=== PATIENT | female | born 1975 | race Caucasian/White ===

== ENCOUNTER → 2019-12-17 14:50 | Outpatient (CLI) | payer OTHER, SELFPAY ==
[2019-12-19 14:08] LABS: Cancer Antigen 125 14.2 U/mL (0.0-38.1)
== END ==
PROVIDERS: PCP Family Medicine; Visit Provider Obstetrics & Gynecology
DX: N83.202 Unspecified ovarian cyst, left side (principal); N99.83 Residual ovary syndrome
CPT/HCPCS: 36415; 86304

== ENCOUNTER → 2020-06-09 09:20 | Outpatient (CLI) | payer OTHER, SELFPAY ==
--- NOTE | 2020-06-09 09:24 | BI_ITS ---
MAMMOGRAPHY - BILATERAL DIAGNOSTIC REASON FOR EXAM: Female, 45 years old. Occasional right breast pain. PERTINENT HISTORY: Non-contributory. History of prior bilateral breast reduction surgery. TECHNIQUE: Digital bilateral breast deven (3D mammographic acquisition) in the CC and MLO projections. 2-D mediolateral oblique (MLO) and craniocaudad (CC) views of both breasts were obtained. CAD: Full Field Digital Mammography with Computer Added Detection was performed. COMPARISON: Comparison is made with prior outside examination dated 07/26/2018. FINDINGS: Breast Composition: There are scattered areas of fibroglandular density. There are no dominant masses or suspicious calcifications. No other significant abnormalities are identified. There has been no significant change since the prior study. BI/DIAG MAMM W/CAD, BILAT IMPRESSION: Stable bilateral diagnostic mammogram. With the patient''s history of left breast pain, correlation with ultrasound of the left breast is recommended. ASSESSMENT CATEGORY: BIRADS Category 0: Incomplete. Need additional imaging evaluation. A letter regarding these results will be sent to the patient by the facility within 30 days. Approximately 10% of breast cancers are not detected by mammography. A normal mammogram should not delay biopsy of a clinically suspicious abnormality. Electronically Signed: Craig Davidson, at 11:14 EDT , Service support ,
--- NOTE | 2020-06-09 09:24 | US_ITS ---
STUDY: ULTRASOUND BREAST - RIGHT REASON FOR EXAM: Female, 45 years old. Pain in the right breast. TECHNIQUE: Axial and longitudinal images of the RIGHT breast were performed with a high resolution ultrasound transducer. # OF IMAGES: 47 COMPARISON: Comparison is made with prior mammogram done earlier in the day. FINDINGS: RIGHT Breast: The upper half of the right breast was examined by ultrasound. No sonographic abnormality is seen. US/Breast Limited Unilateral IMPRESSION: No sonographic abnormality is seen. ASSESSMENT CATEGORY: BIRADS Category 1: Negative. A letter regarding these results will be sent to the patient by the facility within 30 days. Electronically Signed: Craig Davidson, at 11:18 EDT , Service support ,
== END ==
PROVIDERS: PCP Family Medicine; Referring Provider Nurse Practitioner Family; Visit Provider Nurse Practitioner Family
DX: N64.4 Mastodynia (principal)
CPT/HCPCS: 76642; 77062; 77066; G0279

== ENCOUNTER 2020-07-01 10:05 | Outpatient (RCR) | payer OTHER, SELFPAY | END 2020-07-01 11:00 | disposition home or self-care (01) | LOC: EMPH 10:05 | PROVIDERS: PCP Family Medicine; Visit Provider Family Medicine Geriatric Medicine | DX: Z11.59 Encounter for screening for other viral diseases (principal) | CPT/HCPCS: 87635; U0003 ==

== ENCOUNTER → 2020-11-02 14:09 | Outpatient (CLI) | payer OTHER, SELFPAY ==
--- NOTE | 2020-11-02 14:11 | RAD_ITS ---
STUDY: X-RAY - CERVICAL SPINE REASON FOR EXAM: Female, 45 years old. Injury 2 weeks ago. Unable to extend to flex or. TECHNIQUE: 5 view(s) of the cervical spine were obtained. COMPARISON: None FINDINGS: Normal anterior atlantoaxial articulation. Normal odontoid process. There is reversal of the normal cervical lordosis. Normal vertebral bodies and endplates. Normal disc space heights. Normal visualized intervertebral neuroforamina. The soft tissue structures are unremarkable. RAD/Cerv Spine 4 or 5 Views IMPRESSION: Reversal of the cervical lordosis most likely due to muscular strain. There is no visualized fracture or subluxation. Electronically Signed: Dandre Thomas DO at 23:23 EST Tel [phone], Service support ,
== END ==
PROVIDERS: PCP Family Medicine; Referring Provider Family Medicine; Visit Provider Family Medicine
DX: M50.10 Cervical disc disorder with radiculopathy, unspecified cervical region (principal)
CPT/HCPCS: 72050

== ENCOUNTER 2020-11-13 14:10 | Outpatient (RCR) | payer OTHER, SELFPAY | END 2020-11-15 23:59 | LOC: EMPH 14:10 | PROVIDERS: PCP Family Medicine; Visit Provider Family Medicine Geriatric Medicine | DX: Z03.818 Encounter for observation for suspected exposure to other biological agents ruled out (principal) | CPT/HCPCS: 87426 ==

== ENCOUNTER → 2020-11-18 07:18 | Outpatient (CLI) | payer OTHER, SELFPAY ==
--- NOTE | 2020-11-18 07:38 | MRI_ITS ---
STUDY: MRI CERVICAL SPINE WITH AND WITHOUT CONTRAST REASON FOR EXAM: Female, 45 years old. PT C/O RT ARM/HAND SHOOTING PAINS AFTER LAYING GABRIEL 3 WEEKS AGO TECHNIQUE: Standardized fat and water weighted pulse sequences were obtained in the sagittal and axial following administration of IV 15 cc dotarem. COMPARISON: X-ray 11/02/2020 FINDINGS: Normal foramen magnum and brainstem-cervical cord junction. Normal craniovertebral junction. Normal anterior atlantoaxial articulation. Normal odontoid process. There is straightening of the normal cervical lordosis. Normal vertebral bodies and posterior osseous elements. C2-3: Normal endplates. Normal disc height, signal and morphology. Normal central canal and intervertebral neural foramina. C3-4: Normal endplates. Normal disc height, signal and morphology. Normal central canal and intervertebral neural foramina. C4-5: Normal endplates. Normal disc height, signal and morphology. Normal central canal and intervertebral neural foramina. C5-6: Moderate broad disc osteophyte complex produces severe spinal stenosis with effacement of the central spinal cord and no surrounding CSF. Mild bilateral neural foraminal stenosis. C6-7: Moderate sized (5 mm) right paracentral and preforaminal the disc protrusion produces moderate spinal stenosis with abutment of the right hemicord, severe right lateral recess stenosis with effacement of the right C7 nerve root and moderate right neural foraminal stenosis. C7-T1: Normal endplates. Normal disc height, signal and morphology. Normal central canal and intervertebral neural foramina. Normal cervical cord. No abnormal contrast enhancement. Normal visualized soft tissue structures. MRI/Spine Cervical W/WO Contrast IMPRESSION: Multilevel degenerative changes, as described above. Electronically Signed: Fernando Rubio MD at 10:35 EST Tel , Service support ,
== END ==
PROVIDERS: PCP Family Medicine; Referring Provider Anesthesiology Pain Medicine; Visit Provider Anesthesiology Pain Medicine
DX: M54.2 Cervicalgia (principal); R29.898 Other symptoms and signs involving the musculoskeletal system
CPT/HCPCS: 72156; A9575

== ENCOUNTER 2020-12-11 14:48 | Outpatient (RCR) | payer OTHER, SELFPAY | END 2020-12-13 23:59 | LOC: EMPH 14:48 | PROVIDERS: PCP Family Medicine; Referring Provider Family Medicine Geriatric Medicine; Visit Provider Family Medicine Geriatric Medicine | DX: Z03.818 Encounter for observation for suspected exposure to other biological agents ruled out (principal) | CPT/HCPCS: 87426 ==

== ENCOUNTER → 2020-12-29 07:57 | Outpatient (CLI) | payer OTHER, SELFPAY ==
[2020-12-29 09:53] LABS: Hemoglobin A1c 5.1 % (3.8-5.6)
[2020-12-29 10:18] LABS: Anion Gap 7 (5-15); BUN 21 mg/dL (7-18); BUN/Creat Ratio 22.6 RATIO (10-20); Calcium,Total 9.6 mg/dL (8.5-10.1); Chloride 106 mmol/L (98-107); Cholesterol 159 mg/dL (200); Creatinine, Serum 0.93 mg/dL (0.55-1.02); EST Glomerular Filtration Rate 69 mL/min (>60); Est Glom Filt Rate - Afr Amer 83 mL/min (>60); Glucose 88 mg/dL (74-106); High Density Lipoprotein 30 mg/dL; Potassium 3.9 mmol/L (3.5-5.1); Sodium Level 141 mmol/L (136-145); Triglycerides 93 mg/dL; Very Low Density Lipoprotein 19 mg/dL (5-40)
== END ==
PROVIDERS: PCP Nurse Practitioner Primary Care; Referring Provider Nurse Practitioner Primary Care; Visit Provider Nurse Practitioner Primary Care
DX: E78.2 Mixed hyperlipidemia (principal); I10 Essential (primary) hypertension; R73.09 Other abnormal glucose
CPT/HCPCS: 36415; 80048; 80061; 83036

== ENCOUNTER 2021-01-06 09:38 | Outpatient (RCR) | payer OTHER, SELFPAY | END 2021-01-13 23:59 | LOC: EMPH 09:38 | PROVIDERS: PCP Family Medicine; Referring Provider Family Medicine Geriatric Medicine; Visit Provider Family Medicine Geriatric Medicine | DX: Z03.818 Encounter for observation for suspected exposure to other biological agents ruled out (principal) | CPT/HCPCS: 87426 ==

== ENCOUNTER 2021-02-12 13:54 | Outpatient (RCR) | payer OTHER, SELFPAY | END 2021-02-12 23:59 | LOC: EMPH 13:54 | PROVIDERS: PCP Nurse Practitioner Primary Care; Referring Provider Family Medicine Geriatric Medicine; Visit Provider Family Medicine Geriatric Medicine | DX: Z03.818 Encounter for observation for suspected exposure to other biological agents ruled out (principal) | CPT/HCPCS: 87426 ==

== ENCOUNTER 2021-03-12 08:53 | Outpatient (RCR) | payer OTHER, SELFPAY | END 2021-03-15 23:59 | LOC: EMPH 08:53 | PROVIDERS: PCP Nurse Practitioner Primary Care; Referring Provider Family Medicine Geriatric Medicine; Visit Provider Family Medicine Geriatric Medicine | DX: Z03.818 Encounter for observation for suspected exposure to other biological agents ruled out (principal) | CPT/HCPCS: 87426 ==

== ENCOUNTER 2021-04-13 11:29 | Outpatient (RCR) | payer OTHER, SELFPAY | END 2021-04-14 23:59 | LOC: EMPH 11:29 | PROVIDERS: PCP Nurse Practitioner Primary Care; Referring Provider Family Medicine Geriatric Medicine; Visit Provider Family Medicine Geriatric Medicine | DX: Z03.818 Encounter for observation for suspected exposure to other biological agents ruled out (principal) | CPT/HCPCS: 87426 ==

== ENCOUNTER 2021-04-29 13:22 | Outpatient (RCR) | payer OTHER, SELFPAY | END 2021-05-15 23:59 | LOC: EMPH 13:22 | PROVIDERS: PCP Family Medicine; Referring Provider Family Medicine Geriatric Medicine; Visit Provider Family Medicine Geriatric Medicine | DX: Z03.818 Encounter for observation for suspected exposure to other biological agents ruled out (principal) | CPT/HCPCS: 87426 ==

== ENCOUNTER → 2021-05-11 12:28 | Outpatient (CLI) | payer OTHER, SELFPAY ==
[2021-05-11 13:01] LABS: Hematocrit 43.4 % (37-47); Hemoglobin 14.6 g/dL (12.0-15.0); Mean Corp Hgb Conc 33.6 g/dL (32-36); Mean Corpuscular Hgb 28.6 pg (27.0-32.0); Mean Corpuscular Volume 85.1 fL (81-99); Mean Platelet Vol. 10.7 fl (6.2-12.0); Platelet Count 226 K/mm3 (150-450); RBC Distribution Width CV 13.3 % (11.6-14.6); RBC Distribution Width SD 41.4 fl (35.1-43.9); White Blood Count 5.1 K/mm3 (4.4-11.0)
[2021-05-11 13:35] LABS: Vitamin D,25 Hydroxy 55.1 ng/mL
[2021-05-11 14:19] LABS: Ferritin 160 ng/mL (8-252); Iron 97 ug/dL (50-170); Iron Binding Capacity,Total 295 ug/dL (250-450); Thyroid Stim Hormone (TSH) 1.89 uIU/mL (0.358-3.74)
== END ==
PROVIDERS: PCP Family Medicine; Referring Provider Nurse Practitioner Primary Care; Visit Provider Nurse Practitioner Primary Care
DX: L65.9 Nonscarring hair loss, unspecified (principal); R68.89 Other general symptoms and signs; R53.83 Other fatigue
CPT/HCPCS: 36415; 82306; 82728; 82746; 83540; 83550; 84443; 85027

== ENCOUNTER → 2021-06-11 17:37 | Outpatient (CLI) | payer OTHER, SELFPAY ==
--- NOTE | 2021-06-11 17:55 | MRI_ITS ---
STUDY: MRI CERVICAL SPINE WITH CONTRAST REASON FOR EXAM: Female, 46 years old. PAIN TECHNIQUE: Standardized fat and water weighted pulse sequences were obtained in the sagittal and axial following administration of . COMPARISON: 18 November 2020 FINDINGS: Appearance is stable since prior. Normal foramen magnum and brainstem-cervical cord junction. Normal craniovertebral junction. Normal anterior atlantoaxial articulation. Normal odontoid process. Normal cervical lordosis. Normal vertebral bodies and posterior osseous elements. C2-3: Normal endplates. Normal disc height, signal and morphology. Normal central canal and intervertebral neural foramina. C3-4: Normal endplates. Normal disc height, signal and morphology. Normal central canal and intervertebral neural foramina. C4-5: Normal endplates. Normal disc height, signal and morphology. Normal central canal and intervertebral neural foramina. C5-6: Normal endplates. There is broad asymmetric to the right disc and plate osteophyte with a more focal central disc protrusion moderately compressing the cord. Foramina are patent. C6-7: Normal endplates. Right subarticular disc endplate osteophyte mildly compresses the right cord. Foramina are patent. C7-T1: Normal endplates. Normal disc height, signal and morphology. Normal central canal and intervertebral neural foramina. Spinal cord is normal in size and signal with flattening of the compressing levels. Normal visualized soft tissue structures. MRI/Spine Cervical (Routine) IMPRESSION: 1. Stable since earlier same year. 2. Spondylosis with moderate C5-C6, mild C6-C7 cord compression. Electronically Signed: Wu Rivera MD at 21:08 EDT Tel , Service support ,
== END ==
PROVIDERS: PCP Family Medicine; Referring Provider Orthopaedic Surgery; Visit Provider Orthopaedic Surgery
DX: M50.20 Other cervical disc displacement, unspecified cervical region (principal)
CPT/HCPCS: 72141

== ENCOUNTER 2021-06-15 12:28 | Outpatient (RCR) | payer OTHER, SELFPAY | END 2021-06-15 23:59 | LOC: EMPH 12:28 | PROVIDERS: PCP Family Medicine; Referring Provider Family Medicine Geriatric Medicine; Visit Provider Family Medicine Geriatric Medicine | DX: Z03.818 Encounter for observation for suspected exposure to other biological agents ruled out (principal) | CPT/HCPCS: 87426 ==

== ENCOUNTER 2021-06-28 09:44 | Outpatient (RCR) | payer OTHER, SELFPAY | END 2021-07-15 23:59 | LOC: EMPH 09:44 | PROVIDERS: PCP Family Medicine; Referring Provider Family Medicine Geriatric Medicine; Visit Provider Family Medicine Geriatric Medicine | DX: Z03.818 Encounter for observation for suspected exposure to other biological agents ruled out (principal) | CPT/HCPCS: 87426 ==

== ENCOUNTER 2021-08-23 09:37 | Outpatient (RCR) | payer OTHER, SELFPAY | END 2021-09-14 23:59 | LOC: EMPH 09:37 | PROVIDERS: PCP Family Medicine; Referring Provider Family Medicine Geriatric Medicine; Visit Provider Family Medicine Geriatric Medicine | DX: Z03.818 Encounter for observation for suspected exposure to other biological agents ruled out (principal) | CPT/HCPCS: 87426 ==

== ENCOUNTER → 2021-08-25 08:45 | Outpatient (CLI) | payer OTHER, SELFPAY ==
--- NOTE | 2021-08-25 08:49 | RAD_ITS ---
STUDY: X-RAY - RIGHT KNEE REASON FOR EXAM: Female, 46 years old. Knee pain for several months TECHNIQUE: 2 view(s) of the knee. COMPARISON: None. FINDINGS: Normal visualized distal femur. Normal visualized proximal tibia and fibula. Normal proximal tibiofibular articulation. There is mild degenerative arthrosis of the medial femorotibial compartment. Normal lateral femorotibial compartment. Normal patellofemoral articulation. There is no demonstrated joint effusion. The soft tissue structures are unremarkable. RAD/Knee 1 or 2 Views IMPRESSION: Mild degenerative arthrosis of the medial compartment. Electronically Signed: Charly Banda MD ([place]) at 9:14 EST , Service support ,
--- NOTE | 2021-08-25 08:55 | RAD_ITS ---
STUDY: X-RAY - LEFT KNEE REASON FOR EXAM: Female, 46 years old. Knee pain for several months TECHNIQUE: 2 view(s) of the knee. COMPARISON: None. FINDINGS: Normal visualized distal femur. Normal visualized proximal tibia and fibula. Normal proximal tibiofibular articulation. Normal medial femorotibial compartment. Normal lateral femorotibial compartment. Normal patellofemoral articulation. There is no demonstrated joint effusion. The soft tissue structures are unremarkable. RAD/Knee 1 or 2 Views IMPRESSION: Normal x-ray examination of the knee. Electronically Signed: Charly Banda MD ([place]) at 9:14 EST , Service support ,
== END ==
PROVIDERS: PCP Family Medicine
DX: M17.11 Unilateral primary osteoarthritis, right knee (principal); M25.562 Pain in left knee
CPT/HCPCS: 73560

== ENCOUNTER 2021-09-06 10:06 | Emergency (ER) | payer OTHER, SELFPAY ==
[2021-09-06 10:06] VITALS: BP 148/106; PULSE 103; RESP 16; TEMP 36.4; O2SAT 100; BMI 25.7
--- NOTE | 2021-09-06 10:35 | CT_ITS ---
STUDY: CTA HEAD AND NECK WITH CONTRAST REASON FOR EXAM: Female, 46 years old. vertigo, headaches, recent c-spine surgery RADIATION DOSAGE (If Supplied By Facility): CTDIvol = ( 27.51 ) mGy, DLP = ( 1375.87 ) mGycm TECHNIQUE: CT angiography was performed with a multi-detector CT scanner. Data acquisition was obtained from the skull base through the vertex following intravenous administration of IV 100mL Isovue-370. MIP images were reconstructed from the axial data set. Post-processing of the angiographic images was performed, with multiplanar reformation and 3D reconstruction. Individualized dose optimization techniques were used for this CT. COMPARISON: No relevant priors. FINDINGS: Normal right cavernous carotid artery with a normal supraclinoid bifurcation. Normal left cavernous carotid artery with a normal supraclinoid bifurcation. Normal right A1 segments of the anterior cerebral artery. Normal left A1 segments of the anterior cerebral artery. Normal bilateral A2 segments of the anterior cerebral arteries. Normal right M1 and M2 segments of the middle cerebral arteries, with a normal M1 bifurcation. Normal left M1 and M2 segments of the middle cerebral arteries, with a normal M1 bifurcation. Normal right posterior communicating artery (PCOM). Normal left posterior communicating artery (PCOM). Normal basilar artery with a normal basilar bifurcation. The visualized bilateral superior cerebellar (SCA) arteries are normal. Normal bilateral posterior cerebral arteries. AORTIC ARCH: Examination is degraded by motion artifact. Normal visualized aortic arch. RIGHT CAROTID ARTERIES: Normal right common carotid artery (CCA). Normal origin of the right internal carotid (ICA) artery without a hemodynamically significant stenosis. Normal visualized cervical portion of the right internal carotid artery. LEFT CAROTID ARTERIES: Normal left common carotid artery (CCA). Normal origin of the left internal carotid (ICA) artery without a hemodynamically significant stenosis. Normal visualized cervical portion of the left internal carotid artery. VERTEBRAL ARTERIES: Normal bilateral vertebral arteries. STUDY: CT BRAIN WITHOUT CONTRAST Normal size ventricles and extra-axial spaces for the patient''s age. Normal white matter tracts of the cerebral hemispheres. There is no intracranial hemorrhage. There are no findings of an acute ischemic infarction. There are disc spacers at C5/C6 and C6/C7. There are foci of air and small fluid collection involving superficial and deep neck tracking down to the left prevertebral space and most prominent posterior to the thyroid and anterior to the left carotid space . This fluid collection measures approximately 2.0 x 1.[address]/CTA Head AND Neck W/ Contrast IMPRESSION: CT of the head: No large vessel occlusion. CT of neck: No demonstrated occlusion or significant stenosis. Status post instrumented anterior fusion. 3 cm deep left neck fluid collection. Differential considerations include hematoma, seroma and abscess. Electronically Signed: Deysi Siddiqui MD at 12:08 EST Tel , Service support ,
--- NOTE | 2021-09-06 10:37 | EX.ED.DYSGE1 ---
HPI History of Present Illness Chief Complaint: Dizziness Informant: patient Onset/Context/Timing Onset: Weeks (1) Context: - (Since the day after neck surgery) Timing: Continuous Current Severity: Moderate Maximum Severity: Moderate Associated Symptoms Associated Symptoms: Nausea, headaches Narrative Narrative: 1 week ago patient had cervical spine surgery, she had multilevel discectomy and states she had artificial disks put in to replace them. Since the day after surgery she has been having disequilibrium when attempting to walk, headaches, some blurry vision off and on. She does have a history of vertigo and has taken meclizine off and on for that in the past, but this has been persistent for the last week and unusual. She is also having postoperative neck pain. She is in a soft brace and has limited range of motion but is able to turn her head a little. It does make the symptoms worse. She called her surgeon today and was advised to come to the ER to rule out a spinal fluid leak. She denies any numbness or weakness in her arms or legs, changes in her hearing or ringing, or diplopia. No fevers or chills. [facility] Medical History Anxiety GERD (gastroesophageal reflux disease) Hypertension Spinal stenosis Home Medications gabapentin 100 mg PO TID #90 cap 11/16/20 [Rx Last Taken Unknown] Antivert 09/06/21 [History Last Taken Unknown] Flexeril 09/06/21 [History Last Taken Unknown] Prozac 09/06/21 [History Last Taken Unknown] lisinopril-hydrochlorothiazide 09/06/21 [History Last Taken Unknown] norethindrone acetate 09/06/21 [History Last Taken Unknown] omeprazole 40 mg PO/SL DAILY 09/06/21 [History Last Taken Unknown] ondansetron 8 mg PO Q8H PRN PRN #20 tab 09/06/21 [Rx Last Taken Unknown] scopolamine base 1 patch TRANSDERMAL Q3D PRN #4 ea 09/06/21 [Rx Last Taken Unknown] Allergy/AdvReac Type Severity Reaction Status Date / Time morphine Allergy Hives Verified 09/06/21 10:16 niacin Allergy Hives Verified 09/06/21 10:16 Sulfa (Sulfonamide Allergy Angioedema Verified 09/06/21 10:16 Antibiotics) Penicillins AdvReac Other Verified 09/06/21 10:16 Surgical History (Updated 09/06/21 @ 14:[address] Nabil Bella MD) H/O: hysterectomy Social History Smoking Status: Never smoker ROS ROS ED Constitutional Constitutional ED: Denies chills or fever(s) Eyes Eyes: Denies change in vision or diplopia ENT ENT ED: Denies rhinorrhea or sore throat Cardiovascular Cardiovascular: Denies chest pain or palpitations Respiratory/Chest Respiratory/Chest: Denies cough or dyspnea Gastrointestinal Gastrointestinal: Denies abdominal pain, diarrhea, nausea or vomiting Genitourinary Genitourinary ED: Denies dysuria or hematuria Musculoskeletal Musculoskeletal: Denies back pain or neck pain Integumentary Denies abscess or rash Neurologic Neurologic: Denies headache(s), paresthesias or weakness Psychiatric Psychiatric: Denies anxiety or suicidal thoughts EXAM Physical Exam Const Vital Signs: 09/06/21 10:06 09/06/21 12:06 09/06/21 14:03 Temperature 97.5 F L Temperature Source Temporal Pulse Rate 103 H 74 81 Respiratory Rate 16 Blood Pressure 148/106 H 147/101 H 153/105 H Blood Pressure Mean 120 116 121 Pulse Ox 100 Oxygen Delivery Method Room Air Positive well nourished and well developed General Appearance ED: well developed and NAD HEENT Reports EAC's normal, TM's clear and moist mucous membranes normocephalic and atraumatic Tympanic Membrane ED: Yes TM's clear Eyes PERRL and EOMs intact bilaterally EOM: Negative for nystagmus Neck no meningeal signs Neck Narrative: Soft collar in place. No signs of postoperative infection/cellulitis. Limited range of motion but able to do short arc without difficulty. Resp normal respiratory effort and clear to auscultation bilaterally Cardio regular rate, regular rhythm and no murmurs GI non-tender and non-distended Auscultation: normoactive bowel sounds Palpation: soft Back/Spine no CVA tenderness General Back: other FROM Extremity normal to inspection General Extremety ED: Negative for edema, pulses abnormal or tenderness General Extremity: Negative for edema or pulses abnormal Neuro oriented x3, CN's II-XII intact bilaterally, no focal motor deficits, no sensory deficits noted and deep tendon reflexes 2+ bilaterally Neuro Narrative: Normal kzaada-uy-gyod and tmla-ju-fzuw bilaterally Sensorium / Orientation: awake and alert Motor Exam: strength 5/5 throughout and clonus absent Skin no rashes or lesions noted and no wounds MDM MDM MDM Narrative Medical decision making narrative: CT angiography of the head and neck were obtained, results are below, there is a 3 cm deep neck fluid collection, but no radiographic evidence of any type of fluid leak or cervical artery dissection. No leukocytosis, pain in this area is not severe, and there is no sign of any infection at the left anterior wound. Dr. Boykin her surgeon was not available, so I discussed with one of his colleagues Dr. Ni, he agrees that the patient may safely be discharged home with close outpatient follow-up in the office without the need for any further advanced testing/imaging. Discussed with the patient she is comfortable with this plan. Further information/details obtained prior to discharge, she was given a scopolamine patch postoperatively, it lasted for 3 days and she had no more. During that time she felt like her motion sickness symptoms and nausea were much better controlled and she was hoping to get some more which was her initial reason for calling the office this morning. She is having trouble taking her oxycodone because it makes her nauseated she has nothing for nausea. I will give her a prescription for both, the patches and some ondansetron she is comfortable with that plan. Lab Data Attestation: I reviewed the patient's lab results. Labs: Laboratory Results - last 24 hr 09/06/21 09/06/21 10:50 10:50 WBC 6.9 RBC 5.37 Hgb 15.6 H Hct 44.7 MCV 83.2 MCH 29.1 MCHC 34.9 RDW Std Deviation 38.4 RDW Coeff of Keke 12.7 Plt Count 207 MPV 10.5 Immature Gran % (Auto) 0.900 Neut % (Auto) 46.5 L Lymph % (Auto) 41.1 H Titus % (Auto) 7.4 Eos % (Auto) 3.5 Baso % (Auto) 0.6 Absolute Neuts (auto) 3.2 Absolute Lymphs (auto) 2.83 Nucleated RBC % 0 Sodium 138 Potassium 3.6 Chloride 103 Carbon Dioxide 30.0 Anion Gap 5 BUN 18 Creatinine 0.71 Estim Creat Clear Calc 77.47 Est GFR (MDRD) Af Amer 113 Est GFR (MDRD) Non-Af 93 BUN/Creatinine Ratio 25.2 H Glucose 111 H Calcium 9.4 Radiography Diagnostic Testing: Clinical Impression(s) from Imaging Studies Head/Neck CTA 09/06/21 10:35 IMPRESSION: CT of the head: No large vessel occlusion. CT of neck: No demonstrated occlusion or significant stenosis. Status post instrumented anterior fusion. 3 cm deep left neck fluid collection. Differential considerations include hematoma, seroma and abscess. Electronically Signed: Deysi Siddiqui MD at 12:08 EST Tel , Service support , Discharge Plan Triage Chief Complaint: Dizziness ED Provider: Nabil Bella Dx/Rx/DC Orders Clinical Impression: Dysequilibrium, Intermittent headache, S/P cervical disc replacement Instructions: ED Dizziness, Uncertain Cause Prescriptions: New scopolamine base 1 mg over 3 days patch 3 day 1 patch transdermal Q3D PRN (Reason: motion sickness) Qty: 4 RF: 0 ondansetron [ondansetron] 4 MG tablet 8 mg PO Q8H PRN PRN (Reason: Nausea) Qty: 20 RF: 0 No Action Prozac RF: 0 lisinopril-hydrochlorothiazide RF: 0 omeprazole 40 mg PO/SL DAILY RF: 0 Antivert RF: 0 Flexeril RF: 0 norethindrone acetate RF: 0 gabapentin 100 MG capsule 100 mg PO TID Qty: 90 RF: 2 Primary Care Provider: Landry Sims Referrals: Landry Sims MD [Primary Care Provider] - Chas Boykin DO [NON-STAFF] - 3-5 Days (call for appt) Disposition Disposition: Home, Self Care
[2021-09-06 11:04] LABS: Absolute Lymphocyte Count 2.83 X10^3/uL (0.83-4.51); Absolute Neutrophil Count 3.2 X10^3/uL (2.0-7.7); Basophil# 0.04 X10^3/uL; Basophil% 0.6 % (0-1); Eosinophil# 0.24 X10^3/uL; Eosinophils% 3.5 % (0-5); Hematocrit 44.7 % (37-47); Hemoglobin 15.6 g/dL (12.0-15.0); Lymphocyte # 2.83 X10^3/ul (0.83-4.51); Lymphocyte % 41.1 % (19-41); Mean Corp Hgb Conc 34.9 g/dL (32-36); Mean Corpuscular Hgb 29.1 pg (27.0-32.0); Mean Corpuscular Volume 83.2 fL (81-99); Mean Platelet Vol. 10.5 fl (6.2-12.0); Monocyte# 0.51 X10^3/uL; Monocyte% 7.4 % (0-10); NRBC Flagged by Analyzer 0 % (0-5); Neutrophil % 46.5 % (47-70); Platelet Count 207 K/mm3 (150-450); RBC Distribution Width CV 12.7 % (11.6-14.6); RBC Distribution Width SD 38.4 fl (35.1-43.9); Red Blood Count 5.37 M/mm3 (4.2-5.4); White Blood Count 6.9 K/mm3 (4.4-11.0)
[2021-09-06 11:16] LABS: Anion Gap 5 (5-15); BUN 18 mg/dL (7-18); BUN/Creat Ratio 25.2 RATIO (10-20); Calcium,Total 9.4 mg/dL (8.5-10.1); Chloride 103 mmol/L (98-107); Creatinine, Serum 0.71 mg/dL (0.55-1.02); EST Glomerular Filtration Rate 93 mL/min (>60); Est Glom Filt Rate - Afr Amer 113 mL/min (>60); Estimated Creatinine Clearance 77.47 ml/min; Glucose 111 mg/dL (74-106); Potassium 3.6 mmol/L (3.5-5.1); Sodium Level 138 mmol/L (136-145)
[2021-09-06 12:06] VITALS: BP 147/101; PULSE 74
[2021-09-06] MEDS: Acetaminophen 500 MG Tablet 1000 MG PO (14:02)
[2021-09-06 14:03] VITALS: BP 153/105; PULSE 81
[2021-09-06 15:01] VITALS: BP 138/108; PULSE 90
== END 2021-09-06 15:02 | disposition home or self-care (01) ==
PROVIDERS: Emergency Provider Emergency Medicine; PCP Family Medicine
DX: R42 Dizziness and giddiness (principal); R51.9 Headache, unspecified; I10 Essential (primary) hypertension; K21.9 Gastro-esophageal reflux disease without esophagitis; F41.9 Anxiety disorder, unspecified; M48.00 Spinal stenosis, site unspecified; Z98.1 Arthrodesis status; Z79.899 Other long term (current) drug therapy
CPT/HCPCS: 70496; 70498; 80048; 85025; 96360; 99282; J7030; Q9967; A4216

== ENCOUNTER 2021-10-13 17:16 | Outpatient (RCR) | payer OTHER, SELFPAY | END 2021-10-15 23:59 | LOC: EMPH 17:16 | PROVIDERS: PCP Family Medicine; Referring Provider Family Medicine Geriatric Medicine; Visit Provider Family Medicine Geriatric Medicine | DX: Z03.818 Encounter for observation for suspected exposure to other biological agents ruled out (principal) | CPT/HCPCS: 87426; 87635; U0003; U0005 ==

== ENCOUNTER 2021-11-15 09:04 | Outpatient (RCR) | payer OTHER, SELFPAY | END 2021-11-15 23:59 | LOC: EMPH 09:04 | PROVIDERS: PCP Family Medicine; Referring Provider Family Medicine Geriatric Medicine; Visit Provider Family Medicine Geriatric Medicine | DX: Z03.818 Encounter for observation for suspected exposure to other biological agents ruled out (principal) | CPT/HCPCS: 87426 ==

== ENCOUNTER 2021-11-29 14:42 | Outpatient (RCR) | payer OTHER, SELFPAY | END 2021-12-13 23:59 | LOC: EMPH 14:42 | PROVIDERS: PCP Family Medicine; Referring Provider Family Medicine Geriatric Medicine; Visit Provider Family Medicine Geriatric Medicine | DX: Z03.818 Encounter for observation for suspected exposure to other biological agents ruled out (principal) | CPT/HCPCS: 87426 ==

== ENCOUNTER → 2022-04-11 | Outpatient (CLI) | payer OTHER, SELFPAY ==
[2022-04-11 09:06] LABS: ALB/GLOB Ratio 1.1 RATIO (0.9-2.4); AST(SGOT) 15 U/L (15-37); Alanine Aminotransfer ALT/SGPT 24 U/L (13-56); Albumin, Serum 3.7 g/dL (3.2-5.0); Alkaline Phosphatase 55 U/L (45-117); Anion Gap 4 (5-15); BUN 17 mg/dL (7-18); BUN/Creat Ratio 23.2 RATIO (10-20); Calcium,Total 9.1 mg/dL (8.5-10.1); Chloride 106 mmol/L (98-107); Cholesterol 201 mg/dL (200); Creatinine, Serum 0.73 mg/dL (0.55-1.02); EST Glomerular Filtration Rate 90 mL/min (>60); Est Glom Filt Rate - Afr Amer 109 mL/min (>60); Globulin 3.4 g/dL (2.2-4.2); Glucose 103 mg/dL (74-106); High Density Lipoprotein 30 mg/dL; Potassium 3.7 mmol/L (3.5-5.1); Protein, Total 7.1 g/dL (6.4-8.2); Sodium Level 141 mmol/L (136-145); Triglycerides 97 mg/dL; Very Low Density Lipoprotein 19 mg/dL (5-40)
== END | disposition home or self-care (01) ==
LOC: LAB 07:30
PROVIDERS: PCP Nurse Practitioner Primary Care; Referring Provider Nurse Practitioner Primary Care; Visit Provider Nurse Practitioner Primary Care
DX: I10 Essential (primary) hypertension (principal); Z13.220 Encounter for screening for lipoid disorders; E78.2 Mixed hyperlipidemia
CPT/HCPCS: 36415; 80053; 80061

== ENCOUNTER → 2022-05-04 | Outpatient (CLI) | payer OTHER, SELFPAY ==
--- NOTE | 2022-05-04 10:05 | RAD_ITS ---
EXAM: XR RIGHT KNEE, 1 OR 2 VIEWS CLINICAL INDICATION: R KNEE PAIN TECHNIQUE: Frontal and/or lateral views of the right knee. This report was created using [employer] report generation technology. COMPARISON: 08/25/2021. FINDINGS: BONES/JOINTS: Moderate joint space narrowing medial femorotibial compartment. No acute fracture. No subluxation. Normal alignment. No sclerotic or destructive changes observed. SOFT TISSUES: Unremarkable. No soft tissue swelling or gas. No radiopaque foreign body. RAD/Knee 1 or 2 Views IMPRESSION: Moderate joint space narrowing medial femorotibial compartment. No acute abnormality. Electronically Signed: Jad Glasgow MD at 0:34 EDT ,
== END | disposition home or self-care (01) ==
LOC: RAD 09:57
PROVIDERS: PCP Nurse Practitioner Primary Care; Referring Provider Anesthesiology Pain Medicine; Visit Provider Anesthesiology Pain Medicine
DX: M25.561 Pain in right knee (principal)
CPT/HCPCS: 73560

== ENCOUNTER 2022-09-15 07:28 | Outpatient (CLI) | payer OTHER, SELFPAY ==
--- NOTE | 2022-09-15 07:32 | MRI_ITS ---
EXAM: MR RIGHT LOWER EXTREMITY WITHOUT INTRAVENOUS CONTRAST, KNEE CLINICAL INDICATION: MENISCUS DEGEN, RIGHT KNEE PAIN TECHNIQUE: Multiplanar and multisequence MR images of the right knee without intravenous contrast. This report was created using [employer] report generation technology. COMPARISON: May 04, 2022 FINDINGS: BONES/JOINTS: 4 mm intra-articular ossific body posteriorly adjacent to the posterior cruciate ligament. Lateral patellar facet subchondral marrow signal alteration with no obvious full-thickness chondral defect or fissure identified. Small amount of suprapatellar joint fluid. EXTENSOR MECHANISM: Unremarkable. MEDIAL MENISCUS: No obvious tear. LATERAL MENISCUS: No tear. MEDIAL CAPSULE/SUPPORTING STRUCTURES: Unremarkable. Intact. LATERAL CAPSULE/SUPPORTING STRUCTURES: Unremarkable. Lateral collateral ligamentous complex, inclusive of the popliteal tendon, are intact. ANTERIOR CRUCIATE LIGAMENT: Unremarkable. Intact. POSTERIOR CRUCIATE LIGAMENT: Unremarkable. Intact. MUSCLES: Unremarkable. CARTILAGE: Areas of full-thickness chondral loss with subchondral signal alteration at the middle weightbearing portion of the medial femoral condyle. Lateral patellar facet subchondral marrow signal alteration with no obvious full-thickness chondral defect or fissure identified (low-grade fissure/chondral heterogeneity identified). FLUID: 2.9 x 2.9 cm x 5.6 cm Lugo''s cyst with suggestion of mild inferior leakage. No joint effusion. OTHER SOFT TISSUES: See above. MRI/Lower Ext Joint Only (Routine) IMPRESSION: 1. Areas of full-thickness chondral loss with subchondral signal alteration at the middle weightbearing portion of the medial femoral condyle. 2. 4 mm intra-articular ossific body posteriorly adjacent to the posterior cruciate ligament. 3. 2.9 x 2.9 cm x 5.6 cm Lugo''s cyst with suggestion of mild inferior leakage. Electronically Signed: Geronimo Rodriguez MD at 21:26 EST ,
== END 2022-09-15 23:59 | disposition home or self-care (01) ==
LOC: MRI 07:29
PROVIDERS: PCP Nurse Practitioner Primary Care
DX: M23.306 Other meniscus derangements, unspecified meniscus, right knee (principal)
CPT/HCPCS: 73721

== ENCOUNTER 2022-11-07 10:18 | Day surgery (SDC) | payer OTHER, SELFPAY ==
--- NOTE | 2022-11-07 | GASB_PTH ---
PATIENT: JULISSA VALDEZ LOC: EN U#:[id number] AGE/SX: 47/F ROOM: RE11/07/[address]: Dr. Khalif Vasquez DO : 1975 BED: DIS: 11/07/2022 SPEC #: [id number] RECD: 11/07/22 14:20 STATUS: ESTEFANY ISSAC #: [id number] KIRSTEN: 11/07/22 00:[address]: Khalif Vasquez DEPT: SURGICAL PATHOLOGY RECD BY: Roland Cantor ENTERED: 11/08/22 11:07 SP TYPE: Gastric Bx OTHR DR: Asha Flores, [employer] Tissues: A - Gastric mucous membrane B - Esophageal mucous membrane Procedures: Surgery Specimen Level IV HEADER OPERATION: EGD ([facility] [place] PH probe PRE-OP DIAGNOSIS: GERD TISSUE SUBMITTED: A ? Gastric cardia biopsy, B ? Random esophagus biopsy MICROSCOPIC DIAGNOSIS A. Gastric cardia, biopsy: Mild gastritis. See microscopic description and comment. B. Esophagus, random biopsy: Fragments of squamous mucosa with mild chronic inflammation. RICHARD:susy 11/09/2022 COMMENT A. The results of immunohistochemistry for Helicobacter pylori will be reported separately ([id number]). MICROSCOPIC DESCRIPTION Slides are reviewed. A. The specimen shows fragments of gastric mucosa with chronic inflammatory cell infiltrates in the lamina propria consisting of lymphocytes and plasma cells, consistent with mild chronic gastritis. GROSS DESCRIPTION A - Received in fixative is one container labeled with the patient's name and designated gastric cardia biopsy. The specimen consists of two irregular fragments of light balderrama soft tissue that in aggregate measure 0.6 x 0.3 x 0.1 cm. The specimen is totally submitted in one cassette. B - Received in fixative is one container labeled with the patient's name and designated random esophagus biopsy. The specimen consists of multiple irregular fragments of light balderrama soft tissue that in aggregate measure 1 x 0.3 x 0.1 cm. The specimen is totally submitted in one cassette. / RICHARD:susy 11/08/2022 TC:3 CPT: 44478 x2
[2022-11-07 10:46] VITALS: BP 140/89; PULSE 76; RESP 16; TEMP 36.9; O2SAT 96; BMI 25.8
[2022-11-07] MEDS: Lactated Ringers 1,000 ML 15 ML IV (10:56)
--- NOTE | 2022-11-07 11:12 | HP.PCM_ITS ---
History and Physical Date of Admission: 11/07/22 47 F who presents to the office today for Initial consult. Eleni established with this clinic 09.09.22 for acid reflux. She was previously started on medications that she cannot recall which were helpful. Medications then stopped. In the last year to two years she feel she has been having increased drainage, cough. Continues with omeprazole 20mg BID. History of hemorrhoids, thrombosed s/p excision by Dr. Zaman [facility] PMH anxiety, asthma, HTN, hyperlipidemia PSH anterior cervical discectomy 08.30.21; total hysterectomy 2009. EGD 11.08.16 ROS Const Constitutional: No anorexia, fatigue, fever(s), weight change or sleep problems Eyes Eyes: No change in vision ENT ENT: No abnormal hearing, difficulty swallowing, mouth lesions, tongue swelling or throat swelling Resp Respiratory: No cough or shortness of breath Cardio Cardiology: No chest pain at rest, chest pain with exertion, shortness of breath or dyspnea on exertion Gastro GI: No difficulty swallowing Genitourinary-Female: No difficulty urinating or burning urination Musc Musculoskeletal: No joint pain, joint swelling, muscle weakness or decreased muscle mass Skin Skin: No hair loss in leg, yellowing of the eye, itchy eyes, rash, skin ulcer or skin swelling Neuro Neurology: No abnormal hearing, abnormal movements, confusion, unsteady gait/balance or memory loss Psych Psychiatric: No anxiety, No confusion and No memory loss Endo Endocrine: No fatigue or weight change Aller/Imm Allergy/Immunologic: No itchy eyes, throat swelling or tongue swelling Syd/Lymp Hematologic/Lymphatic: No easy bleeding, easy bruising or enlarged lymph nodes Exam Const General: cooperative and comfortable Nutritional Appearance: average body habitus and well nourished [facility] Head: normal to inspection Ears: hearing grossly normal bilaterally Nose: external nose normal Face and sinus: normal facial exam Mouth: oral mucosae normal Throat: posterior oropharynx normal Eyes General: appearance normal, both eyes and all related structures Neck Neck: normal visual inspection Chest Chest palpation & inspection: normal inspection of the chest and normal palpation of entire chest wall Resp Effort & Inspection: normal respiratory effort Auscultation: Bilateral: Clear to Auscultation Cardio Palpation: normal PMI Rate: regular rate Rhythm: regular rhythm GI Inspection: normal to inspection Auscultation: normal bowel sounds Percussion: normal to percussion Palpation: no hepatosplenomegaly Skin General: no rashes or lesions noted Neuro General: patient alert Extrem General: normal to inspection Psych Affect: normal affect Quality Reporting Tobacco Screening (CMS 138) Smoking Status: Never smoker Assessment and Plan Assessment and Plan (1) GERD (gastroesophageal reflux disease): ?Status:?Chronic ?Plan: She is having refractory gastroesophageal reflux disease.? She said that she had a manometry done previously.? I would like to get that report so we do not have to repeat that study.? She also needs an EGD with Arango placement so we can see if this is truly gastroesophageal reflux disease versus nonerosive reflux disease.? I suspect they had done that manometry study on her because she had a lax lower esophageal sphincter.? I think they were talking about doing a linx procedure if she did not respond to medical therapy.? However she did respond to medical therapy that sounds like Reglan and possible sulcal fate therapy.? I would like to perform a gastric emptying study, an upper endoscopy with Arango prior to starting on any empiric therapy. I have examined the patient and the H&P has been reviewed. There are no clinical changes since date of exam.
--- NOTE | 2022-11-07 11:15 | IMM_PTH ---
PATIENT: JULISSA VALDEZ LOC: EN U#:[id number] AGE/SX: 47/F ROOM: RE11/07/[address]: Dr. Khalif Vasquez DO : 1975 BED: DIS: 11/07/2022 SPEC #: [id number] RECD: 11/08/22 14:33 STATUS: ESTEFANY RENorman #: [id number] KRISTEN: 11/07/22 11:[address]: Khalif Vasquez DEPT: IMMUNOHISTOCHEMISTRY RECD BY: Philly Renae ENTERED: 11/08/22 14:39 SP TYPE: IMMUNO OTHR DR: Asha Flores, TIMING ADJUSTER-C Tissues: A - Stomach, NOS Procedures: H Pylori (initial) PHYSICIAN & INSTITUTION [place] [id number] SPECIMEN INFORMATION: Tissue Source: A ? Gastric cardia biopsy Clinical Info: GERD Specimen Number: [id number] CPT code: 73802 METHODOLOGY: Deparaffinized sections of prefer/formalin-fixed tissue or PAP/DQ stained slides are incubated with monoclonal/polyclonal antibodies/oligonucleotide probes. Localization is made via biotin free immunoperoxidase method. Appropriate controls are performed and reacted as expected. Results on target cell population are indicated in the following table: RESULTS: ANTIBODY / CLONE RESULT Block A H Pylori (polyclonal) negative These tests were developed and their performance characteristics determined by [facility]. They may not have been cleared or approved by the U.S. Food and Drug Administration. The FDA has determined that such clearance or approval is not necessary. The above immunohistochemical/dualISH markers are ordered and reviewed by the Pathologist. INTERPRETATION: A. Gastric cardia, biopsy: Negative for Helicobacter pylori organisms. SJ:susy 11/09/2022
[2022-11-07 12:00] VITALS: BP 117/79; BP 140/89; PULSE 86; RESP 14; TEMP 37; O2SAT 92
--- NOTE | 2022-11-07 12:00 | OP.EGD_ITS ---
Patient Name: Eleni Pereira Procedure Date: 11/07/2022 11:39 AM Date of : 1975 Age: 47 Procedure: Upper GI endoscopy Indications: Heartburn Providers: Khalif Vasquez DO Medicines: Monitored Anesthesia Care Patient Profile: This is a 47 year old female. Refer to note in patient chart for documentation of history and physical. Patient has symptoms of chronic heartburn. Complications: No immediate complications. Procedure: Pre-Anesthesia Assessment: - Prior to the procedure, a History and Physical was performed, and patient medications and allergies were reviewed. The risks and benefits of the procedure and the sedation options and risks were discussed with the patient. All questions were answered and informed consent was obtained. Patient identification and proposed procedure were verified by the physician in the pre-procedure area. Mental Status Examination: alert and oriented. Airway Examination: normal oropharyngeal airway and neck mobility. Respiratory Examination: clear to auscultation. CV Examination: normal. Prophylactic Antibiotics: The patient does not require prophylactic antibiotics. Prior Anticoagulants: The patient has taken no previous anticoagulant or antiplatelet agents. ASA Grade Assessment: II - A patient with mild systemic disease. After reviewing the risks and benefits, the patient was deemed in satisfactory condition to undergo the procedure. The anesthesia plan was to use monitored anesthesia care (MAC). Immediately prior to administration of medications, the patient was re-assessed for adequacy to receive sedatives. The heart rate, respiratory rate, oxygen saturations, blood pressure, adequacy of pulmonary ventilation, and response to care were monitored throughout the procedure. The physical status of the patient was re-assessed after the procedure. After obtaining informed consent, the endoscope was passed under direct vision. Throughout the procedure, the patient's blood pressure, pulse, and oxygen saturations were monitored continuously. The Endoscope was introduced through the mouth, and advanced to the second part of duodenum. The upper GI endoscopy was accomplished without difficulty. The patient tolerated the procedure well. Scope In: 11:49:05 AM Scope Out: 11:55:02 AM Total Procedure Duration Time 0 hours 5 minutes 57 seconds Findings: Patchy, white plaques were found in the mid esophagus and in the distal esophagus. Biopsies were taken with a cold forceps for histology. Verification of patient identification for the specimen was done. Estimated blood loss was minimal. The Sweeten capsule with delivery system was introduced through the mouth and advanced into the esophagus, such that the VAUHGN pH capsule was positioned 40 cm from the incisors, which was 6 cm proximal to the GE junction. Suction was applied to the well of the VAUGHN pH capsule to suck in the adjacent mucosa of the esophagus using the external vacuum pump set at a minimum vacuum pressure of 550 mmHg for 30 seconds. The VAUGHN pH capsule was then deployed by depressing the plunger on top of the handle to advance the locking pin into the mucosa, thereby attaching the capsule to the esophagus. The plunger was then rotated a quarter turn clockwise to release the capsule from the delivery system. The delivery system was then withdrawn. Endoscopy was utilized for probe placement and diagnostic evaluation. Estimated blood loss was minimal. A few localized, 5 mm non-bleeding erosions were found in the cardia. There were no stigmata of recent bleeding. Biopsies were taken with a cold forceps for histology. Verification of patient identification for the specimen was done. Estimated blood loss was minimal. No gross lesions were noted in the second portion of the duodenum. Impression: - Esophageal plaques were found, suspicious for candidiasis. Biopsied. - Non-bleeding erosive gastropathy. Biopsied. - No gross lesions in the second portion of the duodenum. - The VAUGHN pH capsule was positioned 40 cm from the incisors, which was 6 cm proximal to the GE junction. Recommendation: - Discharge patient to home. - Resume previous diet. - Continue present medications. - Await pathology results. Procedure Code(s): --- Professional --- 04623, Esophagogastroduodenoscopy, flexible, transoral; with biopsy, single or multiple CPT copyright 2017 [employer]. All rights reserved. The codes documented in this report are preliminary and upon senior research analyst review may be revised to meet current compliance requirements. Khalif Vasquez DO 11/07/2022 11:59:33 AM This report has been signed electronically. Number of Addenda: 0 Note Initiated On: 11/07/2022 11:39 AM
--- NOTE | 2022-11-07 12:00 | OP.CCLET_ITS ---
11/07/2022 Asha Podlogar Re : Upper GI endoscopy procedure for Eleni Pereira Dear Podlogar This procedure was performed on Monday, November 07, 2022. My impressions and recommendations are as follows: Impressions : - Esophageal plaques were found, suspicious for candidiasis. Biopsied. - Non-bleeding erosive gastropathy. Biopsied. - No gross lesions in the second portion of the duodenum. - The VAUGHN pH capsule was positioned 40 cm from the incisors, which was 6 cm proximal to the GE junction. Recommendations : - Discharge patient to home. - Resume previous diet. - Continue present medications. - Await pathology results. My findings are described in the full procedure note, which is enclosed. If I can be of further assistance, please feel free to contact me at . Sincerely, Khalif Vasquez, 11/07/2022 11:59:33 AM This report has been signed electronically.
[2022-11-07 12:05] VITALS: BP 117/82; BP 140/89; PULSE 97; RESP 14; O2SAT 93
[2022-11-07 12:10] VITALS: BP 123/85; BP 140/89; PULSE 90; RESP 14; O2SAT 93
[2022-11-07 12:16] VITALS: BP 127/93; BP 140/89; PULSE 78; RESP 16; TEMP 36.7; O2SAT 95
== END 2022-11-07 13:12 | disposition home or self-care (01) ==
LOC: EN 10:20 → AC 10:22
PROVIDERS: PCP Nurse Practitioner Primary Care; Referring Provider Nurse Practitioner Primary Care; Visit Provider Internal Medicine Gastroenterology
PROC: 0DJ08ZZ Inspection of Upper Intestinal Tract, Via Natural or Artificial Opening Endoscopic (ICD-10-PCS; CPT 43235; principal; 2022-11-07 11:10)
DX: K21.9 Gastro-esophageal reflux disease without esophagitis (principal); I10 Essential (primary) hypertension; E78.5 Hyperlipidemia, unspecified; F41.9 Anxiety disorder, unspecified
CPT/HCPCS: 43239; 88305; 88342; J7120; J2405

== ENCOUNTER → 2022-11-30 | Outpatient (CLI) | payer OTHER, SELFPAY ==
[2022-12-08 00:06] LABS: Alternaria alternata <0.10 kU/L (Class 0); Aspergillus fumigatus <0.10 kU/L (Class 0); Bahia Grass <0.10 kU/L (Class 0); Beef <0.10 kU/L (Class 0); Bermuda Grass <0.10 kU/L (Class 0); Bluegrass, Kentucky <0.10 kU/L (Class 0); Cat Hair/Dander, Standard <0.10 kU/L (Class 0); Cedar, Mountain <0.10 kU/L (Class 0); Cladosporium herbarum <0.10 kU/L (Class 0); Clam <0.10 kU/L (Class 0); Cockroach, American <0.10 kU/L (Class 0); Codfish <0.10 kU/L (Class 0); Corn <0.10 kU/L (Class 0); D farinae Mite <0.10 kU/L (Class 0); D pteronyssinus <0.10 kU/L (Class 0); Dog Epithelia <0.10 kU/L (Class 0); Egg, White <0.10 kU/L (Class 0); Egg, Whole <0.10 kU/L (Class 0); Elm, American White <0.10 kU/L (Class 0); Hazelnut Tree <0.10 kU/L (Class 0); Hickory, White <0.10 kU/L (Class 0); Johnson Grass <0.10 kU/L (Class 0); Maple/Box Elder <0.10 kU/L (Class 0); Milk (Cow) <0.10 kU/L (Class 0); Mucor racemosus <0.10 kU/L (Class 0); Mugwort <0.10 kU/L (Class 0); Mulberry, White <0.10 kU/L (Class 0); Nettle <0.10 kU/L (Class 0); Oak, White <0.10 kU/L (Class 0); Peanut <0.10 kU/L (Class 0); Penicillium chrysogen <0.10 kU/L (Class 0); Pigweed, Rough <0.10 kU/L (Class 0); Plantain, English <0.10 kU/L (Class 0); Pork <0.10 kU/L (Class 0); Ragweed, Short/Common <0.10 kU/L (Class 0); SCALLOP <0.10 kU/L (Class 0); SESAME SEED <0.10 kU/L (Class 0); Sheep Sorrel(Dock) <0.10 kU/L (Class 0); Shrimp <0.10 kU/L (Class 0); Soybean <0.10 kU/L (Class 0); Stemphylium herbarum <0.10 kU/L (Class 0); Sweet Gum <0.10 kU/L (Class 0); Sycamore, American <0.10 kU/L (Class 0); Walnut, (Food) <0.10 kU/L (Class 0); Wheat <0.10 kU/L (Class 0)
[2022-12-08 23:01] LABS: Chocolate <0.10 kU/L (Class 0)
== END | disposition home or self-care (01) ==
LOC: LAB 16:09
PROVIDERS: PCP Nurse Practitioner Primary Care; Visit Provider Internal Medicine Gastroenterology
DX: K21.9 Gastro-esophageal reflux disease without esophagitis (principal)
CPT/HCPCS: 36415; 86003; 86005

== ENCOUNTER → 2023-05-10 | Outpatient (CLI) | payer OTHER, SELFPAY ==
--- NOTE | 2023-05-10 08:39 | BI_ITS ---
MAMMOGRAPHY - BILATERAL SCREENING REASON FOR EXAM: Female, 47 years old. Routine annual screening examination. PERTINENT HISTORY: Non-contributory. History of prior bilateral breast reduction surgery. TECHNIQUE: Digital bilateral breast renita (3D mammographic acquisition) in the CC and MLO projections. 2-D mediolateral oblique (MLO) and craniocaudad (CC) views of both breasts were obtained. CAD: Full Field Digital Mammography with Computer Added Detection was performed. COMPARISON: Comparison is made with prior study June 09, 2020. FINDINGS: Breast Composition: There are scattered areas of fibroglandular density. There are no dominant masses or suspicious calcifications. No other significant abnormalities are identified. There has been no significant change since the prior study. BI/SCRN MAMM (CAD)W/RENITA BILAT IMPRESSION: Stable bilateral screening mammogram. Yearly follow-up mammogram recommended. (A) ASSESSMENT CATEGORY: BIRADS Category 1: Negative. A letter regarding these results will be sent to the patient by the facility within 30 days. Approximately 10% of breast cancers are not detected by mammography. A normal mammogram should not delay biopsy of a clinically suspicious abnormality. [id number] Electronically Signed: Craig Davidson MD at 9:39 EDT ,
== END | disposition home or self-care (01) ==
LOC: OPBI 08:37
PROVIDERS: PCP Nurse Practitioner Primary Care; Referring Provider Nurse Practitioner Primary Care; Visit Provider Nurse Practitioner Primary Care
DX: Z12.31 Encounter for screening mammogram for malignant neoplasm of breast (principal); Z13.220 Encounter for screening for lipoid disorders
CPT/HCPCS: 77063; 77067

== ENCOUNTER 2023-05-26 08:30 | Outpatient (RCR) | payer OTHER, SELFPAY ==
--- NOTE | 2023-05-01 09:45 | HP.PTEVAL_ITS ---
Patient's Visit Information Visit Information Visit Information: JULISSA VALDEZ is a 47 year old F referred to Physical Therapy by Dr. Olvin Bender MD with a diagnosis of Right Partial Knee Replacement 04/07/23. Date of Evaluation: 05/01/23 Physical Therapist: Eveline Pelayo DPT Visit Plan Frequency: 3x /Week Duration: 4 Weeks Plan: Right Partial Knee Replacement 04/10/23- Follow protocol in folder- focus on functional mobility. HEP Given IE: reviewed current HEP from home health Subjective Subjective: Right partial knee replacement 04/10/23. She has had 4 home therapy sessions through the hospital. The MD wanted her to have 2 weeks of home and then head to outpatient. She feels stiffness throughout the anterior knee. She has less of the band tightness with exercises (step stretch, kitchen sink exercises, heel slide seated). [place] came out Monday- no infection. Worst in last couple of days: 7/10 Night time is the worst. Agg: exercise. Eases: resting Best: 0/10. Pain is located in the anterior knee- no pain that radiates. Does have some pain from the tourniquet. Describes the pain as pulling and achy. No N/T in the toes. Does have some numbness in the incision area. She has needed to do this for over a year and still has some crunchy feelings. 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 Sleep: disturbed- she can lay flat- she is a side sleeper- hard to find a comfortable position. Split Level so she is doing stairs- up is better than down. PMHx/Meds: 03/23/23 Dr. Vasquez- is not taking Mobic but is taking Aspirin. She is normally very active. Objective Objective: Posture: FH, RS- can correct with verbal cues Gait: antalgic- decreased stance on right LE with poor heel toe pattern- does swing due to decreased flexion. HR/TR: able without pain SLS: 5 sec then LOB- reports discomfort Stairs: asc with 2 HR- increased UE assistance desc: non recip with 2 HR Observation: incision healing- no s/s of infection ROM: -5 to 95 degrees- pt reports stiffness and last week measurement -3 to 100 degrees per home health PT Flex: HS: moderate, Gastroc: moderate Sit to Stand: no UE but does weight shift to the left Strength: Ankle: 5/5, Knee: Extn: 14.2 Flexion: 8.4, Hip: 4+/5 throughout, Core: fair Balance/Special Test Scores Lower Extremity Functional Score: 38 Goals Goal 1:: Patient will be I with HEP and progression Goal Time Frame: 4-6 Weeks Goal 2:: Patient will ambulate >300 feet with a normalized gait pattern Goal Time Frame: 4-6 Weeks Goal 3:: Patient will asc/desc 8 stairs recip with 1 HR Goal Time Frame: 4-6 Weeks Goal 4:: Patient will report 80% improvement Goal Time Frame: 4-6 Weeks Rehabilitation Potential Physical Therapy Diagnosis: Patient presents s/p Right Partial Knee Replacement 04/10/23- she has hypomobility- decreased LE ROM, strength, flexibility and muscular endurance leading to abnormal gait pattern and decreased ability to perform ADL's. Rehabilitation Potential: Good Anticipated Interventions Patient/Client Instruction: Educate patient on: Benefits of Fitness Program Therapeutic Exercise to Include: Strength training, Endurance training, Balance training, Coordination, Agility training, Body mechanics, Postural training, Flexibilty training, Gait and locomotor training, Neuromotor development, Passive ROM, Active ROM, Dynamic Lumbar Stabilization and Scapular Strength/Stabilization For the Purpose of:: To improve muscle performance and motor function TENS: Yes Cryotherapy (ice pack, ice massage): Yes Thermo therapy (hot pack): Yes Ultrasound (thermal/non thermal): No Text: Thank you for the opportunity to evaluate your patient. For Medicare and Medicare HMO plans, please review the plan of care and approve it. It will need to be FAXED BACK to us at [phone] for Medicare purposes. For Medicare only, by signing this I certify the plan of care. Please let me know if there are questions or concerns regarding this plan of care. Physician Signature: Date:
--- NOTE | 2023-05-26 09:17 | HP.PTDCSUM ---
Discharge Summary D/C summary: It has been my pleasure to treat JULISSA VALDEZ referred by Dr. Olvin Bender MD, with the diagnosis of Right Partial Knee Replacement 04/07/23 for a total of 11 visit(s). Discharge Date: Please see the following information for a summary of their discharge status. Subjective Subjective: Patient reports just building up endurance with walking- no pain. She sees the MD the of this month and he will talk about release back to work. She feels that she can continue PT on her own. She has a gym membership. Pain R knee: Pain Intensity (Out of 10): 0 Overall Improvement % Improvement: 90 Objective Objective/Function: Posture: FH, RS- can correct with verbal cues Gait: slightly antalgic- decreased stance on right LE- no AD HR/TR: able without pain SLS: 15 sec Stairs: asc/desc 8 recip with no HR- mild dec control with desc Observation: incision healing- no s/s of infection ROM: 0-115 Flex: HS: moderate, Gastroc: moderate Sit to Stand: no UE Strength: Ankle: 5/5, Knee: Extn: 38 Flexion: 21, Hip: 4+/5 throughout, Core: fair Goals Goal 1:: Patient will be I with HEP and progression Goal Progress: Goal Met Goal 2:: Patient will ambulate >300 feet with a normalized gait pattern Goal Progress: Progressing Goal 3:: Patient will asc/desc 8 stairs recip with 1 HR Goal Progress: Goal Met Goal 4:: Patient will report 80% improvement Goal Progress: Goal Met Plan Plan: 05/26/12: Discharge to I HEP at gym- encouraged to call if questions arise Right Partial Knee Replacement 04/10/23- Follow protocol in folder- focus on functional mobility. HEP Given IE: reviewed current HEP from home health Work on stair negotiation and quad strengthening D/C Information d/c sentence: If there are questions or concerns regarding this patient's physical therapy, please feel free to call me at [phone]. Thank you for the referral of this patient. Sincerely, Eveline Pelayo, DPT Balance/Gait/Functional tests Balance/Special Test Scores Lower Extremity Functional Score: 56
== END 2023-05-26 19:00 | disposition home or self-care (01) ==
LOC: PT 08:30
PROVIDERS: PCP Nurse Practitioner Primary Care; Referring Provider Orthopaedic Surgery; Visit Provider Orthopaedic Surgery
DX: Z96.651 Presence of right artificial knee joint (principal)
CPT/HCPCS: 97110; 97162; 97164

== ENCOUNTER → 2023-11-28 | Outpatient (CLI) | payer OTHER, SELFPAY ==
--- NOTE | 2023-11-28 07:19 | US_ITS ---
EXAM: US ABDOMEN LIMITED, RIGHT UPPER QUADRANT CLINICAL INDICATION: EPIGASTRIC PAIN TECHNIQUE: Real-time ultrasound of the right upper quadrant with image documentation. COMPARISON: No relevant prior studies available. FINDINGS: LIVER: Normal. There is normal echotexture. No focal hepatic lesion. No intrahepatic biliary ductal dilation. GALLBLADDER: [place] sign noted indicative of stone filled gallbladder. No gallbladder wall thickening is demonstrated. No pericholecystic fluid. COMMON BILE DUCT: Proximal common bile duct measures 5 mm in diameter. PANCREAS: Pancreas is obscured by overlying bowel gas. RIGHT KIDNEY: Normal. There is no hydronephrosis. No shadowing calculus. No focal lesion or perinephric collection is demonstrated. US/Abdomen Limited IMPRESSION: Cholelithiasis. Electronically Signed: Abhishek Metz MD at 10:01 EST ,
--- OUTSIDE RECORDS SUMMARY | 2023-11-28 07:21 | XMS RPT_ITS | CCD ---
Author Name Unknown Address [id number] [place] [address] Organization [facility] Care Team Providers Care Business Services Assistant Name Role Phone Priya Barajas Unavailable Mindi Leggett Unavailable CYNDI RANDOLPH Unavailable Unavailable Mindi Leggett Unavailable Katia Maloney Unavailable Unavailable Katia Maloney Unavailable Unavailable Maryan Richardson Unavailable Unavailable Maryan Richardson Unavailable Unavailable Andrea Fay Unavailable Unavailable Andrea Fay Unavailable Unavailable Melvin Angus J Unavailable Unavailable Angus Charles Unavailable Unavailable Cyndi Randolph Unavailable Unavailable Cyndi Randolph Unavailable Unavailable Andrea Fay Unavailable Unavailable Andrea Fay Unavailable Unavailable Andrea Fay Unavailable Unavailable Andrea Fay Unavailable Unavailable Priya Barajas Primary Care Provider Mindi Leggett Unavailable PRIYA BARAJAS Primary Care Unavailable VINCE LEGGETT Attending Unavailable Unavailable Primary Care Provider Unavailabl e Katia Maloney Unavailable Asha Lan Primary Care Provider [phone] Katia Maloney Unavailable [phone] Priya Barajas MD Primary Care Provider Wolf Sims MD Primary Care Provider Wolf Sims MD Primary Care Provider Asha Lan RN Primary Care Provider Unaroman Barajas MD, Priya Primary Care Provider Wolf Sims MD Primary Care Provider GARRY BENDER Admitting Unavailab le ELDERBROCK, PRIYA Primary Care Unavailable GARRY BENDER Referring Unavailab le JENNYFER, GARRY ORTEGA Attending Unavailab le JENNYFER, GARRY ORTEGA Admitting Unavailab le ELDERBROCK, PRIYA Primary Care Unavailable GARRY BENDER Referring Unavailab le ARNOLD, SHRUTI SANCHEZ Admitting Unavailable ELDERBROCK, PRIYA Primary Care Unavailable ARNOLD, SHRUTI SANCHEZ Referring Unavailable ARNOLD, SHRUTI SANCHEZ Attending Unavailable ELDERBROCK, PRIYA Primary Care Unavailable ELDERBROCK, PRIYA Primary Care Unavailable JENNYFER, GARRY ORTEGA Admitting Unavailab le JENNYFER, GARRY ORTEGA Referring Unavailab le VANNESA RANDOLPH Attending Unavailable ELDERBROCK, PRIYA Primary Care Unavailable JENNYFER, GARRY ORTEGA Attending Unavailab le JENNYFER, GARRY ORTEGA Attending Unavailab le ELDERBROCK, PRIYA Primary Care Unavailable JENNYFER, GARRY ORTEGA Attending Unavailab le ELDERBROCK, PRIYA Primary Care Unavailable JENNYFER, GARRY ORTEGA Admitting Unavailab le JENNYFER, GARRY ORTEGA Referring Unavailab le ELDERBROCK, PRIYA Primary Care Unavailable ARNOLD, SHRUTI SANCHEZ Attending Unavailable ELDERBROFAWN, PRIYA Primary Care Unavailable CLEMENTINA HALL Attending Unavailable WOLF SIMS Primary Care Unavailab WOLF Avery Primary Care Unavailab le PODASHA DURAN Attending Unavailable WOLF SIMS Primary Care Unavailab TACOS Guadarrama Referring Unavailable WOLF SIMS Primary Care Unavailab TACOS Guadarrama Attending Unavailable WOLF SIMS Primary Care Unavailab WOLF Avery Primary Care Unavailab malena PODLOGASHA VERDIN Attending Unavailable Allergies Allergy Classification Reported Allergen(s) Allergy Type Date of Onset Reaction(s) Facility Niacin (3 sources) Niacin Drug Allergy 6 [facility] Opioid Agonists (3 sources) Morphine Drug Allergy 6 Itching [facility] Penicillins (antibiotic) (3 sources) Penicillins Drug Allergy 6 [facility] Sulfonamides (antibiotic) (3 sources) Sulfonamides (Antibiotic) Drug Allergy 6 Swelling [facility] (20 sources) morphine; Translations: [MORPHINE] Propensity to adverse reactions to drug 1 Itching [facility] Work Phone: (20 sources) niacin; Translations: [NIACIN] Propensity to adverse reactions to drug 3 Other: See Comments [facility] Work Phone: (20 sources) Penicillins; Translations: [PENICILLINS] Propensity to adverse reactions to drug 10-23-200 9 [facility] Work Phone: (20 sources) Sulfonamides (Antibiotic); Translations: [SULFA (SULFONAMIDE ANTIBIOTICS)] Propensity to adverse reactions to drug 10-23-200 9 Swelling [facility] Work Phone: (5 sources) Penicillins Propensity to adverse reactions 1023-200 9 Intolerance [facility] (20 sources) Sulfonamides (Antibiotic) Propensity to adverse reactions 1023-200 9 Swelling [facility] (20 sources) Penicillins Propensity to adverse reactions 08-07-200 9 Intolerance [facility] Medications Current Medications Medication Drug Class(es) Dates Sig (Normalized) Sig (Original) acetaminophen 500 mg oral tablet (9 sources) take 2 tablets by mouth every six hours as needed for pain acetaminophen (TYLENOL) 500 MG tablet Take 2 (two) tablets (1,000 mg total) by mouth every 6 (six) hours as needed for pain . 0 Active aspirin 325 mg delayed release oral tablet (4 sources) Platelet Aggregation Inhibitor, Nonsteroidal Anti-inflammatory Drug Start: 04-10-2023 End: 05-10-2023 take 1 tablet by mouth twice daily aspirin 325 MG EC tablet Take 1 (one) tablet (325 mg total) by mouth 2 (two) times a day . 60 tablet 0 04/10/2023 05/10/2023 Active bisacodyl 5 mg delayed release oral tablet (7 sources) Stimulant Laxative End: 04-20-2022 Bisacodyl (DULCOLAX) 5 mg tab Take 5 mg by mouth as needed for constipation. 0 04/20/2022 Discontinued (Course of therapy completed) Completed/Discontinued Medications Medication Drug Class(es) Dates Sig (Normalized) Sig (Original) atorvastatin 20 mg oral tablet (18 sources) HMG-CoA Reductase Inhibitor Start: 05-19-2019 End: 03-23-2023 take 1 tablet by mouth once daily atorvastatin (LIPITOR) 20 MG tablet Indications: Mixed hyperlipidemia Take 1 (one) tablet (20 mg total) by mouth daily . 90 tablet 3 05/19/2019 03/23/2023 Discontinued (Patient's Request) Problems Active Problems Problem Classification Problem Date Documented Date Episodic/Chronic Abdominal pain (20 sources) Abdominal pain; Translations: [Unspecified abdominal pain] Onset: 10-22-2019 10-22-2019 Episodic Anxiety disorders (20 sources) Anxiety; Translations: [Anxiety disorder, unspecified] Onset: 08-07-2009 05-17-2019 Chronic Asthma (20 sources) Asthma; Translations: [Unspecified asthma, uncomplicated] Onset: 10-01-2009 05-17-2019 Chronic Complications of surgical procedures or medical care (20 sources) Postsurgical menopause; 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] Onset: 05-17-2019 05-17-2019 Chronic Disorders of lipid metabolism (20 sources) Hyperlipidemia; Translations: [Hyperlipidemia, unspecified] Onset: 08-07-2009 05-17-2019 Chronic Disorders of teeth and jaw (1 source) Toothache; Translations: [Other specified disorders of teeth and supporting structures] Episodic Esophageal disorders (6 sources) Gastro-esophageal reflux disease with esophagitis; Translations: [Gastroesophageal reflux disease with esophagitis, unspecified whether hemorrhage] Onset: 12-06-2022 Chronic Esophageal disorders (1 source) Esophageal disorders; Translations: [Gastroesophageal reflux disease with esophagitis, unspecified whether hemorrhage] Onset: 05-16-2023 Essential hypertension (20 sources) Benign essential hypertension; Translations: [Essential (primary) hypertension] Onset: 08-07-2009 05-17-2019 Chronic Immunizations and screening for infectious disease (3 sources) Tuberculosis screening status; Translations: [Encounter for screening for respiratory tuberculosis] Episodic Joint disorders and dislocations; trauma-related (20 sources) Degeneration of cartilage AND/OR meniscus of knee; Translations: [Other meniscus derangements, unspecified meniscus, right knee] Onset: 12-06-2022 Chronic Menopausal disorders (18 sources) Menopausal symptom; Translations: [Menopausal and female climacteric states] Onset: 03-27-2012 03-27-2012 Chronic Mood disorders (20 sources) Depressive disorder; Translations: [Major depressive disorder, single episode, unspecified] Onset: 10-27-2014 05-17-2019 Chronic Mood disorders (1 source) Mood disorders; Translations: [Depression, unspecified depression type] Onset: 05-08-2023 Osteoarthritis (1 source) Osteoarthritis of right knee joint; Translations: [Primary osteoarthritis of right knee] Other connective tissue disease (1 source) Polymyalgia; Translations: [Polymyalgia rheumatica] Chronic Other connective tissue disease (5 sources) History of prosthetic unicompartmental arthroplasty of right knee; Translations: [Presence of right artificial knee joint] 04-17-2023 Chronic Other connective tissue disease (4 sources) Presence of right artificial knee joint; Translations: [Presence of right artificial knee joint] Onset: 04-10-2023 Chronic Other connective tissue disease (3 sources) Artificial knee joint present; Translations: [Presence of right artificial knee joint] Onset: 05-05-2023 05-16-2023 Chronic Other connective tissue disease (1 source) Left achilles tendonitis; Translations: [Achilles tendinitis, left leg] Episodic Other connective tissue disease (1 source) Trochanteric bursitis of right hip; Translations: [Trochanteric bursitis, right hip] 09-13-2023 Episodic Other connective tissue disease (3 sources) Bilateral impingement syndrome of shoulders; Translations: [Impingement syndrome of both shoulders] Other inflammatory condition of skin (1 source) Lichen; Translations: [Lichen] Episodic Other lower respiratory disease (2 sources) Cough; Translations: [Cough] Onset: 12-21-2018 Episodic Other lower respiratory disease (1 source) Cough; Translations: [Cough] Episodic Other non-traumatic joint disorders (4 sources) Disorder of shoulder; Translations: [Bursitis/tendonitis, shoulder] Episodic Other non-traumatic joint disorders (1 source) Knee pain; Translations: [Acute pain of right knee] Episodic Other screening for suspected conditions (not mental disorders or infectious disease) (4 sources) Patient encounter status; Translations: [Encounter for screening for lipoid disorders] Onset: 10-30-2023 Episodic Other upper respiratory disease (20 sources) Allergic rhinitis; Translations: [Allergic rhinitis, unspecified] Onset: 10-01-2009 05-17-2019 Chronic Other upper respiratory infections (3 sources) Acute pharyngitis, unspecified; Translations: [Sore throat symptom] Onset: 12-21-2018 Episodic Residual codes; unclassified (2 sources) Pain, unspecified; Translations: [Pain, unspecified] Onset: 09-13-2023 Episodic Residual codes; unclassified (2 sources) Pain Onset: 09-13-2023 Episodic Spondylosis; intervertebral disc disorders; other back problems (1 source) Degeneration of cervical intervertebral disc; Translations: [Other cervical disc degeneration, unspecified cervical region] Chronic Unclassified (1 source) Screening status; Translations: [Screening for thyroid disorder] Past or Other Problems Problem Classification Problem Date Documented Date Episodic/Chronic Medical examination/evaluati on (2 sources) Encounter for general adult medical examination without abnormal findings; Translations: [Encounter for general adult medical examination without abnormal findings] Onset: 11-05-2017 Episodic Nonmalignant breast conditions (18 sources) Pain of breast; Translations: [Mastodynia] Onset: 02-19-2013 02-19-2013 Episodic Other aftercare (2 sources) Encounter for follow-up examination after completed treatment for conditions other than malignant neoplasm; Translations: [Encounter for follow-up examination after completed treatment for conditions other than malignant neoplasm] Onset: 06-09-2023 Episodic Other injuries and conditions due to external causes (18 sources) Disorder of acromioclavicular joint; Translations: [Unspecified injury of shoulder and upper arm, unspecified arm, initial encounter] Onset: 03-10-2015 03-10-2015 Episodic Other skin disorders (20 sources) Acne; Translations: [Acne, unspecified] Onset: 05-17-2019 05-17-2019 Episodic Residual codes; unclassified (18 sources) Family history of diabetes mellitus; Translations: [Family history of diabetes mellitus] Onset: 10-01-2009 10-01-2009 Episodic Unclassified (8 sources) Patient encounter status; Translations: [Well adult exam] Onset: 05-17-2019 Resolved: 05-17-2019 05-17-2019 Results Test Name Value Interpretation Reference Range Facil ity Vital Signs Date Time Vital Sign Value Performing Clinician Dominick mar 11-17-2023 09:44-0500 Body weight 59.42 kg Tacos Pimentel APRN.CNP Work Phone: [facility] 11-17-2023 09:44-0500 Diastolic blood pressure 77 mm[Hg] Tacos Pimentel APRN.CNP Work Phone: [facility] 11-17-2023 09:44-0500 Heart rate 83 /min Tacos Pimentel NEWBORN PHOTOGRAPHER.VETERINARY NURSE Work Phone: [facility] 11-17-2023 09:44-0500 Respiratory rate 14 /min Tacos Pimentel NEWBORN PHOTOGRAPHER.VETERINARY NURSE Work Phone: [facility] 11-17-2023 09:44-0500 Systolic blood pressure 111 mm[Hg] Tacos Pimentel NEWBORN PHOTOGRAPHER.VETERINARY NURSE Work Phone: [facility] 09-13-2023 09:05-0500 Body height 158.8 cm Shruti Clayton VETERINARY NURSE Work Phone: [facility] 09-13-2023 09:05-0500 Body mass index (BMI) [Ratio] 24.66 kg/m2 Shruti Arnold VETERINARY NURSE Work Phone: [facility] 09-13-2023 09:05-0500 Body weight 62.14 kg Shruti Clayton VETERINARY NURSE Work Phone: [facility] 05-16-2023 13:06-0400 Body height 153 cm Clementina Isabel NEWBORN PHOTOGRAPHER.VETERINARY NURSE Work Phone: [facility] 05-16-2023 13:06-0400 Body weight 64.41 kg Clementina Isabel NEWBORN PHOTOGRAPHER.VETERINARY NURSE Work Phone: [facility] 05-16-2023 13:06-0400 Diastolic blood pressure 78 mm[Hg] Clementina Esbon NEWBORN PHOTOGRAPHER.VETERINARY NURSE Work Phone: [facility] 05-16-2023 13:06-0400 Systolic blood pressure 112 mm[Hg] Clementina Isabel NEWBORN PHOTOGRAPHER.VETERINARY NURSE Work Phone: [facility] 03-23-2023 09:45-0400 Body height 157.5 cm Vannesa Randolph MD Work Phone: [facility] 03-23-2023 09:45-0400 Body mass index (BMI) [Ratio] 26.41 kg/m2 Vannesa Randolph MD Work Phone: [facility] 06-08-2023 09:45-0400 Body weight 65.5 kg Work Phone: [facility] 03-23-2023 09:45-0400 Diastolic blood pressure 82 mm[Hg] Work Phone: [facility] 03-23-2023 09:45-0400 Heart rate 75 /min Work Phone: [facility] 03-23-2023 09:45-0400 SaO2% (BldA) [Mass fraction] 100 % Work Phone: [facility] 03-23-2023 09:45-0400 Systolic blood pressure 115 mm[Hg] Work Phone: [facility] 03-18-2023 08:16-0400 Body temperature 98.71 [degF] Chanda Older NEWBORN PHOTOGRAPHER.VETERINARY NURSE Work Phone: [facility] 03-18-2023 08:16-0400 Body weight 65.77 kg Chanda Older NEWBORN PHOTOGRAPHER.VETERINARY NURSE Work Phone: [facility] 03-18-2023 08:16-0400 Diastolic blood pressure 82 mm[Hg] Chanda Older NEWBORN PHOTOGRAPHER.VETERINARY NURSE Work Phone: [facility] 03-18-2023 08:16-0400 Heart rate 77 /min Chanda Older NEWBORN PHOTOGRAPHER.VETERINARY NURSE Work Phone: [facility] 03-18-2023 08:16-0400 Respiratory rate 16 /min Chanda Older NEWBORN PHOTOGRAPHER.VETERINARY NURSE Work Phone: [facility] 03-18-2023 08:16-0400 SaO2% (BldA) [Mass fraction] 96 % Chanda Older NEWBORN PHOTOGRAPHER.VETERINARY NURSE Work Phone: [facility] 03-18-2023 08:16-0400 Systolic blood pressure 136 mm[Hg] Chanda Older NEWBORN PHOTOGRAPHER.VETERINARY NURSE Work Phone: [facility] 04-20-2022 07:40-0400 Body height 159 cm Asha Flores NEWBORN PHOTOGRAPHER.VETERINARY NURSE Work Phone: [facility] 04-20-2022 07:40-0400 Body weight 64.86 kg Asha Podlogar NEWBORN PHOTOGRAPHER.VETERINARY NURSE Work Phone: [facility] 04-20-2022 07:40-0400 Diastolic blood pressure 82 mm[Hg] Asha Podlogar NEWBORN PHOTOGRAPHER.VETERINARY NURSE Work Phone: [facility] 04-20-2022 07:40-0400 Heart rate 78 /min Asha Podlogar NEWBORN PHOTOGRAPHER.VETERINARY NURSE Work Phone: [facility] 04-20-2022 07:40-0400 Respiratory rate 14 /min Asha Podlogar NEWBORN PHOTOGRAPHER.VETERINARY NURSE Work Phone: [facility] 04-20-2022 07:40-0400 Systolic blood pressure 118 mm[Hg] Asha Podlogar NEWBORN PHOTOGRAPHER.VETERINARY NURSE Work Phone: [facility] 04-08-2022 08:28-0400 Body weight 64.41 kg Asha Podlogar NEWBORN PHOTOGRAPHER.VETERINARY NURSE Work Phone: [facility] 04-08-2022 08:28-0400 Diastolic blood pressure 76 mm[Hg] Asha Podlogar NEWBORN PHOTOGRAPHER.VETERINARY NURSE Work Phone: [facility] 04-08-2022 08:28-0400 Heart rate 80 /min Asha Podlogar NEWBORN PHOTOGRAPHER.VETERINARY NURSE Work Phone: [facility] 04-08-2022 08:28-0400 SaO2% (BldA) [Mass fraction] 98 % Asha Podlogar NEWBORN PHOTOGRAPHER.VETERINARY NURSE Work Phone: [facility] 04-08-2022 08:28-0400 Systolic blood pressure 114 mm[Hg] Asha Podlogar NEWBORN PHOTOGRAPHER.VETERINARY NURSE Work Phone: [facility] 03-09-2021 10:18-0400 Body height 160 cm Shruti Arnold VETERINARY NURSE Work Phone: [facility] 03-09-2021 10:18-0400 Body mass index (BMI) [Ratio] 24.27 kg/m2 Shruti Arnold VETERINARY NURSE Work Phone: [facility] 03-09-2021 10:18-0400 Body weight 62.14 kg Shruti Arnold CNP Work Phone: [facility] 10-22-2019 10:38-0500 BP Diastolic 99 mm[Hg] [facility] 10-22-2019 10:38-0500 BP Systolic 145 mm[Hg] [facility] 10-22-2019 10:36-0500 BMI (Body Mass Index) 28.54 kg/m2 [facility] 10-22-2019 10:36-0500 Body Temperature 98.6 [degF] [facility] 10-22-2019 10:36-0500 Body weight 73.07 kg [facility] 10-22-2019 10:36-0500 Pulse (Heart Rate) 74 /min [facility] 10-22-2019 10:36-0500 Pulse Oximetry 97 % [facility] 10-22-2019 10:36-0500 Respiratory Rate 16 /min [facility] 09-05-2019 13:58-0500 BMI (Body Mass Index) 28.52 kg/m2 [facility] 09-05-2019 13:58-0500 Body weight 73.03 kg [facility] 09-05-2019 13:58-0500 BP Diastolic 85 mm[Hg] [facility] 09-05-2019 13:58-0500 BP Systolic 138 mm[Hg] [facility] 09-05-2019 13:58-0500 Height 160 cm [facility] 09-05-2019 13:58-0500 Pulse (Heart Rate) 86 /min [facility] 05-17-2019 10:19-0400 BP Diastolic 76 mm[Hg] [facility] 05-17-2019 10:19-0400 BP Systolic 134 mm[Hg] [facility] 05-17-2019 10:02-0400 BMI (Body Mass Index) 28.68 kg/m2 [facility] 05-17-2019 10:02-0400 Body Temperature 97.9 [degF] [facility] 05-17-2019 10:02-0400 Body weight 73.44 kg Asha Lan [facility] 05-17-2019 10:02-0400 Pulse (Heart Rate) 88 /min Asha Lan [facility] 05-17-2019 10:02-0400 Pulse Oximetry 95 % Asha Lan [facility] 05-17-2019 10:02-0400 Respiratory Rate 16 /min Asha Lan [facility] 02-25-2019 14:42-0400 BMI (Body Mass Index) 28.87 kg/m2 Garry Bender [facility] 02-25-2019 14:42-0400 Body weight 73.94 kg Garry Bender [facility] 02-25-2019 14:42-0400 Height 160 cm Garry Bender [facility] 12-21-2018 13:18-0500 BMI (Body Mass Index) 28.87 kg/m2 Vince Leggett [facility] 12-21-2018 13:18-0500 Body Temperature 98.91 [degF] Vince Leggett [facility] 12-21-2018 13:18-0500 BP Diastolic 95 mm[Hg] Vince [facility] 12-21-2018 13:18-0500 BP Systolic 133 mm[Hg] Vince [facility] 12-21-2018 13:18-0500 Height 160 cm Vince [facility] 12-21-2018 13:18-0500 Pulse (Heart Rate) 87 /min Vincemauri Leggett [facility] 12-21-2018 13:18-0500 Pulse Oximetry 96 % Vincemauri Leggett [facility] 12-21-2018 13:18-0500 Respiratory Rate 16 /min Vince Leggett [facility] 12-21-2018 13:18-0500 Weight 73.94 kg Vince [facility] Encounters Encounter Date Encounter Type Care Provider Facility Start: 11-17-2023 End: 11-18-2023 ambulatory TACOS PIMENTEL Facility:[facility] Start: 11-17-2023 End: 11-17-2023 Patient encounter procedure Tacos Pimentel APRN.VETERINARY NURSE Work Phone: [facility] Procedures Date Procedure Procedure Detail Performing Clinician Start: 09-13-2023 Arthrocentesis aspir &/inj major jt/bursa w/o us Shruti Arnold VETERINARY NURSE Work Phone: Start: 04-20-2022 Skin test tuberculos is intradermal Asha Podlogmarcela NEWBORN PHOTOGRAPHER.VETERINARY NURSE Work Phone: Start: 12-29-2020 Lipid 1996 panel - S lakeisha or Plasma Wolf Sims MD Work Phone: Start: 06-09-2020 Mammography Landry Sims MD Work Phone: Start: 2020 Arthrocentesis Shruti A Bramasol Work Phone: Start: 12-30-2019 Arthrocentesis Shruti A Bramasol Work Phone: Start: 10-29-2019 Transvaginal ultraso nography of pelvis Asha Lan Work Phone: Start: 10-22-2019 Gardnerella vaginali s rRNA assay Asha Lan Work Phone: Start: 10-22-2019 Iadna human papillom avirus types 16 & 18 only Asha Lan Work Phone: Start: 10-22-2019 Urinalysis macro (di pstick) panel - Urine Asha Lan Work Phone: Start: 09-05-2019 End: 09-05-2019 Arthrocentesis Zahraa Montiel Work Phone: Start: 05-17-2019 Adult depression scr eening assessment Zahraa Montiel Start: 12-21-2018 Streptococcus pyogen es antigen assay Vince Leggett Work Phone: Start: 07-26-2018 Mammography Garry neri Plan of Treatment Date Care Activity Detail Author Start: 04-19-2028 Tetanus vaccination [facility] Start: 04-19-2028 Urine microalbumin profile [facility] Start: 03-23-2026 Diabetes Screening Diabetes Screenin g [facility] Start: 12-29-2025 Lipid panel Lipid Screening [facility] Start: 12-29-2025 LIPID SCREEN LIPID SCREEN [facility] Start: 05-10-2025 COLOGUARD (FIT-DNA) COLOGUARD (FIT-D NA) [facility] Start: 05-10-2025 COLORECTAL CANCER SCREENING COLORECTAL CANCER SCREENING [facility] Start: 05-10-2025 Screening for malign ant neoplasm of colon [facility] Start: 11-17-2024 Annual PCP Team Dish Stacker martha Disease Visit Annual PCP Team Chronic Disease Visit [facility] Start: 11-17-2024 BP Controlled (<130/80) BP Controlle d (<130/80) [facility] Start: 10-30-2024 Annual PCP Team Dish Stacker martha Disease Visit Annual PCP Team Chronic Disease Visit [facility] Start: 10-30-2024 Covid-19 Vaccine ( season) Covid-19 Vaccine () [facility] Immunizations Immunization Date Immunization Notes Care Provider Arielle sparks 08-18-2021 influenza, seasonal, injectable, preservative free Wolf Sims MD Work Phone: [facility] 08-03-2020 influenza, seasonal, injectable, preservative free Wolf Sims MD Work Phone: [facility] 04-19-2018 tetanus and diphther ia toxoids, adsorbed, preservative free, for adult use (5 Lf of tetanus toxoid and 2 Lf of diphtheria toxoid) [facility] 07-18-2016 influenza, injectabl e, quadrivalent, contains preservative [facility] 07-16-2014 influenza, seasonal, injectable [facility] 05-24-2011 tetanus toxoid, redu mariana diphtheria toxoid, and acellular pertussis vaccine, adsorbed [facility] 04-29-2004 measles, mumps and rubella virus vaccine [facility] 01-09-2004 hepatitis B vaccine, adult dosage [facility] 08-05-2003 hepatitis B vaccine, adult dosage [facility] 07-01-2003 hepatitis B vaccine, adult dosage [facility] 07-11-1978 measles, mumps and rubella virus [facility] Payers Date Payer Category Payer Private Health Insurance [id number] 2022 Private Health Insurance [id number] 2019 Private Health Insurance AETNA AETNA CHOICE POS/POSII/PREMIER CARE/PREMIER CARE PLUS xxxxxxxxxx 2019-Present xxxxxxxxxx [id number] 2019 Unknown MMO MED MUTUAL S UPERMED PPO xxxxxxxxxxxx 2019-Present xxxxxxxxxxxx [id number] 2019 Unknown [id number] 2019 Unknown [id number] 2016 Unknown xxxxxxxxx [id number] 3 2016 Unknown [id number] 3 1974 Unknown [id number] .1974 Unknown [id number] .90 1974 Unknown [id number] .90 1974 Unknown [id number] .90 1974 Unknown [id number] 2.840.1.451507.3.579.2 .90 1974 Unknown [id number] .903 1974 Unknown [id number] .90 1974 Unknown [id number] .903 1974 Unknown [id number] .903 1974 Unknown [id number] [id number] .903 1974 Unknown [id number] .903 1974 Unknown [id number] .903 Unknown [id number] Social History Date Type Detail Facility Start: 11-29-2016 End: 03-18-2023 Tobacco smoking status CAIS Never smoker [facility] Work Phone: Start: 1975 Sex Assigned At Not on file [facility] Work Phone: Start: 05-17-2019 End: 04-20-2022 History SDOH Social Connections Phone 5 [facility] Start: 05-17-2019 End: 04-20-2022 History SDOH Social Connections Get Together 2 [facility] Start: 05-17-2019 End: 04-20-2022 History SDOH Social Connections Confucianism 3 [facility] Start: 05-17-2019 End: 04-20-2022 History SDOH Social Connections Membership 1 [facility] Start: 05-17-2019 History SDOH Physical Activity DPW 0 [facility] Start: 05-17-2019 History SDOH Education 17 [facility] Start: 10-27-2019 End: 09-13-2023 Alcohol intake Ex-drinker (finding) [facility] Start: 2020 End: 03-18-2023 Tobacco use and exposure Never used [facility] Start: 04-10-2022 End: 11-18-2022 Exposure to SARS-CoV-2 (event) Not sure [facility] Start: 12-28-2021 End: 10-30-2023 Alcohol intake Current non-drinker of alcohol (finding) [facility] Start: 1975 Sex Assigned At Female [facility] Start: 05-17-2019 End: 05-08-2023 History of Social function [facility] Start: 05-17-2019 End: 05-08-2023 Humiliation, Afraid, Rape, and Kick questionnaire [HARK] [facility] Fear of Current or Ex-Partner No [facility] Start: 07-30-2018 Gender identity Identifies as female gender (finding) [facility] Start: 07-30-2018 Sexual orientation Heterosexual (finding) [facility] Do you belong to any clubs or organizations such as mormon groups, unions, [employer] or athletic groups, or school groups? Yes [facility] Are you now , , , , never or living with a partner? [facility] How often to you hav e a drink containing alcohol? Never [facility] Do you feel stress - tense, restless, nervous, or anxious, or unable to sleep at night because your mind is troubled all the time - these days [OSQ] Only a little [facility] (I/We) worried wheth er (my/our) food would run out before (I/we) got money to buy more. Never true [facility] In the past 12 month s, was there a time when you were not able to pay the mortgage or rent on time? No [facility] Do you feel stress - tense, restless, nervous, or anxious, or unable to sleep at night because your mind is troubled all the time - these days [OSQ] Not at all [facility] Medical Equipment Procedure Code Equipment Code Equipment Origin al Text Equipment Identifier Dates Component 3 Fem Rm/Ll [employer] Pkr - [id number], [id number] [facility] Start: 04-10-2023 Clinical Notes 03-09-2021 to 11-17-2023 Tacos Pimentel APRN.FARHANA - 11/17/2023 9:52 AM ESTTelephone Encounter - Gale Francis RN - 11/16/2023 10:30 AM Shruti Blackburn CNP - 09/13/2023 6:57 PM ESTPatient Instructions Note Date & Type Note Facility 11-17-2023 Note HNO ID: [id number] Author: TACOS PIMENTEL APRN.[facility] Service: ? Author Type: Nurse Practitioner Type: Progress Notes Filed: 11/17/2023 09:59 Note Text: Chief Complaint Patient presents with: Abdominal Pain HPI Eleni Valdez is a 48 year old female who presents here today for Above Complaints.. Patient presents for worsening GERD and epigastric pain. Patient reports pain is worse after eating especially when eating fried and spicy foods. Patient reports she has been unable to eat or drink anything more than bland foods without pain. Patient denies n/v, reports diarrhea about 2 weeks ago which resolved on its own. Past medical history, appointments, medications, allergies reviewed. Previous Medical History PAST MEDICAL HISTORY Diagnosis Date Anxiety Asthma Essential hypertension, benign Other and unspecified hyperlipidemia Rhinitis, allergic Previous Surgical History PAST SURGICAL HISTORY Procedure Laterality Date ANTERIOR DISCECTOMY cervical EGD 11/08/2016 Dr. Tre Mccray[facility] OOPHORECTOMY PARTIAL/TOTAL UNI/BI Oophorectomy, RT and tube SINUS SURGERY HX 02/2015 TOTAL ABDOMINAL HYSTERECT W/WO RMVL TUBE OVARY 2010 Hysterectomy, RACIEL Family History FAMILY HISTORY Problem Relation Age of Onset Diabetes Mother Lipids Father Patient Allergies ALLERGIES Allergen Reactions Morphine Itching Niacin Other: See Comments Flushing Penicillins Intolerance Sulfa (Sulfonamide * Swelling Current Medications Current Outpatient Medications on File Prior to Visit Medication Sig gabapentin (NEURONTIN) 100 mg capsule Take 100 mg by mouth two times a day. meloxicam (MOBIC) 7.5 mg tablet omeprazole (PRILOSEC) 20 mg capsule Take 1 capsule by mouth two times a day. 1/2 hr before meal. lisinopril-hydroCHLOROthiazide (ZESTORETIC) 10-12.5 mg per tablet Take 1 tablet by mouth once daily. venlafaxine ER (EFFEXOR XR) 75 mg 24 hr capsule Take 1 capsule by mouth once daily. tretinoin (RETIN-A) 0.05 % cream Apply to affected area daily at bedtime. norethindrone (AYGESTIN) 5 mg tablet Take 1 tablet by mouth once daily. traMADol (ULTRAM) 50 mg tablet No current facility-administered medications on file prior to visit. Social History Social History Tobacco Use Smoking status: Never Smokeless tobacco: Never Vaping Use Vaping Use: Never used Substance Use Topics Alcohol use: No Drug use: No Review of Symptoms REVIEW OF SYSTEMS SEE HPI EXAM: BP 111/77 Pulse 83 Resp 14 Wt 59.4 kg (131 lb) LMP 03/16/2010 BMI 25.37 kg/m? General Appearance: Well appearing, alert, in no acute distress, well-hydrated, well nourished.. Abdomen: Positive findings: tenderness moderate epigastric and RUQ. Health Maintenance List Mammogram Screening due on 06/09/2021 Spirometry due on 10/30/2024 Covid-19 Vaccine( - season) due on 10/30/2024 Pneumococcal Vaccine(1 of 2 - PCV) due on 10/30/2024 BP Controlled (<130/80) due on 05/08/2024 Annual PCP Team Chronic Disease Visit due on 10/30/2024 Colorectal Cancer Screening due on 05/10/2025 Lipid Screening due on 12/29/2025 Diabetes Screening due on 03/23/2026 DTaP,Tdap,Td Vaccine(3 - Td or Tdap) due on 04/19/2028 Hepatitis B Vaccine Completed Influenza Vaccine Completed Hepatitis C Screening Completed HIV Screening Completed Pap Testing Discontinued HPV Testing Discontinued ASSESSMENT/PLAN: 1. Gastroesophageal reflux disease with esophagitis, unspecified whether hemorrhage - ICD9: 530.11, ICD10: K21.00 (primary diagnosis) - OMEPRAZOLE 40 MG CAPSULE,DELAYED RELEASE 2. Epigastric pain - ICD9: 789.06, ICD10: R10.13 - Increase treatment with Prilosec 40 mg QD - US ABD RIGHT UPPER QUADRANT - COMP METABOLIC PANEL - AMYLASE BLD - LIPASE BLD Tacos Pimentel APRN.[facility] 11-17-2023 History of Present illness Narrative Chief Complaint Patient presents with: Abdominal Pain HPI Eleni Valdez is a 48 year old female who presents here today for Above Complaints.. Patient presents for worsening GERD and epigastric pain. Patient reports pain is worse after eating especially when eating fried and spicy foods. Patient reports she has been unable to eat or drink anything more than bland foods without pain. Patient denies n/v, reports diarrhea about 2 weeks ago which resolved on its own. Past medical history, appointments, medications, allergies reviewed. Previous Medical History PAST MEDICAL HISTORY Diagnosis Date Anxiety Asthma Essential hypertension, benign Other and unspecified hyperlipidemia Rhinitis, allergic Previous Surgical History PAST SURGICAL HISTORY Procedure Laterality Date ANTERIOR DISCECTOMY cervical EGD 11/08/2016 Dr. Tre Mccray[facility] OOPHORECTOMY PARTIAL/TOTAL UNI/BI Oophorectomy, RT and tube SINUS SURGERY HX 02/2015 TOTAL ABDOMINAL HYSTERECT W/WO RMVL TUBE OVARY 2010 Hysterectomy, RACIEL Family History FAMILY HISTORY Problem Relation Age of Onset Diabetes Mother Lipids Father Patient Allergies ALLERGIES Allergen Reactions Morphine Itching Niacin Other: See Comments Flushing Penicillins Intolerance Sulfa (Sulfonamide * Swelling Current Medications Current Outpatient Medications on File Prior to Visit Medication Sig gabapentin (NEURONTIN) 100 mg capsule Take 100 mg by mouth two times a day. meloxicam (MOBIC) 7.5 mg tablet omeprazole (PRILOSEC) 20 mg capsule Take 1 capsule by mouth two times a day. 1/2 hr before meal. lisinopril-hydroCHLOROthiazide (ZESTORETIC) 10-12.5 mg per tablet Take 1 tablet by mouth once daily. venlafaxine ER (EFFEXOR XR) 75 mg 24 hr capsule Take 1 capsule by mouth once daily. tretinoin (RETIN-A) 0.05 % cream Apply to affected area daily at bedtime. norethindrone (AYGESTIN) 5 mg tablet Take 1 tablet by mouth once daily. traMADol (ULTRAM) 50 mg tablet No current facility-administered medications on file prior to visit. Social History Social History Tobacco Use Smoking status: Never Smokeless tobacco: Never Vaping Use Vaping Use: Never used Substance Use Topics Alcohol use: No Drug use: No Review of Symptoms REVIEW OF SYSTEMS SEE HPI EXAM: BP 111/77 Pulse 83 Resp 14 Wt 59.4 kg (131 lb) LMP 03/16/2010 BMI 25.37 kg/m General Appearance: Well appearing, alert, in no acute distress, well-hydrated, well nourished.. Abdomen: Positive findings: tenderness moderate epigastric and RUQ. Health Maintenance List Mammogram Screening due on 06/09/2021 Spirometry due on 10/30/2024 Covid-19 Vaccine( - season) due on 10/30/2024 Pneumococcal Vaccine(1 of 2 - PCV) due on 10/30/2024 BP Controlled (<130/80) due on 05/08/2024 Annual PCP Team Chronic Disease Visit due on 10/30/2024 Colorectal Cancer Screening due on 05/10/2025 Lipid Screening due on 12/29/2025 Diabetes Screening due on 03/23/2026 DTaP,Tdap,Td Vaccine(3 - Td or Tdap) due on 04/19/2028 Hepatitis B Vaccine Completed Influenza Vaccine Completed Hepatitis C Screening Completed HIV Screening Completed Pap Testing Discontinued HPV Testing Discontinued ASSESSMENT/PLAN: 1. Gastroesophageal reflux disease with esophagitis, unspecified whether hemorrhage - ICD9: 530.11, ICD10: K21.00 (primary diagnosis) - OMEPRAZOLE 40 MG CAPSULE,DELAYED RELEASE 2. Epigastric pain - ICD9: 789.06, ICD10: R10.13 - Increase treatment with Prilosec 40 mg QD - US ABD RIGHT UPPER QUADRANT - COMP METABOLIC PANEL - AMYLASE BLD - LIPASE BLD Tacos Pimentel APRN.VETERINARY NURSE documented in this encounter [facility] 11-16-2023 Miscellaneous Notes Patient calls to request medication for indigestion. Contacted dark room attendant who can't get her in until December. Nurse triage recommends call provider within 24 hours. Appointment scheduled to discuss medication. Care advice and red flag symptoms to go to ED with reviewed. Patient verbalizes understanding. Reason for Disposition [1] Patient says chest pain feels exactly the same as previously diagnosed heartburn AND [2] describes burning in chest AND [3] accompanying sour taste in mouth Answer Assessment - Initial Assessment Questions 1. LOCATION: Patient reports epigastric pain that goes up into esophagus. Patient reports it as a burning sensation. Taking omeprazole and Mylanta which does reduce the sensation. Patient eating bland diet (toast, bananas, yogurt, water) and has helped some. 2. RADIATION: No radiation into the neck, jaw, arms, back 3. ONSET: Monday 4. PATTERN: Constant but gets better with medication. 5. DURATION: Since Monday 6. SEVERITY:- MILD (1-3): doesn't interfere with normal activities Current rating is a 3 7. CARDIAC RISK FACTORS: Hx of HTN and high cholesterol. No angina, prior heart attack; diabetes, high blood pressure, high cholesterol, smoker, or strong family history of heart disease 8. PULMONARY RISK FACTORS: Asthma. Aygestin. No history of blood clots in lung, asthma, emphysema. 9. CAUSE: Patient reports heart burn/indigestion. 10. OTHER SYMPTOMS: No dizziness, nausea, vomiting, sweating, fever, difficulty breathing, or cough. 11. : NA Protocols used: Chest [id number] documented in this encounter [facility] 10-30-2023 Note HNO ID: [id number] Author: ASHA FLORES APRN.VETERINARY NURSE Service: ? Author Type: Nurse Practitioner Type: Progress Notes Filed: 10/30/2023 09:58 Note Text: 10/30/2023 Patient presents with: Refill Request SUBJECTIVE: This is a 48 year old that is here today for Above Complaints. Since last office visit has been in good health without ER visits or hospitalizations. HTN: Patient is compliant with meds Yes Monitors bp at home: No. Denies side effects: Yes. Chest pain: No. Dyspnea: No. Edema: No. Palpitations: No. Syncope: No. Headache: No Dizziness: yes is chronic per patient report ANXIETY: taking Effexor as prescribed. Feeling good. Does not attend counseling. Sleep well. GERD: taking omeprazole once daily. Works well to control symptoms PAST MEDICAL HISTORY Diagnosis Date Anxiety Asthma Essential hypertension, benign Other and unspecified hyperlipidemia Rhinitis, allergic ALLERGIES Morphine, Niacin, Penicillins, and Sulfa (Sulfonamide Antibiotics) MEDICATIONS Current Outpatient Medications Medication Sig norethindrone (AYGESTIN) 5 mg tablet Take 1 tablet by mouth once daily. traMADol (ULTRAM) 50 mg tablet venlafaxine ER (EFFEXOR XR) 75 mg 24 hr capsule Take 1 capsule by mouth once daily. lisinopril-hydroCHLOROthiazide (ZESTORETIC) 10-12.5 mg per tablet Take 1 tablet by mouth once daily. omeprazole (PRILOSEC) 20 mg capsule Take 1 capsule by mouth twice daily. 1/2 hr before meal. tretinoin (RETIN-A) 0.05 % cream Apply to affected area daily at bedtime. naproxen (NAPROSYN) 500 mg tablet Take 1 tablet by mouth three times daily as needed (for pain/inflammation). Take with food. No current facility-administered medications for this visit. Medications and allergies reviewed by this provider. SOCIAL HISTORY Social History Tobacco Use Smoking status: Never Smokeless tobacco: Never Vaping Use Vaping Use: Never used Substance Use Topics Alcohol use: No Drug use: No REVIEW OF SYSTEMS All other reviewed and negative other than HPI. OBJECTIVE: BP 122/88 Pulse 88 Resp 16 Wt 60.1 kg (132 lb 9.6 oz) LMP 03/16/2010 SpO2 99% BMI 25.68 kg/m? . Vital signs reviewed by this provider. APPEARANCE Well appearing, alert, in no acute distress, well-hydrated, well nourished. EYES PERRLA, conjunctiva and sclera normal. HEART RRR with normal S1 and S2, no murmurs, no gallops, no JVD appreciated LUNG clear to auscultation. No wheezes, rhonchi or rales SKIN Skin color, texture, turgor normal, no suspicious rashes or lesions Mammogram Screening due on 06/09/2021 Spirometry due on 10/30/2024 Covid-19 Vaccine( - season) due on 10/30/2024 Pneumococcal Vaccine(1 of 2 - PCV) due on 10/30/2024 BP Controlled (<130/80) due on 05/08/2024 Annual PCP Team Chronic Disease Visit due on 10/30/2024 Colorectal Cancer Screening due on 05/10/2025 Lipid Screening due on 12/29/2025 Diabetes Screening due on 03/23/2026 DTaP,Tdap,Td Vaccine(3 - Td or Tdap) due on 04/19/2028 Hepatitis B Vaccine Completed Influenza Vaccine Completed Hepatitis C Screening Completed HIV Screening Completed Pap Testing Discontinued HPV Testing Discontinued ASSESSMENT/PLAN: 1. Essential hypertension, benign - ICD9: 401.1, ICD10: I10 (primary diagnosis) - Controlled - Continue current medications - Recommend home blood pressure monitoring, to bring results to next visit - Encouraged sodium restriction, DASH or Mediterranean diet - Recommend regular aerobic exercise - Follow up in 6 months for hypertension visit - LISINOPRIL 10 MG-HYDROCHLOROTHIAZIDE 12.5 MG TABLET - COMP METABOLIC PANEL 2. Gastroesophageal reflux disease with esophagitis, unspecified whether hemorrhage - ICD9: 530.11, ICD10: K21.00 - stable on current regime - OMEPRAZOLE 20 MG CAPSULE,DELAYED RELEASE - follow-up as needed 3. Depression, unspecified depression type - ICD9: 311, ICD10: F32.A - stable on current regime - VENLAFAXINE ER 75 MG CAPSULE,EXTENDED RELEASE 24 HR - follow-up as needed 4. Screening for hyperlipidemia - ICD9: V77.91, ICD10: Z13.220 - LIPID PANEL GORDO Flores, NEWBORN PHOTOGRAPHER.VETERINARY NURSE Prescription instructions reviewed with patient as applicable. Patient advised if symptoms do not improve or if symptoms worsen sooner, to contact their primary care physician. Potential red flag symptoms discussed with the patient. Reviewed appropriate action plan to take if red flag symptoms occur. Patient agreeable to treatment plan. I spent a total of 25 minutes on the date of the service which included preparing to see the patient, [id number] patient care, completing clinical documentation, obtaining and/or reviewing separately obtained history, performing a medically appropriate examination, counseling and educating the patient/family/caregiver, and ordering medications, tests, or procedures. [facility] 09-13-2023 History of Present illness Narrative Associated Order(s): LG Jt Injection/Arthrocentesis: R greater trochanteric bursa Post-Procedure Diagnose(s): Trochanteric bursitis of right hip [facility] [address] [facility] [address] [facility] [id number] Chief Complaint Patient presents with Right Hip - Pain Eleni Valdez returns to the office today for right hip pain. She denies any injury to the hip. She has had pain along the lateral thigh since April. She is tender to touch along the lateral hip. She is having a difficult time applying any pressure on the left side. No reports of radiating pain or numbness and tingling down the leg or into the foot or toes. Otc pain medications without improvement. The patient's past medical history, surgical history, social history, family history, medications and allergies were reviewed with the patient today and are available in the chart for further review. Allergies Allergen Reactions Morphine Itching Niacin Other reaction(s): Other: See Comments Flushing Penicillins Other reaction(s): Intolerance Sulfa (Sulfonamide Antibiotics) Swelling Current Outpatient Medications: acetaminophen (TYLENOL) 500 MG tablet, Take 2 (two) tablets (1,000 mg total) by mouth every 6 (six) hours as needed for pain ., Disp: , Rfl: calcium-vitamin D 250 mg-2.5 mcg (100 unit) per tablet, Take 1 (one) tablet by mouth 2 (two) times a day ., Disp: , Rfl: cyanocobalamin (B-12) 1000 MCG tablet, Take 1 (one) tablet (1,000 mcg total) by mouth daily ., Disp: , Rfl: estradiol (ESTRACE) 0.01 % (0.1 mg/gram) vaginal cream, Apply pea size amount to the vulva twice a day ., Disp: 42.5 g, Rfl: 4 gabapentin (NEURONTIN) 100 MG capsule, Take 1 (one) capsule (100 mg total) by mouth 2 (two) times a day ., Disp: , Rfl: meclizine (ANTIVERT) 25 mg tablet, Take 1 (one) tablet (25 mg total) by mouth daily . (Patient taking differently: Take 1 (one) tablet (25 mg total) by mouth as needed .), Disp: 90 tablet, Rfl: 0 meloxicam (MOBIC) 7.5 MG tablet, Take 1 (one) tablet (7.5 mg total) by mouth daily ., Disp: , Rfl: multivitamin (THERAGRAN) per tablet, Take 1 (one) tablet by mouth daily ., Disp: , Rfl: norethindrone (AYGESTIN) 5 mg tablet, Take 1 (one) tablet (5 mg total) by mouth daily ., Disp: , Rfl: omega-3 fatty acids/fish oil (fish oil-omega-3 fatty acids) 300-1,000 mg capsule, Take 2 (two) capsules by mouth daily ., Disp: , Rfl: tretinoin (RETIN-A) 0.05 % cream, Once daily . (Patient taking differently: Apply topically as needed Once daily .), Disp: 45 g, Rfl: 3 venlafaxine (EFFEXOR-XR) 37.5 MG 24 hr capsule, Take 1 (one) capsule (37.5 mg total) by mouth daily ., Disp: , Rfl: lisinopriL-hydrochlorothiazide (PRINZIDE,ZESTORETIC) 10-12.5 mg per tablet, Take 1 (one) tablet by mouth daily ., Disp: 90 tablet, Rfl: 1 pantoprazole (PROTONIX) 20 MG tablet, Take 1 (one) tablet (20 mg total) by mouth daily Start: 04/11/23., Disp: 30 tablet, Rfl: 0 Past Medical History: Diagnosis Date Acne Allergic rhinitis Anxiety Arthritis Asthma Cervical disc disorder August 2021 Depression Endometriosis Fractures Right leg fx at age 10 GERD (gastroesophageal reflux disease) Hyperlipidemia Hypertension Irritable bowel syndrome Surgical menopause Vertigo Past Surgical History: Procedure Laterality Date ARTHROPLASTY KNEE UNICOMPARTMENTAL Right 04/10/2023 Procedure: Right partial medial knee replacement; Surgeon: Garry Bender MD; Location: Main OR; Service: Orthopedic BREAST SURGERY 2000 reduction CERVICAL DISC SURGERY 08/2021 EGD 11/08/2016 with biopsy, including WATS3D and rivas capsule placement; Dr. Chalo Mccray ESOPHAGEAL MANOMETRY 11/08/2016 JOINT REPLACEMENT 04/10/2023 Partial right knee replacement KNEE SURGERY 04/10/23 Partial right knee replacement NECK SURGERY 08/30/21 Cervical disk replacement SALPINGOOPHORECTOMY Right SINUS SURGERY TOTAL ABDOMINAL HYSTERECTOMY complete Social History Socioeconomic History Marital status: Single Spouse name: Marquis Number of children: 2 Highest education level: Bachelor's degree (e.g., BA, AB, BS) Tobacco Use Smoking status: Never Smokeless tobacco: Never Vaping Use Vaping Use: Never used Substance and Sexual Activity Alcohol use: Not Currently Drug use: Never Sexual activity: Not Currently Partners: Male Social Determinants of Health Financial Resource Strain: Low Risk (05/17/2019) Overall Financial Resource Strain (CARDIA) Difficulty of Paying Living Expenses: Not hard at all Food Insecurity: No Food Insecurity (05/17/2019) Hunger Vital Sign Worried About Running Out of Food in the Last Year: Never true Ran Out of Food in the Last Year: Never true Transportation Needs: No Transportation Needs (05/17/2019) PRAPARE - Transportation Lack of Transportation (Medical): No Lack of Transportation (Non-Medical): No Physical Activity: Inactive (05/17/2019) Exercise Vital Sign Days of Exercise per Week: 0 days Minutes of Exercise per Session: 0 min Stress: Stress Concern Present (05/17/2019) [employer] [place] [employer] - Occupational Stress Questionnaire Feeling of Stress : To some extent Social Connections: Socially Integrated (05/17/2019) Social Connection and Isolation Panel [NHANES] Frequency of Communication with Friends and Family: More than three times a week Frequency of Social Gatherings with Friends and Family: Once a week Attends Protestant Services: More than 4 times per year Active Member of Clubs or Organizations: Yes Attends Club or Organization Meetings: More than 4 times per year Marital Status: ROS: Review of Systems Gastrointestinal: Positive for abdominal pain. Musculoskeletal: Positive for arthralgias. Negative for gait problem, joint swelling and myalgias. ORTHO: Right Hip Exam Tenderness The patient is experiencing tenderness in the greater trochanter. Range of Motion The patient has normal right hip ROM. Muscle Strength The patient has normal right hip strength. Tests LEXI: negative Vicente: negative Other Erythema: absent Scars: absent Sensation: normal Pulse: present Imaging: R Hip: R Hip: Mild degenerative changes. No acute fracture or dislocation. Degenerative changes at the greater trochanter. Lumbar: No acute fracture or dislocation. Multi-level degenerative changes with curvature of the spine. Assessment/Plan: After examination and reviewing of the patient x-ray images, I offered her a cortisone injection to the right hip which she gladly accepted. I did this without complications and she tolerated this well. If there is no improvement in 2 weeks, she is to return for follow up. LG Jt Injection/Arthrocentesis: R greater trochanteric bursa Performed by: Shruti Arnold CNP Authorized by: Shruti Arnold CNP CPT 77292 - Large Joint Arthrocentesis: Consent given by: Patient Time out: Immediately prior to the procedure a time out was called Physician or proceduralist has discussed critical or nonroutine steps, procedure duration and anticipated blood loss: Yes Supporting Documentation: Indications: Diagnostic evaluation and pain Procedure Details: Location: Hip Site: R greater trochanteric bursa Prep: patient was prepped and draped in usual sterile fashion Needle size: 22 G Medications: 40 mg triamcinolone acetonide 40 mg/mL Anesthetic used: Lidocaine 1% Anesthetic amount (mL): 2 Patient tolerance: Patient tolerated the procedure well with no immediate complications documented in this encounter [facility] 08-17-2023 History of Present illness Narrative Eleni called today states she has been having some right sided hip pain, not in her buttocks or groin. It does hurt to lay on the right side. She denies any injury. She would like to see Shruti Arnold NP. The call center will tanner her an appointment. documented in this encounter [facility] 05-23-2023 Telephone encounter Note Patient requested refill for pain medication and Flexeril. Surgery 04/10 right partial medial knee replacement , last fill 04/28. [facility] 05-23-2023 Miscellaneous Notes Patient requested refill for pain medication and Flexeril. Surgery 04/10 right partial medial knee replacement , last fill 04/28. documented in this encounter [facility] 05-16-2023 Note HNO ID: [id number] Author: Clementina Hall APRN.VETERINARY NURSE Service: ? Author Type: Nurse Practitioner Type: Progress Notes Filed: 05/16/2023 1:31 PM Note Text: Driver Operator offered: Patient declinesKaruna Knowles is a 47 year old who presents for an annual gynecologic exam without complaints. Menses: n/a s/p hysterectomy. 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 Tre Mccray[facility] OOPHORECTOMY PARTIAL/TOTAL UNI/BI Oophorectomy, RT and tube SINUS SURGERY HX 02/2015 TOTAL ABDOMINAL HYSTERECT W/WO RMVL TUBE OVARY 2010 Hysterectomy, RACIEL FAMILY HISTORY Problem Relation Age of Onset Diabetes Mother Lipids Father SOCIAL HISTORY Social History Tobacco Use Smoking status: Never Smokeless tobacco: Never Vaping Use Vaping Use: Never used Substance Use Topics Alcohol use: No Drug use: No REVIEW OF SYSTEMS Abdomen: No abdominal pain, nausea, vomiting, diarrhea, or constipation. No bloating, early satiety, indigestion, or increased flatulence. Bladder: No dysuria, gross hematuria, urinary frequency, urinary urgency, or incontinence. Breast: No breast lumps, nipple d/c, overlying skin changes, redness or skin retraction. Allergies and current medication updated:Yes EXAM: BP 112/78 Ht 5' .25 (1.53m) Wt 142 lb (64.4kg) LMP 03/16/2010 BMI 27.52 kg/(m2). GENERAL: pleasant, female in no apparent distress HEENT: Normocephalic, atraumatic, mucus membranes moist, and no lesions NECK: Supple, full range of motion, no adenopathy, and thyroid normal DERMATOLOGY: Normal, without lesions, non-icteric, and non-hirsute BREAST: soft, non-tender, symmetric, no dominant mass, normal nipple-areolar complex, no lymphadenopathy, and no nipple discharge CHEST: Normal inspiratory effort ABDOMEN: soft, non-tender, and no masses PELVIC: external genitalia normal, normal Bartholin's glands, urethra, Ranlo's glands, no vulvar lesions, good vaginal support, physiologic discharge present, normal appearing perineal body and perianal region, cervix surgically absent BIMANUAL: no adnexal masses, non-tender, and uterus surgically absent RECTOVAGINAL: deferred. NEURO: alert and oriented x3,exam grossly non-focal EXTREMITIES: normal ASSESSMENT/PLAN: 1) Health maintenance: Mammogram up to date . Nutrition, exercise and routine health maintenance exams reviewed. Calcium/Vitamin D supplementation information provided. 2) Contraception: hysterectomy. Contraceptive options reviewed and information provided. 3) STD screening: NA 4) Follow up one year or sooner as needed Clementina Hall APRN.[facility] 05-16-2023 History of Present illness Narrative Driver Operator offered: Patient declines. Eleni is a 47 year old who presents for an annual gynecologic exam without complaints. Menses: n/a s/p hysterectomy. 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 Tre Mccray-[facility] OOPHORECTOMY PARTIAL/TOTAL UNI/BI Oophorectomy, RT and tube SINUS SURGERY HX 02/2015 TOTAL ABDOMINAL HYSTERECT W/WO RMVL TUBE OVARY 2010 Hysterectomy, RACIEL FAMILY HISTORY Problem Relation Age of Onset Diabetes Mother Lipids Father SOCIAL HISTORY Social History Tobacco Use Smoking status: Never Smokeless tobacco: Never Vaping Use Vaping Use: Never used Substance Use Topics Alcohol use: No Drug use: No REVIEW OF SYSTEMS Abdomen: No abdominal pain, nausea, vomiting, diarrhea, or constipation. No bloating, early satiety, indigestion, or increased flatulence. Bladder: No dysuria, gross hematuria, urinary frequency, urinary urgency, or incontinence. Breast: No breast lumps, nipple d/c, overlying skin changes, redness or skin retraction. Allergies and current medication updated:Yes EXAM: BP 112/78 Ht 5' .25 (1.53m) Wt 142 lb (64.4kg) LMP 03/16/2010 BMI 27.52 kg/(m^2). GENERAL: pleasant, female in no apparent distress HEENT: Normocephalic, atraumatic, mucus membranes moist, and no lesions NECK: Supple, full range of motion, no adenopathy, and thyroid normal DERMATOLOGY: Normal, without lesions, non-icteric, and non-hirsute BREAST: soft, non-tender, symmetric, no dominant mass, normal nipple-areolar complex, no lymphadenopathy, and no nipple discharge CHEST: Normal inspiratory effort ABDOMEN: soft, non-tender, and no masses PELVIC: external genitalia normal, normal Bartholin's glands, urethra, Ranlo's glands, no vulvar lesions, good vaginal support, physiologic discharge present, normal appearing perineal body and perianal region, cervix surgically absent BIMANUAL: no adnexal masses, non-tender, and uterus surgically absent RECTOVAGINAL: deferred. NEURO: alert and oriented x3,exam grossly non-focal EXTREMITIES: normal ASSESSMENT/PLAN: 1) Health maintenance: Mammogram up to date . Nutrition, exercise and routine health maintenance exams reviewed. Calcium/Vitamin D supplementation information provided. 2) Contraception: hysterectomy. Contraceptive options reviewed and information provided. 3) STD screening: NA 4) Follow up one year or sooner as needed Clementina Hall APRN.FARHANA documented in this encounter [facility] 05-08-2023 Note HNO ID: [id number] Author: Asha Flores APRN.FARHANA Service: ? Author Type: Nurse Practitioner Type: Progress Notes Filed: 05/08/2023 12:54 PM Note Text: 05/08/2023 Patient presents with: Physical SUBJECTIVE: This is a 47 year old that is here today for Above Complaints. Since last office visit has been in good health without ER visits or hospitalizations. HTN: Patient is compliant with meds Yes Monitors bp at home: Yes. Denies side effects: Yes. Chest pain: No. Dyspnea: No. Edema: No. Palpitations: No. Syncope: No. Headache: No. Dizziness: occasional . ACNE: uses retin-A which works well Feels like she needs an increase on her Effexor. Feels overwhelmed a lot. Sleeping okay due to some pain in her knee since surgery. Does not attend counseling. Denies SI, HI or insomnia Following with pain management for cervical pain every three months Recent surgery to right knee for partial medial knee replacement. Following with ortho for this. PAST MEDICAL HISTORY Diagnosis Date Anxiety Asthma Essential hypertension, benign Other and unspecified hyperlipidemia Rhinitis, allergic ALLERGIES Morphine, Niacin, Penicillins, and Sulfa (Sulfonamide Antibiotics) MEDICATIONS Current Outpatient Medications Medication Sig norethindrone (AYGESTIN) 5 mg tablet Take 1 tablet by mouth once daily. lisinopril-hydroCHLOROthiazide (ZESTORETIC) 10-12.5 mg per tablet Take 1 tablet by mouth once daily. venlafaxine ER (EFFEXOR XR) 37.5 mg 24 hr capsule Take 1 capsule by mouth once daily. naproxen (NAPROSYN) 500 mg tablet Take 1 tablet by mouth three times daily as needed (for pain/inflammation). Take with food. omeprazole (PRILOSEC) 20 mg capsule Take 1 capsule by mouth twice daily. 1/2 hr before meal. tretinoin (RETIN-A) 0.05 % cream Apply 1 application to affected area daily at bedtime. meclizine (ANTIVERT) 25 mg tab Take 1 tablet by mouth every 6 hours as needed (dizziness). gabapentin (NEURONTIN) 100 mg capsule Take 1 capsule by mouth twice daily for 30 days. meloxicam (MOBIC) 7.5 mg tablet Take 1 tablet by mouth once daily. Take with food. tretinoin (RETIN-A) 0.05 % cream APPLY 1 APPLICATION TO AFFECTED AREA ONCE DAILY. No current facility-administered medications for this visit. Medications and allergies reviewed by this provider. SOCIAL HISTORY Social History Tobacco Use Smoking status: Never Smokeless tobacco: Never Vaping Use Vaping Use: Never used Substance Use Topics Alcohol use: No Drug use: No REVIEW OF SYSTEMS All other reviewed and negative other than HPI. OBJECTIVE: BP 106/76 Pulse 96 Resp 16 Ht 158.9 cm (5' 2.56 ) Wt 65.3 kg (144 lb) LMP 03/16/2010 SpO2 93% BMI 25.87 kg/m? . Vital signs reviewed by this provider. APPEARANCE Well appearing, alert, in no acute distress, well-hydrated, well nourished. EYES conjunctiva and sclera normal. EARS External ears normal, canals clear NECK Supple, no adenopathy; thyroid symmetric, normal size, no bruits HEART RRR with normal S1 and S2, no murmurs, no gallops, no JVD appreciated LUNG clear to auscultation. No wheezes, rhonchi or rales EXTREMITIES Extremities normal, No deformities, No skin discoloration, and No edema SKIN Skin color, texture, turgor normal, no suspicious rashes or lesions to exposed skin PSYCH: Posture and motor behavior: normal posture and motor behavior Dress, grooming, personal hygiene: normal dress and grooming Facial expression: good eye contact Speech: normal speech Mood: cheerful Coherency and relevance of thought: normal thought processes Memory: normal memory PNEUMOCOCCAL(1 - PCV) Never done SPIROMETRY Never done HEPATITIS C SCREENING Never done HIV SCREENING Never done MAMMOGRAM due on 06/09/2021 DIABETES SCREEN due on 10/12/2021 COVID-19 VACCINE(4 - Pfizer series) due on 01/16/2022 INFLUENZA(1) due on 06/16/2023 ANNUAL PCP TEAM CHRONIC DISEASE VISIT due on 05/08/2024 BP CONTROLLED (<130/80) due on 05/08/2024 COLORECTAL CANCER SCREENING due on 05/10/2025 LIPID SCREEN due on 12/29/2025 DTAP,TDAP,TD(3 - Td or Tdap) due on 04/19/2028 HEPATITIS B Completed PAP TESTING Discontinued HPV TESTING Discontinued ASSESSMENT/PLAN: 1. Essential hypertension, benign - ICD9: 401.1, ICD10: I10 (primary diagnosis) - Controlled - Continue current medications - Recommend home blood pressure monitoring, to bring results to next visit - Encouraged sodium restriction, DASH or Mediterranean diet - Recommend regular aerobic exercise - Follow up in 1 year sooner if needed for hypertension visit - LISINOPRIL 10 MG-HYDROCHLOROTHIAZIDE 12.5 MG TABLET 2. Screening for hyperlipidemia - ICD9: V77.91, ICD10: Z13.220 - LIPID PANEL BASIC 3. Gastroesophageal reflux disease with esophagitis, unspecified whether hemorrhage - ICD9: 530.11, ICD10: K21.00 - stable on current regime - OMEPRAZOLE 20 MG CAPSULE,DELAYED RELEASE 4. (more content not included)... [facility] Miscellaneous Notes Annual scheduled with 05/16/23. Needs refill prior to that. Requested Prescriptions Pending Prescriptions Disp Refills norethindrone (AYGESTIN) 5 mg tablet 60 tablet 0 Sig: Take 1 tablet by mouth once daily. RX INSTRUCTIONS: Patient aware RX will be sent to pharmacy. No need to notify patient. Kami Inman RN documented in this encounter [facility] 04-28-2023 History of Present illness Narrative Eleni comes in today 2 weeks status post right knee medial unicompartmental knee replacement, doing well. PHYSICAL EXAMINATION Right Knee: Wound is healed. No signs of infection, no DVT signs or symptoms. Calves soft. She has about 3 degrees short of full extension, over 100 degrees of flexion. No ligamentous instability, no erythema, no lymphangitis, no cellulitis. X-RAYS No x-rays were obtained. IMPRESSION Two weeks status post right knee medial unicompartmental knee replacement. PLAN She will do local wound care, aspirin protocol, outpatient physical therapy. I will see her in a month for x-rays. I did perform a narcotic review. Her last listed medication was tramadol on 04/17/2023. documented in this encounter [facility] 04-20-2023 Telephone encounter Note Patient requested refill for Flexeril. Surgery 04/10 right partial knee, last fill 04/10. [facility] 04-20-2023 Miscellaneous Notes Patient requested refill for Flexeril. Surgery 04/10 right partial knee, last fill 04/10. documented in this encounter [facility] 04-17-2023 History of Present illness Narrative I spoke w Eleni today and she says she is doing ok but still has quite a bit of pain in the knee. Her swelling is about the same. She does use ice but did say she could elevate more but is does hurt her knee. We did discuss the need to be flat on the bed/sofa three times per day w her foot elevated and ice on the knee. She did have some constipation and used the Miralax w good results, nausea sometimes when she is doing her exercises from the pain but when she rests the nausea goes away and no vomiting. Her appetite is good. She is taking 325mg ASA bid, 10mg Flexeril tid, 750mg Levaquin every day and 20mg Omeprazole bid She has stopped her Oxycodone due to stomach upset and is asking for Tramadol. documented in this encounter [facility] 03-23-2023 History of Present illness Narrative General Cardiology New Patient Clinic Consult [facility] 03/23/2023 Vannesa Randolph MD [address] [place] [address] Medical [facility] [address] Patient: Eleni Valdez Date of : 1975 (47 y.o.) Referring Provider: Garry Bender,* PCP: Priya Barajas MD Date of Service: 03/23/2023 Chief Complaint: Initial Visit (Intake) (Surgery 04/10/23 w/ Dr. Bender, right partial knee replacement/ No cardiac symptoms ) Assessment and Plan: 1. Meniscus degeneration, right 2. Preoperative cardiovascular examination Patient's Nayak score is 0.1% risk of perioperative cardiovascular complications. EKG does not demonstrate any concerning findings for previous infarction or ischemia or abnormal rhythm, physical exam does not indicate any evidence of valvular heart disease and patient has no signs or symptoms of heart failure thus there are no further cardiovascular interventions that would be recommended prior to planned surgery. Patient is able to achieve at least 4 metabolic equivalents of physical activity, and based on the current ACC/AHA perioperative guidelines, at this time, there are no identified contraindications from cardiology for proposed procedure. ' It has been a pleasure caring for this patient. Please don't hesitate to reach out to my office directly with any questions or concerns. Follow-up: Return if symptoms worsen or fail to improve. Vannesa Randolph MD, [facility] Non-Invasive Cardiology [facility] P:[phone] F:[phone] History of Present Illness: Eleni Valdez is a 47 y.o. woman with past medical history of well-controlled hypertension who presents today for perioperative evaluation prior to knee surgery. 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 Blood pressures are well controlled at home. No near-syncope or syncope. No palpitations Objective Review of Systems: All systems were reviewed and are noted to be negative unless otherwise stated in HPI. Past Medical History: Diagnosis Date Acne Allergic rhinitis Anxiety Arthritis Asthma Depression Endometriosis GERD (gastroesophageal reflux disease) Hyperlipidemia Hypertension Irritable bowel syndrome Surgical menopause Vertigo Past Surgical History: Procedure Laterality Date BREAST SURGERY 2000 reduction CERVICAL DISC SURGERY 08/2021 EGD 11/08/2016 with biopsy, including WATS3D and rivas capsule placement; Dr. Chalo Mccray ESOPHAGEAL MANOMETRY 11/08/2016 SALPINGOOPHORECTOMY Right SINUS SURGERY TOTAL ABDOMINAL HYSTERECTOMY complete Family History Problem Relation Age of Onset Diabetes Mother Hypertension Mother Hyperlipidemia Father Hypertension Father Diabetes Father No Known Problems Sister No Known Problems Daughter Schizophrenia Son Lung cancer Maternal Aunt Hypertension Maternal Aunt Heart disease Maternal Aunt Kidney disease Maternal Uncle Heart disease Maternal Uncle COPD Maternal Grandmother Lung cancer Maternal Grandmother Heart disease Maternal Grandfather Hyperlipidemia Maternal Grandfather Hypertension Maternal Grandfather Dementia Paternal Grandmother Liver disease Paternal Grandfather Alcohol abuse Paternal Grandfather Social History Tobacco Use Smoking Status Never Smokeless Tobacco Never Vaping Use Vaping Use: Never used Allergies: Morphine, Niacin, Penicillins, and Sulfa (sulfonamide antibiotics) All of the information has been reviewed at today's visit and modified if necessary. Home Medications: Current Outpatient Medications: acetaminophen (TYLENOL) 500 MG tablet, Take 2 (two) tablets (1,000 mg total) by mouth every 6 (six) hours as needed for pain ., Disp: , Rfl: calcium-vitamin D 250 mg-2.5 mcg (100 unit) per tablet, Take 1 (one) tablet by mouth 2 (two) times a day ., Disp: , Rfl: cyanocobalamin (B-12) 1000 MCG tablet, Take 1 (one) tablet (1,000 mcg total) by mouth daily ., Disp: , Rfl: estradiol (ESTRACE) 0.01 % (0.1 mg/gram) vaginal cream, Apply pea size amount to the vulva twice a day ., Disp: 42.5 g, Rfl: 4 gabapentin (NEURONTIN) 100 MG capsule, Take 1 (one) capsule (100 mg total) by mouth 2 (two) times a day ., Disp: , Rfl: lisinopriL-hydrochlorothiazide (PRINZIDE,ZESTORETIC) 10-12.5 mg per tablet, Take 1 (one) tablet by mouth daily ., Disp: 90 tablet, Rfl: 1 meclizine (ANTIVERT) 25 mg tablet, Take 1 (one) tablet (25 mg total) by mouth daily . (Patient taking differently: Take 1 (one) tablet (25 mg total) by mouth as needed .), Disp: 90 tablet, Rfl: 0 meloxicam (MOBIC) 7.5 MG tablet, Take 1 (one) tablet (7.5 mg total) by mouth daily ., Disp: , Rfl: multivitamin (THERAGRAN) per tablet, Take 1 (one) tablet by mouth daily ., Disp: , Rfl: norethindrone (AYGESTIN) 5 mg tablet, Take 1 (one) tablet (5 mg total) by mouth daily ., Disp: , Rfl: omega-3 fatty acids/fish oil (fish oil-omega-3 fatty acids) 300-1,000 mg capsule, Take 2 (two) capsules by mouth daily ., Disp: , Rfl: omeprazole (PRILOSEC) 20 MG capsule, Take 1 (one) capsule (20 mg total) by mouth 2 (two) times a day ., Disp: , Rfl: tretinoin (RETIN-A) 0.05 % cream, Once daily . (Patient taking differently: Apply topically as needed Once daily .), Disp: 45 g, Rfl: 3 venlafaxine (EFFEXOR-XR) 37.5 MG 24 hr capsule, Take 1 (one) capsule (37.5 mg total) by mouth daily ., Disp: , Rfl: Physical Exam: BP 115/82 (BP Location: Left arm, Patient Position: Sitting, BP Cuff Size: Adult) Pulse 75 Ht 5' 2 Wt 65.5 kg (144 lb 6.4 oz) SpO2 100% BMI 26.41 kg/m Constitutional: Well appearing female, no acute distress Head: Normocephalic and atraumatic. Eyes: Conjunctivae are normal, no scleral icterus, no corneal arcus Neck: No acanthosis nigricans, no elevated jugular venous distension, no hepatojugular reflux Cardiovascular: Regular rate and rhythm, no murmurs appreciated on today's exam, normal S1 and S2, no rubs or gallops, PMI is midline Pulses: +2 dorsalis pedis pulses bilaterally Musculoskeletal: Normal range of motion. No cyanosis. No peripheral Edema Neurological: AOx3, moving all extremities normally Skin: Skin is warm and dry, normal hair pattern Psychiatric: Normal mood and affect, appropriate conversation Cardiovascular Studies: EKG March 23, 2023 demonstrates normal sinus rhythm without evidence of ischemia or infarction Labs: Lab Results Component Value Date GLUCOSE 75 03/23/2023 CALCIUM 9.3 03/23/2023 NA 138 03/23/2023 K 4.0 03/23/2023 CL 103 03/23/2023 BUN 21 03/23/2023 CREATININE 0.78 03/23/2023 Lab Results Component Value Date ALT 38 05/18/2019 AST 24 05/18/2019 ALKPHOS 68 05/18/2019 BILITOT 0.4 05/18/2019 Lab Results Component Value Date WBC 5.21 03/23/2023 HGB 15.1 03/23/2023 HCT 45.4 03/23/2023 MCV 88.5 03/23/2023 PLT 194 03/23/2023 RBC 5.13 03/23/2023 Lab Results Component Value Date CHOL 169 05/18/2019 LDLCALC 58 05/18/2019 TRIG 394 (H) 05/18/2019 HDL 32 (L) 05/18/2019 No results found for: HGBA1C Lab Results Component Value Date ALT 38 05/18/2019 AST 24 05/18/2019 ALKPHOS 68 05/18/2019 BILITOT 0.4 05/18/2019 The 10-year ASCVD risk score (Peyton DRAPER, et al., 2019) is: 2.6% Values used to calculate the score: Age: 47 years Sex: Female Is Non- : No Diabetic: No Tobacco smoker: No Systolic Blood Pressure: 115 mmHg Is BP treated: Yes HDL Cholesterol: 30 mg/dL Total Cholesterol: 201 mg/dL documented in this encounter [facility] 03-23-2023 Instructions Danilo Ruiz MA - 03/23/2023 9:45 AM EDT How to Contact your Care Team: Provider: Dr. Vannesa Randolph MD Clinic Nurse: Bev Rivera RN REFILLS: When in need for refills please call your care team or the office at [phone]. Please include medication name, pharmacy name, and specify 30-day or 90-day supply. Please check with your pharmacy within 24 hours of request for your refill. You must follow up as directed to continue current refills. Thank you! documented in this encounter [facility] 03-22-2023 Note Patient Outreach ([facility]) ELENI VALDEZ ([id number]) 1975 F Date Time Provider Department 03/22/23 WOLF SIMS During your visit today, we recorded the following information about you: Allergies As of Date: 03/22/2023 Noted Allergy Reaction MORPHINE 11/03/2010 9 - Itching NIACIN 04/10/2013 14 - Other: See Comments Comments: Flushing PENICILLINS 08/07/2009 5 - Intolerance SULFA (SULFONAMIDE ANTIBIOTICS) 08/07/2009 7 - Swelling Date Reviewed: 03/18/2023 Reviewed by: Chanda Lipscomb APRN.VETERINARY NURSE - Fully Assessed Visit Diagnosis:Encounter for screening mammogram for breast cancer [Z12.31] Order(s):[facility] SCREENING [[id number]] Order #: [id number] FUTURE Prescriptions as of 03/27/2023 - naproxen (NAPROSYN) 500 mg tablet Take 1 tablet by mouth three times daily as needed (for pain/inflammation). Take with food. - omeprazole (PRILOSEC) 20 mg capsule Take 1 capsule by mouth twice daily. 1/2 hr before meal. - venlafaxine ER (EFFEXOR XR) 37.5 mg 24 hr capsule Take 1 capsule by mouth once daily. - lisinopril-hydroCHLOROthiazide (PRINZIDE,ZESTORETIC) 10-12.5 mg per tablet Take 1 tablet by mouth once daily. - tretinoin (RETIN-A) 0.05 % cream Apply 1 application to affected area daily at bedtime. - norethindrone (AYGESTIN) 5 mg tablet Take 1 tablet by mouth once daily. - meclizine (ANTIVERT) 25 mg tab Take 1 tablet by mouth every 6 hours as needed (dizziness). - gabapentin (NEURONTIN) 100 mg capsule Take 1 capsule by mouth twice daily for 30 days. - meloxicam (MOBIC) 7.5 mg tablet Take 1 tablet by mouth once daily. Take with food. - tretinoin (RETIN-A) 0.05 % cream APPLY 1 APPLICATION TO AFFECTED AREA ONCE DAILY. Problem List As Of Date 03/22/2023 Noted Resolved Anxiety [F41.9] 08/07/2009 Essential Hypertension, Benign [I10] 08/07/2009 Other and Unspecified Hyperlipidemia [E78.5] 08/07/2009 Asthma [J45.909] 10/01/2009 Allergic Rhinitis, Cause Unspecified [J30.9] 10/01/2009 Family History of Diabetes Mellitus (DM) [Z83.3]10/01/2009 Symptomatic menopausal or female climacteric st*03/27/2012 Mastalgia [N64.4] 02/19/2013 Depressive disorder, not elsewhere classified [*10/27/2014 Acromioclavicular (AC) joint injury [S49.90XA] 03/10/2015 Encounter Status:Closed by EPIC, PRODUSER on 03/27/23 [facility] 03-18-2023 Note HNO ID: [id number] Author: Chanda Lipscomb APRN.VETERINARY NURSE Service: ? Author Type: Nurse Practitioner Type: Progress Notes Filed: 03/18/2023 8:42 AM Note Text: CC: Patient presents with: Pain: Left lower jaw, possible tooth infection x 5 days HPI Eleni Valdez is a 47 year old female who presents today for above. Patient has a broken tooth in the area of pain that was cemented last year. Thinks it may have a crack in it. Pain is worsening. Denies fever, swelling, redness, increased warmth or drainage. Treating with Tylenol and salt water gargles with temporary relief. REVIEW OF SYSTEMS See HPI PAST MEDICAL HISTORY Diagnosis Date Anxiety Asthma Essential hypertension, benign Other and unspecified hyperlipidemia Rhinitis, allergic PAST SURGICAL HISTORY Procedure Laterality Date ANTERIOR DISCECTOMY cervical EGD 11/08/2016 Dr. Tre Mccray[facility] OOPHORECTOMY PARTIAL/TOTAL UNI/BI Oophorectomy, RT and tube SINUS SURGERY HX 02/2015 TOTAL ABDOMINAL HYSTERECT W/WO RMVL TUBE OVARY 2009 Hysterectomy, RACIEL ALLERGIES Morphine, Niacin, Penicillins, and Sulfa (Sulfonamide Antibiotics) MEDICATIONS omeprazole (PRILOSEC) 20 mg capsule Take 1 capsule by mouth twice daily. 1/2 hr before meal. venlafaxine ER (EFFEXOR XR) 37.5 mg 24 hr capsule Take 1 capsule by mouth once daily. lisinopril-hydroCHLOROthiazide (PRINZIDE,ZESTORETIC) 10-12.5 mg per tablet Take 1 tablet by mouth once daily. norethindrone (AYGESTIN) 5 mg tablet Take 1 tablet by mouth once daily. meclizine (ANTIVERT) 25 mg tab Take 1 tablet by mouth every 6 hours as needed (dizziness). gabapentin (NEURONTIN) 100 mg capsule Take 1 capsule by mouth twice daily for 30 days. meloxicam (MOBIC) 7.5 mg tablet Take 1 tablet by mouth once daily. Take with food. tretinoin (RETIN-A) 0.05 % cream APPLY 1 APPLICATION TO AFFECTED AREA ONCE DAILY. tretinoin (RETIN-A) 0.05 % cream Apply 1 application to affected area daily at bedtime. cyclobenzaprine (FLEXERIL) 10 mg tablet Take 1 tablet by mouth three times daily as needed for muscle spasm (and pain). (Patient not taking: Reported on 03/18/2023) FAMILY HISTORY Problem Relation Age of Onset Diabetes Mother Lipids Father Social History Tobacco Use Smoking status: Never Smokeless tobacco: Never Vaping Use Vaping Use: Never used Substance Use Topics Alcohol use: No Drug use: No PHYSICAL EXAM BP 136/82 Pulse 77 Temp 37.1 ?C (98.7 ?F) Resp 16 Wt 65.8 kg (145 lb) LMP 03/16/2010 SpO2 96% BMI 26.02 kg/m? General Appearance: well appearing, in no acute distress, alert Head: No facial swelling. Mild tenderness along lower jaw line. Oropharynx: lips normal without lesions, gums and buccal mucosa normal, teeth intact, non-carious ASSESSMENT/PLAN: 1. Pain, dental - ICD9: 525.9, ICD10: K08.89 Possible infection. Start treatment with Clindamycin x 7 days. Instructed to call dentist first thing Monday morning to schedule appointment. Continue with Tylenol and salt water as needed. Okay to take Naproxen up to three times a day as needed but should hold Meloxicam on those days. Prescription instructions reviewed with patient as applicable. Potential red flag symptoms discussed with the patient. Reviewed appropriate action plan to take if red flag symptoms occur. Patient agreeable to treatment plan. Chanda Lipscomb APRN.[facility] 03-18-2023 History of Present illness Narrative Images from the original note were not included. CC: Patient presents with: Pain: Left lower jaw, possible tooth infection x 5 days HPI Eleni Valdez is a 47 year old female who presents today for above. Patient has a broken tooth in the area of pain that was cemented last year. Thinks it may have a crack in it. Pain is worsening. Denies fever, swelling, redness, increased warmth or drainage. Treating with Tylenol and salt water gargles with temporary relief. REVIEW OF SYSTEMS See HPI PAST MEDICAL HISTORY Diagnosis Date Anxiety Asthma Essential hypertension, benign Other and unspecified hyperlipidemia Rhinitis, allergic PAST SURGICAL HISTORY Procedure Laterality Date ANTERIOR DISCECTOMY cervical EGD 11/08/2016 Dr. Tre Mccray[facility] OOPHORECTOMY PARTIAL/TOTAL UNI/BI Oophorectomy, RT and tube SINUS SURGERY HX 02/2015 TOTAL ABDOMINAL HYSTERECT W/WO RMVL TUBE OVARY 2010 Hysterectomy, RACIEL ALLERGIES Morphine, Niacin, Penicillins, and Sulfa (Sulfonamide Antibiotics) MEDICATIONS omeprazole (PRILOSEC) 20 mg capsule Take 1 capsule by mouth twice daily. 1/2 hr before meal. venlafaxine ER (EFFEXOR XR) 37.5 mg 24 hr capsule Take 1 capsule by mouth once daily. lisinopril-hydroCHLOROthiazide (PRINZIDE,ZESTORETIC) 10-12.5 mg per tablet Take 1 tablet by mouth once daily. norethindrone (AYGESTIN) 5 mg tablet Take 1 tablet by mouth once daily. meclizine (ANTIVERT) 25 mg tab Take 1 tablet by mouth every 6 hours as needed (dizziness). gabapentin (NEURONTIN) 100 mg capsule Take 1 capsule by mouth twice daily for 30 days. meloxicam (MOBIC) 7.5 mg tablet Take 1 tablet by mouth once daily. Take with food. tretinoin (RETIN-A) 0.05 % cream APPLY 1 APPLICATION TO AFFECTED AREA ONCE DAILY. tretinoin (RETIN-A) 0.05 % cream Apply 1 application to affected area daily at bedtime. cyclobenzaprine (FLEXERIL) 10 mg tablet Take 1 tablet by mouth three times daily as needed for muscle spasm (and pain). (Patient not taking: Reported on 03/18/2023) FAMILY HISTORY Problem Relation Age of Onset Diabetes Mother Lipids Father Social History Tobacco Use Smoking status: Never Smokeless tobacco: Never Vaping Use Vaping Use: Never used Substance Use Topics Alcohol use: No Drug use: No PHYSICAL EXAM BP 136/82 Pulse 77 Temp 37.1 C (98.7 F) Resp 16 Wt 65.8 kg (145 lb) LMP 03/16/2010 SpO2 96% BMI 26.02 kg/m General Appearance: well appearing, in no acute distress, alert Head: No facial swelling. Mild tenderness along lower jaw line. Oropharynx: lips normal without lesions, gums and buccal mucosa normal, teeth intact, non-carious ASSESSMENT/PLAN: 1. Pain, dental - ICD9: 525.9, ICD10: K08.89 Possible infection. Start treatment with Clindamycin x 7 days. Instructed to call dentist first thing Monday morning to schedule appointment. Continue with Tylenol and salt water as needed. Okay to take Naproxen up to three times a day as needed but should hold Meloxicam on those days. Prescription instructions reviewed with patient as applicable. Potential red flag symptoms discussed with the patient. Reviewed appropriate action plan to take if red flag symptoms occur. Patient agreeable to treatment plan. Chanda Lipscomb APRN.CNP documented in this encounter [facility] 11-18-2022 History of Present illness Narrative [facility] [address] [facility] [address] [facility] [id number] Chief Complaint Patient presents with Right Knee - Follow-up MRI review Eleni Valdez returns to the office today for follow-up on the right knee and to review the MRI results. I had seen her last in July 2022 for continued right knee pain. She has been dealing with right knee pain for quite some time, years. She has received injections in the past but unfortunately she continues to have increasing pain. She denies any new injury to the knee. Given that she had tried some conservative treatment measures without any type of improvement we went ahead and ordered an MRI. The patient's past medical history, surgical history, social history, family history, medications and allergies were reviewed with the patient today and are available in the chart for further review. Allergies Allergen Reactions Morphine Itching Niacin Other reaction(s): Other: See Comments Flushing Penicillins Other reaction(s): Intolerance Sulfa (Sulfonamide Antibiotics) Swelling Current Outpatient Medications: cyclobenzaprine (FLEXERIL) 10 MG tablet, Take 1 (one) tablet (10 mg total) by mouth as needed ., Disp: , Rfl: estradiol (ESTRACE) 0.01 % (0.1 mg/gram) vaginal cream, Apply pea size amount to the vulva twice a day ., Disp: 42.5 g, Rfl: 4 FLUoxetine (PROZAC) 20 MG tablet, TAKE 1 TABLET BY MOUTH ONCE DAILY, Disp: 90 tablet, Rfl: 0 fluticasone propionate (FLONASE) 50 mcg/actuation nasal spray, Instill 1 (one) spray into each nostril daily ., Disp: , Rfl: gabapentin (NEURONTIN) 100 MG capsule, , Disp: , Rfl: meclizine (ANTIVERT) 25 mg tablet, Take 1 (one) tablet (25 mg total) by mouth daily ., Disp: 90 tablet, Rfl: 0 meloxicam (MOBIC) 7.5 MG tablet, , Disp: , Rfl: norethindrone (AYGESTIN) 5 mg tablet, , Disp: , Rfl: omeprazole (PRILOSEC) 20 MG capsule, , Disp: , Rfl: ranitidine (ZANTAC) 150 MG tablet, Take 1 (one) tablet (150 mg total) by mouth daily ., Disp: , Rfl: traMADol (ULTRAM) 50 mg tablet, TAKE 1 TABLET BY MOUTH EVERY 4 HRS NEEDED FOR PAIN, Disp: , Rfl: tretinoin (RETIN-A) 0.05 % cream, Once daily . (Patient taking differently: Apply topically as needed Once daily .), Disp: 45 g, Rfl: 3 venlafaxine (EFFEXOR-XR) 37.5 MG 24 hr capsule, , Disp: , Rfl: atorvastatin (LIPITOR) 20 MG tablet, Take 1 (one) tablet (20 mg total) by mouth daily ., Disp: 90 tablet, Rfl: 3 estradiol (ESTRACE) 1 MG tablet, Take 1 (one) tablet (1 mg total) by mouth daily ., Disp: 90 tablet, Rfl: 3 fenofibrate (TRICOR) 48 MG tablet, Take 1 (one) tablet (48 mg total) by mouth daily Give with food ., Disp: 90 tablet, Rfl: 3 lisinopriL-hydrochlorothiazide (PRINZIDE,ZESTORETIC) 10-12.5 mg per tablet, Take 1 (one) tablet by mouth daily ., Disp: 90 tablet, Rfl: 1 Past Medical History: Diagnosis Date Acne Allergic rhinitis Anxiety Asthma Depression Endometriosis Hyperlipidemia Hypertension Irritable bowel syndrome Surgical menopause Vertigo Past Surgical History: Procedure Laterality Date BREAST SURGERY 2001 reduction EGD 11/08/2016 with biopsy, including WATS3D and rivas capsule placement; Dr. Cahlo Mccray ESOPHAGEAL MANOMETRY 11/08/2016 SALPINGOOPHORECTOMY Right SINUS SURGERY TOTAL ABDOMINAL HYSTERECTOMY complete Social History Socioeconomic History Marital status: Single Spouse name: Marquis Number of children: 2 Highest education level: Bachelor's degree (e.g., BA, AB, BS) Tobacco Use Smoking status: Never Smokeless tobacco: Never Vaping Use Vaping Use: Never used Substance and Sexual Activity Alcohol use: Not Currently Drug use: Never Sexual activity: Yes Partners: Male Imaging: MRI right knee: Areas of full-thickness chondral loss with subchondral signal alteration at the middle weightbearing portion of the medial femoral condyle. 4 mm intra-articular ossific body located posterior to the posterior cruciate ligament. Lugo's cyst with suggestion of leakage. Lateral patella facet subchondral marrow signal alteration with no obvious full-thickness chondral defect or fissure identified. Assessment/Plan: After reviewing of the patient MRI images we discussed continued treatment options for the right knee. I did explain that given the severity of the degenerative changes in the medial compartment of the right knee, she would benefit from a hemiarthroplasty in the medial portion of her right knee. The patient wishes to proceed with surgery. She has exhausted conservative treatment measures and continues to have increasing pain that is affecting her everyday life. She will need to start a course of outpatient physical therapy prior to her surgery. The office will contact her to schedule in approximately 10 to 14 days. I am more than happy to see her back in the office if needed prior to her surgery. She does verbalize understanding is agreement the treatment plan. documented in this encounter [facility] 11-03-2022 Miscellaneous Notes Patient has been identified by name and date of : Yes Requested Prescriptions Pending Prescriptions Disp Refills omeprazole (PRILOSEC) 20 mg capsule 180 capsule 1 Sig: Take 1 capsule by mouth twice daily. 1/2 hr before meal. RX INSTRUCTIONS: Patient aware RX will be sent to pharmacy. No need to notify patient. Rissa Burroughs MA Robert: 04/2022 No appointment scheduled Last refill; 04/2022 documented in this encounter [facility] 07-01-2022 Miscellaneous Notes Patient phones requesting refills as follows: Requested Prescriptions Pending Prescriptions Disp Refills venlafaxine ER (EFFEXOR XR) 37.5 mg 24 hr capsule 90 capsule 2 Sig: Take 1 capsule by mouth once daily. ROBERT 04/29/22 NOV no upcoming appt noted Please review and advise. Chrissie Pepper LPN documented in this encounter [facility] 06-06-2022 Miscellaneous Notes RX INSTRUCTIONS: Patient aware RX will be sent to pharmacy. No need to notify patient. Last OV: 04/29/2022 Last refill: 04/08/2022 With 90 and 2 refills Follow up: No F/U scheduled at this time Trice Uriostegui MA documented in this encounter [facility] 05-16-2022 Miscellaneous Notes Patient notified of results, verbalizes understanding of instructions.. Shanell Cantor LPN Please call patient and let her know her cologuard was normal. Repeat in 3 years. Thanks, Asha Flores APRN.VETERINARY NURSE documented in this encounter [facility] 04-29-2022 History of Present illness Narrative Patient in this day to have reading of PPD done. Patient complained of the area itching shortly after receiving the dose. Injection site slightly red from itching. No s/sx of infection. Negative PPD reading. 0.0mm. Shanell Cantor LPN documented in this encounter [facility] 04-20-2022 History of Present illness Narrative 04/20/2022 Patient presents with: Physical SUBJECTIVE: This is a 46 year old that is here today for Above Complaints. HTN: Patient is compliant with meds Yes Monitors bp at home: Yes. Denies side effects: Yes. Chest pain: No. Dyspnea: No. Edema: No. Palpitations: occasionaly. Syncope: No. Headache: Yes- recent sinus headaches due to allergies Dizziness: No. ACNE: uses retin-a for acne which is helpful Needs TB test completed for new job PAST MEDICAL HISTORY Diagnosis Date Anxiety Asthma Essential hypertension, benign Other and unspecified hyperlipidemia Rhinitis, allergic ALLERGIES Morphine, Niacin, Penicillins, and Sulfa (Sulfonamide Antibiotics) MEDICATIONS Current Outpatient Medications Medication Sig venlafaxine ER (EFFEXOR XR) 37.5 mg 24 hr capsule Take 1 capsule by mouth once daily. omeprazole (PRILOSEC) 20 mg capsule Take 1 capsule by mouth twice daily. 1/2 hr before meal. lisinopril-hydroCHLOROthiazide (PRINZIDE,ZESTORETIC) 10-12.5 mg per tablet Take 1 tablet by mouth once daily. norethindrone (AYGESTIN) 5 mg tablet Take 1 tablet by mouth once daily. meclizine (ANTIVERT) 25 mg tab Take 1 tablet by mouth every 6 hours as needed (dizziness). gabapentin (NEURONTIN) 100 mg capsule Take 1 capsule by mouth twice daily for 30 days. cyclobenzaprine (FLEXERIL) 10 mg tablet Take 1 tablet by mouth three times daily as needed for Muscle Spasm (and pain). tretinoin (RETIN-A) 0.05 % cream Apply 1 application to affected area once daily. meloxicam (MOBIC) 7.5 mg tablet Take 1 tablet by mouth once daily. Take with food. tretinoin (RETIN-A) 0.05 % cream APPLY 1 APPLICATION TO AFFECTED AREA ONCE DAILY. No current facility-administered medications for this visit. Medications and allergies reviewed by this provider. SOCIAL HISTORY Social History Tobacco Use Smoking status: Never Smoker Smokeless tobacco: Never Used Vaping Use Vaping Use: Never used Substance Use Topics Alcohol use: No Drug use: No REVIEW OF SYSTEMS GENERAL: No weight loss, malaise or fevers HEENT: No changes in hearing or vision, no nose bleeds or other nasal problems NECK: Negative for lumps, goiter, pain and significant neck swelling RESPIRATORY: Negative for cough, hemoptysis, wheezing, COPD, dyspnea or shortness of breath CARDIOVASCULAR: Negative for chest pain, leg swelling, hypertension, CHF or palpitations GI: No nausea, vomiting, or diarrhea : No history of dysuria, frequency or incontinence HR OPERATIONS ADVISOR: Negative for abnormal vaginal bleeding, abnormal vaginal discharge MUSCULOSKELETAL: Chronic neck pain- she sees pain managment SKIN: Negative for lesions, rash, and itching PSYCH: Negative for sleep disturbance, mood disorder and recent psychosocial stressors HEMATOLOGY/LYMPHOLOGY: Negative for prolonged bleeding, bruising easily or swollen nodes ENDOCRINE: Negative for cold or heat intolerance, polyuria, polydipsia and goiter NEURO: No history of syncope, paralysis, seizures or tremors All other reviewed and negative other than HPI. OBJECTIVE: BP 118/82 Pulse 78 Resp 14 Ht 159 cm (5' 2.6 ) Wt 64.9 kg (143 lb) LMP 03/16/2010 BMI 25.66 kg/m . Vital signs reviewed by this provider. APPEARANCE Well appearing, alert, in no acute distress, well-hydrated, well nourished. EYES conjunctiva and sclera normal. EARS External ears normal, canals clear NECK Supple, no adenopathy; thyroid symmetric, normal size, no bruits HEART RRR with normal S1 and S2, no murmurs, no gallops, no JVD appreciated LUNG clear to auscultation. No wheezes, rhonchi, or rales EXTREMITIES Extremities normal, No deformities, No skin discoloration, No edema and Normal pulses bilaterally. SKIN Skin color, texture, turgor normal, no suspicious rashes or lesions to exposed skin PNEUMOCOCCAL(1 - PCV) Never done SPIROMETRY Never done HEPATITIS C SCREENING Never done HIV SCREENING Never done COLORECTAL CANCER SCREENING Never done MAMMOGRAM due on 06/09/2021 DIABETES SCREEN due on 10/12/2021 INFLUENZA(1) due on 06/16/2022 ANNUAL PCP TEAM CHRONIC DISEASE VISIT due on 04/08/2023 BP CONTROLLED (<130/80) due on 04/08/2023 LIPID SCREEN due on 12/29/2025 DTAP,TDAP,TD(3 - Td or Tdap) due on 04/19/2028 COVID-19 VACCINE Completed PAP TESTING Discontinued HPV TESTING Discontinued ASSESSMENT/PLAN: 1. Annual physical exam - ICD9: V70.0, ICD10: Z00.00 (primary diagnosis) - Counseled on healthy diet and regular exercise - Calcium intake with supplements or by diet of 1000 mg/day for under 50, 2173-4924 mg/day for 50+ - Colorectal cancer screening recommended - agrees to Cologuard - Follow up for annual exam in one year 2. Other acne - ICD9: 706.1, ICD10: L70. - TRETINOIN 0.05 % TOPICAL CREAM 3. DDD (degenerative disc disease), cervical - ICD9: 722.4, ICD10: M50.30 - follow-up with pain management as scheduled - CYCLOBENZAPRINE 10 MG TABLET 4. Screening for tuberculosis - ICD9: V74.1, ICD10: Z11.1 - PPD (TB INTRADERMAL 05181) B/O 5. Screening for colon cancer - ICD9: V76.51, ICD10: Z12.11 - COLOGUARD 6. Essential hypertension, benign - ICD9: 401.1, ICD10: I10 - good control - Continue current medication(s) - Encouraged dietary sodium restriction/DASH diet - Recommended regular aerobic exercise. - Recommend home blood pressure monitoring, to bring results in on next visit - Recheck in 6 months, sooner should new symptoms or problems arise. - Goal of BP <130/80 - Recommended no refined sugar, low refined starch, healthy oil intake (olive oil), healthy protein (fish) along the lines of the Mediterranean diet. Asha Flores APRN.[facility]HANA Prescription instructions reviewed with patient as applicable. Patient advised if symptoms do not improve or if symptoms worsen sooner, to contact their primary care physician. Potential red flag symptoms discussed with the patient. Reviewed appropriate action plan to take if red flag symptoms occur. Patient agreeable to treatment plan. documented in this encounter [facility] 04-08-2022 History of Present illness Narrative 04/08/2022 Patient presents with: Recheck SUBJECTIVE: This is a 46 year old that is here today for Above Complaints.. Taking effexor as prescribed wihtout side effects. Feels like it is working well. Denies SI or HI Feeling nervous, anxious, or on edge 0 Not at all sure Not being able to stop or control worrying 0 Not at all sure Worrying too much about different things 1 Several days Trouble relaxing 0 Not at all sure Being so restless that it's hard to sit still 0 Not at all sure Being easily annoyed or irritable 1 Several days Feeling afraid as if something awful might happen 0 Not at all sure REILLY-7 Anxiety Score 2 If you checked off any problems, how difficult have these problems made it for you to do your work, take care of things at home, or get along with other people? Not difficult at all Little or no interest or pleasure in doing things 0 Not at all Feeling down, depressed, or hopeless 1 Several days Trouble falling or staying asleep, or sleeping too much 0 Not all all Feeling tired or having little energy 0 Not at all Poor appetite or overeating 0 Not at all Feeling bad about yourself- or that you are a failure or having let yourself or your family down 0 Not at all Trouble concentrating on things, such as reading the newpaper or watching television 0 Not at all Moving or speaking so slowly that other people could have noticed? Or the opposite- being so fidgety or restless that you have been moving around a lot more than usual 0 Not at all Thoughts that you would be better off or of hurting yourself in some way 0 Not at all PHQ9P Score 1 If you checked off any problems, how difficult have these problems made it for you to do your work, take care of things at home, or get along with other people? Not difficult at all Would like referral to gastro for a hx of reflux. Taking her prescribed omeprazole as well as monitoring her caffeine intake, however reports she often wakes up at night coughing and has a choking sensation. Had EGD in 2017. PAST MEDICAL HISTORY Diagnosis Date Anxiety Asthma Essential hypertension, benign Other and unspecified hyperlipidemia Rhinitis, allergic ALLERGIES Morphine, Niacin, Penicillins, and Sulfa (Sulfonamide Antibiotics) MEDICATIONS Current Outpatient Medications Medication Sig venlafaxine ER (EFFEXOR XR) 37.5 mg 24 hr capsule Take 1 capsule by mouth once daily. norethindrone (AYGESTIN) 5 mg tablet Take 1 tablet by mouth once daily. lisinopril-hydroCHLOROthiazide (PRINZIDE,ZESTORETIC) 10-12.5 mg per tablet Take 1 tablet by mouth once daily. omeprazole (PRILOSEC) 20 mg capsule Take 1 capsule by mouth twice daily. 1/2 hr before meal. meclizine (ANTIVERT) 25 mg tab Take 1 tablet by mouth every 6 hours as needed (dizziness). gabapentin (NEURONTIN) 100 mg capsule Take 1 capsule by mouth twice daily for 30 days. cyclobenzaprine (FLEXERIL) 10 mg tablet Take 1 tablet by mouth three times daily as needed for Muscle Spasm (and pain). tretinoin (RETIN-A) 0.05 % cream Apply 1 application to affected area once daily. meloxicam (MOBIC) 7.5 mg tablet Take 1 tablet by mouth once daily. Take with food. tretinoin (RETIN-A) 0.05 % cream APPLY 1 APPLICATION TO AFFECTED AREA ONCE DAILY. Bisacodyl (DULCOLAX) 5 mg tab Take 5 mg by mouth as needed for constipation. No current facility-administered medications for this visit. Medications and allergies reviewed by this provider. SOCIAL HISTORY Social History Tobacco Use Smoking status: Never Smoker Smokeless tobacco: Never Used Vaping Use Vaping Use: Never used Substance Use Topics Alcohol use: No Drug use: No REVIEW OF SYSTEMS All other reviewed and negative other than HPI. OBJECTIVE: BP 114/76 Pulse 80 Wt 64.4 kg (142 lb) LMP 03/16/2010 SpO2 98% BMI 25.56 kg/m . Vital signs reviewed by this provider. APPEARANCE Well appearing, alert, in no acute distress, well-hydrated, well nourished. PSYCH: Posture and motor behavior: normal posture and motor behavior Dress, grooming, personal hygiene: normal dress and grooming Facial expression: good eye contact Speech: normal speech Mood: cheerful Coherency and relevance of thought: normal thought processes Memory: normal memory PNEUMOCOCCAL(1 - PCV) Never done SPIROMETRY Never done HEPATITIS C SCREENING Never done HIV SCREENING Never done COLORECTAL CANCER SCREENING Never done MAMMOGRAM due on 06/09/2021 DIABETES SCREEN due on 10/12/2021 ANNUAL PCP TEAM CHRONIC DISEASE VISIT due on 04/08/2023 BP CONTROLLED (<130/80) due on 04/08/2023 LIPID SCREEN due on 12/29/2025 DTAP,TDAP,TD(3 - Td or Tdap) due on 04/19/2028 INFLUENZA Completed COVID-19 VACCINE Completed PAP TESTING Discontinued HPV TESTING Discontinued ASSESSMENT/PLAN: 1. Anxiety and depression - ICD9: 300.00, 311, ICD10: F41.9, F32.A (primary diagnosis) - feels improved on the effexor - VENLAFAXINE ER 37.5 MG CAPSULE,EXTENDED RELEASE 24 HR 2. Gastroesophageal reflux disease with esophagitis, unspecified whether hemorrhage - ICD9: 530.11, ICD10: K21.00 - Discussed lifestyle modifications including losing weight, limiting caffeine, no meals three hours before sleep and head of bed elevation - Refer for GI consult - OMEPRAZOLE 20 MG CAPSULE,DELAYED RELEASE - CONSULT TO GASTROENTEROLOGY 3. Essential hypertension, benign - ICD9: 401.1, ICD10: I10 - good control - Continue current medication(s) - Encouraged dietary sodium restriction/DASH diet - Recommended regular aerobic exercise. - Recommend home blood pressure monitoring, to bring results in on next visit - Goal of BP <130/80 - Recommended no refined sugar, low refined starch, healthy oil intake (olive oil), healthy protein (fish) along the lines of the Mediterranean diet. - LISINOPRIL 10 MG-HYDROCHLOROTHIAZIDE 12.5 MG TABLET - COMP METABOLIC PANEL - follow-up yearly, sooner if needed 4. Screening for hyperlipidemia - ICD9: V77.91, ICD10: Z13.220 - LIPID PANEL BASIC Asha Flores APRN.VETERINARY NURSE Prescription instructions reviewed with patient as applicable. Patient advised if symptoms do not improve or if symptoms worsen sooner, to contact their primary care physician. Potential red flag symptoms discussed with the patient. Reviewed appropriate action plan to take if red flag symptoms occur. Patient agreeable to treatment plan. documented in this encounter [facility] 03-30-2022 Miscellaneous Notes Patient phones requesting refills as follows: Pending Prescriptions Disp Refills VENLAFAXINE ER 37.5 MG CAPSULE,EXTENDED RELEASE 24 HR 90 capsule 0 Sig: Take 1 capsule by mouth once daily. ANAMIKA: No ROBERT 12/28/21 NOV no upcoming appt Please review and advise. Michael Patrick LPN documented in this encounter [facility] 03-24-2022 Miscellaneous Notes Patient had yearly exam 09/29/2021 documented in this encounter [facility] 03-18-2022 Miscellaneous Notes Patient phones requesting refills as follows: Pending Prescriptions Disp Refills LISINOPRIL 10 MG-HYDROCHLOROTHIAZIDE 12.5 MG TABLET 90 tablet 0 Sig: Take 1 tablet by mouth once daily. ANAMIKA: No ROBERT-12/28/21 Labs-09/03/21 NOV-none med filled 11/30/21 Please review and advise. Amy No LPN documented in this encounter [facility] 02-04-2022 Miscellaneous Notes Pending Prescriptions Disp Refills OMEPRAZOLE 20 MG CAPSULE,DELAYED RELEASE 60 capsule 2 Sig: Take 1 capsule by mouth twice daily. 1/2 hr before meal. ANAMIKA: No ROBERT 12/28/21 NOV not scheduled at this time Michelle Salmeron Ma documented in this encounter [facility] 03-09-2021 History of Present illness Narrative [facility] [address] [facility] [address] [facility] [id number] No chief complaint on file. Eleni Valdez returns to the office today for left ankle pain. She denies any injury to the ankle, just that the pain has continued to worsen. She complains of pain along either side of the achilles tendon towards the foot. She also complains of pain in her heel. She has tried otc medications and is on Mobic, which she states doesn't seem to be helping anymore. She also complains of multiple joint pain. She has also tried multiple different pairs of shoes to help with the pain, none of which have helped. She has been wearing compression socks because after standing for long periods of time at work, her legs and feet just get tired. She denies any swelling or bruising. She denies any previous issues or injury to the ankle. She is also questioning if the fact that her right leg is shorter than the left would have anything to do with the pain. The patient's past medical history, surgical history, social history, family history, medications and allergies were reviewed with the patient today and are available in the chart for further review. Allergies Allergen Reactions Morphine Itching Niacin Other reaction(s): Other: See Comments Flushing Penicillins Other reaction(s): Intolerance Sulfa (Sulfonamide Antibiotics) Swelling Current Outpatient Medications: atorvastatin (LIPITOR) 20 MG tablet, Take 1 (one) tablet (20 mg total) by mouth daily ., Disp: 90 tablet, Rfl: 3 cyclobenzaprine (FLEXERIL) 10 MG tablet, Take 10 mg by mouth as needed ., Disp: , Rfl: estradiol (ESTRACE) 0.01 % (0.1 mg/gram) vaginal cream, Apply pea size amount to the vulva twice a day ., Disp: 42.5 g, Rfl: 4 estradiol (ESTRACE) 1 MG tablet, Take 1 (one) tablet (1 mg total) by mouth daily ., Disp: 90 tablet, Rfl: 3 fenofibrate (TRICOR) 48 MG tablet, Take 1 (one) tablet (48 mg total) by mouth daily Give with food ., Disp: 90 tablet, Rfl: 3 FLUoxetine (PROZAC) 20 MG tablet, TAKE 1 TABLET BY MOUTH ONCE DAILY, Disp: 90 tablet, Rfl: 0 fluticasone propionate (FLONASE) 50 mcg/actuation nasal spray, Instill 1 spray into each nostril daily ., Disp: , Rfl: lisinopriL-hydrochlorothiazide (PRINZIDE,ZESTORETIC) 10-12.5 mg per tablet, Take 1 (one) tablet by mouth daily ., Disp: 90 tablet, Rfl: 1 meclizine (ANTIVERT) 25 mg tablet, Take 1 (one) tablet (25 mg total) by mouth daily ., Disp: 90 tablet, Rfl: 0 meloxicam (Mobic) 7.5 MG tablet, Take 1 (one) tablet (7.5 mg total) by mouth daily ., Disp: 90 tablet, Rfl: 3 ranitidine (ZANTAC) 150 MG tablet, Take 150 mg by mouth daily ., Disp: , Rfl: traMADol (ULTRAM) 50 mg tablet, TAKE 1 TABLET BY MOUTH EVERY 4 HRS NEEDED FOR PAIN, Disp: , Rfl: tretinoin (RETIN-A) 0.05 % cream, Once daily . (Patient taking differently: Apply topically as needed Once daily .), Disp: 45 g, Rfl: 3 Past Medical History: Diagnosis Date Acne Allergic rhinitis Anxiety Asthma Depression Endometriosis Hyperlipidemia Hypertension Irritable bowel syndrome Surgical menopause Vertigo Past Surgical History: Procedure Laterality Date BREAST SURGERY 2001 reduction EGD 11/08/2016 with biopsy, including WATS3D and rivas capsule placement; Dr. Chalo Mccray ESOPHAGEAL MANOMETRY 11/08/2016 SALPINGOOPHORECTOMY Right SINUS SURGERY TOTAL ABDOMINAL HYSTERECTOMY complete Social History Socioeconomic History Marital status: Spouse name: Mraquis Number of children: 2 Years of education: Not on file Highest education level: Bachelor's degree (e.g., BA, AB, BS) Occupational History Not on file Tobacco Use Smoking status: Never Smoker Smokeless tobacco: Never Used Vaping Use Vaping Use: Never used Substance and Sexual Activity Alcohol use: Not Currently Drug use: Never Sexual activity: Yes Partners: Male Other Topics Concern Not on file Social History Narrative Not on file Social Determinants of Health Financial Resource Strain: Difficulty of Paying Living Expenses: Food Insecurity: Worried About Running Out of Food in the Last Year: Ran Out of Food in the Last Year: Transportation Needs: Lack of Transportation (Medical): Lack of Transportation (Non-Medical): Physical Activity: Days of Exercise per Week: Minutes of Exercise per Session: Stress: Feeling of Stress : Social Connections: Frequency of Communication with Friends and Family: Frequency of Social Gatherings with Friends and Family: Attends Protestant Services: Active Member of Clubs or Organizations: Attends Club or Organization Meetings: Marital Status: ROS: Review of Systems Constitutional: Negative for activity change and fatigue. HENT: Negative for congestion, hearing loss and trouble swallowing. Eyes: Negative for visual disturbance. Respiratory: Negative for chest tightness and shortness of breath. Cardiovascular: Negative for chest pain and palpitations. Gastrointestinal: Negative for abdominal pain, diarrhea, nausea and vomiting. Endocrine: Negative for polydipsia, polyphagia and polyuria. Genitourinary: Negative for decreased urine volume, difficulty urinating and hematuria. Musculoskeletal: Positive for arthralgias. Negative for joint swelling and myalgias. Skin: Negative for color change, rash and wound. Allergic/Immunologic: Negative for immunocompromised state. Neurological: Negative for dizziness, weakness, light-headedness and numbness. Hematological: Does not bruise/bleed easily. Psychiatric/Behavioral: Negative for confusion and sleep disturbance. The patient is not nervous/anxious. PE: Physical Exam Constitutional: Appearance: She is well-developed. HENT: Head: Normocephalic. Eyes: Pupils: Pupils are equal, round, and reactive to light. Cardiovascular: Rate and Rhythm: Normal rate and regular rhythm. Pulmonary: Effort: Pulmonary effort is normal. Breath sounds: Normal breath sounds. Abdominal: General: Bowel sounds are normal. Palpations: Abdomen is soft. Musculoskeletal: General: Tenderness present. Normal range of motion. Cervical back: Normal range of motion and neck supple. Left ankle: No swelling. Tenderness present. Normal range of motion. Left Achilles Tendon: Tenderness present. No defects. Shi's test negative. Left foot: Tenderness present. Skin: General: Skin is warm and dry. Neurological: Mental Status: She is alert and oriented to person, place, and time. ORTHO: Left Ankle Exam Swelling: none Range of Motion The patient has normal left ankle ROM. Muscle Strength The patient has normal left ankle strength. Tests Anterior drawer: negative Varus tilt: negative Other Erythema: absent Scars: absent Sensation: normal Pulse: present Imaging: L Ankle No acute fracture or dislocation. Large Achilles enthesophyte noted. Assessment/Plan: After examination and reviewing of the patient x-ray images, we discussed treatment options. I did inform her that she would benefit from a walking boot in order to give the ankle some rest but she politely declined the need for a boot now. I am giving her an oral steroid for inflammation and pain and encouraged her to follow up with podiatry. She verbalizes understanding and is in agreement with the treatment plan. I am happy to see her back as needed. documented [facility] Diagnosis Polymyalgia (HCC)- Primary Polymyalgia rheumatica [facility] Diagnosis Anxiety and depression Dysthymic disorder [facility] Diagnosis Anxiety and depression- Primary Dysthymic disorder Gastroesophageal reflux disease with esophagitis, unspecified whether hemorrhage Essential hypertension, benign Screening for hyperlipidemia Screening for lipoid disorders [facility] Diagnosis Encounter for screening mammogram for breast cancer [facility]* Diagnosis Annual physical exam- Primary Routine general medical examination at a health care facility Other acne DDD (degenerative disc disease), cervical Degeneration of cervical intervertebral disc Screening for tuberculosis Screening examination for pulmonary tuberculosis Screening for colon cancer Special screening for malignant neoplasms, colon Essential hypertension, benign documented in this encounter [facility] note* Diagnosis Screening for tuberculosis Screening examination for pulmonary tuberculosis [facility]* Diagnosis Screening for tuberculosis- Primary Screening examination for pulmonary tuberculosis [facility]* Diagnosis Essential hypertension, benign [facility]* Diagnosis Anxiety and depression Dysthymic disorder [facility]* Diagnosis Gastroesophageal reflux disease with esophagitis, unspecified whether hemorrhage [facility]* Diagnosis Meniscus degeneration, right- Primary [facility] Diagnosis Meniscus degeneration, right- Primary Hypertension, unspecified type Meniscus degeneration, right- Primary [facility]* Diagnosis Pain, dental- Primary Unspecified disorder of the teeth and supporting structures [facility]* Diagnosis Meniscus degeneration, right- Primary Preoperative cardiovascular examination- Primary Pre-operative cardiovascular examination Meniscus degeneration, right Meniscus degeneration, right [facility] Diagnosis Meniscus degeneration, right- Primary Meniscus degeneration, right- Primary Meniscus degeneration, right [facility] Diagnosis S/P right unicompartmental knee replacement- Primary [facility] Diagnosis S/P right unicompartmental knee replacement- Primary [facility] Diagnosis S/P right unicompartmental knee replacement- Primary [facility] Diagnosis Encounter for gynecological examination (general) (routine) without abnormal findings- Primary [facility] Diagnosis S/P right unicompartmental knee replacement- Primary [facility] Diagnosis Trochanteric bursitis of right hip- Primary [facility]* Diagnosis Gastroesophageal reflux disease with esophagitis, unspecified whether hemorrhage- Primary Epigastric pain Abdominal pain, epigastric documented in this encounter [facility] for referral (narrative)* Diagnostic Procedure Only (Routine) - Pending Review Specialty Diagnoses / Procedures Referred By German thomas Referred To Contact [facility] Diagnoses Encounter for screening mammogram for breast cancer Procedures ROSIE SCREENING SCREENING MAMMOGRAPHY BI 2-VIEW BREAST INC CAD Wolf Sims MD [address] [place] [address] [facility] [address] [place] [address] Referral ID Status Reason Start Date Expiration Date Visits Requested Visits Authorized [id number] Pending Review Auto-Generat ed Referral 04/13/2022 05/13/2023 1 1 [facility] for referral (narrative)* Diagnostic Procedure Only (Routine) - Authorized Specialty Diagnoses / Procedures Referred By German thomas Referred To Contact [facility] Diagnoses Epigastric pain Procedures US ABD RIGHT UPPER QUADRANT US ABDOMINAL REAL TIME W/IMAGE LIMITED Tacos Pimentel APRN.CNP [address] [place] [address] [place] [address] Referral ID Status Reason Start Date Expiration Date Visits Requested Visits Authorized [id number] Authorized Auto-Generat ed Referral 11/17/2023 12/16/2024 1 1 [facility] Summary Purpose Family History No Family History Records FoundNo Family History Records FoundNo Family History Records FoundNo Family History Records FoundNo Family History Records FoundNo Family History Records FoundNo Family History Records Found Advance Directives No Advanced Directives Records FoundDocuments on File Type Date Recorded Patient Switch Foreman Expl anation Advance Directives and Living Will Documents on File Type Date Recorded Patient Switch Foreman Expl anation Advance Directives and Living Will Documents on File Type Date Recorded Patient Switch Foreman Expl anation Advance Directives and Livin g Will 10/29/2019 9:09 AM Documents on File Type Date Recorded Patient Switch Foreman Expl anation Advance Directives and Livin g Will 10/29/2019 9:09 AM Latest Code Status on File Code Status Date Activated Date Inactivated Comments Full Code 04/10/2023 8:41 AM 04/10/2023 6:32 PM Latest Code Status on File Code Status Date Activated Date Inactivated Comments Full Code 04/10/2023 8:41 AM 04/10/2023 6:32 PM History of Present Illness * Garry Bender MD - 11/19/2018 1:56 PM EST Dictation on: 11/19/2018 1:56 PM by: GARRY BENDER [[id number]] in this encounter* Vince Leggett, FARHANA - 12/21/2018 1:39 PM EST Chief Complaint Patient presents with Cough cough , chills and fever , headache sinus pressure x 6 days SUBJECTIVE 43 y.o. female presents Cough (cough , chills and fever , headache sinus pressure x 6 days ) HPI MEDICAL ISSUES Past Medical History: Diagnosis Date Allergic rhinitis Anxiety Asthma Depression Hyperlipidemia Hypertension Irritable bowel syndrome There is no problem list on file for this patient. SOCIAL HISTORY Social History Socioeconomic History Marital status: Spouse name: Not on file Number of children: Not on file Years of education: Not on file Highest education level: Not on file Social Needs Financial resource strain: Not on file Food insecurity - worry: Not on file Food insecurity - inability: Not on file Transportation needs - medical: Not on file Transportation needs - non-medical: Not on file Occupational History Not on file Tobacco Use Smoking status: Never Smoker Smokeless tobacco: Never Used Substance and Sexual Activity Alcohol use: Not on file Drug use: Not on file Sexual activity: Not on file Other Topics Concern Not on file Social History Narrative Not on file FAMILY HISTORY Family History Problem Relation Age of Onset Diabetes Mother Hypertension Mother Hyperlipidemia Father Hypertension Father REVIEW OF SYSTEMS Review of Systems Constitutional: Positive for chills, diaphoresis, fatigue and fever. HENT: Positive for ear pain, postnasal drip, rhinorrhea and sinus pressure. Respiratory: Positive for cough. Gastrointestinal: Negative for abdominal pain, diarrhea and nausea. Genitourinary: Negative for dysuria, frequency and urgency. Musculoskeletal: Positive for back pain. Neurological: Positive for headaches. Hematological: Negative for adenopathy. Does not bruise/bleed easily. MEDICATIONS PRIOR TO VISIT Current Outpatient Medications on File Prior to Visit Medication Sig Dispense Refill atorvastatin (LIPITOR) 10 MG tablet Take 1 (one) tablet (10 mg total) by mouth daily . 90 tablet 1 cyclobenzaprine (FLEXERIL) 10 MG tablet Take 10 mg by mouth . estradiol (ESTRACE) 0.01 % (0.1 mg/gram) vaginal cream Apply pea size amount to the vulva twice a day . 42.5 g 4 estradiol (ESTRACE) 1 MG tablet Take 1 mg by mouth daily . FLUoxetine (PROZAC) 20 MG tablet Take 1 (one) tablet (20 mg total) by mouth daily. 90 tablet 1 lisinopril-hydrochlorothiazide (PRINZIDE,ZESTORETIC) 10-12.5 mg per tablet Take 1 (one) tablet by mouth daily . 90 tablet 1 meclizine (ANTIVERT) 25 mg tablet Take 25 mg by mouth . ranitidine (ZANTAC) 150 MG capsule Take 2 (two) capsules (300 mg total) by mouth daily. 180 capsule1 traMADol (ULTRAM) 50 mg tablet TAKE 1 TABLET BY MOUTH EVERY 4 HRS NEEDED FOR PAIN tretinoin (RETIN-A) 0.05 % cream APPLY 1 APPLICATION TO AFFECTED AREA ONCE DAILY. No current facility-administered medications on file prior to visit. ALLERGIES/INTOLERANCES Allergies Allergen Reactions Morphine Itching Niacin Other reaction(s): Other: See Comments Flushing Penicillins Other reaction(s): Intolerance Sulfa (Sulfonamide Antibiotics) Swelling OBJECTIVE BP (!) 133/95 Pulse 87 Temp 98.9 F (37.2 C) Resp 16 Ht 5' 3 Wt 73.9 kg (163 lb) SpO2 96% BMI 28.87 kg/m Physical Exam Constitutional: She is oriented to person, place, and time. She appears well- developed and well-nourished. No distress. HENT: Head: Normocephalic and atraumatic. Right Ear: Tympanic membrane and ear canal normal. Tympanic membrane is not erythematous and not bulging. Left Ear: Tympanic membrane and ear canal normal. Tympanic membrane is not erythematous and not bulging. Mouth/Throat: Oropharynx is clear and moist. No posterior oropharyngeal edema or posterior oropharyngeal erythema. tmS LOOK GOOD, Throat not very red but c.o significant tenderness along ACC. No palpable nodes Eyes: Pupils are equal, round, and reactive to light. Conjunctivae and EOM are normal. Right eye exhibits no discharge. Left eye exhibits no discharge. Neck: Normal range of motion. Neck supple. Cardiovascular: Normal rate and regular rhythm. Pulmonary/Chest: Effort normal and breath sounds normal. Musculoskeletal: Normal range of motion. Neurological: She is alert and oriented to person, place, and time. Skin: Skin is warm and dry. Psychiatric: She has a normal mood and affect. Her behavior is normal. PROCEDURE Procedures Results No results found for this or any previous visit (from the past 168 hour(s)). ASSESSMENT/PLAN (expressed as patient instructions): SNOMED CT(R) 1. Sore throat SORE THROAT SYMPTOM POC Rapid Strep A Return if symptoms worsen or fail to improve. ADDITIONAL CLINICAL COMMENTS No notes on file ORDERS PLACED THIS VISIT Orders Placed This Encounter Procedures POC Rapid Strep A MEDICATION LIST AT END OF VISIT Current Outpatient Medications Medication Sig Dispense Refill atorvastatin (LIPITOR) 10 MG tablet Take 1 (one) tablet (10 mg total) by mouth daily . 90 tablet 1 cyclobenzaprine (FLEXERIL) 10 MG tablet Take 10 mg by mouth . estradiol (ESTRACE) 0.01 % (0.1 mg/gram) vaginal cream Apply pea size amount to the vulva twice a day . 42.5 g 4 estradiol (ESTRACE) 1 MG tablet Take 1 mg by mouth daily . FLUoxetine (PROZAC) 20 MG tablet Take 1 (one) tablet (20 mg total) by mouth daily. 90 tablet 1 lisinopril-hydrochlorothiazide (PRINZIDE,ZESTORETIC) 10-12.5 mg per tablet Take 1 (one) tablet by mouth daily . 90 tablet 1 meclizine (ANTIVERT) 25 mg tablet Take 25 mg by mouth . ranitidine (ZANTAC) 150 MG capsule Take 2 (two) capsules (300 mg total) by mouth daily. 180 capsule1 traMADol (ULTRAM) 50 mg tablet TAKE 1 TABLET BY MOUTH EVERY 4 HRS NEEDED FOR PAIN tretinoin (RETIN-A) 0.05 % cream APPLY 1 APPLICATION TO AFFECTED AREA ONCE DAILY. No current facility-administered medications for this visit. * Vince Leggett CNP - 12/21/2018 1:36 PM EST Chief Complaint Patient presents with Cough cough , chills and fever , headache sinus pressure x 6 days SUBJECTIVE 43 y.o. female presents Cough (cough , chills and fever , headache sinus pressure x 6 days ) Stated Monday, Productive cough, fever, sweating, chills, [place], pain behind eyes, Chest scales. Influenza This is a new problem. The current episode started in the past 7 days. The problem occurs constantly. The problem has been gradually worsening. Associated symptoms include chest pain, chills, congestion, coughing, diaphoresis, fatigue, a fever and headaches. Pertinent negatives include no abdominalpain, nausea, sore throat or vomiting. She has tried acetaminophen (cough meds, saltwater gargle. )for the symptoms. The treatment provided no relief. MEDICAL ISSUES Past Medical History: Diagnosis Date Allergic rhinitis Anxiety Asthma Depression Hyperlipidemia Hypertension Irritable bowel syndrome There is no problem list on file for this patient. SOCIAL HISTORY Social History Socioeconomic History Marital status: Spouse name: Not on file Number of children: Not on file Years of education: Not on file Highest education level: Not on file Social Needs Financial resource strain: Not on file Food insecurity - worry: Not on file Food insecurity - inability: Not on file Transportation needs - medical: Not on file Transportation needs - non-medical: Not on file Occupational History Not on file Tobacco Use Smoking status: Never Smoker Smokeless tobacco: Never Used Substance and Sexual Activity Alcohol use: Not on file Drug use: Not on file Sexual activity: Not on file Other Topics Concern Not on file Social History Narrative Not on file FAMILY HISTORY Family History Problem Relation Age of Onset Diabetes Mother Hypertension Mother Hyperlipidemia Father Hypertension Father REVIEW OF SYSTEMS Review of Systems Constitutional: Positive for chills, diaphoresis, fatigue and fever. HENT: Positive for congestion, postnasal drip and sinus pain. Negative for sore throat. Respiratory: Positive for cough. Negative for wheezing. Cardiovascular: Positive for chest pain. Gastrointestinal: Negative for abdominal pain, nausea and vomiting. Neurological: Positive for headaches. Hematological: Negative for adenopathy. Does not bruise/bleed easily. MEDICATIONS PRIOR TO VISIT Current Outpatient Medications on File Prior to Visit Medication Sig Dispense Refill atorvastatin (LIPITOR) 10 MG tablet Take 1 (one) tablet (10 mg total) by mouth daily . 90 tablet 1 cyclobenzaprine (FLEXERIL) 10 MG tablet Take 10 mg by mouth . estradiol (ESTRACE) 0.01 % (0.1 mg/gram) vaginal cream Apply pea size amount to the vulva twice a day . 42.5 g 4 estradiol (ESTRACE) 1 MG tablet Take 1 mg by mouth daily . FLUoxetine (PROZAC) 20 MG tablet Take 1 (one) tablet (20 mg total) by mouth daily. 90 tablet 1 lisinopril-hydrochlorothiazide (PRINZIDE,ZESTORETIC) 10-12.5 mg per tablet Take 1 (one) tablet by mouth daily . 90 tablet 1 meclizine (ANTIVERT) 25 mg tablet Take 25 mg by mouth . ranitidine (ZANTAC) 150 MG capsule Take 2 (two) capsules (300 mg total) by mouth daily. 180 capsule1 traMADol (ULTRAM) 50 mg tablet TAKE 1 TABLET BY MOUTH EVERY 4 HRS NEEDED FOR PAIN tretinoin (RETIN-A) 0.05 % cream APPLY 1 APPLICATION TO AFFECTED AREA ONCE DAILY. No current facility-administered medications on file prior to visit. ALLERGIES/INTOLERANCES Allergies Allergen Reactions Morphine Itching Niacin Other reaction(s): Other: See Comments Flushing Penicillins Other reaction(s): Intolerance Sulfa (Sulfonamide Antibiotics) Swelling OBJECTIVE BP (!) 133/95 Pulse 87 Temp 98.9 F (37.2 C) Resp 16 Ht 5' 3 Wt 73.9 kg (163 lb) SpO2 96% BMI 28.87 kg/m Physical Exam PROCEDURE Procedures Results No results found for this or any previous visit (from the past 168 hour(s)). ASSESSMENT/PLAN (expressed as patient instructions): SNOMED CT(R) 1. Sore throat SORE THROAT SYMPTOM POC Rapid Strep A 2. Cough COUGH HYDROcodone-homatropine (HYCODAN) 5-1.5 mg/5 mL syrup Return if symptoms worsen or fail to improve. ADDITIONAL CLINICAL COMMENTS No notes on file ORDERS PLACED THIS VISIT Orders Placed This Encounter Procedures POC Rapid Strep A MEDICATION LIST AT END OF VISIT Current Outpatient Medications Medication Sig Dispense Refill atorvastatin (LIPITOR) 10 MG tablet Take 1 (one) tablet (10 mg total) by mouth daily . 90 tablet 1 cyclobenzaprine (FLEXERIL) 10 MG tablet Take 10 mg by mouth . estradiol (ESTRACE) 0.01 % (0.1 mg/gram) vaginal cream Apply pea size amount to the vulva twice a day . 42.5 g 4 estradiol (ESTRACE) 1 MG tablet Take 1 mg by mouth daily . FLUoxetine (PROZAC) 20 MG tablet Take 1 (one) tablet (20 mg total) by mouth daily. 90 tablet 1 lisinopril-hydrochlorothiazide (PRINZIDE,ZESTORETIC) 10-12.5 mg per tablet Take 1 (one) tablet by mouth daily . 90 tablet 1 meclizine (ANTIVERT) 25 mg tablet Take 25 mg by mouth . ranitidine (ZANTAC) 150 MG capsule Take 2 (two) capsules (300 mg total) by mouth daily. 180 capsule1 traMADol (ULTRAM) 50 mg tablet TAKE 1 TABLET BY MOUTH EVERY 4 HRS NEEDED FOR PAIN tretinoin (RETIN-A) 0.05 % cream APPLY 1 APPLICATION TO AFFECTED AREA ONCE DAILY. HYDROcodone-homatropine (HYCODAN) 5-1.5 mg/5 mL syrup Take 5-10 cc at HS for cough if Delsym does not decrease cough enough . 120 mL 0 No current facility-administered medications for this visit. in this encounter* Asha Lan CNP - 05/17/2019 10:27 AM EDT OUTPATIENT WE[facility]OMAN PROGRESS NOTE Subjective: Eleni Valdez is a 43 y.o. female and is here for a preventative care visit. Health maintenance reviewed and updated. History of hysterectomy for endometriosis, mammogram up-to-date. Medications refilled per request. Lab work has not been completed prior to visit, she will have this completed at her convenience. She has no complaints at this time and is doing well. She will return to the officeannually and as needed. There are no preventive care reminders to display for this patient. Domestic violence: Denies Depression Screen: 05/17/19 Diet/Exercise: Denies Last eye exam: 2017 Last dental visit: 2018 The following portions of the patient's history were reviewed and updated as appropriate: allergies, current medications, past family history, past medical history, past social history, past surgicalhistory and problem list. Past Medical History: Diagnosis Date Acne Allergic rhinitis Anxiety Asthma Depression Endometriosis Hyperlipidemia Hypertension Irritable bowel syndrome Surgical menopause Vertigo Past Surgical History: Procedure Laterality Date BREAST SURGERY 2001 reduction EGD 11/08/2016 with biopsy, including WATS3D and rivas capsule placement; Dr. Chalo Mccray ESOPHAGEAL MANOMETRY 11/08/2016 SALPINGOOPHORECTOMY Right SINUS SURGERY TOTAL ABDOMINAL HYSTERECTOMY complete Social History Tobacco Use Smoking status: Never Smoker Smokeless tobacco: Never Used Substance Use Topics Alcohol use: Not Currently Drug use: Never Family History Problem Relation Age of Onset Diabetes Mother Hypertension Mother Hyperlipidemia Father Hypertension Father Diabetes Father No Known Problems Sister No Known Problems Daughter Schizophrenia Son Lung cancer Maternal Aunt Hypertension Maternal Aunt Heart disease Maternal Aunt Kidney disease Maternal Uncle Heart disease Maternal Uncle COPD Maternal Grandmother Lung cancer Maternal Grandmother Heart disease Maternal Grandfather Hyperlipidemia Maternal Grandfather Hypertension Maternal Grandfather Dementia Paternal Grandmother Liver disease Paternal Grandfather Alcohol abuse Paternal Grandfather Allergies Allergen Reactions Morphine Itching Niacin Other reaction(s): Other: See Comments Flushing Penicillins Other reaction(s): Intolerance Sulfa (Sulfonamide Antibiotics) Swelling Objective: BP 134/76 Pulse 88 Temp 97.9 F (36.6 C) (Temporal) Resp 16 Wt 73.4 kg (161 lb 14.4 oz) SpO2 95% BMI 28.68 kg/m Review of Systems Review of Systems Constitutional: Negative. Negative for activity change. HENT: Positive for postnasal drip and rhinorrhea. Eyes: Negative. Respiratory: Negative. Negative for chest tightness and shortness of breath. Cardiovascular: Negative for chest pain and palpitations. Gastrointestinal: Negative. Negative for abdominal pain. Endocrine: Negative. Genitourinary: Negative. Musculoskeletal: Positive for arthralgias and joint swelling. Skin: Negative. Negative for pallor. Allergic/Immunologic: Negative. Neurological: Negative. Negative for weakness. Hematological: Negative. Psychiatric/Behavioral: Positive for dysphoric mood. Negative for decreased concentration, self-injury, sleep disturbance and suicidal ideas. The patient is nervous/anxious. Vitals: 05/17/19 1002 05/17/19 1019 BP: (!) 133/90 134/76 BP Location: Left arm Patient Position: Sitting BP Cuff Size: Adult Pulse: 88 Resp: 16 Temp: 97.9 F (36.6 C) TempSrc: Temporal SpO2: 95% Weight: 73.4 kg (161 lb 14.4 oz) Body mass index is 28.68 kg/m . Physical Exam Physical Exam Constitutional: She is oriented to person, place, and time. She appears well- developed and well-nourished. HENT: Head: Normocephalic and atraumatic. Eyes: Conjunctivae are normal. Neck: Normal range of motion. Neck supple. Cardiovascular: Normal rate, regular rhythm, normal heart sounds and intact distal pulses. Exam reveals no gallop and no friction rub. No murmur heard. Pulmonary/Chest: Effort normal and breath sounds normal. No respiratory distress. She has no wheezes. She has no rales. Abdominal: Soft. Bowel sounds are normal. She exhibits no distension. There is no tenderness. Thereis no rebound. Musculoskeletal: Normal range of motion. Neurological: She is alert and oriented to person, place, and time. Skin: Skin is warm and dry. Psychiatric: Her speech is normal and behavior is normal. Judgment and thought content normal. Her mood appears anxious. Cognition and memory are normal. She exhibits a depressed mood. Nursing note and vitals reviewed. Assessment/Plan Problem List Items Addressed This Visit Musculoskeletal and Integument Acne Relevant Medications tretinoin (RETIN-A) 0.05 % cream Other Surgical menopause Relevant Medications estradiol (ESTRACE) 1 MG tablet estradiol (ESTRACE) 0.01 % (0.1 mg/gram) vaginal cream Hyperlipidemia Relevant Orders Lipid Panel RESOLVED: Well adult exam - Primary I have ordered blood work for you to have completed. Please have this completed at your earliest convenience. This blood work will need to be completed while fasting. This means nothing to eat or drink for 6-8 hours prior to having it drawn. You can however, drink water and take medications as ordered during this time. I will review your labs via [employer] or the office will with your results. Relevant Orders CBC and Differential Comprehensive Metabolic Panel Other Visit Diagnoses Screening for thyroid disorder Relevant Orders TSH with Reflex Free T4 General Patient Counseling Given: --Nutrition: Stressed importance of moderation in sodium/caffeine intake, saturated fat and cholesterol, caloric balance, sufficient intake of fresh fruits, vegetables, fiber, calcium, iron, and 1 mgof folate supplement per day (for females capable of ). --Exercise: Stressed the importance of regular exercise. --Substance Abuse: Discussed cessation/primary prevention of tobacco, alcohol, or other drug use --Sexuality: Discussed sexually transmitted diseases, partner selection, use of condoms, avoidance of unintended and contraceptive alternatives. --Dental health: Discussed importance of regular dental visits. --Immunizations reviewed. --Discussed benefits of screening mammograms, pap smears, and colonoscopy. documented in this encounter* Asha Lan CNP - 10/23/2019 4:10 PM EST Patient made aware via phone call message of lab results and treatment plan * Asha Lan CNP - 10/22/2019 10:20 AM EST OFFICE VISIT PROGRESS NOTE HPI Patient is a pleasant 44 y.o. female with a past medical history of asthma, allergic rhinitis, hypertension, acne, menopause, hyperlipidemia, depression, and anxiety presenting to the office with complaints of pelvic pain that has worsened over the last 3 weeks. Patient was placed on Macrobid and Keflex for urinary tract infection, antibiotic was completed last Monday morning. Patient completed the entire doses. States symptoms continue but have improved. Pelvic pain -total hysterectomy for endometriosis Onset: 3 weeks ago Symptoms: mild cramping began 3 weeks ago. Urgent care phone visit that was treated with macrobid, then treated with keflex with negative culture now cramping is getting worse. Feels like menstral cramps. Patient stopped using her Estrace cream and Estrace tablets several months ago to decrease herrisk of breast cancer and stroke. Also noted on exam is rash to bilateral labialis which appears karlie lichens. Patient requesting to have Pap smear completed as a precaution. Pain: 4/10 cramping with sharp pain Treatment: restart estrace cream 2 days ago Effectiveness: Symptoms have not improved since restarting medication POC: Transvaginal ultrasound, Pap testing, and vaginal DNA swab to check for BV or candidiasis. Patient to continue using the Estrace cream. I will addClobetasol twice daily for lichens rash The following portions of the patient's history were reviewed and updated as appropriate: allergies, current medications and problem list. Family History Problem Relation Age of Onset Diabetes Mother Hypertension Mother Hyperlipidemia Father Hypertension Father Diabetes Father No Known Problems Sister No Known Problems Daughter Schizophrenia Son Lung cancer Maternal Aunt Hypertension Maternal Aunt Heart disease Maternal Aunt Kidney disease Maternal Uncle Heart disease Maternal Uncle COPD Maternal Grandmother Lung cancer Maternal Grandmother Heart disease Maternal Grandfather Hyperlipidemia Maternal Grandfather Hypertension Maternal Grandfather Dementia Paternal Grandmother Liver disease Paternal Grandfather Alcohol abuse Paternal Grandfather Social History Socioeconomic History Marital status: Spouse name: Marquis Number of children: 2 Years of education: Not on file Highest education level: Bachelor's degree (e.g., BA, AB, BS) Occupational History Not on file Social Needs Financial resource strain: Not hard at all Food insecurity Worry: Never true Inability: Never true Transportation needs Medical: No Non-medical: No Tobacco Use Smoking status: Never Smoker Smokeless tobacco: Never Used Substance and Sexual Activity Alcohol use: Not Currently Drug use: Never Sexual activity: Yes Partners: Male Lifestyle Physical activity Days per week: 0 days Minutes per session: 0 min Stress: To some extent Relationships Social connections Talks on phone: More than three times a week Gets together: Once a week Attends hindu service: More than 4 times per year Active member of club or organization: Yes Attends meetings of clubs or organizations: More than 4 times per year Relationship status: Other Topics Concern Not on file Social History Narrative Not on file Past Surgical History: Procedure Laterality Date BREAST SURGERY 2001 reduction EGD 11/08/2016 with biopsy, including WATS3D and rivas capsule placement; Dr. Chalo Mccray ESOPHAGEAL MANOMETRY 11/08/2016 SALPINGOOPHORECTOMY Right SINUS SURGERY TOTAL ABDOMINAL HYSTERECTOMY complete Allergies Allergen Reactions Morphine Itching Niacin Other reaction(s): Other: See Comments Flushing Penicillins Other reaction(s): Intolerance Sulfa (Sulfonamide Antibiotics) Swelling Patient's Medications New Prescriptions CLOBETASOL (TEMOVATE) 0.05 % OINTMENT Apply topically 2 (two) times a day Apply to the labia and surrounding tissue, dispense at pt request . FLUCONAZOLE (DIFLUCAN) 150 MG TABLET Take 1 (one) tablet (150 mg total) by mouth every other day for 3 doses . Previous Medications ATORVASTATIN (LIPITOR) 20 MG TABLET Take 1 (one) tablet (20 mg total) by mouth daily . CYCLOBENZAPRINE (FLEXERIL) 10 MG TABLET Take 10 mg by mouth as needed . ESTRADIOL (ESTRACE) 0.01 % (0.1 MG/GRAM) VAGINAL CREAM Apply pea size amount to the vulva twice a day . ESTRADIOL (ESTRACE) 1 MG TABLET Take 1 (one) tablet (1 mg total) by mouth daily . FENOFIBRATE (TRICOR) 48 MG TABLET Take 1 (one) tablet (48 mg total) by mouth daily Give with food . FLUOXETINE (PROZAC) 20 MG TABLET Take 1 (one) tablet (20 mg total) by mouth daily . FLUTICASONE PROPIONATE (FLONASE) 50 MCG/ACTUATION NASAL SPRAY Instill 1 spray into each nostril daily . LISINOPRIL-HYDROCHLOROTHIAZIDE (PRINZIDE,ZESTORETIC) 10-12.5 MG PER TABLET Take 1 (one) tablet by mouth daily . MECLIZINE (ANTIVERT) 25 MG TABLET Take 1 (one) tablet (25 mg total) by mouth daily . RANITIDINE (ZANTAC) 150 MG TABLET Take 150 mg by mouth daily . TRAMADOL (ULTRAM) 50 MG TABLET TAKE 1 TABLET BY MOUTH EVERY 4 HRS NEEDED FOR PAIN TRETINOIN (RETIN-A) 0.05 % CREAM Once daily . Modified Medications No medications on file Discontinued Medications No medications on file Review of Systems Review of Systems Constitutional: Positive for fatigue. Negative for activity change, chills, diaphoresis and fever. Eyes: Negative. Negative for pain and redness. Respiratory: Negative. Negative for cough, chest tightness and shortness of breath. Cardiovascular: Negative for chest pain, palpitations and leg swelling. Gastrointestinal: Positive for nausea. Negative for abdominal pain, anal bleeding and blood in stool. Endocrine: Negative. Genitourinary: Positive for frequency, pelvic pain and vaginal discharge. Negative for decreased urine volume, difficulty urinating, dysuria, flank pain, genital sores, hematuria, menstrual problem, urgency, vaginal bleeding and vaginal pain. Musculoskeletal: Positive for arthralgias and joint swelling. Skin: Negative. Negative for pallor. Allergic/Immunologic: Negative. Neurological: Negative. Negative for dizziness, seizures, facial asymmetry, weakness and light-headedness. Hematological: Negative. Negative for adenopathy. Psychiatric/Behavioral: Positive for dysphoric mood. Negative for decreased concentration, self-injury, sleep disturbance and suicidal ideas. The patient is nervous/anxious. Vitals: 10/22/19 1036 10/22/19 1038 BP: (!) 148/104 (!) 145/99 BP Location: Left arm Right arm Patient Position: Sitting Sitting BP Cuff Size: Adult Adult Pulse: 74 Resp: 16 Temp: 98.6 F (37 C) TempSrc: Temporal SpO2: 97% Weight: 73.1 kg (161 lb 1.6 oz) Body mass index is 28.54 kg/m . Physical Exam Physical Exam Vitals signs and nursing note reviewed. Exam conducted with a supervisor files present. Constitutional: General: She is not in acute distress. Appearance: She is well-developed. She is not ill-appearing, toxic-appearing or diaphoretic. HENT: Head: Normocephalic and atraumatic. Mouth/Throat: Mouth: Mucous membranes are moist. Neck: Musculoskeletal: Normal range of motion. Cardiovascular: Rate and Rhythm: Normal rate and regular rhythm. Heart sounds: Normal heart sounds. Pulmonary: Effort: Pulmonary effort is normal. Breath sounds: Normal breath sounds. Abdominal: General: Bowel sounds are normal. There is no distension or abdominal bruit. There are no signs of injury. Palpations: Abdomen is soft. Tenderness: There is no abdominal tenderness. There is no right CVA tenderness or left CVA tenderness. Hernia: No hernia is present. Genitourinary: Exam position: Supine. Labia: Right: Rash present. Left: Rash present. Urethra: No prolapse, urethral pain, urethral swelling or urethral lesion. Vagina: No signs of injury. Vaginal discharge present. No erythema, tenderness, bleeding, lesions or prolapsed vaginal marx. Uterus: Absent. Rectum: External hemorrhoid present. Comments: Complete hysterectomy for endometriosis Musculoskeletal: Normal range of motion. Lymphadenopathy: Lower Body: No right inguinal adenopathy. No left inguinal adenopathy. Skin: General: Skin is warm and dry. Neurological: Mental Status: She is alert and oriented to person, place, and time. Assessment/Plan Problem List Items Addressed This Visit Other Abdominal pain - Primary Everything looked normal, your PAP results will take 10-14 days to return. I will notify you of your results via your MyChart or the office will call your with your results. Use the clobetasol cream twice daily for the rash over your entire labia. Continue using the Estrace cream daily to help with the vaginal dryness. I have also ordered a transvaginal ultrasound to look for any abnormalities that I could not see onexamination today. If you have any questions please my chart message me or call into the office. Relevant Orders POC Urinalysis Dipstick (Completed) Thinprep Pap Smear US Transvaginal Vaginitis DNA Probes (Completed) High Risk HPV with Genotype 16,18 (Completed) Other Visit Diagnoses Lichen For any new medications prescribed today, patient was educated about indications for the medication, how to take the medication and potential side effects of the medications. Please note: Portions of this chart may have been created with [employer] voice recognition software. Occasional wrong-word or sound-like substitutions may have occurred due to inherent limitations of the voice recognition software. Please read the chart carefully and recognize, using context, where the substitutions have occurred. documented in this encounter* Asha Lan CNP - 10/29/2019 9:30 AM EST Pt notified of US results, agreeable to referral to [facility] Dr. Pena. States understanding documented in this encounter* Shruti Arnold CNP - 12/30/2019 9:00 PM EDT Associated Order(s): LG Jt Injection/Arthrocentesis: L glenohumeral; LG Jt Injection/Arthrocentesis: R glenohumeral Post-Procedure Diagnose(s): Impingement syndrome of both shoulders LG Jt Injection/Arthrocentesis: L glenohumeral Performed by: Shruti Arnold CNP Authorized by: Shruti Arnold CNP CPT 74975 - Large Joint Arthrocentesis: Consent given by: Patient Time out: Immediately prior to the procedure a time out was called Physician or proceduralist has discussed critical or nonroutine steps, procedure duration and anticipated blood loss: Yes Supporting Documentation: Indications: Pain and diagnostic evaluation Procedure Details: Location: Shoulder Site: L glenohumeral Prep: patient was prepped and draped in usual sterile fashion Needle size: 22 G Approach: Posterior Medications: 40 mg triamcinolone acetonide 40 mg/mL Anesthetic used: Lidocaine 1% Anesthetic amount (mL): 2 Patient tolerance: Patient tolerated the procedure well with no immediate complications LG Jt Injection/Arthrocentesis: R glenohumeral Performed by: Shruti Arnold CNP Authorized by: Shruti Arnold CNP CPT 07028 - Large Joint Arthrocentesis: Consent given by: Patient Time out: Immediately prior to the procedure a time out was called Physician or proceduralist has discussed critical or nonroutine steps, procedure duration and anticipated blood loss: Yes Supporting Documentation: Indications: Pain and diagnostic evaluation Procedure Details: Location: Shoulder Site: R glenohumeral Prep: patient was prepped and draped in usual sterile fashion Needle size: 22 G Approach: Posterior Medications: 40 mg triamcinolone acetonide 40 mg/mL Anesthetic amount (mL): 2 Patient tolerance: Patient tolerated the procedure well with no immediate complications * Shruti Arnold CNP - 12/30/2019 9:00 PM EDT Eleni Shah Kelli 1975 CC: 44 y.o. is a she with bilateral shoulder pain. Chief Complaint Patient presents with Injections Shoulder injections . HPI: Shoulder Pain: Patient complains of bilateral shoulder pain. Patient has been receiving injections to bilateral shoulders which have been helping with pain. She would like to continue with the injections for now. PMH: Allergies Allergen Reactions Morphine Itching Niacin Other reaction(s): Other: See Comments Flushing Penicillins Other reaction(s): Intolerance Sulfa (Sulfonamide Antibiotics) Swelling Current Outpatient Medications: atorvastatin (LIPITOR) 20 MG tablet, Take 1 (one) tablet (20 mg total) by mouth daily ., Disp: 90 tablet, Rfl: 3 clobetasoL (TEMOVATE) 0.05 % ointment, Apply topically 2 (two) times a day Apply to the labia and surrounding tissue, dispense at pt request ., Disp: 30 g, Rfl: 3 cyclobenzaprine (FLEXERIL) 10 MG tablet, Take 10 mg by mouth as needed ., Disp: , Rfl: estradiol (ESTRACE) 0.01 % (0.1 mg/gram) vaginal cream, Apply pea size amount to the vulva twice a day ., Disp: 42.5 g, Rfl: 4 estradiol (ESTRACE) 1 MG tablet, Take 1 (one) tablet (1 mg total) by mouth daily ., Disp: 90 tablet, Rfl: 3 fenofibrate (TRICOR) 48 MG tablet, Take 1 (one) tablet (48 mg total) by mouth daily Give with food ., Disp: 90 tablet, Rfl: 3 FLUoxetine (PROZAC) 20 MG tablet, Take 1 (one) tablet (20 mg total) by mouth daily ., Disp: 90 tablet, Rfl: 1 fluticasone propionate (FLONASE) 50 mcg/actuation nasal spray, Instill 1 spray into each nostril daily ., Disp: , Rfl: lisinopril-hydrochlorothiazide (PRINZIDE,ZESTORETIC) 10-12.5 mg per tablet, Take 1 (one) tablet by mouth daily ., Disp: 90 tablet, Rfl: 1 meclizine (ANTIVERT) 25 mg tablet, Take 1 (one) tablet (25 mg total) by mouth daily ., Disp: 90 tablet, Rfl: 0 ranitidine (ZANTAC) 150 MG tablet, Take 150 mg by mouth daily ., Disp: , Rfl: traMADol (ULTRAM) 50 mg tablet, TAKE 1 TABLET BY MOUTH EVERY 4 HRS NEEDED FOR PAIN, Disp: , Rfl: tretinoin (RETIN-A) 0.05 % cream, Once daily . (Patient taking differently: Apply topically as needed Once daily .), Disp: 45 g, Rfl: 3 Past Medical History: Diagnosis Date Acne Allergic rhinitis Anxiety Asthma Depression Endometriosis Hyperlipidemia Hypertension Irritable bowel syndrome Surgical menopause Vertigo Past Surgical History: Procedure Laterality Date BREAST SURGERY 2001 reduction EGD 11/08/2016 with biopsy, including WATS3D and rivas capsule placement; Dr. Chalo Mccray ESOPHAGEAL MANOMETRY 11/08/2016 SALPINGOOPHORECTOMY Right SINUS SURGERY TOTAL ABDOMINAL HYSTERECTOMY complete Social History Socioeconomic History Marital status: Spouse name: Marquis Number of children: 2 Years of education: Not on file Highest education level: Bachelor's degree (e.g., BA, AB, BS) Occupational History Not on file Social Needs Financial resource strain: Not hard at all Food insecurity Worry: Never true Inability: Never true Transportation needs Medical: No Non-medical: No Tobacco Use Smoking status: Never Smoker Smokeless tobacco: Never Used Substance and Sexual Activity Alcohol use: Not Currently Drug use: Never Sexual activity: Yes Partners: Male Lifestyle Physical activity Days per week: 0 days Minutes per session: 0 min Stress: To some extent Relationships Social connections Talks on phone: More than three times a week Gets together: Once a week Attends hindu service: More than 4 times per year Active member of club or organization: Yes Attends meetings of clubs or organizations: More than 4 times per year Relationship status: Other Topics Concern Not on file Social History Narrative Not on file The patient's past medical history, surgical history, social history, family history, medications and allergies were reviewed with the patient today and are available in the chart for further review. ROS: Review of Systems Constitutional: Negative for activity change and fatigue. HENT: Negative for congestion, hearing loss and trouble swallowing. Eyes: Negative for visual disturbance. Respiratory: Negative for chest tightness and shortness of breath. Cardiovascular: Negative for chest pain and palpitations. Gastrointestinal: Negative for abdominal pain, diarrhea, nausea and vomiting. Endocrine: Negative for polydipsia, polyphagia and polyuria. Genitourinary: Negative for decreased urine volume, difficulty urinating and hematuria. Musculoskeletal: Positive for arthralgias. Negative for joint swelling and myalgias. Skin: Negative for color change, rash and wound. Allergic/Immunologic: Negative for immunocompromised state. Neurological: Negative for dizziness, weakness, light-headedness and numbness. Hematological: Does not bruise/bleed easily. Psychiatric/Behavioral: Negative for confusion and sleep disturbance. The patient is not nervous/anxious. PE: Physical Exam Constitutional: She is oriented to person, place, and time. She appears well- developed and well-nourished. HENT: Head: Normocephalic. Eyes: Pupils are equal, round, and reactive to light. Neck: Normal range of motion. Neck supple. Cardiovascular: Normal rate and regular rhythm. Pulmonary/Chest: Effort normal and breath sounds normal. Abdominal: Soft. Bowel sounds are normal. Musculoskeletal: Normal range of motion. General: Tenderness present. Neurological: She is alert and oriented to person, place, and time. Skin: Skin is warm and dry. Imaging: No new imaging Assessment/Plan: After examination, I injected the patient bilateral shoulders per request. The patient will follow up as needed. Diagnosis: Problem List Items Addressed This Visit None Visit Diagnoses Impingement syndrome of both shoulders - Primary Bursitis/tendonitis, shoulder Follow Up: No follow-ups on file. Shruti Arnold CNP documented in this encounter* Shruti Arnold CNP - 2020 10:01 AM EDT Associated Order(s): LG Jt Injection/Arthrocentesis: L glenohumeral; LG Jt Injection/Arthrocentesis: R glenohumeral Post-Procedure Diagnose(s): Impingement syndrome of both shoulders LG Jt Injection/Arthrocentesis: L glenohumeral Performed by: Shruti Arnold CNP Authorized by: Shruti Arnold CNP CPT 23984 - Large Joint Arthrocentesis: Consent given by: Patient Time out: Immediately prior to the procedure a time out was called Physician or proceduralist has discussed critical or nonroutine steps, procedure duration and anticipated blood loss: Yes Supporting Documentation: Indications: Pain and diagnostic evaluation Procedure Details: Location: Shoulder Site: L glenohumeral Prep: patient was prepped and draped in usual sterile fashion Needle size: 22 G Approach: Posterior Medications: 40 mg triamcinolone acetonide 40 mg/mL Anesthetic used: Lidocaine 1% Anesthetic amount (mL): 2 Patient tolerance: Patient tolerated the procedure well with no immediate complications LG Jt Injection/Arthrocentesis: R glenohumeral Performed by: Shruti Arnold CNP Authorized by: Shruti Arnold CNP CPT 33784 - Large Joint Arthrocentesis: Consent given by: Patient Time out: Immediately prior to the procedure a time out was called Physician or proceduralist has discussed critical or nonroutine steps, procedure duration and anticipated blood loss: Yes Supporting Documentation: Indications: Pain and diagnostic evaluation Procedure Details: Location: Shoulder Site: R glenohumeral Prep: patient was prepped and draped in usual sterile fashion Needle size: 22 G Approach: Posterior Medications: 40 mg triamcinolone acetonide 40 mg/mL Anesthetic amount (mL): 2 Patient tolerance: Patient tolerated the procedure well with no immediate complications * Shruti Arnold CNP - 2020 9:56 AM EDT [facility] [address] [facility] [address] [facility] [id number] Chief Complaint Patient presents with Injections Eleni Valdez returns to the office today for bilateral shoulder injections but also, her right knee has been bothering her lately. She denies any injury to the knee, just an overall ache and sometimes sharp pain. She denies any instability, the knee has never given out or felt as if it could give out on her. She takes OTC pain relievers which help with pain. She states she has a leg length discrepancy that was caused from a broken leg in the growth plate when she was younger. She thinks thatthe right knee might be painful because of her gait pattern but would just like it checked out if possible. The shoulders are about the same. She is content with getting injections at this time and isn't ready to discuss any type of surgery. The patient's past medical history, surgical history, social history, family history, medications and allergies were reviewed with the patient today and are available in the chart for further review. Allergies Allergen Reactions Morphine Itching Niacin Other reaction(s): Other: See Comments Flushing Penicillins Other reaction(s): Intolerance Sulfa (Sulfonamide Antibiotics) Swelling Current Outpatient Medications: clobetasoL (TEMOVATE) 0.05 % ointment, Apply topically 2 (two) times a day Apply to the labia and surrounding tissue, dispense at pt request ., Disp: 30 g, Rfl: 3 cyclobenzaprine (FLEXERIL) 10 MG tablet, Take 10 mg by mouth as needed ., Disp: , Rfl: estradiol (ESTRACE) 0.01 % (0.1 mg/gram) vaginal cream, Apply pea size amount to the vulva twice a day ., Disp: 42.5 g, Rfl: 4 FLUoxetine (PROZAC) 20 MG tablet, TAKE 1 TABLET BY MOUTH ONCE DAILY, Disp: 90 tablet, Rfl: 0 fluticasone propionate (FLONASE) 50 mcg/actuation nasal spray, Instill 1 spray into each nostril daily ., Disp: , Rfl: lisinopriL-hydrochlorothiazide (PRINZIDE,ZESTORETIC) 10-12.5 mg per tablet, Take 1 (one) tablet by mouth daily ., Disp: 90 tablet, Rfl: 1 meclizine (ANTIVERT) 25 mg tablet, Take 1 (one) tablet (25 mg total) by mouth daily ., Disp: 90 tablet, Rfl: 0 ranitidine (ZANTAC) 150 MG tablet, Take 150 mg by mouth daily ., Disp: , Rfl: traMADol (ULTRAM) 50 mg tablet, TAKE 1 TABLET BY MOUTH EVERY 4 HRS NEEDED FOR PAIN, Disp: , Rfl: tretinoin (RETIN-A) 0.05 % cream, Once daily . (Patient taking differently: Apply topically as needed Once daily .), Disp: 45 g, Rfl: 3 atorvastatin (LIPITOR) 20 MG tablet, Take 1 (one) tablet (20 mg total) by mouth daily ., Disp: 90 tablet, Rfl: 3 estradiol (ESTRACE) 1 MG tablet, Take 1 (one) tablet (1 mg total) by mouth daily ., Disp: 90 tablet, Rfl: 3 fenofibrate (TRICOR) 48 MG tablet, Take 1 (one) tablet (48 mg total) by mouth daily Give with food ., Disp: 90 tablet, Rfl: 3 meloxicam (Mobic) 7.5 MG tablet, Take 1 (one) tablet (7.5 mg total) by mouth daily ., Disp: 90 tablet, Rfl: 3 Past Medical History: Diagnosis Date Acne Allergic rhinitis Anxiety Asthma Depression Endometriosis Hyperlipidemia Hypertension Irritable bowel syndrome Surgical menopause Vertigo Past Surgical History: Procedure Laterality Date BREAST SURGERY 2001 reduction EGD 11/08/2016 with biopsy, including WATS3D and rivas capsule placement; Dr. Chalo Mccray ESOPHAGEAL MANOMETRY 11/08/2016 SALPINGOOPHORECTOMY Right SINUS SURGERY TOTAL ABDOMINAL HYSTERECTOMY complete Social History Socioeconomic History Marital status: Spouse name: Marquis Number of children: 2 Years of education: Not on file Highest education level: Bachelor's degree (e.g., BA, AB, BS) Occupational History Not on file Social Needs Financial resource strain: Not hard at all Food insecurity Worry: Never true Inability: Never true Transportation needs Medical: No Non-medical: No Tobacco Use Smoking status: Never Smoker Smokeless tobacco: Never Used Substance and Sexual Activity Alcohol use: Not Currently Drug use: Never Sexual activity: Yes Partners: Male Lifestyle Physical activity Days per week: 0 days Minutes per session: 0 min Stress: To some extent Relationships Social connections Talks on phone: More than three times a week Gets together: Once a week Attends hindu service: More than 4 times per year Active member of club or organization: Yes Attends meetings of clubs or organizations: More than 4 times per year Relationship status: Other Topics Concern Not on file Social History Narrative Not on file ROS: Review of Systems Constitutional: Negative for activity change and fatigue. HENT: Negative for congestion, hearing loss and trouble swallowing. Eyes: Negative for visual disturbance. Respiratory: Negative for chest tightness and shortness of breath. Cardiovascular: Negative for chest pain and palpitations. Gastrointestinal: Negative for abdominal pain, diarrhea, nausea and vomiting. Endocrine: Negative for polydipsia, polyphagia and polyuria. Genitourinary: Negative for decreased urine volume, difficulty urinating and hematuria. Musculoskeletal: Positive for arthralgias. Negative for joint swelling and myalgias. Skin: Negative for color change, rash and wound. Allergic/Immunologic: Negative for immunocompromised state. Neurological: Negative for dizziness, weakness, light-headedness and numbness. Hematological: Does not bruise/bleed easily. Psychiatric/Behavioral: Negative for confusion and sleep disturbance. The patient is not nervous/anxious. PE: Physical Exam Constitutional: She is oriented to person, place, and time. She appears well- developed and well-nourished. HENT: Head: Normocephalic. Eyes: Pupils are equal, round, and reactive to light. Neck: Normal range of motion. Neck supple. Cardiovascular: Normal rate and regular rhythm. Pulmonary/Chest: Effort normal and breath sounds normal. Abdominal: Soft. Bowel sounds are normal. Musculoskeletal: General: Tenderness present. Right shoulder: She exhibits decreased range of motion and pain. Left shoulder: She exhibits decreased range of motion and pain. Right knee: She exhibits no effusion. Tenderness found. Medial joint line and MCL tenderness noted. Neurological: She is alert and oriented to person, place, and time. Skin: Skin is warm and dry. ORTHO: Right Knee Exam Muscle Strength The patient has normal right knee strength. Tenderness The patient is experiencing tenderness in the medial joint line and MCL. Range of Motion The patient has normal right knee ROM. Tests Faby: Medial - negative Lateral - negative Varus: negative Valgus: negative Rgio: Anterior - negative Drawer: Anterior - negative Posterior - negative Other Erythema: absent Scars: absent Sensation: normal Pulse: present Swelling: none Effusion: no effusion present Imaging: B/L Shoulder RIGHT No acute fracture. Mild osteophytic spurring at the lateral aspect of the greater tuberosity. Glenohumeral and acromioclavicular joints are anatomically aligned. Joint spaces are preserved. Soft tissues are within normal limits. LEFT No acute fracture. Mild spurring at the lateral margin of the greater tuberosity. Glenohumeral and acromioclavicular joints are anatomically aligned. Joint spaces are preserved. Soft tissues appear unremarkable. R Knee No acute fracture. No subluxation or dislocation. Mild medial compartment joint space narrowing with minimal osteophytic spurring. Minimal osteophytic spurring of the patellofemoral compartment. No significant joint effusion. Soft tissues are within normal limits. Assessment/Plan: After examination and reviewing of the patient x-ray images, I injected bilateral shoulders per patient request. I did this without complications and she tolerated this well. I am also placing her on Mobic for pain and inflammation. I would like her to try this for 2 weeks and if there is no improvement, I did offer her a cortisone injection for the right knee. She will follow upas needed. The patient did verbalize understanding and is in agreement with this treatment plan. documented in this encounter* Zahraa Montiel CNP - 09/05/2019 3:21 PM EST Associated Order(s): LG Jt Injection/Arthrocentesis: L subacromial bursa Post-Procedure Diagnose(s): Impingement syndrome of both shoulders LG Jt Injection/Arthrocentesis: L subacromial bursa Performed by: Zahraa Montiel CNP Authorized by: Zahraa Montiel CNP CPT 17643 - Large Joint Arthrocentesis: Consent given by: Patient Time out: Immediately prior to the procedure a time out was called Physician or proceduralist has discussed critical or nonroutine steps, procedure duration and anticipated blood loss: Yes Supporting Documentation: Indications: Pain Procedure Details: Location: Shoulder Site: L subacromial bursa Prep: patient was prepped and draped in usual sterile fashion Needle size: 22 G Approach: Posterior Medications: 1 mL dexamethasone 4 mg/mL, 1 mL triamcinolone acetonide 40 mg/mL Anesthetic used: Lidocaine 1% and Bupivacaine 0.5% Anesthetic amount (mL): 4 Patient tolerance: Patient tolerated the procedure well with no immediate complications * Zahraa Montiel CNP - 09/05/2019 3:20 PM EST Associated Order(s): LG Jt Injection/Arthrocentesis: R subacromial bursa Post-Procedure Diagnose(s): Impingement syndrome of both shoulders LG Jt Injection/Arthrocentesis: R subacromial bursa Performed by: Zahraa Montiel CNP Authorized by: Zahraa Montiel CNP CPT 89330 - Large Joint Arthrocentesis: Consent given by: Patient Time out: Immediately prior to the procedure a time out was called Physician or proceduralist has discussed critical or nonroutine steps, procedure duration and anticipated blood loss: Yes Supporting Documentation: Indications: Pain Procedure Details: Location: Shoulder Site: R subacromial bursa Prep: patient was prepped and draped in usual sterile fashion Needle size: 22 G Approach: Posterior Medications: 1 mL dexamethasone 4 mg/mL, 1 mL triamcinolone acetonide 40 mg/mL Anesthetic used: Bupivacaine 0.5% and Lidocaine 1% Anesthetic amount (mL): 4 Patient tolerance: Patient tolerated the procedure well with no immediate complications * Zahraa Montiel CNP - 09/05/2019 3:19 PM EST 09/05/19 Eleni Valdez 1975 Chief Complaint Patient presents with Pain EP B/L SHOULDER INJ HISTORY of Present Illness: Eleni Valdez is a 44 y.o. year old female that presents today with Pain (EP B/L SHOULDER INJ) . Eleni Valdez has had injections in the past. Last injection to right/left shoulder was in dr. Bender and they tolerated well. They have been treated w/ oral medications & injections. Patient denies new injury to the shoulders. The following portions of the patient's history were reviewed and updated as appropriate: allergies, current medications, past surgical history and problem list Assessment No documentation. Referred By: No ref. provider found PAST MEDICAL HISTORY The patient's Medications, Allergies, Past Surgical History, Medical History, Family History and Social History were reviewed and can be found in their online medical record, and I have reviewed thisinformation with Eleni Valdez at the time of their visit. They are significant for Past Medical History: Diagnosis Date Acne Allergic rhinitis Anxiety Asthma Depression Endometriosis Hyperlipidemia Hypertension Irritable bowel syndrome Surgical menopause Vertigo PHYSICAL EXAM Ortho Exam Full range of motion of left hand, wrist, elbow, and shoulder. Positive impingement sign. Tenderness to the anterior acromial hook and bicipital groove. Additional Notes: IMAGING Notes: none new today. Reviewed from last visit. IMPRESSION And PLAN: Cortisone injection today. Will follow up in 3 months if effective. Call if no improvement in 10 days. No diagnosis found. Zahraa Montiel CNP documented in this encounter* Garry Bender MD - 06/03/2019 4:42 PM EDT Dictation on: 06/03/2019 4:43 PM by: GARRY BENDER [[id number]] documented in this encounter* Garry Bender MD - 02/25/2019 4:45 PM EDT Dictation on: 02/25/2019 4:46 PM by: GARRY BENDER [[id number]] documented in this encounter Assessments Diagnosis Bursitis/tendonitis, shoulder- Primary Unspecified disorders of bursae and tendons in shoulder region Diagnosis Sore throat- Primary Acute pharyngitis Cough Diagnosis Well adult exam- Primary Routine general medical examination at a health care facility Surgical menopause Acne, unspecified acne type Hyperlipidemia, unspecified hyperlipidemia type Screening for thyroid disorder Diagnosis Abdominal pain, unspecified abdominal location Lichen Diagnosis Abdominal pain, unspecified abdominal location Diagnosis Impingement syndrome of both shoulders Bursitis/tendonitis, shoulder Unspecified disorders of bursae and tendons in shoulder region Diagnosis Impingement syndrome of both shoulders- Primary Acute pain of right knee Primary osteoarthritis of right knee Diagnosis Impingement syndrome of both shoulders Diagnosis Bursitis/tendonitis, shoulder- Primary Unspecified disorders of bursae and tendons in shoulder region Diagnosis Bursitis/tendonitis, shoulder- Primary Unspecified disorders of bursae and tendons in shoulder region Instructions * Patient Instructions* Vince Leggett, VETERINARY NURSE - 12/21/2018 1:51 PM EST Chances are you are dealing with the flu or flu like illness. You are too late to take Tamiflu but treat with symptomatic OTC meds. Dayquil or Nyquil, Mendy [place] severe cold may help your symptoms. It comes with either tylenol or ASA so check the box of the ingredients if you cannot take NSAIDS. Dextromethorphan is best cough med over the counter. (Delsym) Sore Throat: Care Instructions Your Care Instructions Infection by bacteria or a virus causes most sore throats. Cigarette smoke, dry air, air pollution,allergies, and yelling can also cause a sore throat. Sore throats can be painful and annoying. Fortunately, most sore throats go away on their own. If you have a bacterial infection, your doctor may prescribe antibiotics. Follow-up care is a hill part of your treatment and safety. Be sure to make and go to all appointments, and call your doctor if you are having problems. It's also a good idea to know your test resultsand keep a list of the medicines you take. How can you care for yourself at home? If your doctor prescribed antibiotics, take them as directed. Do not stop taking them just because you feel better. You need to take the full course of antibiotics. Gargle with warm salt water once an hour to help reduce swelling and relieve discomfort. Use 1 teaspoon of salt mixed in 1 cup of warm water. Take an [id number]-[id number] pain medicine, such as acetaminophen (Tylenol), ibuprofen (Advil, Motrin),or naproxen (Aleve). Read and follow all instructions on the label. Be careful when taking xfxj-tub-ckuxglh cold or flu medicines and Tylenol at the same time. Many ofthese medicines have acetaminophen, which is Tylenol. Read the labels to make sure that you are nottaking more than the recommended dose. Too much acetaminophen (Tylenol) can be harmful. Drink plenty of fluids. Fluids may help soothe an irritated throat. Hot fluids, such as tea or soup, may help decrease throat pain. Use sbyn-sjj-vbieaqz throat lozenges to soothe pain. Regular cough drops or hard candy may also help. These should not be given to young children because of the risk of choking. Do not smoke or allow others to smoke around you. If you need help quitting, talk to your doctor about stop-smoking programs and medicines. These can increase your chances of quitting for good. Use a vaporizer or humidifier to add moisture to your bedroom. Follow the directions for cleaning the machine. When should you call for help? Call your doctor now or seek immediate medical care if: You have new or worse trouble swallowing. Your sore throat gets much worse on one side. Watch closely for changes in your health, and be sure to contact your doctor if you do not get better as expected. Where can you learn more? Log into your personal health record on https://Zartist[employer]ify and enter U420 in the Education box to learn more about Sore Throat: Care Instructions. Current as of: January 09, 2018 Content Version: .[id number] [employer]. Care instructions adapted under license by your healthcare professional. If you have questions about a medical condition or this instruction, always ask your healthcare professional. [employer] disclaims any warranty or liability for your use of this information. Viral Infections: Care Instructions Your Care Instructions You don't feel well, but it's not clear what's causing it. You may have a viral infection. Viruses cause many illnesses, such as the common cold, influenza, fever, rashes, and the diarrhea, nausea, and vomiting that are often called stomach flu. You may wonder if antibiotic medicines could make you feel better. But antibiotics only treat infections caused by bacteria. They don't work on viruses. The good news is that viral infections usually aren't serious. Most will go away in a few days without medical treatment. In the meantime, there are a few things you can do to make yourself more comfortable. Follow-up care is a hill part of your treatment and safety. Be sure to make and go to all appointments, and call your doctor if you are having problems. It's also a good idea to know your test resultsand keep a list of the medicines you take. How can you care for yourself at home? Get plenty of rest if you feel tired. Take an sfog-rpz-rasfptf pain medicine if needed, such as acetaminophen (Tylenol), ibuprofen (Advil, Motrin), or naproxen (Aleve). Read and follow all instructions on the label. Be careful when taking cski-pbz-yushatr cold or flu medicines and Tylenol at the same time. Many ofthese medicines have acetaminophen, which is Tylenol. Read the labels to make sure that you are nottaking more than the recommended dose. Too much acetaminophen (Tylenol) can be harmful. Drink plenty of fluids, enough so that your urine is light yellow or clear like water. If you have kidney, heart, or liver disease and have to limit fluids, talk with your doctor before you increase the amount of fluids you drink. Stay home from work, school, and other public places while you have a fever. When should you call for help? Call 911 anytime you think you may need emergency care. For example, call if: You have severe trouble breathing. You passed out (lost consciousness). Call your doctor now or seek immediate medical care if: You seem to be getting much sicker. You have a new or higher fever. You have blood in your stools. You have new belly pain, or your pain gets worse. You have a new rash. Watch closely for changes in your health, and be sure to contact your doctor if: You start to get better and then get worse. You do not get better as expected. Where can you learn more? Log into your personal health record on [email or web address] and enter L906 in the Education box to learn more about Viral Infections: Care Instructions. Current as of: May 14, 2018 Content Version: [id number] Funbuilt. Care instructions adapted under license by your healthcare professional. If you have questions about a medical condition or this instruction, always ask your healthcare professional. [employer] disclaims any warranty or liability for your use of this information. in this encounter* Patient Instructions* Asha Lan CNP - 05/17/2019 10:37 AM EDT Problem List Items Addressed This Visit Musculoskeletal and Integument Acne Relevant Medications tretinoin (RETIN-A) 0.05 % cream Other Surgical menopause Relevant Medications estradiol (ESTRACE) 1 MG tablet estradiol (ESTRACE) 0.01 % (0.1 mg/gram) vaginal cream Hyperlipidemia Relevant Orders Lipid Panel RESOLVED: Well adult exam - Primary I have ordered blood work for you to have completed. Please have this completed at your earliest convenience. This blood work will need to be completed while fasting. This means nothing to eat or drink for 6-8 hours prior to having it drawn. You can however, drink water and take medications as ordered during this time. I will review your labs via [employer] or the office will with your results. Relevant Orders CBC and Differential Comprehensive Metabolic Panel Other Visit Diagnoses Screening for thyroid disorder Relevant Orders TSH with Reflex Free T4 Well Visit, Ages 18 to 50: Care Instructions Your Care Instructions Physical exams can help you stay healthy. Your doctor has checked your overall health and may have suggested ways to take good care of yourself. He or she also may have recommended tests. At home, you can help prevent illness with healthy eating, regular exercise, and other steps. Follow-up care is a hill part of your treatment and safety. Be sure to make and go to all appointments, and call your doctor if you are having problems. It's also a good idea to know your test resultsand keep a list of the medicines you take. How can you care for yourself at home? Reach and stay at a healthy weight. This will lower your risk for many problems, such as obesity, diabetes, heart disease, and high blood pressure. Get at least 30 minutes of physical activity on most days of the week. Walking is a good choice. You also may want to do other activities, such as running, swimming, cycling, or playing tennis or team sports. Discuss any changes in your exercise program with your doctor. Do not smoke or allow others to smoke around you. If you need help quitting, talk to your doctor about stop-smoking programs and medicines. These can increase your chances of quitting for good. Talk to your doctor about whether you have any risk factors for sexually transmitted infections (STIs). Having one sex partner (who does not have STIs and does not have sex with anyone else) is a good way to avoid these infections. Use control if you do not want to have children at this time. Talk with your doctor about thechoices available and what might be best for you. Protect your skin from too much sun. When you're outdoors from 10 a.m. to 4 p.m., stay in the shadeor cover up with clothing and a hat with a wide brim. Wear sunglasses that block UV rays. Even whenit's cloudy, put broad-spectrum sunscreen (SPF 30 or higher) on any exposed skin. See a dentist one or two times a year for checkups and to have your teeth cleaned. Wear a seat belt in the car. Follow your doctor's advice about when to have certain tests. These tests can spot problems early. For everyone Cholesterol. Have the fat (cholesterol) in your blood tested after age 20. Your doctor will tell you how often to have this done based on your age, family history, or other things that can increase your risk for heart disease. Blood pressure. Have your blood pressure checked during a routine doctor visit. Your doctor will tell you how often to check your blood pressure based on your age, your blood pressure results, and other factors. Vision. Talk with your doctor about how often to have a glaucoma test. Diabetes. Ask your doctor whether you should have tests for diabetes. Colon cancer. Your risk for colorectal cancer gets higher as you get older. Some experts say that adults should start regular screening at age 50 and stop at age 75. Others say to start before age 50or continue after age 75. Talk with your doctor about your risk and when to start and stop screening. For women Breast exam and mammogram. Talk to your doctor about when you should have a clinical breast exam and a mammogram. Medical experts differ on whether and how often women under 50 should have these tests. Your doctor can help you decide what is right for you. Cervical cancer screening test and pelvic exam. Begin with a Pap test at age 21. The test often is part of a pelvic exam. Starting at age 30, you may choose to have a Pap test, an HPV test, or both tests at the same time (called co- testing). Talk with your doctor about how often to have testing. Tests for sexually transmitted infections (STIs). Ask whether you should have tests for STIs. You may be at risk if you have sex with more than one person, especially if your partners do not wear condoms. For men Tests for sexually transmitted infections (STIs). Ask whether you should have tests for STIs. You may be at risk if you have sex with more than one person, especially if you do not wear a condom. Testicular cancer exam. Ask your doctor whether you should check your testicles regularly. Prostate exam. Talk to your doctor about whether you should have a blood test (called a PSA test) for prostate cancer. Experts differ on whether and when men should have this test. Some experts suggest it if you are older than 45 and are -[place] or have a father or brother who got prostatecancer when he was younger than 65. When should you call for help? Watch closely for changes in your health, and be sure to contact your doctor if you have any problems or symptoms that concern you. Where can you learn more? Log into your personal health record on https://Zartist.Healthify and enter P072 in the Education box to learn more about Well Visit, Ages 18 to 50: Care Instructions. Current as of: September 27, 2018 Content Version: 12.1 7909-1076 Funbuilt. Care instructions adapted under license by your healthcare professional. If you have questions about a medical condition or this instruction, always ask your healthcare professional. [employer] disclaims any warranty or liability for your use of this information. documented in this encounter* Patient Instructions* Asha Lan CNP - 10/22/2019 11:03 AM EST Problem List Items Addressed This Visit Other Abdominal pain - Primary Everything looked normal, your PAP results will take 10-14 days to return. I will notify you of your results via your [employer] or the office will call your with your results. Use the clobetasol cream twice daily for the rash over your entire labia. Continue using the Estrace cream daily to help with the vaginal dryness. I have also ordered a transvaginal ultrasound to look for any abnormalities that I could not see onexamination today. If you have any questions please my chart message me or call into the office. Relevant Orders POC Urinalysis Dipstick (Completed) Thinprep Pap Smear US Transvaginal Vaginitis DNA Probes (Completed) High Risk HPV with Genotype 16,18 (Completed) Other Visit Diagnoses Lichen Lichen Sclerosus: Care Instructions Your Care Instructions Lichen sclerosus is a long-term (chronic) skin problem that causes thin, wrinkled white patches. The patches are itchy and painful. If the skin tears, bright red or purple spots may appear. In most cases, it occurs on the skin of the anus (the opening where stool leaves the body), the vulva (the area around the vagina), and the tip of the penis in men who haven't been circumcised. Doctors aren't sure what causes lichen sclerosus. It isn't caused by an infection, and it's not contagious. You can't spread it to others. If the skin patches are on the anus, vulva, or penis, they may need to be treated. If these areas aren't treated, the skin can thicken and scar. This can narrow the openings to the vagina and anus. The foreskin over the penis may tighten and shrink. If this happens, going to the bathroom and havingsex can be painful. Lichen sclerosus is usually treated with strong prescription cream or ointment. The medicine stops the inflammation, but the scarring of the skin might not completely go away. Men with scarring from advanced cases on the tip of the penis may have surgery to remove the foreskin. Skin patches on any other part of the body usually go away on their own without treatment. You may have a small increased risk of skin cancer on the affected area. Your doctor will examine the skin at least once a year. Follow-up care is a hill part of your treatment and safety. Be sure to make and go to all appointments, and call your doctor if you are having problems. It's also a good idea to know your test resultsand keep a list of the medicines you take. How can you care for yourself at home? Be safe with medicines. If your doctor prescribed a cream, apply it exactly as directed. Call your doctor if you think you are having a problem with your medicine. Put cold, wet cloths on the area to reduce itching. Wear loose-fitting clothes. Avoid nylon and other fabric that holds moisture close to the skin. This may allow an infection to start. If your doctor told you to use nonprescription moisturizing cream on your skin, read and follow thedirections on the label. Care tips for women Do not douche, unless your doctor tells you to. Avoid hot baths. Don't use soaps or bath products to wash the area around your vulva. Rinse with water only, and gently pat the area dry. Care tips for men Keep your penis clean. If you haven't been circumcised, gently pull the foreskin back to wash your penis with warm water. Make sure your penis is dry before you get dressed. When should you call for help? Call your doctor now or seek immediate medical care if: You have symptoms of infection, such as: ? Increased pain, swelling, warmth, or redness. ? Red streaks leading from the area. ? Pus draining from the area. ? A fever. Watch closely for changes in your health, and be sure to contact your doctor if: The affected area grows or changes. You do not get better as expected. Where can you learn more? Log into your personal health record on [email or web address].Healthify and enter Q441 in the Education box to learn more about Lichen Sclerosus: Care Instructions. Current as of: January 14, 2019 Content Version: 12.3 6859-2122 [employer]built. Care instructions adapted under license by your healthcare professional. If you have questions about a medical condition or this instruction, always ask your healthcare professional. [employer] disclaims any warranty or liability for your use of this information. Abdominal Pain: Care Instructions Your Care Instructions Abdominal pain has many possible causes. Some aren't serious and get better on their own in a few days. Others need more testing and treatment. If your pain continues or gets worse, you need to be rechecked and may need more tests to find out what is wrong. You may need surgery to correct the problem. Don't ignore new symptoms, such as fever, nausea and vomiting, urination problems, pain that gets worse, and dizziness. These may be signs of a more serious problem. Your doctor may have recommended a follow-up visit in the next 8 to 12 hours. If you are not getting better, you may need more tests or treatment. The doctor has checked you carefully, but problems can develop later. If you notice any problems ornew symptoms, get medical treatment right away. Follow-up care is a hill part of your treatment and safety. Be sure to make and go to all appointments, and call your doctor if you are having problems. It's also a good idea to know your test resultsand keep a list of the medicines you take. How can you care for yourself at home? Rest until you feel better. To prevent dehydration, drink plenty of fluids, enough so that your urine is light yellow or clear like water. Choose water and other caffeine-free clear liquids until you feel better. If you have kidney, heart, or liver disease and have to limit fluids, talk with your doctor before you increase the amount of fluids you drink. If your stomach is upset, eat mild foods, such as rice, dry toast or crackers, bananas, and applesauce. Try eating several small meals instead of two or three large ones. Wait until 48 hours after all symptoms have gone away before you have spicy foods, alcohol, and drinks that contain caffeine. Do not eat foods that are high in fat. Avoid anti-inflammatory medicines such as aspirin, ibuprofen (Advil, Motrin), and naproxen (Aleve).These can cause stomach upset. Talk to your doctor if you take daily aspirin for another health problem. When should you call for help? Call 911 anytime you think you may need emergency care. For example, call if: You passed out (lost consciousness). You pass maroon or very bloody stools. You vomit blood or what looks like coffee grounds. You have new, severe belly pain. Call your doctor now or seek immediate medical care if: Your pain gets worse, especially if it becomes focused in one area of your belly. You have a new or higher fever. Your stools are black and look like tar, or they have streaks of blood. You have unexpected vaginal bleeding. You have symptoms of a urinary tract infection. These may include: ? Pain when you urinate. ? Urinating more often than usual. ? Blood in your urine. You are dizzy or lightheaded, or you feel like you may faint. Watch closely for changes in your health, and be sure to contact your doctor if: You are not getting better after 1 day (24 hours). Where can you learn more? Log into your personal health record on [email or web address] and enter E907 in the Education box to learn more about Abdominal Pain: Care Instructions. Current as of: April 10, 2019 Content Version: 12.3 2147-1175 [employer]built. Care instructions adapted under license by your healthcare professional. If you have questions about a medical condition or this instruction, always ask your healthcare professional. [employer] disclaims any warranty or liability for your use of this information. documented in this encounter Reason for Referral Status Reason Specialty Diagnoses / Procedures Referred By Contact Referred To Contact Authorized Specialty Services Required/Patie nt's Best Interest Radiology / Obstetrics and Gynecology Diagnoses Abdominal pain, unspecified abdominal location Procedures US Transvaginal Asha Lan CNP [address] [place] [address] Status Reason Specialty Diagnoses / Procedures Referred By Contact Referred To Contact Closed Specialty Services Required/Patien t's Best Interest Radiology / Obstetrics and Gynecology Diagnoses Abdominal pain, unspecified abdominal location Procedures US Transvaginal Asha Lan CNP [address] [place] [address] Status Reason Specialty Diagnoses / Procedures Referred By Contact Referred To Contact Authorized Physical Therapy / Rehabilitation Diagnoses Bursitis/tendonit is, shoulder Garry Bender MD [address] [phone] Specialty Diagnoses / Procedures Referred By Contac t Referred To Contact Orthopedic Surgery Diagnoses Polymyalgia (HCC) Shruti Arnold CNP [address] [place] [address] Carie Jones MD [address] [place] [id number] Referral ID Status Reason Start Date Expiration Date V isits Requested Visits Authorized [id number] Authorized 2021 2022 1 1 Specialty Diagnoses / Procedures Referred By Contac t Referred To Contact Gastroenterology Diagnoses Gastroesophageal reflux disease with esophagitis, unspecified whether hemorrhage Procedures CONSULT TO [facility]OENTEROLOGY OFFICE[facility] 60-74 [facility]UTES RejilogAsha verdin APRN.VETERINARY NURSE [address] [place] [address] Referral ID Status Reason Start Date Expiration Date Visits Requested Visits Authorized [id number] Authorized PCP Requested Referral 04/08/2022 04/08/2023 1 1 Specialty Diagnoses / Procedures Referred By Contac t Referred To Contact Cardiology Diagnoses Meniscus degeneration, right Garry Bender MD [address] [place] [id number] [place] [address] Referral ID Status Reason Start Date Expiration Date Visits Requested Visits Authorized [id number] Authorized Specialty Services Required/Pat mishant's Best Interest 12/06/2022 12/06/2023 1 1 Specialty Diagnoses / Procedures Referred By Contac t Referred To Contact Physical Therapy Diagnoses Meniscus degeneration, right Garry Bender MD [address] [place] [id number] OF SERVICE NOT IN SYSTEM Referral ID Status Reason Start Date Expiration Date Visits Requested Visits Authorized [id number] Authorized Patient Preference 03/31/2023 03/30/2024 1 1 Specialty Diagnoses / Procedures Referred By Contac t Referred To Contact Physical Therapy Diagnoses S/P right unicompartmental knee replacement Garry Bender MD [address] [place] [id number] OF SERVICE NOT IN SYSTEM Referral ID Status Reason Start Date Expiration Date Visits Requested Visits Authorized [id number] Pending Review Patient Preference 04/17/2023 04/16/2024 1 1 Medications Administered Section Administered Medications Medication Order MAR Action Action Date Dose Rate Site PPD (Mantoux) Intradermal Given 04/20/2022 08:12 EDT 0.1 mL Left Lowe r Forearm Additional Source Comments INFORMATION SOURCE (unrecogn ized section and content) DATE CREATED AUTHOR AUTHOR'S ORGANIZ ATION 08/23/2018 [facility] DATE CREATED AUTHOR AUTHOR'S ORGANIZ ATION 12/26/2018 [facility] DATE CREATED AUTHOR AUTHOR'S ORGANIZ ATION 10/07/2019 [facility] DATE CREATED AUTHOR AUTHOR'S ORGANIZ ATION 04/18/2023 [facility] DATE CREATED AUTHOR [facility] AT[facility] CREATED AUTHOR AUTHOR'S ORGANIZ ATION 11/18/2023 [facility] Reason for Visit (unrecogniz ed section and content) Reason Comments Cough cough , chills and f ever , headache sinus pressure x 6 days Reason Comments Annual Exam HX of pap. Mammo jul last year. Up to date on TDAP. Medication Refill Estarce cream, and r etnia a cream. Reason Comments Abdominal Pain Total hysterectomy. Lower abdominal pain. Pressure to void. Finished ATMonday morning. Was on macrobid and keflex. Vaginal Pain Started with abdomin al pain. x 3 weeks. Getting worse. Status Reason Specialty Diagnoses / Procedures Referred By Contact Referred To Contact Closed Specialty Services Required/Patien t's Best Interest Radiology / Obstetrics and Gynecology Diagnoses Abdominal pain, unspecified abdominal location Procedures US Transvaginal Asha Lan, FARHANA [address] [place] [address] Reason Comments Injections Shoulder injections Reason Comments Injections Reason Comments Pain EP B/L SHOULDER INJ Reason Comments Pain Follow-up Reason Comments Pain Reason Comments Pain Reason Onset Date Comments Refill Request 02/04/2022 Reason Onset Date Comments Refill Request 03/18/2022 Reason Onset Date Comments Refill Request 03/24/2022 Reason Onset Date Comments Refill Request 03/29/2022 Reason Comments Recheck Specialty Diagnoses / Procedures Referred By German t Referred To Contact Family Practice / FAMILY MEDICINE Diagnoses follow up Procedures 4C EST Asha Flores APRN.VETERINARY NURSE [address] [place] [address] PodlogarAsha NEWBORN PHOTOGRAPHER.VETERINARY NURSE [address] [place] [address] Referral ID Status Reason Start Date Expiration Date Visits Re quested Visits Authorized [id number] Closed 04/08/2022 07/07/2022 1 1 Reason Comments Physical Reason Comments PPD reading Specialty Diagnoses / Procedures Referred By Contac t Referred To Contact Family Practice / FAMILY MEDICINE Diagnoses follow up Procedures 4C EST PodlogarAsha NEWBORN PHOTOGRAPHER.VETERINARY NURSE [address] [place] [address] PodlogarAsha NEWBORN PHOTOGRAPHER.VETERINARY NURSE [address] [place] [address] Referral ID Status Reason Start Date Expiration Date V isits Requested Visits Authorized [id number] Authorized 04/08/2022 07/07/2022 10 10 Specialty Diagnoses / Procedures Referred By Contac t Referred To Contact Family Practice / FAMILY MEDICINE Diagnoses TB read with MM Procedures OFFICE/OUTPATIENT ESTABLISHED HIGH MDM 40-54 MIN NURSE MD Jamaal Podlogar, Asha, NEWBORN PHOTOGRAPHER.VETERINARY NURSE [address] [place] [address] Referral ID Status Reason Start Date Expiration Date Visits Re quested Visits Authorized [id number] Closed 04/20/2022 10/15/2022 1 1 Reason Comments Results Reason Onset Date Comments Refill Request 06/05/2022 Reason Onset Date Comments Refill Request 07/01/2022 Reason Comments Medication Refill Reason Onset Date Comments Refill Request 11/02/2022 Reason Comments Follow-up MRI review Reason Comments Pain Left lower jaw, poss ible tooth infection x 5 days Reason Comments Initial Visit (Intake) Surgery 04/10/23 w / Dr. Bender, right partial knee replacement/ No cardiac symptoms Specialty Diagnoses / Procedures Referred By Contac t Referred To Contact Cardiology Diagnoses Meniscus degeneration, right Garry Bender MD [address] [place] [address] [address] [place] [address] Referral ID Status Reason Start Date Expiration Date V isits Requested Visits Authorized [id number] Closed Specialty Services Required/Janice ent's Best Interest 12/06/2022 12/06/2023 1 1 Reason Onset Date Comments Medication Refill 04/17/2023 Reason Onset Date Comments Medication Refill 04/20/2023 Reason Comments Follow-up Suture / Staple Removal Wound Check Reason Onset Date Comments Refill Request 05/03/2023 Reason Comments Yearly Exam Reason Onset Date Comments Medication Refill 05/23/2023 Reason Comments Heartburn Reason Comments Abdominal Pain Assessment & Plan Note - Asha Lan CNP - 05/17/2019 10:35 AM EDTAssessment & Plan Note - Asha Lan CNP - 10/22/2019 11:00 AM EST Miscellaneous Notes (unrecog nized section and content) Associated Problem(s): Well adult exam (Resolved 05/17/2019) I have ordered blood work for you to have completed. Please have this completed at your earliest convenience. This blood work will need to be completed while fasting. This means nothing to eat or drink for 6-8 hours prior to having it drawn. You can however, drink water and take medications as ordered during this time. I will review your labs via [employer] or the office will with your results. documented in this encounter Associated Problem(s): Abdominal pain Everything looked normal, your PAP results will take 10-14 days to return. I will notify you of your results via your MyChart or the office will call your with your results. Use the clobetasol cream twice daily for the rash over your entire labia. Continue using the Estrace cream daily to help with the vaginal dryness. I have also ordered a transvaginal ultrasound to look for any abnormalities that I could not see on examination today. If you have any questions please my chart message me or call into the office. documented in this encounter Care Teams (unrecognized sec tion and content) Business Services Assistant Relationship Specialty Start Date End Date Wolf Sims MD [address] [facility] [place] [address] PCP - General Family Practice 07/20/20 Business Services Assistant Relationship Specialty Start Date End Date Wolf Sims MD [address] [facility] [place] [place] [address] PCP - General Family Practice 07/20/20 Business Services Assistant Relationship Specialty Start Date End Date Wolf Sims MD [address] [facility] [place] [address] PCP - General Family Practice 07/20/20 Business Services Assistant Relationship Specialty Start Date End Date Wolf Sims MD [address] [facility] [place] [address] PCP - General Family Practice 07/20/20 Business Services Assistant Relationship Specialty Start Date End Date Wolf Sims MD [address] [facility] [place] [address] PCP - General Family Practice 07/20/20 Business Services Assistant Relationship Specialty Start Date End Date Wolf Sims MD [address] [facility] [place] [address] PCP - General Family Practice 07/20/20 Business Services Assistant Relationship Specialty Start Date End Date Wolf Sims MD [address] [facility] [place] [address] PCP - General Family Practice 07/20/20 Business Services Assistant Relationship Specialty Start Date End Date Asha Lan, ROSITA PCP - General Nurse Practitioner 05/16/19 07/19/20 Priya Barajas MD [address] [facility] [address] [place] [address] PCP - General Family Medicine 03/09/21 Business Services Assistant Relationship Specialty Start Date End Date Wolf Sims MD [address] [facility] [address] PCP - General Family Medicine 07/20/20 Business Services Assistant Relationship Specialty Start Date End Date Priya Barajas MD [address] [address] [place] [address] PCP - General Family Medicine 03/09/21 Business Services Assistant Relationship Specialty Start Date End Date Priya Barajas MD [address] [address] [place] [address] PCP - General Family Medicine 03/09/21 Business Services Assistant Relationship Specialty Start Date End Date Wolf Sims MD [address] [facility] [address] PCP - General Family Medicine 07/20/20 Business Services Assistant Relationship Specialty Start Date End Date Priya Barajas MD [address] [place] [address] [place] [address] PCP - General Family Medicine 03/09/21 Business Services Assistant Relationship Specialty Start Date End Date Priya Barajas MD [address] [place] [address] [place] [address] PCP - General Family Medicine 03/09/21 Business Services Assistant Relationship Specialty Start Date End Date Priya Barajas MD [address] [place] [address] [place] [address] PCP - General Family Medicine 03/09/21 Business Services Assistant Relationship Specialty Start Date End Date Priya Barajas MD [address] [place] [address] [place] [address] PCP - General Family Medicine 03/09/21 Business Services Assistant Relationship Specialty Start Date End Date Priya Barajas MD [address] [place] [address] [place] [address] PCP - General Family Medicine 03/09/21 Business Services Assistant Relationship Specialty Start Date End Date Wolf Sims MD [address] [facility] [place] [address] PCP - General Family Medicine 07/20/20 Business Services Assistant Relationship Specialty Start Date End Date Wolf Sims MD [address] [facility] [place] [address] PCP - General Family Medicine 07/20/20 Business Services Assistant Relationship Specialty Start Date End Date Priya Barajas MD [address] [place] [address], [place] [address] PCP - General Family Medicine 03/09/21 Business Services Assistant Relationship Specialty Start Date End Date Priya Barajas MD [address] [place] [address], [place] [address] PCP - General Family Medicine 03/09/21 Business Services Assistant Relationship Specialty Start Date End Date Priya Braajas MD [address] [place] [address], [place] [address] PCP - General Family Medicine 03/09/21 Business Services Assistant Relationship Specialty Start Date End Date Wolf Sims MD [address] [facility] [place] [address] PCP - General Family Medicine 07/20/20 Business Services Assistant Relationship Specialty Start Date End Date Wolf Sims MD [address] [place] [address] PCP - General Family Medicine 07/20/20 Source Comments (unrecognize d section and content) In the event this informatio n is protected by the Federal Confidentiality of Alcohol and Drug Abuse Patient Records regulations: The Federal rules restrict any use of the information to criminally investigate or prosecute any alcohol or drug abuse patient.[facility] the event this information is protected by the Federal Confidentiality of Alcohol and Drug Abuse Patient Records regulations: The Federal rules restrict any use of the information to criminally investigate or prosecute any alcohol or drug abuse patient.[facility] the event this information is protected by the Federal Confidentiality of Alcohol and Drug Abuse Patient Records regulations: The Federal rules restrict any use of the information to criminally investigate or prosecute any alcohol or drug abuse patient.[facility] the event this information is protected by the Federal Confidentiality of Alcohol and Drug Abuse Patient Records regulations: The Federal rules restrict any use of the information to criminally investigate or prosecute any alcohol or drug abuse patient.[facility] the event this information is protected by the Federal Confidentiality of Alcohol and Drug Abuse Patient Records regulations: The Federal rules restrict any use of the information to criminally investigate or prosecute any alcohol or drug abuse patient.[facility] the event this information is protected by the Federal Confidentiality of Alcohol and Drug Abuse Patient Records regulations: The Federal rules restrict any use of the information to criminally investigate or prosecute any alcohol or drug abuse patient.[facility] the event this information is protected by the Federal Confidentiality of Alcohol and Drug Abuse Patient Records regulations: The Federal rules restrict any use of the information to criminally investigate or prosecute any alcohol or drug abuse patient.[facility] the event this information is protected by the Federal Confidentiality of Alcohol and Drug Abuse Patient Records regulations: The Federal rules restrict any use of the information to criminally investigate or prosecute any alcohol or drug abuse patient.[facility] the event this information is protected by the Federal Confidentiality of Alcohol and Drug Abuse Patient Records regulations: The Federal rules restrict any use of the information to criminally investigate or prosecute any alcohol or drug abuse patient.[facility] the event this information is protected by the Federal Confidentiality of Alcohol and Drug Abuse Patient Records regulations: The Federal rules restrict any use of the information to criminally investigate or prosecute any alcohol or drug abuse patient.[facility] the event this information is protected by the Federal Confidentiality of Alcohol and Drug Abuse Patient Records regulations: The Federal rules restrict any use of the information to criminally investigate or prosecute any alcohol or drug abuse patient.[facility] the event this information is protected by the Federal Confidentiality of Alcohol and Drug Abuse Patient Records regulations: The Federal rules restrict any use of the information to criminally investigate or prosecute any alcohol or drug abuse patient.[facility] the event this information is protected by the Federal Confidentiality of Alcohol and Drug Abuse Patient Records regulations: The Federal rules restrict any use of the information to criminally investigate or prosecute any alcohol or drug abuse patient.[facility] the event this information is protected by the Federal Confidentiality of Alcohol and Drug Abuse Patient Records regulations: The Federal rules restrict any use of the information to criminally investigate or prosecute any alcohol or drug abuse patient.[facility]ronIn the event this information is protected by the Federal Confidentiality of Alcohol and Drug Abuse Patient Records regulations: The Federal rules restrict any use of the information to criminally investigate or prosecute any alcohol or drug abuse patient.[facility] the event this information is protected by the Federal Confidentiality of Alcohol and Drug Abuse Patient Records regulations: The Federal rules restrict any use of the information to criminally investigate or prosecute any alcohol or drug abuse patient.[facility] the event this information is protected by the Federal Confidentiality of Alcohol and Drug Abuse Patient Records regulations: The Federal rules restrict any use of the information to criminally investigate or prosecute any alcohol or drug abuse patient.[facility] the event this information is protected by the Federal Confidentiality of Alcohol and Drug Abuse Patient Records regulations: The Federal rules restrict any use of the information to criminally investigate or prosecute any alcohol or drug abuse patient.[facility] FOR RECORDS PERTAINING TO PATIENTS WHO ARE OR HAVE BEEN ENROLLED IN A CHEMICAL DEPENDENCY/SUBSTANCEABUSE PROGRAM, SOME INFORMATION MAY BE OMITTED. This clinical summary was aggregated from multiple sources. Caution should be exercised in using it in the provision of clinical care. This summary normalizes information from multiple sources, and as a consequence, information in this document may materially change the coding, format and clinical context of patient data. In addition, data may be omitted in some cases. CLINICAL DECISIONS SHOULD BE BASED ON THE PRIMARY CLINICAL RECORDS. [facility] [employer] [facility] provides no warranty or guarantee of the accuracy or completeness of information in this document.
== END | disposition home or self-care (01) ==
LOC: US 07:18
PROVIDERS: PCP Nurse Practitioner Primary Care; Referring Provider Nurse Practitioner Family; Visit Provider Nurse Practitioner Family
DX: R10.13 Epigastric pain (principal)
CPT/HCPCS: 76705

== ENCOUNTER → 2023-12-04 | Outpatient (CLI) | payer OTHER, SELFPAY ==
--- OUTSIDE RECORDS SUMMARY | 2023-12-04 08:46 | XMS RPT_ITS | CCD ---
Author Name Unknown Address [address] [place] [address] Organization [facility] Care Team Providers Care Patient Access Registrar Name Role Phone Priya Smith Unavailable Mindi Leggett Unavailable CYNDI RANDOLPH Unavailable Unavailable Mindi Leggett Unavailable Katia Maloney Unavailable Unavailable Katia Maloney Unavailable Unavailable Dylan Maryan Unavailable Unavailable Sohail Richardsony Unavailable Unavailable Andrea Fay Unavailable Unavailable Andrea Fay Unavailable Unavailable Angus Charles Unavailable Unavailable Angus Charles Unavailable Unavailable Cyndi Randolph Unavailable Unavailable Cyndi Randolph Unavailable Unavailable Andrea Fay Unavailable Unavailable Andrea Fay Unavailable Unavailable Andrea Fay Unavailable Unavailable Andrea Fay Unavailable Unavailable Priya Smith Primary Care Provider Mindi Leggett Unavailable PRIYA SMITH Primary Care Unavailable VINCE LEGGETT Attending Unavailable Unavailable Primary Care Provider Unavailabl e Katia Maloney Unavailable Asha Lan Primary Care Provider Katia Maloney Unavailable Priya Smith MD Primary Care Provider Wolf Sims MD Primary Care Provider Wolf Sims MD Primary Care Provider Edyta BECKER, Asha Bone Primary Care Provider UnaPriya Jennings MD Primary Care Provider Wolf Sims MD Primary Care Provider JENNYFER, GARRY SHANNON Admitting Unavailab le ELDERBROCK, PRIYA Primary Care Unavailable JENNYFER, GARRY ORTEGA Referring Unavailab le JENNYFER, GARRY ORTEGA Attending Unavailab le JENNYFER, GARRY ORTEGA Admitting Unavailab le ELDERBROCK, PRIYA Primary Care Unavailable JENNYFER, GARRY ORTEGA Referring Unavailab le ARNOLD, SHRUTI SANCHEZ Admitting Unavailable ELDERBROCK, PRIYA Primary Care Unavailable ARNOLD, SHRUTI SANCHEZ Referring Unavailable ARNOLD, SHRUTI SANCHEZ Attending Unavailable ELDERBROCK, PRIYA Primary Care Unavailable ELDERBROCK, PRIYA Primary Care Unavailable JENNYFER, GARRY ORTEGA Admitting Unavailab le JENNYFER, GARRY ORTEGA Referring Unavailab le DAY, VANNESA SORIANO Attending Unavailable ELDERBROCK, PRIYA Primary Care Unavailable JENNYFER, GARRY ORTEGA Attending Unavailab le JENNYFER, GARRY ORTEGA Attending Unavailab le ELDERBROCK, PRIYA Primary Care Unavailable JENNYFER, GARRY ORTEGA Attending Unavailab le ELDERBROCK, PRIYA Primary Care Unavailable JENNYFER, GARRY ORTEGA Admitting Unavailab le JENNYFER, GARRY ORTEGA Referring Unavailab le ELDERBROCK, PRIYA Primary Care Unavailable ARNOLD, SHRUTI SANCHEZ Attending Unavailable ELDERBROCK, PRIYA Primary Care Unavailable WOLF SIMS Primary Care Unavailab malena MUNIRCLEMENTINA Oseguera Attending Unavailable WOLF SIMS Primary Care Unavailab le PODLOGASHA VERDIN Attending Unavailable WOLF SIMS Primary Care Unavailab TACOS Guadarrama Referring Unavailable WOLF SIMS Primary Care Unavailab WOLF Avery Primary Care Unavailab TACOS Guadarrama Attending Unavailable WOLF SIMS Primary Care Unavailab le PODLOGARSAHA Attending Unavailable Allergies Allergy Classification Reported Allergen(s) Allergy Type Date of Onset Reaction(s) Facility Niacin (3 sources) Niacin Drug Allergy 6 [facility] Opioid Agonists (3 sources) Morphine Drug Allergy 6 Itching [facility] Penicillins (antibiotic) (3 sources) Penicillins Drug Allergy 6 [facility] Sulfonamides (antibiotic) (3 sources) Sulfonamides (Antibiotic) Drug Allergy 6 Swelling [facility] (20 sources) morphine; Translations: [MORPHINE] Propensity to adverse reactions to drug 1 Itching [facility] Work Phone: (20 sources) niacin; Translations: [NIACIN] Propensity to adverse reactions to drug 3 Other: See Comments [facility] Work Phone: (20 sources) Penicillins; Translations: [PENICILLINS] Propensity to adverse reactions to drug 200 9 [facility] Work Phone: (20 sources) Sulfonamides (Antibiotic); Translations: [SULFA (SULFONAMIDE ANTIBIOTICS)] Propensity to adverse reactions to drug 08-07-200 9 Swelling [facility] Work Phone: (5 sources) Penicillins Propensity to adverse reactions 200 9 Intolerance [facility] (20 sources) Sulfonamides (Antibiotic) Propensity to adverse reactions 200 9 Swelling [facility] (20 sources) Penicillins Propensity to adverse reactions 200 9 Intolerance [facility] Medications Current Medications Medication Drug Class(es) Dates [...] [Unspecified asthma, uncomplicated] Onset: 10-01-2009 05-17-2019 Chronic Biliary tract disease (1 source) Gallstone; Translations: [Calculus of gallbladder without cholecystitis without obstruction] 12-01-2023 Episodic Complications of surgical procedures or medical care (20 sources) Postsurgical menopause; 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] Onset: 05-17-2019 05-17-2019 Chronic Disorders of lipid metabolism (20 sources) Hyperlipidemia; Translations: [Hyperlipidemia, unspecified] Onset: 08-07-2009 05-17-2019 Chronic Disorders of teeth and jaw (1 source) Toothache; Translations: [Other specified disorders of teeth and supporting structures] Episodic Esophageal disorders (9 sources) Gastro-esophageal reflux disease with esophagitis; Translations: [...] right knee] Onset: 12-06-2022 Chronic Menopausal disorders (20 sources) Menopausal symptom; Translations: [Menopausal and female [...] Onset: 04-10-2023 Chronic Other connective tissue disease (6 sources) Artificial knee joint present; Translations: [Presence [...] findings] Onset: 11-05-2017 Episodic Nonmalignant breast conditions (20 sources) Pain of breast; Translations: [Mastodynia] Onset: 02-19-2013 02-19-2013 Episodic Other aftercare (2 sources) Encounter for follow-up examination after completed treatment for conditions other than malignant neoplasm; Translations: [Encounter for follow-up examination after completed treatment for conditions other than malignant neoplasm] Onset: 06-09-2023 Episodic Other injuries and conditions due to external causes (20 sources) Disorder of acromioclavicular joint; Translations: [Unspecified injury of shoulder and upper arm, unspecified arm, initial encounter] Onset: 03-10-2015 03-10-2015 Episodic Other skin disorders (20 sources) Acne; Translations: [Acne, unspecified] Onset: 05-17-2019 05-17-2019 Episodic Residual codes; unclassified (20 sources) Family history of diabetes mellitus; Translations: [Family history of diabetes mellitus] Onset: 10-01-2009 10-01-2009 Episodic Unclassified (8 sources) Patient encounter status; Translations: [Well adult exam] Onset: 05-17-2019 Resolved: 05-17-2019 05-17-2019 Results Test Name Value Interpretation Reference Range Facil ity Vital Signs Date Time Vital Sign Value Performing Clinician Dominick mar 11-17-2023 09:44-0500 Body weight 59.42 kg Tacos Hebert APRN.CNP Work Phone: [facility] 11-17-2023 09:44-0500 Diastolic blood pressure 77 mm[Hg] Tacos Hebert APRN.CNP Work Phone: [facility] 11-17-2023 09:44-0500 Heart rate 83 /min Tacos Hebert ALLIANCE MANAGER.INTERNATIONAL COORDINATOR Work Phone: [facility] 11-17-2023 09:44-0500 Respiratory rate 14 /min Tacos Hebert ALLIANCE MANAGER.INTERNATIONAL COORDINATOR Work Phone: [facility] 11-17-2023 09:44-0500 Systolic blood pressure 111 mm[Hg] Tacos Hebert ALLIANCE MANAGER.INTERNATIONAL COORDINATOR Work Phone: [facility] 09-13-2023 09:05-0500 Body height 158.8 cm Shruti Clayton INTERNATIONAL COORDINATOR Work Phone: [facility] 09-13-2023 09:05-0500 Body mass index (BMI) [Ratio] 24.66 kg/m2 Shruti Clayton INTERNATIONAL COORDINATOR Work Phone: [facility] 09-13-2023 09:05-0500 Body weight 62.14 kg Shruti Arnold INTERNATIONAL COORDINATOR Work Phone: [facility] 05-16-2023 13:06-0400 Body height 153 cm Clementina Munir ALLIANCE MANAGER.INTERNATIONAL COORDINATOR Work Phone: [facility] 05-16-2023 13:06-0400 Body weight 64.41 kg Clementina Munir ALLIANCE MANAGER.INTERNATIONAL COORDINATOR Work Phone: [facility] 05-16-2023 13:06-0400 Diastolic blood pressure 78 mm[Hg] Clementina Claremont ALLIANCE MANAGER.INTERNATIONAL COORDINATOR Work Phone: [facility] 05-16-2023 13:06-0400 Systolic blood pressure 112 mm[Hg] Clementina Munir ALLIANCE MANAGER.INTERNATIONAL COORDINATOR Work Phone: [facility] 03-23-2023 09:45-0400 Body height 157.5 cm Vannesa Randolph MD Work Phone: [facility] 03-23-2023 09:45-0400 Body mass index (BMI) [Ratio] 26.41 kg/m2 Vannesa Randolph MD Work Phone: [facility] 03-23-2023 09:45-0400 Body weight 65.5 kg Vannesa Work Phone: [facility] 03-23-2023 09:45-0400 Diastolic blood pressure 82 mm[Hg] Vannesa Work Phone: [facility] 03-23-2023 09:45-0400 Heart rate 75 /min Work Phone: [facility] 03-23-2023 09:45-0400 SaO2% (BldA) [Mass fraction] 100 % Work Phone: [facility] 03-23-2023 09:45-0400 Systolic blood pressure 115 mm[Hg] Vannesa Work Phone: [facility] 03-18-2023 08:16-0400 Body temperature 98.71 [degF] Chanda Older ALLIANCE MANAGER.INTERNATIONAL COORDINATOR Work Phone: [facility] 03-18-2023 08:16-0400 Body weight 65.77 kg Chanda Older ALLIANCE MANAGER.INTERNATIONAL COORDINATOR Work Phone: [facility] 03-18-2023 08:16-0400 Diastolic blood pressure 82 mm[Hg] Chanda Older ALLIANCE MANAGER.INTERNATIONAL COORDINATOR Work Phone: [facility] 03-18-2023 08:16-0400 Heart rate 77 /min Chanda Older ALLIANCE MANAGER.INTERNATIONAL COORDINATOR Work Phone: [facility] 03-18-2023 08:16-0400 Respiratory rate 16 /min Chanda Older ALLIANCE MANAGER.INTERNATIONAL COORDINATOR Work Phone: [facility] 03-18-2023 08:16-0400 SaO2% (BldA) [Mass fraction] 96 % Chanda Older ALLIANCE MANAGER.INTERNATIONAL COORDINATOR Work Phone: [facility] 03-18-2023 08:16-0400 Systolic blood pressure 136 mm[Hg] Chanda Older ALLIANCE MANAGER.INTERNATIONAL COORDINATOR Work Phone: [facility] 04-20-2022 07:40-0400 Body height 159 cm Asha Podlogar ALLIANCE MANAGER.INTERNATIONAL COORDINATOR Work Phone: [facility] 04-20-2022 07:40-0400 Body weight 64.86 kg Asha Podlogar ALLIANCE MANAGER.INTERNATIONAL COORDINATOR Work Phone: [facility] 04-20-2022 07:40-0400 Diastolic blood pressure 82 mm[Hg] Asha Podlogar ALLIANCE MANAGER.INTERNATIONAL COORDINATOR Work Phone: [facility] 04-20-2022 07:40-0400 Heart rate 78 /min Asha Podlogar ALLIANCE MANAGER.INTERNATIONAL COORDINATOR Work Phone: [facility] 04-20-2022 07:40-0400 Respiratory rate 14 /min Asha Podlogar ALLIANCE MANAGER.INTERNATIONAL COORDINATOR Work Phone: [facility] 04-20-2022 07:40-0400 Systolic blood pressure 118 mm[Hg] Asha Podlogar ALLIANCE MANAGER.INTERNATIONAL COORDINATOR Work Phone: [facility] 04-08-2022 08:28-0400 Body weight 64.41 kg Asha Podlogar ALLIANCE MANAGER.INTERNATIONAL COORDINATOR Work Phone: [facility] 04-08-2022 08:28-0400 Diastolic blood pressure 76 mm[Hg] Asha Podlogar ALLIANCE MANAGER.INTERNATIONAL COORDINATOR Work Phone: [facility] 04-08-2022 08:28-0400 Heart rate 80 /min Asha Podlogar ALLIANCE MANAGER.INTERNATIONAL COORDINATOR Work Phone: [facility] 04-08-2022 08:28-0400 SaO2% (BldA) [Mass fraction] 98 % Asha Podlogar ALLIANCE MANAGER.INTERNATIONAL COORDINATOR Work Phone: [facility] 04-08-2022 08:28-0400 Systolic blood pressure 114 mm[Hg] Asha Podlogar ALLIANCE MANAGER.INTERNATIONAL COORDINATOR Work Phone: [facility] 03-09-2021 10:18-0400 Body height 160 cm Shruti Arnold INTERNATIONAL COORDINATOR Work Phone: [facility] 03-09-2021 10:18-0400 Body mass index (BMI) [Ratio] 24.27 kg/m2 Shruti Arnold CNP Work Phone: [facility] 03-09-2021 10:18-0400 Body weight 62.14 kg Shruti Arnold INTERNATIONAL COORDINATOR Work Phone: [facility] 10-22-2019 10:38-0500 BP Diastolic 99 mm[Hg] Asha [facility] 10-22-2019 10:38-0500 BP Systolic 145 mm[Hg] Asha [facility] 10-22-2019 10:36-0500 BMI (Body Mass Index) 28.54 kg/m2 Asha [facility] 10-22-2019 10:36-0500 Body Temperature 98.6 [degF] Asha [facility] 10-22-2019 10:36-0500 Body weight 73.07 kg [facility] 10-22-2019 10:36-0500 Pulse (Heart Rate) 74 /min Asha [facility] 10-22-2019 10:36-0500 Pulse Oximetry 97 % [facility] 10-22-2019 10:36-0500 Respiratory Rate 16 /min Asha [facility] 09-05-2019 13:58-0500 BMI (Body Mass Index) 28.52 kg/m2 [facility] 09-05-2019 13:58-0500 Body weight 73.03 kg [facility] 09-05-2019 13:58-0500 BP Diastolic 85 mm[Hg] [facility] 09-05-2019 13:58-0500 BP Systolic 138 mm[Hg] [facility] 09-05-2019 13:58-0500 Height 160 cm [facility] 09-05-2019 13:58-0500 Pulse (Heart Rate) 86 /min [facility] 05-17-2019 10:19-0400 BP Diastolic 76 mm[Hg] Asha [facility] 05-17-2019 10:19-0400 BP Systolic 134 mm[Hg] [facility] 05-17-[facility] 10:02-0400 BMI (Body Mass Index) 28.68 kg/m2 Asha [facility] 05-17-2019 10:02-0400 Body Temperature 97.9 [degF] Asha Lan [facility] 05-17-2019 10:02-0400 Body weight 73.44 kg Asha Lan [facility] 05-17-2019 10:02-0400 Pulse (Heart Rate) 88 /min Asha Lan [facility] 05-17-2019 10:02-0400 Pulse Oximetry 95 % Asha Lan [facility] 05-17-2019 10:02-0400 Respiratory Rate 16 /min Asha Lan [facility] 02-25-2019 14:42-0400 BMI (Body Mass Index) 28.87 kg/m2 Garry Burger [facility] 02-25-2019 14:42-0400 Body weight 73.94 kg Garry Burger [facility] 02-25-2019 14:42-0400 Height 160 cm Garry Burger [facility] 12-21-2018 13:18-0500 BMI (Body Mass Index) 28.87 kg/m2 Vince [facility] 12-21-2018 13:18-0500 Body Temperature 98.91 [degF] Vince Leggett [facility] 12-21-2018 13:18-0500 BP Diastolic 95 mm[Hg] [facility] 12-21-2018 13:18-0500 BP Systolic 133 mm[Hg] Vince [facility] 12-21-2018 13:18-0500 Height 160 cm [facility] 12-21-2018 13:18-0500 Pulse (Heart Rate) 87 /min [facility] 12-21-2018 13:18-0500 Pulse Oximetry 96 % [facility] 12-21-2018 13:18-0500 Respiratory Rate 16 /min [facility] 12-21-2018 13:18-0500 Weight 73.94 kg [facility] Encounters Encounter Date Encounter Type Care Provider Facility Start: 12-01-2023 Telephone encounter Landry Sims MD Work Phone: [facility] Procedures Date Procedure Procedure Detail Performing Clinician Start: 09-13-2023 Arthrocentesis aspir &/inj major jt/bursa w/o Shruti Arnold INTERNATIONAL COORDINATOR Work Phone: Start: 04-20-2022 Skin test tuberculos is intradermal Asha Podlogar ALLIANCE MANAGER.INTERNATIONAL COORDINATOR Work Phone: Start: 12-29-2020 Lipid 1996 panel - S lakeisha or Plasma Wolf Sims MD Work Phone: Start: 06-09-2020 Mammography Landry Sims MD Work Phone: Start: 2020 Arthrocentesis Shruti A [employer] zhouwu Work Phone: Start: 12-30-2019 Arthrocentesis Shruti A [employer] z[facility] Work Phone: Start: 10-29-2019 Transvaginal ultraso nography [...] [facility] Start: 04-19-2028 Urine microalbumin profile [facility] Start: 11-17-2026 Diabetes Screening Diabetes Screenin [facility] Start: 03-23-2026 Diabetes Screening Diabetes Screenin g [facility] Start: 12-29-2025 Lipid panel Lipid Screening [facility] Start: 12-29-2025 LIPID SCREEN LIPID SCREEN [facility] Start: 05-10-2025 COLOGUARD (FIT-DNA) COLOGUARD (FIT-D NA) [facility] Start: 05-10-2025 COLORECTAL CANCER SCREENING COLORECTAL CANCER SCREENING [facility] Start: 05-10-2025 Screening for malign ant neoplasm of colon [facility] Start: 11-17-2024 Annual PCP Team Bond Manager martha Disease Visit Annual PCP Team Chronic Disease Visit [facility] Start: 11-17-2024 BP Controlled (<130/80) BP Controlle d (<130/80) [facility] Start: 10-30-2024 Annual PCP Team Bond Manager martha Disease Visit Annual PCP Team Chronic Disease Visit [facility] Start: 10-30-2024 Covid-19 Vaccine ( season) Covid-19 Vaccine () [facility] Immunizations Immunization Date Immunization Notes Care Provider Arielle sparks 08-18-2021 influenza, seasonal, injectable, preservative free Wolf Sims MD Work Phone: [facility] 08-03-2020 influenza, seasonal, injectable, preservative free Wolf Sims MD Work Phone: [facility] 04-19-2018 tetanus and diphther ia toxoids, adsorbed, preservative free, for adult use (5 Lf of tetanus toxoid and 2 Lf of diphtheria toxoid) [facility] 07-18-2016 influenza, injectabl e, quadrivalent, contains preservative Asha [facility] 07-16-2014 influenza, seasonal, injectable [facility] 05-24-2011 tetanus toxoid, redu mariana diphtheria toxoid, and acellular pertussis vaccine, adsorbed Asha [facility] 04-29-2004 measles, mumps and rubella virus vaccine Asha [facility] 01-09-2004 hepatitis B vaccine, adult dosage Asha [facility] 08-05-2003 hepatitis B vaccine, adult dosage Asha [facility] 07-01-2003 hepatitis B vaccine, adult dosage Asha [facility] 07-11-1978 measles, mumps and rubella virus vaccine [facility] Payers Date Payer Category Payer Private Health Insurance [id number] 2022 Private Health Insurance [id number] 2019 Private Health Insurance AETNA AETNA CHOICE POS/POSII/PREMIER CARE/PREMIER CARE PLUS xxxxxxxxxx 2019-Present xxxxxxxxxx [id number] 2019 Unknown MMO MED MUTUAL S UPERMED PPO xxxxxxxxxxxx 2019-Present xxxxxxxxxxxx [id number] 2019 Unknown [id number] 2019 Unknown [id number] 2016 Unknown xxxxxxxxx [id number] 3 2016 Unknown [id number] 3 1974 Unknown [id number] 1974 Unknown [id number] 1974 Unknown [id number] 1974 Unknown [id number] 1974 Unknown [id number] 1974 Unknown [id number] 1974 Unknown [id number] 1974 Unknown [id number] 1974 Unknown [id number] 1974 Unknown [id number] 1974 Unknown [id number] 1974 Unknown [id number] Unknown [id number] Social History Date Type Detail Facility Start: 11-29-2016 End: 03-18-2023 Tobacco smoking status ARIS Never smoker [facility] Work Phone: Start: 1975 Sex Assigned At Not on file [facility] Work Phone: Start: 05-17-2019 End: 04-20-2022 History SDOH Social Connections Phone 5 [facility] Start: 05-17-2019 End: 04-20-2022 History SDOH Social Connections Get Together 2 [facility] Start: 05-17-2019 End: 04-20-2022 History SDOH Social Connections Tenriism 3 [facility] Start: 05-17-2019 End: 04-20-2022 History SDOH Social Connections Membership 1 [facility] Start: 05-17-2019 History SDOH Physical Activity DPW 0 [facility] Start: 05-17-2019 History SDOH Education 17 [facility] Start: 10-27-2019 End: 09-13-2023 Alcohol intake Ex-drinker (finding) [facility] Start: 2020 End: 03-18-2023 Tobacco use and exposure Never used [facility] Start: 04-10-2022 End: 11-18-2022 Exposure to SARS-CoV-2 (event) Not sure [facility] Start: 12-28-2021 End: 10-30-2023 Alcohol intake Current non-drinker of alcohol (finding) [facility] Start: 1975 Sex Assigned At Female [facility] Start: 05-17-2019 End: 07-24-2023 History of Social function [facility] Start: 05-17-2019 End: 05-08-2023 Humiliation, Afraid, Rape, and Kick questionnaire [HARK] [facility] Fear of Current or Ex-Partner No [facility] Start: 07-30-2018 Gender identity Identifies as female gender (finding) [facility] Start: 07-30-2018 Sexual orientation Heterosexual (finding) [facility] Do you belong to any clubs or organizations such as latter-day groups, unions, [employer] or athletic groups, or school groups? Yes [facility] Are you now , , , , never or living with a partner? [facility] How often to you hav e a drink containing alcohol? Never [facility] Do you feel stress - tense, restless, nervous, or anxious, or unable to sleep at night because your mind is troubled all the time - these days [OSQ] Only a little [facility] (I/We) worried wheth er (my/our) food would run out before (I/we) got money to buy more. Never true [facility] In the past 12 month s, was there a time when you were not able to pay the mortgage or rent on time? No [facility] Do you feel stress - tense, restless, nervous, or anxious, or unable to sleep at night because your mind is troubled all the time - these days [OSQ] Not at all [facility] Medical Equipment Procedure Code Equipment Code Equipment Origin al Text Equipment Identifier Dates Component 3 Fem Rm/Ll [facility] - [id number] [facility] Start: 04-10-2023 Clinical Notes 03-09-2021 to 12-01-2023 Telephone Encounter - Chrissie Pepper LPN - 12/01/2023 3:31 PM ESTTelephone Encounter - Priti Hoang RN - 12/01/2023 2:11 PM ESTTelephone Encounter - Kori Stover RN - 12/01/2023 1:20 PM EST Note Date & Type Note Facility 12-01-2023 Miscellaneous Notes All pages resent. Komal- [facility] - reports she received pages 1-3 & 8-11. Reports pages 4-7 are missing from the fax pcp office sent to them. Please refax page 4-7 to fax # [phone] Faxed recent lab results to [facility] per request documented in this encounter [facility] 12-01-2023 Miscellaneous Notes Patient calling asking to have information faxed to Dr Marc and [place] office at [phone]. Printed items and faxed as requested. Pt called and is notified of providers message. Pt voices understanding. Kori Stover RN Order placed, please fax to [facility]. I did not see her for this problem. Looks like Tacos did-please send message to her Asha Flores APRN.INTERNATIONAL COORDINATOR Patient calling, states that she saw her results of her US. She is requesting a referral to the [facility]. Asking if this can be sent so she is able to get scheduled with them. Please advise. documented in this encounter [facility] 11-29-2023 Note HNO ID: [id number] Author: OZ HUERTA LPN Service: ? Author Type: LICENSED NURSE Type: Progress Notes Filed: 11/29/2023 11:04 Note Text: Scan on 11/29/2023 7:27 AM by ProviderYanira PA-C: Ultrasound [facility] 11-29-2023 History of Present illness Narrative Scan on 11/29/2023 7:27 AM by ProviderYanira PA-C: Ultrasound documented in this encounter [facility] 11-17-2023 Note HNO ID: [id number] Author: TACOS HEBERT APRN.FARHANA Service: ? Author Type: Nurse Practitioner Type: Progress Notes Filed: 11/17/2023 09:59 Note Text: Chief Complaint Patient presents with: Abdominal Pain HPI Eleni Pereira is a 48 year old female who [...] ANTERIOR DISCECTOMY cervical EGD 11/08/2016 Dr. Tre Mccray[facility] OOPHORECTOMY PARTIAL/TOTAL UNI/BI Oophorectomy, RT and [...] 06/09/2021 Spirometry due on 10/30/2024 Covid-19 Vaccine( season) due on 10/30/2024 Pneumococcal Vaccine(1 of [...] - AMYLASE BLD - LIPASE BLD Tacos Hebert APRN.INTERNATIONAL COORDINATOR [facility] 11-17-2023 History of Present illness Narrative Chief Complaint Patient presents with: Abdominal Pain HPI Eleni Pereira is a 48 year old female who [...] ANTERIOR DISCECTOMY cervical EGD 11/08/2016 Dr. Tre Mccray-[facility] OOPHORECTOMY PARTIAL/TOTAL UNI/BI Oophorectomy, RT and [...] 06/09/2021 Spirometry due on 10/30/2024 Covid-19 Vaccine( season) due on 10/30/2024 Pneumococcal Vaccine(1 of [...] - AMYLASE BLD - LIPASE BLD Tacos Hebert APRN.INTERNATIONAL COORDINATOR documented in this encounter [facility] 11-16-2023 Miscellaneous Notes Patient calls to request medication for indigestion. Contacted coding specialist who can't get her in until December. [...] cough. 11. : NA Protocols used: Chest [id number] documented in this encounter [facility] 10-30-2023 Note HNO ID: [id number] Author: ASHA FLORES APRN.INTERNATIONAL COORDINATOR Service: ? Author Type: Nurse Practitioner Type: [...] ICD10: Z13.220 - LIPID PANEL BASIC Asha Podlogar, ALLIANCE MANAGER.INTERNATIONAL COORDINATOR Prescription instructions reviewed with patient as applicable. [...] which included preparing to see the patient, [id number] patient care, completing clinical documentation, obtaining and/or reviewing separately obtained history, performing a medically appropriate examination, counseling and educating the patient/family/caregiver, and ordering medications, tests, or procedures. [facility] 09-13-2023 History of Present illness Narrative Associated Order(s): LG Jt Injection/Arthrocentesis: R greater trochanteric bursa Post-Procedure Diagnose(s): Trochanteric bursitis of right hip [facility] [address] [facility] [address] [facility] [address] Chief Complaint Patient presents with Right Hip - Pain Eleni Peerira returns to the office today for right [...] Right partial medial knee replacement; Surgeon: Garry Burger MD; Location: [place]; Service: Orthopedic BREAST SURGERY 2000 reduction CERVICAL [...] 0 min Stress: Stress Concern Present (05/17/2019) [place] [employer] - Occupational Stress Questionnaire Feeling of Stress : To some extent Social Connections: Socially Integrated (05/17/2019) Social Connection and Isolation Panel [NHANES] Frequency of Communication with Friends and Family: More than three times a week Frequency of Social Gatherings with Friends and Family: Once a week Attends Cheondoism Services: More than 4 times per year [...] CNP Authorized by: Shruti Arnold CNP CPT 46368 - Large Joint Arthrocentesis: Consent given by: [...] no immediate complications documented in this encounter [facility] 08-17-2023 History of Present illness Narrative Eleni called today states she has been having some right sided hip pain, not in her buttocks or groin. It does hurt to lay on the right side. She denies any injury. She would like to see Shruti Arnold NP. The call center will tanner her an appointment. documented in this encounter [facility] 05-23-2023 Telephone encounter Note Patient requested refill for pain medication and Flexeril. Surgery 04/10 right partial medial knee replacement , last fill 04/28. [facility] 05-23-2023 Miscellaneous Notes Patient requested refill for pain medication and Flexeril. Surgery 04/10 right partial medial knee replacement , last fill 04/28. documented in this encounter [facility] 05-16-2023 Note HNO ID: [id number] Author: Clementina Hall APRN.FARHANA Service: ? Author Type: Nurse Practitioner Type: Progress Notes Filed: 05/16/2023 1:31 PM Note Text: Mortgage Branch Manager offered: Patient declines. Eleni is a 47 year old who presents for an annual gynecologic exam without complaints. Menses: n/a s/p hysterectomy. Contraception: hysterectomy HPV vaccine: No Last Pap: 05/09/2005 normal HPV: negative History of abnormal pap: No Last mammogram: 2022normal @ [facility] Sexually active: No OB History T2 L2 SAB0 IAB0 Ectopic0 Multiple0 Live Births0 Data Officer History LMP: 03/16/2010, Hysterectomy Age at Menarche: Age at First : Age at Menopause: Data Officer History Comments: Sexual Activity: Yes; Male; hysterectomy Contraception: Surgical PAST MEDICAL HISTORY Diagnosis Date Anxiety Asthma Essential hypertension, benign Other and unspecified hyperlipidemia Rhinitis, allergic PAST SURGICAL HISTORY Procedure Laterality Date ANTERIOR DISCECTOMY cervical EGD 11/08/2016 Dr. Tre Mccray-[facility] OOPHORECTOMY PARTIAL/TOTAL UNI/BI Oophorectomy, RT and [...] external genitalia normal, normal Bartholin's glands, urethra, [place]'s glands, no vulvar lesions, good vaginal support, [...] or sooner as needed Clementina Hall APRN.FARHANA [facility] 05-16-2023 History of Present illness Narrative Mortgage Branch Manager offered: Patient declines. Knowles is a 47 year old who presents for an annual gynecologic exam without complaints. Menses: n/a s/p hysterectomy. Contraception: hysterectomy HPV vaccine: No Last Pap: 05/09/2005 normal HPV: negative History of abnormal pap: No Last mammogram: 2022normal @ [facility] Sexually active: No OB History T2 L2 SAB0 IAB0 Ectopic0 Multiple0 Live Births0 Data Officer History LMP: 03/16/2010, Hysterectomy Age at Menarche: Age at First : Age at Menopause: Data Officer History Comments: Sexual Activity: Yes; Male; hysterectomy Contraception: Surgical PAST MEDICAL HISTORY Diagnosis Date Anxiety Asthma Essential hypertension, benign Other and unspecified hyperlipidemia Rhinitis, allergic PAST SURGICAL HISTORY Procedure Laterality Date ANTERIOR DISCECTOMY cervical EGD 11/08/2016 Dr. Tre Mccray-[facility] OOPHORECTOMY PARTIAL/TOTAL UNI/BI Oophorectomy, RT and [...] external genitalia normal, normal Bartholin's glands, urethra, [place]'s glands, no vulvar lesions, good vaginal support, [...] Clementina Hall APRN.FARHANA documented in this encounter [facility] 05-08-2023 Note HNO ID: [id number] Author: Asha Flores APRN.CNP Service: ? Author Type: Nurse Practitioner Type: [...] CAPSULE,DELAYED RELEASE 4. (more content not included)... [facility] 05-03-2023 Miscellaneous Notes Annual scheduled with 05/16/23. Needs refill prior to that. Requested Prescriptions Pending Prescriptions Disp Refills norethindrone (AYGESTIN) 5 mg tablet 60 tablet 0 Sig: Take 1 tablet by mouth once daily. RX INSTRUCTIONS: Patient aware RX will be sent to pharmacy. No need to notify patient. Kami Inman RN documented in this encounter [facility] 04-28-2023 History of Present illness Narrative Eleni [...] tramadol on 04/17/2023. documented in this encounter [facility] 04-20-2023 Telephone encounter Note Patient requested refill for Flexeril. Surgery 04/10 right partial knee, last fill 04/10. [facility] 04-20-2023 Miscellaneous Notes Patient requested refill for Flexeril. Surgery 04/10 right partial knee, last fill 04/10. documented in this encounter [facility] 04-17-2023 History of Present illness Narrative I spoke simone Knowles today and she says she is doing [...] asking for Tramadol. documented in this encounter [facility] 03-23-2023 History of Present illness Narrative General Cardiology New Patient Clinic Consult [facility] 03/23/2023 Vannesa Randolph MD [address] [place], [place] [address] Patient: Eleni Pereira Date of : 1975 (47 y.o.) Referring Provider: Garry Burger,* PCP: Priya Smith MD Date of Service: 03/23/2023 Chief Complaint: Initial Visit (Intake) (Surgery 04/10/23 w/ Dr. Burger, right partial knee replacement/ No cardiac symptoms [...] or fail to improve. Vannesa Randolph MD, [facility] Non-Invasive Cardiology [facility] P:[phone] F:[phone] History of Present Illness: Eleni Pereira is a 47 y.o. woman with past [...] Cholesterol: 201 mg/dL documented in this encounter [facility] 03-23-2023 Instructions Danilo Ruiz MA - 03/23/2023 9:45 AM EDT How to Contact your Care Team: Provider: Dr. Vannesa Randolph MD Clinic Nurse: Bev Rivera RN REFILLS: When in need for refills please call your care team or the office at [phone]. Please include medication name, pharmacy name, and specify 30-day or 90-day supply. Please check with your pharmacy within 24 hours of request for your refill. You must follow up as directed to continue current refills. Thank you! documented in this encounter [facility] 03-22-2023 Note Patient Outreach (IN TMMN) ELENI PEREIRA ([id number]) 1975 F Date Time Provider Department 03/22/23 WOLF SIMS During your visit today, we recorded the following information about you: Allergies As of Date: 03/22/2023 Noted Allergy Reaction MORPHINE 11/03/2010 9 - Itching NIACIN 04/10/2013 14 - Other: See Comments Comments: Flushing PENICILLINS 08/07/2009 5 - Intolerance SULFA (SULFONAMIDE ANTIBIOTICS) 08/07/2009 7 - Swelling Date Reviewed: 03/18/2023 Reviewed by: Chanda Lipscomb APRN.INTERNATIONAL COORDINATOR - Fully Assessed Visit Diagnosis:Encounter for screening mammogram for breast cancer [Z12.31] Order(s):[facility] SCREENING [[id number]] Order #: [id number] FUTURE Prescriptions as of 03/27/2023 - naproxen [...] joint injury [S49.90XA] 03/10/2015 Encounter Status:Closed by [employer], PRODUSER on 03/27/23 [facility] 03-18-2023 Note HNO ID: [id number] Author: Chanda Lipscomb APRN.INTERNATIONAL COORDINATOR Service: ? Author Type: Nurse Practitioner Type: Progress Notes Filed: 03/18/2023 8:42 AM Note Text: CC: Patient presents with: Pain: Left lower jaw, possible tooth infection x 5 days HPI Eleni Pereira is a 47 year old female who [...] ANTERIOR DISCECTOMY cervical EGD 11/08/2016 Dr. Tre Mccray-[facility] OOPHORECTOMY PARTIAL/TOTAL UNI/BI Oophorectomy, RT and [...] Patient agreeable to treatment plan. Chanda Lipscomb APRN.INTERNATIONAL COORDINATOR [facility] 03-18-2023 History of Present illness Narrative Images from the original note were not included. CC: Patient presents with: Pain: Left lower jaw, possible tooth infection x 5 days HPI Eleni Pereira is a 47 year old female who [...] ANTERIOR DISCECTOMY cervical EGD 11/08/2016 Dr. Tre Mccray-[facility] OOPHORECTOMY PARTIAL/TOTAL UNI/BI Oophorectomy, RT and [...] Chanda Lipscomb APRN.CNP documented in this encounter [facility] 11-18-2022 History of Present illness Narrative [facility] [address] [facility] [address] [facility] [address] Chief Complaint Patient presents with Right Knee - Follow-up MRI review Eleni Pereira returns to the office today for follow-up [...] the treatment plan. documented in this encounter [facility] 11-03-2022 Miscellaneous Notes Patient has been [...] Last refill; 04/2022 documented in this encounter [facility] 07-01-2022 Miscellaneous Notes Patient phones requesting refills as follows: Requested Prescriptions Pending Prescriptions Disp Refills venlafaxine ER (EFFEXOR XR) 37.5 mg 24 hr capsule 90 capsule 2 Sig: Take 1 capsule by mouth once daily. ROBERT 04/29/22 NOV no upcoming appt noted Please review and advise. Chrissie Pepper LPN documented in this encounter [facility] 06-06-2022 Miscellaneous Notes RX INSTRUCTIONS: Patient aware RX will be sent to pharmacy. No need to notify patient. Last OV: 04/29/2022 Last refill: 04/08/2022 With 90 and 2 refills Follow up: No F/U scheduled at this time Trice Uriostegui MA documented in this encounter [facility] 05-16-2022 Miscellaneous Notes Patient notified of results, verbalizes understanding of instructions.. Shanell Cantor LPN Please call patient and let her know her cologuard was normal. Repeat in 3 years. Thanks, Asha Flores APRN.FARHANA documented in this encounter [facility] 04-29-2022 History of Present illness Narrative Patient in this day to have reading of PPD done. Patient complained of the area itching shortly after receiving the dose. Injection site slightly red from itching. No s/sx of infection. Negative PPD reading. 0.0mm. 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 Screening for colon cancer - [...] lines of the Mediterranean diet. Asha Flores APRN.INTERNATIONAL COORDINATOR Prescription instructions reviewed with patient as applicable. Patient advised if symptoms do not improve or if symptoms worsen sooner, to contact their primary care physician. Potential red flag symptoms discussed with the patient. Reviewed appropriate action plan to take if red flag symptoms occur. Patient agreeable to treatment plan. documented in this encounter [facility] 04-08-2022 History of Present illness Narrative 04/08/2022 [...] Z13.220 - LIPID PANEL BASIC Asha Flores APRN.CNP Prescription instructions reviewed with patient as applicable. Patient advised if symptoms do not improve or if symptoms worsen sooner, to contact their primary care physician. Potential red flag symptoms discussed with the patient. Reviewed appropriate action plan to take if red flag symptoms occur. Patient agreeable to treatment plan. documented in this encounter [facility] 03-30-2022 Miscellaneous Notes Patient phones requesting refills as follows: Pending Prescriptions Disp Refills VENLAFAXINE ER 37.5 MG CAPSULE,EXTENDED RELEASE 24 HR 90 capsule 0 Sig: Take 1 capsule by mouth once daily. ANAMIKA: No ROBERT 12/28/21 NOV no upcoming appt Please review and advise. Michael Patrick LPN documented in this encounter [facility] 03-24-2022 Miscellaneous Notes Patient had yearly exam 09/29/2021 documented in this encounter [facility] 03-18-2022 Miscellaneous Notes Patient phones requesting refills as follows: Pending Prescriptions Disp Refills LISINOPRIL 10 MG-HYDROCHLOROTHIAZIDE 12.5 MG TABLET 90 tablet 0 Sig: Take 1 tablet by mouth once daily. ANAMIKA: No ROBERT-12/28/21 Labs-09/03/21 NOV-none med filled 11/30/21 Please review and advise. Amy No LPN documented in this encounter [facility] 02-04-2022 Miscellaneous Notes Pending Prescriptions Disp Refills OMEPRAZOLE 20 MG CAPSULE,DELAYED RELEASE 60 capsule 2 Sig: Take 1 capsule by mouth twice daily. 1/2 hr before meal. ANAMIKA: No ROBERT 12/28/21 NOV not scheduled at this time Michelle Salmeron Ma documented in this encounter [facility] 03-09-2021 History of Present illness Narrative [facility] [address] [facility] [address] [facility] [address] No chief complaint on file. Eleni Pereira returns to the office today for left [...] Social Gatherings with Friends and Family: Attends Cheondoism Services: Active Member of Clubs or Organizations: [...] back as needed. documented in this encounter [facility] [place] [facility] Diagnosis Polymyalgia (HCC)- Primary Polymyalgia rheumatica [facility] [place] [facility]* Diagnosis Anxiety and depression Dysthymic disorder [facility] [place] [facility] Diagnosis Anxiety and depression- Primary Dysthymic disorder Gastroesophageal reflux disease with esophagitis, unspecified whether hemorrhage Essential hypertension, benign Screening for hyperlipidemia Screening for lipoid disorders [facility] [place] [facility]* Diagnosis Encounter for screening mammogram for breast cancer [facility] [place] [facility] Diagnosis Annual physical exam- Primary Routine general medical examination at a health care facility Other acne DDD (degenerative disc disease), cervical Degeneration of cervical intervertebral disc Screening for tuberculosis Screening examination for pulmonary tuberculosis Screening for colon cancer Special screening for malignant neoplasms, colon Essential hypertension, benign [facility] [place] [facility] Diagnosis Screening for tuberculosis Screening examination for pulmonary tuberculosis [facility] [place] [facility]* Diagnosis Screening for tuberculosis- Primary Screening examination for pulmonary tuberculosis [facility] [place] [facility]* Diagnosis Essential hypertension, benign [facility] [place] [facility]* Diagnosis Anxiety and depression Dysthymic disorder [facility] [place] [facility]* Diagnosis Gastroesophageal reflux disease with esophagitis, unspecified whether hemorrhage [facility] [place] [facility]* Diagnosis Meniscus degeneration, right- Primary [facility] [place] [facility]* Diagnosis Meniscus degeneration, right- Primary Hypertension, unspecified type Meniscus degeneration, right- Primary [facility] [place] [facility]* Diagnosis Pain, dental- Primary Unspecified disorder of the teeth and supporting structures [facility] [place] [facility] Diagnosis Meniscus degeneration, right- Primary Preoperative cardiovascular examination- Primary Pre-operative cardiovascular examination Meniscus degeneration, right Meniscus degeneration, right [facility] [place] [facility]* Diagnosis Meniscus degeneration, right- Primary Meniscus degeneration, right- Primary Meniscus degeneration, right documented in this encounter [facility] note* Diagnosis S/P right unicompartmental knee replacement- Primary documented in this encounter [facility] note* Diagnosis S/P right unicompartmental knee replacement- Primary documented in this encounter [facility] note* Diagnosis S/P right unicompartmental knee replacement- Primary documented in this encounter [facility] note* Diagnosis Encounter for gynecological examination (general) (routine) without abnormal findings- Primary documented in this encounter [facility] note* Diagnosis S/P right unicompartmental knee replacement- Primary documented in this encounter [facility] note* Diagnosis Trochanteric bursitis of right hip- Primary documented in this encounter [facility] note* Diagnosis Gastroesophageal reflux disease with esophagitis, unspecified whether hemorrhage- Primary Epigastric pain Abdominal pain, epigastric documented in this encounter [facility] note* Diagnosis Gallstones- Primary Calculus of gallbladder without mention of cholecystitis or obstruction documented in this encounter [facility] for referral (narrative)* Diagnostic Procedure Only (Routine) - Pending Review Specialty Diagnoses / Procedures Referred By German thomas Referred To Contact [facility] Diagnoses Encounter for screening mammogram for breast cancer Procedures ROSIE SCREENING SCREENING MAMMOGRAPHY [place] 2-[place] [address] [place] [id number] [facility] [address] [place] [address] Referral ID Status Reason Start Date Expiration Date Visits Requested Visits Authorized [id number] Pending Review Auto-Generat ed Referral 04/13/2022 05/13/2023 1 1 [facility] for referral (narrative)* Diagnostic Procedure Only (Routine) - Authorized Specialty Diagnoses / Procedures Referred By German thomas Referred To Contact [facility] Diagnoses Epigastric pain Procedures US ABD RIGHT UPPER QUADRANT US ABDOMINAL REAL TIME W/IMAGE LIMITED Tacos Hebert APRN.INTERNATIONAL COORDINATOR [address] [place] [address] [facility] [address] Referral ID Status Reason Start Date Expiration Date Visits Requested Visits Authorized [id number] Authorized Auto-Generat ed Referral 11/17/2023 12/16/2024 1 1 [facility] Summary Purpose Family History No Family History Records FoundNo Family History Records FoundNo Family History Records FoundNo Family History Records FoundNo Family History Records FoundNo Family History Records FoundNo Family History Records Found Advance Directives No Advanced Directives Records FoundDocuments on File Type Date Recorded Patient Laborer Heading Expl anation Advance Directives and Living Will Documents on File Type Date Recorded Patient Laborer Heading Expl anation Advance Directives and Living Will Documents on File Type Date Recorded Patient Laborer Heading Expl anation Advance Directives and Livin g Will 10/29/2019 9:09 AM Documents on File Type Date Recorded Patient Laborer Heading Expl anation Advance Directives and Livin g Will 10/29/2019 9:09 AM Latest Code Status on File Code Status Date Activated Date Inactivated Comments Full Code 04/10/2023 8:41 AM 04/10/2023 6:32 PM Latest Code Status on File Code Status Date Activated Date Inactivated Comments Full Code 04/10/2023 8:41 AM 04/10/2023 6:32 PM History of Present Illness * Garry Burger MD - 11/19/2018 1:56 PM EST Dictation on: 11/19/2018 1:56 PM by: GARRY BURGER [[email or web address]] in this encounter* Vince Leggett CNP - 12/21/2018 1:39 PM EST Chief Complaint [...] 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 female and is [...] Screen: 05/17/19 Diet/Exercise: Denies Last eye exam: 2018 Last dental visit: 2018 The following portions [...] time. I will review your labs via [employer] or the office will with your results. [...] week Gets together: Once a week Attends episcopal service: More than 4 times per year [...] nursing note reviewed. Exam conducted with a wood preparation supervisor present. Constitutional: General: She is not in [...] this chart may have been created with [employer] voice recognition software. Occasional wrong-word or sound-like substitutions may have occurred due to inherent limitations of the voice recognition software. Please read the chart carefully and recognize, using context, where the substitutions have occurred. documented in this encounter* Asha Lan CNP - 10/29/2019 9:30 AM EST Pt notified of US results, agreeable to referral to Tejinder CONT[facility] CURATOR Dr. Pena. States understanding documented in this encounter* Shruti Arnold CNP - 12/30/2019 9:00 PM EDT Associated Order(s): LG Jt Injection/Arthrocentesis: L glenohumeral; LG Jt Injection/Arthrocentesis: R glenohumeral Post-Procedure Diagnose(s): Impingement syndrome of both shoulders LG Jt Injection/Arthrocentesis: L glenohumeral Performed by: Shruti Arnold CNP Authorized by: Shruti Arnold CNP CPT 13931 - Large Joint Arthrocentesis: Consent given by: [...] CNP Authorized by: Shruti Arnold CNP CPT 00385 - Large Joint Arthrocentesis: Consent given by: [...] week Gets together: Once a week Attends episcopal service: More than 4 times per year [...] CNP Authorized by: Shruti Arnold CNP CPT 04151 - Large Joint Arthrocentesis: Consent given by: [...] CNP Authorized by: Shruti Arnold CNP CPT 94463 - Large Joint Arthrocentesis: Consent given by: [...] - 2020 9:56 AM EDT [facility] [address] [facility] [address] [facility] [address] Chief Complaint Patient presents with Injections Eleni Pereira returns to the office today for bilateral [...] week Gets together: Once a week Attends episcopal service: More than 4 times per year [...] Lateral - negative Varus: negative Valgus: negative Rigo: Anterior - negative Drawer: Anterior - negative [...] CNP Authorized by: Zahraa Montiel CNP CPT 82740 - Large Joint Arthrocentesis: Consent given by: [...] CNP Authorized by: Zahraa Montiel CNP CPT 24462 - Large Joint Arthrocentesis: Consent given by: [...] - 09/05/2019 3:19 PM EST 09/05/19 Eleni Pereira 1975 Chief Complaint Patient presents with Pain EP B/L SHOULDER INJ HISTORY of Present Illness: Eleni Pereira is a 44 y.o. year old female that presents today with Pain (EP B/L SHOULDER INJ) . Eleni Pereira has had injections in the past. Last injection to right/left shoulder was in dr. Burger and they tolerated well. They have been [...] and I have reviewed thisinformation with Eleni Pereira at the time of their visit. They [...] Montiel CNP documented in this encounter* Garry Burger MD - 06/03/2019 4:42 PM EDT Dictation on: 06/03/2019 4:43 PM by: GARRY BURGER [[id number]] documented in this encounter* Garry Burger MD - 02/25/2019 4:45 PM EDT Dictation on: 02/25/2019 4:46 PM by: GARRY BURGER [[id number]] documented in this encounter Assessments Diagnosis Bursitis/tendonitis, [...] region Instructions * Patient Instructions* Vince Leggett, INTERNATIONAL COORDINATOR - 12/21/2018 1:51 PM EST Chances are you are dealing with the flu or flu like illness. You are too late to take Tamiflu but treat with symptomatic OTC meds. Dayquil or Nyquil, Mendy Toney severe cold may help your symptoms. It [...] 1 cup of warm water. Take an jkax-uwu-ebjxfut pain medicine, such as acetaminophen (Tylenol), ibuprofen (Advil, Motrin),or naproxen (Aleve). Read and follow all instructions on the label. Be careful when taking spva-kaj-fgwllsk cold or flu medicines and Tylenol at [...] soup, may help decrease throat pain. Use pfhf-ylj-xfxglef throat lozenges to soothe pain. Regular cough [...] Log into your personal health record on https://[employer] and enter U420 in the Education box to learn more about Sore Throat: Care Instructions. Current as of: January 09, 2018 Content Version: 11.9 2214-9986 [facility]. Care instructions adapted under license by your healthcare professional. If you have questions about a medical condition or this instruction, always ask your healthcare professional. [facility] disclaims any warranty or liability for your [...] rest if you feel tired. Take an asws-lvb-cqqiaxo pain medicine if needed, such as acetaminophen (Tylenol), ibuprofen (Advil, Motrin), or naproxen (Aleve). Read and follow all instructions on the label. Be careful when taking gihj-eds-ijuhmni cold or flu medicines and Tylenol at [...] Log into your personal health record on [email or web address]://[email or web address] and enter L906 in the Education box to learn more about Viral Infections: Care Instructions. Current as of: May 14, 2018 Content Version: 11.9 2888-7513 [facility]. Care instructions adapted under license by your healthcare professional. If you have questions about a medical condition or this instruction, always ask your healthcare professional. [facility] disclaims any warranty or liability for your [...] time. I will review your labs via [employer] or the office will with your results. [...] you are older than 45 and are -French or have a father or brother who got prostatecancer when he was younger than 65. When should you call for help? Watch closely for changes in your health, and be sure to contact your doctor if you have any problems or symptoms that concern you. Where can you learn more? Log into your personal health record on https://[employer] and enter P072 in the Education box to learn more about Well Visit, Ages 18 to 50: Care Instructions. Current as of: September 27, 2018 Content Version: 12.20054101-0053 [facility]. Care instructions adapted under license by your healthcare professional. If you have questions about a medical condition or this instruction, always ask your healthcare professional. [facility] disclaims any warranty or liability for your [...] Log into your personal health record on https://[employer] and enter Q441 in the Education box to learn more about Lichen Sclerosus: Care Instructions. Current as of: January 14, 2019 Content Version: 12.3 3087-1054 [facility]. Care instructions adapted under license by your healthcare professional. If you have questions about a medical condition or this instruction, always ask your healthcare professional. [facility] disclaims any warranty or liability for your [...] Log into your personal health record on [email or web address]://[email or web address] and enter E907 in the Education box to learn more about Abdominal Pain: Care Instructions. Current as of: April 10, 2019 Content Version: 12.3 9892-8855 [facility]. Care instructions adapted under license by your healthcare professional. If you have questions about a medical condition or this instruction, always ask your healthcare professional. [facility] disclaims any warranty or liability for your use of this information. documented in this encounter Reason for Referral Status Reason Specialty Diagnoses / Procedures Referred By Contact Referred To Contact Authorized Specialty Services Required/Patie nt's Best Interest Radiology / Obstetrics and Gynecology Diagnoses Abdominal pain, unspecified abdominal location Procedures US Transvaginal Asha Lan CNP [address] [id number] Status Reason Specialty Diagnoses / Procedures Referred By Contact Referred To Contact Closed Specialty Services Required/Patien t's Best Interest Radiology / Obstetrics and Gynecology Diagnoses Abdominal pain, unspecified abdominal location Procedures US Transvaginal Asha Lan CNP [address] [place] [address] Status Reason Specialty Diagnoses / Procedures Referred By Contact Referred To Contact Authorized Physical Therapy / Rehabilitation Diagnoses Bursitis/tendonit is, shoulder Garry Burger MD [address] [place] [address] Specialty Diagnoses / Procedures Referred By Contac t Referred To Contact Orthopedic Surgery Diagnoses Polymyalgia (HCC) Shruti Arnold, INTERNATIONAL COORDINATOR [address] [place] [address] Carie Jones MD [address] [place] [address] Referral ID Status Reason Start Date Expiration Date V isits Requested Visits Authorized [id number] Authorized 2021 2022 1 1 Specialty Diagnoses / Procedures Referred By Contac t Referred To Contact Gastroenterology Diagnoses Gastroesophageal reflux disease with esophagitis, unspecified whether hemorrhage Procedures CONSULT TO GASTROENTEROLOGY OFFICE/OUTPATIENT [facility] 60-74 MINUTES PodlogarAsha APRN.INTERNATIONAL COORDINATOR [address] [place] [address] Referral ID Status Reason Start Date Expiration Date Visits Requested Visits Authorized [id number] Authorized PCP Requested Referral 04/08/2022 04/08/2023 1 1 Specialty Diagnoses / Procedures Referred By Contac t Referred To Contact Cardiology Diagnoses Meniscus degeneration, right Garry Burger MD [address] [place] [address] [facility] [address] [facility] [place] [address] Referral ID Status Reason Start Date Expiration Date Visits Requested Visits Authorized [id number] Authorized Specialty Services Required/Pat ient's Best Interest 12/06/2022 12/06/2023 1 1 Specialty Diagnoses / Procedures Referred By Contac t Referred To Contact Physical Therapy Diagnoses Meniscus degeneration, right Garry Burger MD [address] [place] [address] OF SERVICE NOT IN SYSTEM Referral ID Status Reason Start Date Expiration Date Visits Requested Visits Authorized [id number] Authorized Patient Preference 03/31/2023 03/30/2024 1 1 Specialty Diagnoses / Procedures Referred By Contac t Referred To Contact Physical Therapy Diagnoses S/P right unicompartmental knee replacement Garry Burger MD [address] [place], [place] [id number] EXTERNAL PLACE OF SERVICE NOT IN SYSTEM Referral ID Status Reason Start Date Expiration Date Visits Requested Visits Authorized [id number] Pending Review Patient Preference 04/17/2023 04/16/2024 1 1 Specialty Diagnoses / Procedures Referred By Contac t Referred To Contact General Surgery Diagnoses Gallstones Procedures CONSULT TO GENERAL SURGERY OFFICE/OUTPATIENT [facility] 60 MINUTES Tacos Hebert APRN.[facility] [address] [place] [address] Referral ID Status Reason Start Date Expiration Date Visits Requested Visits Authorized [id number] Authorized PCP Requested Referral 12/01/2023 11/30/2024 1 1 Medications Administered Section Administered Medications Medication Order MAR Action Action Date Dose Rate Site PPD (Mantoux) Intradermal Given 04/20/2022 08:12 EDT 0.1 mL Left Lowe r Forearm Additional Source Comments INFORMATION SOURCE (unrecogn ized section and content) DATE CREATED AUTHOR AUTHOR'S ORGANIZ ATION 08/23/2018 [facility] DATE CREATED AUTHOR AUTHOR'S ORGANIZ ATION 12/26/2018 [facility] DATE CREATED AUTHOR AUTHOR'S ORGANIZ ATION 10/07/2019 [facility] DATE CREATED AUTHOR [facility]IZ AT[facility] CRE[facility] AUTHOR AUTHOR'S ORGANIZ ATION 09/19/2023 [facility] DATE CREATED AUTHOR AUTHOR'S ORGANIZ ATION 12/03/2023 [facility] Reason for Visit (unrecogniz ed section and content) Reason Comments Cough cough , chills and f ever , headache sinus pressure x 6 days Reason Comments Annual Exam HX of pap. Mammo oct last year. Up to date on TDAP. Medication Refill Estarce cream, and r etnia a cream. Reason Comments Abdominal Pain Total hysterectomy. Lower abdominal pain. Pressure to void. Finished ATBon Monday morning. Was on macrobid and keflex. Vaginal Pain Started with abdomin al pain. x 3 weeks. Getting worse. Status Reason Specialty Diagnoses / Procedures Referred By Contact Referred To Contact Closed Specialty Services Required/Patien t's Best Interest Radiology / Obstetrics and Gynecology Diagnoses Abdominal pain, unspecified abdominal location Procedures US Transvaginal Asha Lan, INTERNATIONAL COORDINATOR [address] [place] [address] Reason Comments Injections Shoulder injections Reason Comments Injections Reason Comments Pain EP B/L SHOULDER INJ Reason Comments Pain Follow-up Reason Comments Pain Reason Comments Pain Reason Onset Date Comments Refill Request 02/04/2022 Reason Onset Date Comments Refill Request 03/18/2022 Reason Onset Date Comments Refill Request 03/24/2022 Reason Onset Date Comments Refill Request 03/29/2022 Reason Comments Recheck Specialty Diagnoses / Procedures Referred By Contac t Referred To Contact Family Practice / FAMILY MEDICINE Diagnoses follow up Procedures 4C EST Podlogar, Asha, ALLIANCE MANAGER.INTERNATIONAL COORDINATOR [address] [place] [address] Podlogar, Asha, ALLIANCE MANAGER.INTERNATIONAL COORDINATOR [address] [place] [address] Referral ID Status Reason Start Date Expiration Date Visits Re quested Visits Authorized [id number] Closed 04/08/2022 07/07/2022 1 1 Reason Comments Physical Reason Comments PPD reading Specialty Diagnoses / Procedures Referred By Contac t Referred To Contact Family Practice / FAMILY MEDICINE Diagnoses follow up Procedures 4C EST Podlogar, Asha, ALLIANCE MANAGER.INTERNATIONAL COORDINATOR [address] [place] [address] Podlogar, Asha, ALLIANCE MANAGER.INTERNATIONAL COORDINATOR [address] [place] [address] Referral ID Status Reason Start Date Expiration Date V isits Requested Visits Authorized [id number] Authorized 04/08/2022 07/07/2022 10 10 Specialty Diagnoses / Procedures Referred By Contac t Referred To Contact Family Practice / FAMILY MEDICINE Diagnoses TB read with MM Procedures OFFICE/OUTPATIENT ESTABLISHED HIGH MDM 40-54 MIN NURSE Jamaal MD PodlogarAsha APRN.INTERNATIONAL COORDINATOR [address] [place] [address] Referral ID Status Reason Start Date Expiration Date Visits Re quested Visits Authorized [id number] Closed 04/20/2022 10/15/2022 1 1 Reason Comments Results Reason Onset Date Comments Refill Request 06/05/2022 Reason Onset Date Comments Refill Request 07/01/2022 Reason Comments Medication Refill Reason Onset Date Comments Refill Request 11/02/2022 Reason Comments Follow-up MRI review Reason Comments Pain Left lower jaw, poss ible tooth infection x 5 days Reason Comments Initial Visit (Intake) Surgery 04/10/23 w / Dr. Burger, right partial knee replacement/ No cardiac symptoms Specialty Diagnoses / Procedures Referred By Contac t Referred To Contact Cardiology Diagnoses Meniscus degeneration, right Jennyfer, Garry Ortega MD [address] [place] [address] [place] [address] Referral ID Status Reason Start Date Expiration Date V isits Requested Visits Authorized [id number] Closed Specialty Services Required/Janice ent's Best Interest 12/06/2022 12/06/2023 1 1 Reason Onset Date Comments Medication Refill 04/17/2023 Reason Onset Date Comments Medication Refill 04/20/2023 Reason Comments Follow-up Suture / Staple Removal Wound Check Reason Onset Date Comments Refill Request 05/03/2023 Reason Comments Yearly Exam Reason Onset Date Comments Medication Refill 05/23/2023 Reason Comments Heartburn Reason Comments Abdominal Pain Reason Comments outside imaging Reason Comments Results Reason Comments Missing documents from fax Assessment & Plan Note - Asha Lan [...] time. I will review your labs via [employer] or the office will with your results. [...] Care Teams (unrecognized sec tion and content) Patient Access Registrar Relationship Specialty Start Date End Date Wolf Sims MD [address] [place], [place] [id number] PCP - General Family Practice 07/20/20 Patient Access Registrar Relationship Specialty Start Date End Date Wolf Sims MD [address] [place], [place] [id number] PCP - General Family Practice 07/20/20 Patient Access Registrar Relationship Specialty Start Date End Date Wolf Sims MD [address] [place], [place] [id number] PCP - General Family Practice 07/20/20 Patient Access Registrar Relationship Specialty Start Date End Date Wolf Sims MD [facility] [place] [address] PCP - General Family Practice 07/20/20 Patient Access Registrar Relationship Specialty Start Date End Date Wolf Sims MD [address] [place] [address], [place] [address] PCP - General Family Practice 07/20/20 Patient Access Registrar Relationship Specialty Start Date End Date Wolf Sims MD [address] [place] [address], [place] [address] PCP - General Family Practice 07/20/20 Patient Access Registrar Relationship Specialty Start Date End Date Wolf Sims MD [address] [place] [address], [place] [address] PCP - General Family Practice 07/20/20 Patient Access Registrar Relationship Specialty Start Date End Date Asha Lan, ROSITA PCP - General Nurse Practitioner 05/16/19 07/19/20 Priya Smith MD [address] [place] [address], [place] [address] PCP - General Family Medicine 03/09/21 Patient Access Registrar Relationship Specialty Start Date End Date Wolf Sims MD [address] [place] [address], [place] [address] PCP - General Family Medicine 07/20/20 Patient Access Registrar Relationship Specialty Start Date End Date Priya Smith MD [address] [place] [address] [place] [address], [place] [address] PCP - General Family Medicine 03/09/21 Patient Access Registrar Relationship Specialty Start Date End Date Priya Smith MD [address] [place] [address] [place] [address] PCP - General Family Medicine 03/09/21 Patient Access Registrar Relationship Specialty Start Date End Date Wolf Sims MD [address] [place] [address], [place] [address] PCP - General Family Medicine 07/20/20 Patient Access Registrar Relationship Specialty Start Date End Date Priya Smith MD [address] [address] [place] [address] PCP - General Family Medicine 03/09/21 Patient Access Registrar Relationship Specialty Start Date End Date Priya Smith MD [address] [place] [address] [place] [address] PCP - General Family Medicine 03/09/21 Patient Access Registrar Relationship Specialty Start Date End Date Priya Smith MD [address] [place] [address] [place] [address] PCP - General Family Medicine 03/09/21 Patient Access Registrar Relationship Specialty Start Date End Date Priya Smith MD [facility] [address] [address] [place] [address] PCP - General Family Medicine 03/09/21 Patient Access Registrar Relationship Specialty Start Date End Date Priya Smith MD [address] [place] [address] [place] [address] PCP - General Family Medicine 03/09/21 Patient Access Registrar Relationship Specialty Start Date End Date Wolf Sims MD [address] [facility] [place] [address] PCP - General Family Medicine 07/20/20 Patient Access Registrar Relationship Specialty Start Date End Date Wolf Sims MD [address] [facility] [place] [place] [address] PCP - General Family Medicine 07/20/20 Patient Access Registrar Relationship Specialty Start Date End Date Priya Smith MD [address] [place] [address] PCP - General Family Medicine 03/09/21 Patient Access Registrar Relationship Specialty [place] [address] [place] [address], [place] [address] PCP - General Family Medicine 03/09/21 Patient Access Registrar Relationship Specialty Start Date End Date Priya Smith MD [address] [address] [place] [address] PCP - General Family Medicine 03/09/21 Patient Access Registrar Relationship Specialty Start Date End Date Wolf Sims MD [address] [place] [address] PCP - General Family Medicine 07/20/20 Patient Access Registrar Relationship Specialty Start Date End Date Wolf Sims MD [address] [place] [address] PCP - General Family Medicine 07/20/20 Patient Access Registrar Relationship Specialty Start Date End Date Wolf Sims MD [address] [place] [address] PCP - General Family Medicine 07/20/20 Patient Access Registrar Relationship Specialty Start Date End Date Wolf Sims MD [address] [place] [address] PCP - General Family Medicine 07/20/20 Source Comments (unrecognize d section and content) In the event this informatio n is protected by the Federal Confidentiality of Alcohol and Drug Abuse Patient Records regulations: The Federal rules restrict any use of the information to criminally investigate or prosecute any alcohol or drug abuse patient.[facility] HealthIn the event this information is protected by the Federal Confidentiality of Alcohol and Drug Abuse Patient Records regulations: The Federal rules restrict any use of the information to criminally investigate or prosecute any alcohol or drug abuse patient.[facility] HealthIn the event this information is protected by the Federal Confidentiality of Alcohol and Drug Abuse Patient Records regulations: The Federal rules restrict any use of the information to criminally investigate or prosecute any alcohol or drug abuse patient.[facility] HealthIn the event this information is protected by the Federal Confidentiality of Alcohol and Drug Abuse Patient Records regulations: The Federal rules restrict any use of the information to criminally investigate or prosecute any alcohol or drug abuse patient.[facility] HealthIn the event this information is protected by the Federal Confidentiality of Alcohol and Drug Abuse Patient Records regulations: The Federal rules restrict any use of the information to criminally investigate or prosecute any alcohol or drug abuse patient.[facility] HealthIn the event this information is protected by the Federal Confidentiality of Alcohol and Drug Abuse Patient Records regulations: The Federal rules restrict any use of the information to criminally investigate or prosecute any alcohol or drug abuse patient.[facility] HealthIn the event this information is protected by the Federal Confidentiality of Alcohol and Drug Abuse Patient Records regulations: The Federal rules restrict any use of the information to criminally investigate or prosecute any alcohol or drug abuse patient.[facility] HealthIn the event this information is protected by the Federal Confidentiality of Alcohol and Drug Abuse Patient Records regulations: The Federal rules restrict any use of the information to criminally investigate or prosecute any alcohol or drug abuse patient.[facility] HealthIn the event this information is protected by the Federal Confidentiality of Alcohol and Drug Abuse Patient Records regulations: The Federal rules restrict any use of the information to criminally investigate or prosecute any alcohol or drug abuse patient.[facility] HealthIn the event this information is protected by the Federal Confidentiality of Alcohol and Drug Abuse Patient Records regulations: The Federal rules restrict any use of the information to criminally investigate or prosecute any alcohol or drug abuse patient.[facility] HealthIn the event this information is protected by the Federal Confidentiality of Alcohol and Drug Abuse Patient Records regulations: The Federal rules restrict any use of the information to criminally investigate or prosecute any alcohol or drug abuse patient.[facility] HealthIn the event this information is protected by the Federal Confidentiality of Alcohol and Drug Abuse Patient Records regulations: The Federal rules restrict any use of the information to criminally investigate or prosecute any alcohol or drug abuse patient.[facility] HealthIn the event this information is protected by the Federal Confidentiality of Alcohol and Drug Abuse Patient Records regulations: The Federal rules restrict any use of the information to criminally investigate or prosecute any alcohol or drug abuse patient.[facility] HealthIn the event this information is protected by the Federal Confidentiality of Alcohol and Drug Abuse Patient Records regulations: The Federal rules restrict any use of the information to criminally investigate or prosecute any alcohol or drug abuse patient.[facility] HealthIn the event this information is protected by the Federal Confidentiality of Alcohol and Drug Abuse Patient Records regulations: The Federal rules restrict any use of the information to criminally investigate or prosecute any alcohol or drug abuse patient.[facility] HealthIn the event this information is protected by the Federal Confidentiality of Alcohol and Drug Abuse Patient Records regulations: The Federal rules restrict any use of the information to criminally investigate or prosecute any alcohol or drug abuse patient.[facility] HealthIn the event this information is protected by the Federal Confidentiality of Alcohol and Drug Abuse Patient Records regulations: The Federal rules restrict any use of the information to criminally investigate or prosecute any alcohol or drug abuse patient.[facility] HealthIn the event this information is protected by the Federal Confidentiality of Alcohol and Drug Abuse Patient Records regulations: The Federal rules restrict any use of the information to criminally investigate or prosecute any alcohol or drug abuse patient.[facility] HealthIn the event this information is protected by the Federal Confidentiality of Alcohol and Drug Abuse Patient Records regulations: The Federal rules restrict any use of the information to criminally investigate or prosecute any alcohol or drug abuse patient.[facility] HealthIn the event this information is protected by the Federal Confidentiality of Alcohol and Drug Abuse Patient Records regulations: The Federal rules restrict any use of the information to criminally investigate or prosecute any alcohol or drug abuse patient.[facility] HealthIn the event this information is protected by the Federal Confidentiality of Alcohol and Drug Abuse Patient Records regulations: The Federal rules restrict any use of the information to criminally investigate or prosecute any alcohol or drug abuse patient.[facility] FOR RECORDS PERTAINING TO PATIENTS WHO ARE [...] BE BASED ON THE PRIMARY CLINICAL RECORDS. [facility] [employer] [facility]. provides no warranty or guarantee of the accuracy or completeness of information in this document.
[2023-12-04 08:51] LABS: Absolute Lymphocyte Count 2.41 X10^3/uL (0.83-4.51); Absolute Neutrophil Count 3.1 X10^3/uL (2.0-7.7); Basophil# 0.03 X10^3/uL; Basophil% 0.5 % (0-1); Eosinophils% 1.6 % (0-5); Hematocrit 46.4 % (37-47); Hemoglobin 15.5 g/dL (12.0-15.0); Lymphocyte # 2.41 X10^3/ul (0.83-4.51); Lymphocyte % 39.1 % (19-41); Mean Corp Hgb Conc 33.4 g/dL (32-36); Mean Corpuscular Hgb 29.8 pg (27.0-32.0); Mean Corpuscular Volume 89.2 fL (81-99); Mean Platelet Vol. 9.7 fl (6.2-12.0); Monocyte# 0.49 X10^3/uL; Monocyte% 7.9 % (0-10); NRBC Flagged by Analyzer 0 % (0-5); Neutrophil # 3.11 X10^3/uL (2.7-7.7); Neutrophil % 50.4 % (47-70); Platelet Count 255 K/mm3 (150-450); RBC Distribution Width CV 13.2 % (11.6-14.6); White Blood Count 6.2 K/mm3 (4.4-11.0)
[2023-12-04 09:14] LABS: AST(SGOT) 12 U/L (15-37); Alanine Aminotransfer ALT/SGPT 36 U/L (13-56); Albumin, Serum 3.9 g/dL (3.2-5.0); Alkaline Phosphatase 62 U/L (45-117); Anion Gap 2 (5-15); BUN 13 mg/dL (7-18); Calcium,Total 9.5 mg/dL (8.5-10.1); Chloride 107 mmol/L (98-107); Creatinine, Serum 0.93 mg/dL (0.55-1.02); EST Glomerular Filtration Rate 68 mL/min (>60); Est Glom Filt Rate - Afr Amer 82 mL/min (>60); Globulin 3.8 g/dL (2.2-4.2); Glucose 94 mg/dL (74-106); Potassium 3.3 mmol/L (3.5-5.1); Protein, Total 7.7 g/dL (6.4-8.2); Sodium Level 140 mmol/L (136-145)
[2023-12-05 08:11] LABS: HEPATITIS B SURFACE AG Negative (Negative); Hep C Antibodies Non Reactive (Non Reactive); Hepatitis A IgM Antibody Negative (Negative); Hepatitis B Core AB IgM Negative (Negative)
== END | disposition home or self-care (01) ==
LOC: LAB 08:12
PROVIDERS: PCP Nurse Practitioner Primary Care; Referring Provider Surgery; Visit Provider Surgery
DX: K80.10 Calculus of gallbladder with chronic cholecystitis without obstruction (principal)
CPT/HCPCS: 36415; 80053; 80074; 85025

== ENCOUNTER 2023-12-06 12:01 | Observation (INO) | payer OTHER, SELFPAY ==
[2023-12-06] VITALS (13 sets, daily range): BP systolic 107–137; BP diastolic 67–92; PULSE 79–110; RESP 16–18; TEMP 36.5–37.1; O2SAT 92–100; BMI 23.8
--- NOTE | 2023-12-06 09:15 | EKG12_ITS ---
Test Reason : PREOP Blood Pressure : / mmHG Vent. Rate : 073 BPM Atrial Rate : 073 BPM P-R Int : 170 ms QRS Dur : 066 ms QT Int : 358 ms P-R-T Axes : 060 091 036 degrees QTc Int : 394 ms Normal sinus rhythm Normal ECG No previous ECGs available Confirmed by HOWIE MURRIETA, ARELI ([id number]), film editor ERNESTO CROCKER ([id number]) on 12/08/2023 6:47:08 AM Referred By: Terry Marc Confirmed By:ARELI DENISE MD
[2023-12-06] MEDS: Lactated Ringers 1,000 ML 15 ML IV ×2 (09:52→12:37)
--- NOTE | 2023-12-06 10:27 | PCM.HP.BLA ---
History and Physical Date of Admission: 12/06/23 Visit Reasons: Gall Stones/US 11/28 [facility] Chief Complaint: gallstones/us Is patient in pain?: Yes Allergies morphine Allergy (Verified 12/04/23 07:39) Hivesniacin Allergy (Verified 12/04/23 07:39) HivesSulfa (Sulfonamide Antibiotics) Allergy (Verified 12/04/23 07:39) AngioedemaPenicillins Adverse Reaction (Verified 12/04/23 07:39) Other Medications calcium carbonate 600 mg-vitamin D3 5 mcg (200 unit) tablet 1 tab PO DAILY 11/04/22 [History Confirmed 12/04/23] cholecalciferol (vitamin D3) 25 mcg (1,000 unit) tablet (Vitamin D3) 25 mcg PO DAILY 11/04/22 [History Confirmed 12/04/23] fluoxetine 40 mg capsule (Prozac) 40 mg PO DAILY 11/04/22 [History Confirmed 11/07/22] gabapentin 100 mg capsule 100 mg PO DAILY 11/04/22 [History Confirmed 12/04/23] lisinopril 10 mg-hydrochlorothiazide 12.5 mg tablet 1 tab PO DAILY 11/04/22 [History Confirmed 12/04/23] meloxicam 7.5 mg tablet 7.5 mg PO DAILY 11/04/22 [History Confirmed 12/04/23] multivitamin 1 tab PO DAILY 11/04/22 [History Confirmed 12/04/23] norethindrone acetate 5 mg tablet 5 mg PO DAILY 11/04/22 [History Confirmed 12/04/23] omega-3 fatty acids 1,000 mg PO DAILY 11/04/22 [History Confirmed 12/04/23] omeprazole 20 mg capsule,delayed release 20 mg PO BID 11/04/22 [History Confirmed 12/04/23] magnesium 200 mg tablet 200 mg PO DAILY 12/04/23 [History Confirmed 12/04/23] [facility] Medical History (Updated 12/04/23 @ 05:[address] Terry Marc MD) Anxiety Arthritis Asthma Depression Gastric reflux History of IBS History of steroid therapy Hypertension Injury of head and neck Non-smoker Post-menopausal Spinal stenosis Wears glasses Surgical History (Updated 12/04/23 @ 07:36 by Steph Salter) H/O: hysterectomy History of esophagogastroduodenoscopy (EGD) History of knee replacement Hx of cervical discectomy Social History Smoking Status: Never smoker substance use type: does not use HPI HPI HPI: 48-year-old female was referred by Asha Jack CNP for surgical consultation regarding suspected symptomatic gallstone gallbladder disease and a written copy my surgical consult and recommendations will return to her. The patient has gastroesophageal reflux disease with esophagitis being treated with omeprazole 40 mg daily. She has been having epigastric pain. Laboratory as of November 17, 2023 performed at the [facility] demonstrates a lipase of 45 and an amylase of 69 with an AST slightly elevated at 62 and an ALT elevated at 402 with an alkaline phosphatase of 67 and a total bilirubin of 0.4. BUN was 14 and creatinine 0.88. Chart review reveals that Dr. Cuadra Friend has been assisting her and there is evidence of a previous upper endoscopy November 07, 2022 with Arango probe placement. Erosive gastropathy and candidiasis of the esophagus was noted. There is no signs of eosinophilic esophagitis. She does have a hiatal hernia. H. pylori was negative. It is of note that at the [facility] on November 28, 2023 she had an abdominal ultrasound. No focal hepatic lesions or ductal dilatation identified. This felt to be a stone filled gallbladder. No wall thickening or pericholecystic fluid. The common bile duct measures 5 mm. The patient has had problems with epigastric pain for at least a year. Particularly fatty food intolerance. Recently however the pain has gotten much more severe with almost all foods. She is also troubled by diarrhea but she does have irritable bowel syndrome. July 2023 she was started on Mounjaro. She has had 18 to 20 pound weight loss. 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 She exercises routinely. ROS General General: No weight change, appetite, fatigue, colon cancer, breast cancer or weakness HEENT HEENT: No difficulty swallowing, eye injury, eye surgery, swollen glands or hoarseness Endo Endocrine: No thyroid disease, diabetes mellitus, thyroid cancer, Hair loss, heat intolerance or cold intolerance Skin Skin: No rash or changing moles Musc Musculoskeletal: Yes arthritis; No back problems, rheumatoid arthritis, gout or joint pain Cardio Cardiovascular: Yes high blood pressure; No murmur, pacemaker, heart disease, atrial fibrillation, heart attack, heart stent, palpitations, shortness of breat with exertion or chest pain Psych Psychiatric: Yes depression and anxiety; No hearing voices Resp Respiratory: No shortness of breath, No sleep apnea, No cough, No COPD, No asthma, No emphysema and No wheezing Gastro Gastrointestinal: Yes abdominal pain, No nausea or vomiting, Yes diarrhea, No constipation, No blood in stool, Yes acid reflux, Yes hemorrhoids, No ulcers, Yes gallbladder problem and No black,tarry stools Syd Hematologic: No blood thinners, No blood disorders, No bleeding, No anemia and No blood clots Neuro Neurologic: No system reviewed and no additional complaints, except as documented, No as per HPI, No abnormal gait, No abnormal hearing, No abnormal movements, No abnormal speech, No behavioral changes, No burning sensations, No confusion, No convulsions, No disequilibrium, No dizziness, No localized weakness, No frequent falls, No headache(s), No lack of coordination, No loss of vision, No memory loss, No numbness, No other visual disturbances, No radicular pain, No restless legs, No sensory deficit, No syncope, No tingling, No tremor(s), No weakness and No other Exam Const General: cooperative, comfortable and no acute distress HENSC Head: normal to inspection Eyes General: appearance normal, both eyes and all related structures Neck Neck: normal visual inspection Resp Effort & Inspection: normal respiratory effort Auscultation: clear to auscultation bilaterally Cardio Rate: regular rate Rhythm: regular rhythm GI Inspection: normal to inspection Palpation: soft and no hepatosplenomegaly Other: No rebound or guarding. No focal mass. Musc Cervical Spine: normal cervical lordosis Skin General: no rashes or lesions noted Neuro General: patient alert, patient awake and patient oriented x3 Extrem General: no calf tenderness Psych Appearance: grossly normal Assessment and Plan Assessment and Plan (1) Cholelithiasis with chronic cholecystitis: Status: Chronic Qualifiers: Biliary obstruction: without biliary obstruction Cholelithiasis location: gallbladder Qualified Code(s): K80.10 - Calculus of gallbladder with chronic cholecystitis without obstruction Plan: I do believe that this patient's postprandial epigastric pain is secondary to symptomatic chronic cholecystitis cholelithiasis. I have discussed with her laparoscopic cholecystectomy selective cholangiography and demonstrated this to her. She is aware of the technique, benefit, risk, alternatives. I have asked her to hold her omega-3. I do want to obtain a hepatitis profile and repeat LFTs preprocedure because of her elevated ALT. Also because of that I do propose for her a laparoscopically guided needle core liver biopsy. She does plan to go to [facility] December 21, 2023. We have had a cancellation of a surgical procedure on January 03 and may elect to proceed at that time. Regarding the patient's intermittent diarrhea I have explained that that would more likely correlate with her IBS and that I do not expect those symptoms to improve. Her elevated ALT may be secondary to the Mounjaro. She did look back through her electronic records dating all the way back to 2013 and has not been able to find LFTs during that time period for comparison. She has had an opportunity to ask and have questions answered. We will try to schedule and expedite her care. I very much appreciate the kind opportunity of assisting with the surgical management. Copy: Asha Flores, FARHANA Marc M.D., F.A.C.S I have examined the patient and the H&P has been reviewed. There are no clinical changes since date of exam. Terry Marc M.D., F.A.C.S.
--- NOTE | 2023-12-06 10:28 | DCINST_ITS ---
Discharge Instructions Procedure General Surgery Diet Discharge Diet: Light diet - advance as tolerated (if you have questions about your diet instructions, please talk to you doctor.) Activity Discharge Activity: May Not Drive (for 3-5 days or while taking narcotic pain medicine.) May shower in (days): 1 Lifting Restrictions: 10 pounds Dressing / Incision Call your doctor if your incision/area has: Continuous Slow Oozing, Sudden Increased Bleeding, Increased Pain/ Swelling, Increased Redness and Foul Smelling Discharge Call your doctor if you observe: Fever of 101 or Higher Suture Line Care: Avoid Pulling/Pushing and Avoid Pinching/Bending Additional Dressing/Incision Instructions:: Change or remove dressing in 4 days. Leave steri-strips in place for 1 week. Follow Up Care Please Follow Up With: Terry Marc MD When: Call [phone] to make an appointment to be seen in about 10 days. Test Results: Test results from this visit will be discussed in further detail at your follow- up appointment, if applicable. Discharge Plan Admission Admit Date/Time: 12/06/23 12:01 Primary Reason for Your Visit: Chronic cholecystitis and cholelithiasis Attending Provider: Terry Marc Primary Care Provider: PodlogAsha medrano NP Discharge Orders/Prescriptions Prescriptions: New tramadol 50 mg tablet 50 mg PO Q6H PRN (Reason: pain) 2 Days Qty: 6 0RF Continued magnesium 200 mg tablet 200 mg PO DAILY potassium chloride 10 mEq tablet extended release 20 meq PO TID 5 Days Qty: 30 0RF fluoxetine [Prozac] 40 mg Capsule 40 mg PO DAILY meloxicam 7.5 mg Tablet 7.5 mg PO DAILY omeprazole 20 mg capsule,delayed release(DR/EC) 20 mg PO DAILY Patient Comments: Take 1 capsule by mouthVtwice daily. 1/2 hrHbefore meal. norethindrone acetate 5 mg tablet 5 mg PO DAILY Patient Comments: TAKE 1 TABLET BY MOUTHnONCE DAILY gabapentin 100 mg capsule 100 mg PO BID Patient Comments: TAKE 1 CAPSULE BY MOUTHNIN THE MORNING AND 1 CAPSULE AT BEDTIME lisinopril-hydrochlorothiazide 10-12.5 mg tablet 1 tab PO DAILY Patient Comments: Take 1 tablet by mouthEonce daily.OM multivitamin Tablet 1 tab PO DAILY calcium carbonate-vitamin D3 600 mg-5 mcg (200 unit) Tablet 1 tab PO DAILY omega-3 fatty acids Capsule 1,000 mg PO DAILY cholecalciferol (vitamin D3) [Vitamin D3] 25 mcg (1,000 unit) Tablet 25 mcg PO DAILY Referrals / Follow Up: PodlogarAsha NP, [employer] [Primary Care Provider] -
[2023-12-06] MEDS: Clindamycin 900 MG/50 ML BAG 75 MG IV (10:49)
--- NOTE | 2023-12-06 11:00 | RAD_ITS ---
STUDY: INTRAOPERATIVE CHOLANGIOGRAM. REASON FOR EXAM: Female, 48 years old. Laparoscopic cholecystectomy. FLUOROSCOPY TIME (if supplied): ( 76 seconds ) minutes/seconds. 111.89 mGy TECHNIQUE: An intraoperative cholangiogram was performed by the surgeon. Imaging was provided. COMPARISON: None. FINDINGS: Mildly dilated common bile duct and intrahepatic biliary ducts. Intraluminal filling defects are seen in the distal portion of the common bile duct suggestive of retained calculus. Contrast is seen within the duodenum. RAD/Cholangiogram/ O R,Initial IMPRESSION: Dilated intra and extrahepatic biliary ducts with findings suggestive of choledocholithiasis in the distal portion. Contrast is seen entering the duodenum. Electronically Signed: Craig Davidson MD at 15:09 EST ,
--- NOTE | 2023-12-06 11:00 | GALL_PTH ---
PATHOLOGY RESULTS PATIENT: JULISSA VALDEZ LOC: MS3 U#:[id number] AGE/SX: 48/F ROOM: [facility] RE12/06/[address]: Dr. Terry Marc MD : 1975 BED: 1 DIS: 12/07/2023 SPEC #: [id number] RECD: 12/06/23 12:51 STATUS: ESTEFANY ISSAC #: [id number] KRISTEN: 12/06/23 11:[address]: Terry Marc DEPT: SURGICAL PATHOLOGY RECD BY: Trice Blue ENTERED: 12/06/23 12:51 SP TYPE: JORY FUENTES DR: Asha Flores, SUPERVISOR [employer] Tissues: Gallbladder, NOS Procedures: Surgery Specimen Level III HEADER OPERATION: Laparoscopic cholecystectomy with IOC PRE-OP DIAGNOSIS: Cholelithiasis with chronic cholecystitis TISSUE SUBMITTED: Gallbladder MICROSCOPIC DIAGNOSIS Gallbladder, cholecystectomy: Chronic cholecystitis, cholelithiasis and cholesterolosis. SJ:susy 12/07/2023 MICROSCOPIC DESCRIPTION Slides are reviewed. GROSS DESCRIPTION Received is one container labeled with the patient's name and designated gallbladder. The specimen consists of a gallbladder measuring 8.5 cm in length and up to 3.0 cm in diameter. The external surface is pink-balderrama, smooth and glistening for the most part. Focally it is granular, hemorrhagic and contains cautery artifact. The gallbladder contains green-yellow mucoid bile and multiple, mulberry, yellowish-brown stones and stone fragment measuring in aggregate 5.0 x 4.5 x 1.0 cm and 0.1 to 1.0 cm in greatest dimension. The mucosa also shows several yellowish streaks consistent with cholesterolosis. The mucosa is bile-stained and without any mass lesions. The gallbladder wall measures up to 0.2 cm in thickness. Cooky Machine Operator sections from the gallbladder and the cystic duct are submitted in one cassette. / RICHARD:susy 12/06/2023 TC:3 CPT: 46510
[2023-12-06] MEDS: Bupivacaine Mpf 0.5% 30 ML VIAL (11:08)
--- NOTE | 2023-12-06 12:06 | OP.PCM_ITS ---
Report of Operation Date of Procedure: 12/06/23 Pre-Operative Diagnosis: Chronic cholecystitis cholelithiasis. Abnormal ALT Post-Operative Diagnosis: Chronic cholecystitis cholelithiasis and choledocholithiasis Surgery/Procedure Performed:: Laparoscopic cholecystectomy with cholangiograms Description of Surgical Findings:: Timeout informed consent was obtained. 48-year-old female was taken the operating placement table underwent general endotracheal intubation esthesia clindamycin nomogram screamed intravenously. The abdomen sterilely prepped and draped. 0.5% Marcaine was used as a local anesthetic. Throughout the procedure a total of 30 cc was used. Skin sites were preanesthetized. A supraumbilical incision was created sharp dissection carried down through subtenons balderrama tissue the fascia was incised after holding sutures of 0 Vicryl placed direct access was gained to the peritoneum a 10 mm trocar was inserted the abdomen was insufflated with CO2 to a pressure of 10 mmHg pressure 10 mm laparoscope inserted no evidence of any trocar injuries under direct visualization 5 mm ports were placed in the epigastric right upper quadrant right lateral upper quadrant. There were adhesions of omentum and ascending colon to the right anterior abdominal wall the omental adhesions had to be lysed with Pearson scissors in order to gain better visualization the patient was placed in reverse Trendelenburg position the gallbladder was distracted blunt dissection was instituted the infundibulum until clearly the cystic duct cystic artery and critical view was achieved. Hemologic clip was placed on the cystic duct stump and then an incision made in the cystic duct I did have some difficulty in an introducing a cholangiogram catheter but then was eventually successfully able to do that. I obtained fluoroscopically controlled cholangiograms. The common bile duct and intrahepatic ducts were markedly dilated. The patient received a milligram glucoma IV. Further contrast run demonstrated that appeared to be multiple stones within the Distal common bile duct. Despite some saline irrigation was not able to advance those. The cystic duct remnant was still somewhat tortuous and I had had difficulty just getting a cholangiogram inserted. At this point I felt that I would not be able to affect an efficient common bile duct exploration. I put 2 Hem-o-gorge clips on the cystic duct stump transected at the artery was secured twice proximally and distally prior to transecting it the gallbladder was dissected free from the liver bed using electrocautery. Complete hemostasis intact. No stone spillage of bile spillage. Fibular was placed in liver bed to assure hemostasis. The gallbladder is placed in a retrieval bag. The right upper quadrant is irrigated and aspirated free of excess fluid. The gallbladder was exited the umbilicus. In order to achieve that I had to slightly enlarge the fascial incision. The gallbladder was full of stones. The abdomen was allowed to deflate of the CO2. The fascia at the umbilicus proximal interrupted 0 Vicryl [id number] suture. Skin edges approximated opted for Monocryl subdermal stitches. Steri- Strips Telfa OpSite dressings applied. Sponge and instrument and needle counts were reported the surgeon to be correct Specimens gallbladder. Drains none. Blood loss minimal. No liver biopsy was pursued as the etiology for the transient elevated ALT I felt was identified with a common bile duct stone. Terry Marc M.D., F.A.C.S. Surgeon: Terry Marc Type of Anesthesia: General and Local Anesthesiologist: Brooke Garibay
--- NOTE | 2023-12-06 12:19 | PCM.PN.SRG ---
Subjective Subjective Patient had a laparoscopic cholecystectomy with intraoperative cholangiogram by Dr. Marc today. Patient was found to have multiple stones within the distal common bile duct during cholangiogram. Therefore, patient will be admitted to have an ERCP tomorrow. Objective Data Objective Data Vital Signs: Vital Signs Temp Pulse Resp BP Pulse Ox O2 Del Method 98.1 F 79 18 118/82 H 100 Room Air 12/06/23 09:48 12/06/23 09:48 12/06/23 09:48 12/06/23 09:48 12/06/23 09:48 12/06/23 09:48 Oxygen Delivery Method Room Air Weight: 130 lb 1.164 oz Body Mass Index (BMI) 23.8 Intake & Output: Intake and Output for Last 24 Hours 12/04/23 12/05/23 12/06/23 23:59 23:59 23:59 Intake Total 50 / 50 Balance 50 / 50 Assessment & Plan Assessment/Plan (1) Choledocholithiasis: PLAN: I am following this patient in conjunction with Dr. Marc and Dr. Flores. Dr. Marc will plan to admit the patient for observation and Dr. Flores will plan to perform an ERCP tomorrow with possible stent placement. Admission orders have been placed. ERCP is planned for around 12:15 pm give or take pending OR status. Plan for discharge following the ERCP procedure tomorrow. Charges/Coding Visit Charges Inpatient E&M: 84131 Subs Hosp L1 (no charge, post-op)
[2023-12-06] MEDS: Lactated Ringers 1,000 ML 75 ML IV ×2 (13:09→20:46)
[2023-12-06] MEDS: traMADol 50 MG Tablet PO (20:46)
[2023-12-06] MEDS: Ketorolac 15 MG/ML Vial IV (22:23)
[2023-12-07] VITALS (10 sets, daily range): BP systolic 104–124; BP diastolic 51–83; PULSE 70–92; RESP 14–18; TEMP 36.3–37.1; O2SAT 93–100
[2023-12-07] MEDS: Acetaminophen 325 MG Tablet 650 MG PO (02:36)
--- NOTE | 2023-12-07 06:15 | PCM.PN.SRG ---
Subjective Subjective Patient notes a sore throat. She feels somewhat bloated. She was able to get up and ambulate at least 3 different times. Objective Data Objective Data Vital Signs: Vital Signs Temp Pulse Resp BP Pulse Ox O2 Del Method O2 Flow Rate 98.7 F 77 16 104/75 95 Room Air 2 12/07/23 02:30 12/07/23 02:30 12/07/23 02:30 12/07/23 02:30 12/07/23 02:30 12/07/23 02:30 12/06/23 13:45 Oxygen Flow Rate (L/min) 2 Oxygen Delivery Method Room Air Weight: 130 lb 1.164 oz Body Mass Index (BMI) 23.8 Intake & Output: Intake and Output for Last 24 Hours 12/05/23 12/06/23 12/07/23 23:59 23:59 23:59 Intake Total 2321.25 / 2621.25 300 / 300 Balance 2321.25 / 2621.25 300 / 300 Radiography Diagnostic Testing: Radiology Impression Cholangiogram 12/06/23 11:00 IMPRESSION: Dilated intra and extrahepatic biliary ducts with findings suggestive of choledocholithiasis in the distal portion. Contrast is seen entering the duodenum. Electronically Signed: Craig Davidson MD at 15:09 EST , Physical Exam GI GI Narrative: Abdomen is soft, nontender, slight staining on the umbilical dressing but dry. Assessment & Plan Assessment/Plan (1) Choledocholithiasis: (2) Cholelithiasis with chronic cholecystitis: QUALIFIERS: Cholelithiasis location: gallbladder Biliary obstruction: without biliary obstruction Qualified Code(s): K80.10 - Calculus of gallbladder with chronic cholecystitis without obstruction PLAN: Plan Patient with chronic cholecystitis cholelithiasis successfully treated however with residual choledocholithiasis. Dr. Felix Flores to assist with a ERCP today. Terry Marc M.D., F.A.C.S.
[2023-12-07] MEDS: Ketorolac 15 MG/ML Vial IV (06:19)
[2023-12-07 07:15] LABS: Absolute Lymphocyte Count 2.18 X10^3/uL (0.83-4.51); Absolute Neutrophil Count 9.3 X10^3/uL (2.0-7.7); Basophil# 0.02 X10^3/uL; Basophil% 0.2 % (0-1); Hematocrit 39.2 % (37-47); Hemoglobin 13.1 g/dL (12.0-15.0); Lymphocyte # 2.18 X10^3/ul (0.83-4.51); Lymphocyte % 17.9 % (19-41); Mean Corp Hgb Conc 33.4 g/dL (32-36); Mean Corpuscular Hgb 30.5 pg (27.0-32.0); Mean Corpuscular Volume 91.4 fL (81-99); Mean Platelet Vol. 10.2 fl (6.2-12.0); Monocyte# 0.61 X10^3/uL; NRBC Flagged by Analyzer 0 % (0-5); Neutrophil # 9.31 X10^3/uL (2.7-7.7); Neutrophil % 76.5 % (47-70); Platelet Count 233 K/mm3 (150-450); RBC Distribution Width CV 13.2 % (11.6-14.6); RBC Distribution Width SD 44.2 fl (35.1-43.9); Red Blood Count 4.29 M/mm3 (4.2-5.4); White Blood Count 12.2 K/mm3 (4.4-11.0)
[2023-12-07 07:39] LABS: AST(SGOT) 33 U/L (15-37); Alanine Aminotransfer ALT/SGPT 79 U/L (13-56); Albumin, Serum 3.2 g/dL (3.2-5.0); Alkaline Phosphatase 49 U/L (45-117); Anion Gap 2 (5-15); BUN 11 mg/dL (7-18); BUN/Creat Ratio 11.1 RATIO (10-20); Calcium,Total 8.6 mg/dL (8.5-10.1); Chloride 106 mmol/L (98-107); EST Glomerular Filtration Rate 63 mL/min (>60); Est Glom Filt Rate - Afr Amer 76 mL/min (>60); Estimated Creatinine Clearance 53.82 ml/min; Globulin 3.1 g/dL (2.2-4.2); Glucose 94 mg/dL (74-106); Potassium 3.6 mmol/L (3.5-5.1); Protein, Total 6.3 g/dL (6.4-8.2); Sodium Level 138 mmol/L (136-145)
--- NOTE | 2023-12-07 07:46 | PCM.PN.SRG ---
Subjective Subjective I saw the patient this morning and discussed her cholangiogram with her. She is not having any complaints this morning. Objective Data Objective Data Vital Signs: Vital Signs Temp Pulse Resp BP Pulse Ox O2 Del Method O2 Flow Rate 98.2 F 83 16 116/81 H 96 Room Air 2 12/07/23 06:13 12/07/23 06:13 12/07/23 06:13 12/07/23 06:13 12/07/23 06:13 12/07/23 06:13 12/06/23 13:45 Oxygen Flow Rate (L/min) 2 Oxygen Delivery Method Room Air Weight: 130 lb 1.164 oz Body Mass Index (BMI) 23.8 Intake & Output: Intake and Output for Last 24 Hours 12/05/23 12/06/23 12/07/23 23:59 23:59 23:59 Intake Total 2321.25 / 2621.25 800 / 800 Balance 2321.25 / 2621.25 800 / 800 Lab / Micro Data 12/07/23 06:36 12/07/23 06:36 Labs: Laboratory Results - last 24 hr 12/07/23 06:36: WBC 12.2 H, RBC 4.29, Hgb 13.1, Hct 39.2, MCV 91.4, MCH 30.5, MCHC 33.4, RDW Std Deviation 44.2 H, RDW Coeff of Keke 13.2, Plt Count 233, MPV 10.2, Immature Gran % (Auto) 0.400, Neut % (Auto) 76.5 H, Lymph % (Auto) 17.9 L, Navarro % (Auto) 5.0, Eos % (Auto) 0.0, Baso % (Auto) 0.2, Absolute Neuts (auto) 9.3 H, Absolute Lymphs (auto) 2.18, Nucleated RBC % 0, Sodium 138, Potassium 3.6, Chloride 106, Carbon Dioxide 30.0, Anion Gap 2 L, BUN 11, Creatinine 1.00, Estim Creat Clear Calc 53.82, Est GFR (MDRD) Af Amer 76, Est GFR (MDRD) Non-Af 63, BUN/Creatinine Ratio 11.1, Glucose 94, Calcium 8.6, Total Bilirubin 0.70, AST 33, ALT 79 H, Alkaline Phosphatase 49, Total Protein 6.3 L, Albumin 3.2, Globulin 3.1, Albumin/Globulin Ratio 1.0 Radiography Diagnostic Testing: Radiology Impression Cholangiogram 12/06/23 11:00 IMPRESSION: Dilated intra and extrahepatic biliary ducts with findings suggestive of choledocholithiasis in the distal portion. Contrast is seen entering the duodenum. Electronically Signed: Craig Davidson MD at 15:09 EST , Physical Exam Const oriented x3 and no apparent distress Resp normal respiratory effort GI soft to palpation and non-tender Assessment & Plan Assessment/Plan (1) Choledocholithiasis: PLAN: Patient was found to have choledocholithiasis during cholangiograms. I was consulted for ERCP. I discussed this with the patient in detail this morning. I discussed the risks of the procedure such as bleeding, infection, perforation of the bile duct or bowel, pancreatitis. Patient understands the procedure and the risks and is willing to proceed. I also informed her that I may have to place a stent and that may require further surgery to remove. Plan for surgery this afternoon. Kevin Flores MD Pager: [facility] [address] [place] [address] [address] [place] [address] Office:
--- NOTE | 2023-12-07 11:45 | RAD_ITS ---
STUDY: ERCP. REASON FOR EXAM: Female, 48 years old. Retained calculi. FLUOROSCOPY TIME (if supplied): ( 54 seconds. 10.87 mGy ) minutes/seconds TECHNIQUE: Intraoperative fluoroscopic services provided for ERCP. COMPARISON: Comparison is made with prior cholangiogram dated December 06, 2023. FINDINGS: Fluoroscopic services provided for stone removal. RAD/ERCP Biliary/Pancreas IMPRESSION: Fluoroscopic services provided for stone removal. Electronically Signed: Craig Davidson MD at 14:54 EST ,
--- NOTE | 2023-12-07 13:18 | OP.ERCP_ITS ---
Patient Name: Eleni Pereira Procedure Date: 12/07/2023 12:02 PM Date of : 1975 Age: 48 Procedure: ERCP Indications: Bile duct stone(s) Providers: Kevin Flores MD Referring MD: Terry Marc MD Medicines: General Anesthesia Patient Profile: This is a 48 year old female. Refer to note in patient chart for documentation of history and physical. Complications: No immediate complications. Estimated blood loss: Minimal. Procedure: Pre-Anesthesia Assessment: - Prior to the procedure, a History and Physical was performed, and patient medications and allergies were reviewed. The patient's tolerance of previous anesthesia was also reviewed. The risks and benefits of the procedure and the sedation options and risks were discussed with the patient. All questions were answered, and informed consent was obtained. Prior Anticoagulants: The patient has taken no anticoagulant or antiplatelet agents. After reviewing the risks and benefits, the patient was deemed in satisfactory condition to undergo the procedure. After obtaining informed consent, the scope was passed under direct vision. Throughout the procedure, the patient's blood pressure, pulse, and oxygen saturations were monitored continuously. The Duodenoscope was introduced through the mouth, and advanced to the duodenum and used to inject contrast into the bile duct. The ERCP was accomplished without difficulty. The patient tolerated the procedure well. Scope In: 12:47:32 PM Scope Out: 1:01:45 PM Total Procedure Duration Time 0 hours 14 minutes 13 seconds Findings: A 0.035 inch x 260 cm straight Dreamwire was passed into the ventral pancreatic duct. A 0.035 inch x 260 cm straight Dreamwire was passed into the biliary tree. The sphincterotome was passed over the guidewire and the bile duct was then deeply cannulated. Contrast was injected. The lower third of the main bile duct contained multiple stones. The main bile duct was dilated, with an obstruction. Biliary sphincterotomy was made with a monofilament sphincterotome using ERBE electrocautery. There was no post-sphincterotomy bleeding. The biliary tree was swept with a 12 mm balloon starting at the bifurcation. All stones were removed. The endoscope was withdrawn from the patient. Impression: - The entire main bile duct was dilated, with an obstruction. - Choledocholithiasis was found. Complete removal was accomplished by biliary sphincterotomy and balloon extraction. - A biliary sphincterotomy was performed. - The biliary tree was swept. Recommendation: - [facility] care. Procedure Code(s): --- Professional --- 16183, Endoscopic retrograde cholangiopancreatography (ERCP); with removal of calculi/debris from biliary/pancreatic duct(s) 33668, Endoscopic retrograde cholangiopancreatography (ERCP); with sphincterotomy/papillotomy Diagnosis Code(s): --- Professional --- K83.1, Obstruction of bile duct K80.50, Calculus of bile duct without cholangitis or cholecystitis without obstruction CPT copyright 2021 [employer]. All rights reserved. The codes documented in this report are preliminary and upon beauty sales consultant review may be revised to meet current compliance requirements. Kevin Flores MD 12/07/2023 1:17:47 PM This report has been signed electronically. Number of Addenda: 0 Note Initiated On: 12/07/2023 12:02 PM
--- NOTE | 2023-12-07 13:18 | OP.CCLET_ITS ---
12/07/2023 Asha Podlogar Re : ERCP procedure for Eleni Pereira Dear Podlogar This procedure was performed on November. My impressions and recommendations are as follows: Impressions : - The entire main bile duct was dilated, with an obstruction. - Choledocholithiasis was found. Complete removal was accomplished by biliary sphincterotomy and balloon extraction. - A biliary sphincterotomy was performed. - The biliary tree was swept. Recommendations : - [facility] care. My findings are described in the full procedure note, which is enclosed. If I can be of further assistance, please feel free to contact me at Doctor phone number(s): , Work: . Sincerely, Kevin Flores MD 12/07/2023 1:17:47 PM This report has been signed electronically.
--- NOTE | 2023-12-07 15:34 | PN.SURG_ITS ---
Objective Data Objective Data Vital Signs: Vital Signs Temp Pulse Resp BP Pulse Ox O2 Del Method O2 Flow Rate 97.3 F L 86 18 104/83 H 98 Room Air 2 12/07/23 14:10 12/07/23 14:10 12/07/23 14:10 12/07/23 14:10 12/07/23 14:10 12/07/23 14:10 12/07/23 13:15 Oxygen Flow Rate (L/min) 2 Oxygen Delivery Method Room Air Weight: 130 lb 1.164 oz Body Mass Index (BMI) 23.8 Intake & Output: Intake and Output for Last 24 Hours 12/05/23 12/06/23 12/07/23 23:59 23:59 23:59 Intake Total 2321.25 / 2621.25 1300 / 1300 Balance 2321.25 / 2621.25 1300 / 1300 Lab / Micro Data 12/07/23 06:36 12/07/23 06:36 Labs: Laboratory Results - last 24 hr 12/07/23 06:36: WBC 12.2 H, RBC 4.29, Hgb 13.1, Hct 39.2, MCV 91.4, MCH 30.5, MCHC 33.4, RDW Std Deviation 44.2 H, RDW Coeff of Keke 13.2, Plt Count 233, MPV 10.2, Immature Gran % (Auto) 0.400, Neut % (Auto) 76.5 H, Lymph % (Auto) 17.9 L, [place] % (Auto) 5.0, Eos % (Auto) 0.0, Baso % (Auto) 0.2, Absolute Neuts (auto) 9.3 H, Absolute Lymphs (auto) 2.18, Nucleated RBC % 0, Sodium 138, Potassium 3.6, Chloride 106, Carbon Dioxide 30.0, Anion Gap 2 L, BUN 11, Creatinine 1.00, Estim Creat Clear Calc 53.82, Est GFR (MDRD) Af Amer 76, Est GFR (MDRD) Non-Af 63, BUN/Creatinine Ratio 11.1, Glucose 94, Calcium 8.6, Total Bilirubin 0.70, AST 33, ALT 79 H, Alkaline Phosphatase 49, Total Protein 6.3 L, Albumin 3.2, Globulin 3.1, Albumin/Globulin Ratio 1.0 Radiography Diagnostic Testing: Radiology Impression Endo Retro Cholangiopancreatogram 12/07/23 11:45 IMPRESSION: Fluoroscopic services provided for stone removal. Electronically Signed: Craig Davidson MD at 14:54 EST , Assessment & Plan Assessment/Plan (1) Choledocholithiasis: PLAN: Patient is s/p laparoscopic cholecystectomy with Dr. Marc and s/p ERCP with stent placement with Dr. Flores. Patient is recovering well. She notes abdominal bloating. She denies nausea, vomiting. She is tolerating her current diet. She is ready for discharge and has met discharge criteria. Post-operative instructions were discussed and all questions were answered. Charges/Coding Visit Charges Inpatient E&M: 67490 Subs Hosp L1 (No charge; post-op)
== END 2023-12-07 16:48 | disposition home or self-care (01) ==
LOC: SDC 13:48 → MS3 13:48
PROVIDERS: Physician Assistant; Surgery; Admitting Provider Surgery; PCP Nurse Practitioner Primary Care; Referring Provider Surgery; Visit Provider Surgery
PROC: (CPT 47610; principal; 2023-12-06 10:40)
DX: K80.64 Calculus of gallbladder and bile duct with chronic cholecystitis without obstruction (principal); K21.9 Gastro-esophageal reflux disease without esophagitis; K58.0 Irritable bowel syndrome with diarrhea; I10 Essential (primary) hypertension; Z79.899 Other long term (current) drug therapy
CPT/HCPCS: 47563; 00790; 43264; 43262; 00732; 74300; 74330; 76000; 80053; 85025; 88304; 93005; 94668; 96361; 96374; 96376; 99221; 99252; J7120; G0378; G0463; J0330; J1610; J2405

== ENCOUNTER → 2023-12-14 | Outpatient (CLI) | payer OTHER, SELFPAY ==
[2023-12-14 09:23] LABS: Absolute Lymphocyte Count 3.27 X10^3/uL (0.83-4.51); Absolute Neutrophil Count 4.6 X10^3/uL (2.0-7.7); Basophil# 0.04 X10^3/uL; Basophil% 0.4 % (0-1); Eosinophil# 0.52 X10^3/uL; Eosinophils% 5.7 % (0-5); Hematocrit 42.2 % (37-47); Hemoglobin 14.3 g/dL (12.0-15.0); Lymphocyte # 3.27 X10^3/ul (0.83-4.51); Lymphocyte % 35.9 % (19-41); Mean Corp Hgb Conc 33.9 g/dL (32-36); Mean Corpuscular Hgb 30.7 pg (27.0-32.0); Mean Corpuscular Volume 90.6 fL (81-99); Mean Platelet Vol. 9.7 fl (6.2-12.0); Monocyte# 0.64 X10^3/uL; NRBC Flagged by Analyzer 0 % (0-5); Neutrophil # 4.59 X10^3/uL (2.7-7.7); Neutrophil % 50.3 % (47-70); Platelet Count 265 K/mm3 (150-450); RBC Distribution Width CV 13.6 % (11.6-14.6); RBC Distribution Width SD 44.5 fl (35.1-43.9); Red Blood Count 4.66 M/mm3 (4.2-5.4); White Blood Count 9.1 K/mm3 (4.4-11.0)
--- OUTSIDE RECORDS SUMMARY | 2023-12-14 09:42 | XMS RPT_ITS | CCD ---
Author Name Unknown Address [address] [place] [address] Organization [facility] Care Team Providers Care Administrative Assistant Office Manager Name Role Phone Priya Smith Unavailable Mindi [...] Maloney Unavailable Asha Lan Primary Care Provider [phone] Katia Maloney Unavailable Priya Smith MD Primary [...] Care Unavailable WOLF SIMS Primary Care Unavailab malean MUINRCLEMENTINA Oseguera Attending Unavailable WOLF SIMS Primary Care Unavailab le PODLOGASHA VERDIN Attending Unavailable WOLF SIMS Primary Care Unavailab TACOS Guadarrama Referring Unavailable WOLF SIMS Primary Care Unavailab WOLF Avery Primary Care Unavailab TACOS Guadarrama Attending Unavailable WOLF SIMS Primary Care Unavailab le PODLOGARASHA Attending Unavailable Allergies Allergy Classification Reported Allergen(s) Allergy Type Date of Onset Reaction(s) Facility Niacin (3 sources) Niacin Drug Allergy 6 [facility] Opioid Agonists (3 sources) Morphine Drug Allergy 6 Itching [facility] Penicillins (antibiotic) (3 sources) Penicillins Drug Allergy 6 [facility] Sulfonamides (antibiotic) (3 sources) Sulfonamides (Antibiotic) Drug Allergy 6 Swelling [facility] (20 sources) morphine; Translations: [MORPHINE] Propensity to adverse reactions to drug 1 Itching [facility] Work Phone: (20 sources) niacin; Translations: [NIACIN] Propensity to adverse reactions to drug 3 Other: See Comments [facility] Work Phone: (20 sources) Penicillins; Translations: [PENICILLINS] Propensity to adverse reactions to drug 200 9 [facility] Work Phone: (20 sources) Sulfonamides (Antibiotic); Translations: [SULFA (SULFONAMIDE ANTIBIOTICS)] Propensity to adverse reactions to drug 08-07-200 9 Swelling [facility] Work Phone: (5 sources) Penicillins Propensity to adverse reactions 200 9 Intolerance [facility] (20 sources) Sulfonamides (Antibiotic) Propensity to adverse reactions 200 9 Swelling [facility] (20 sources) Penicillins Propensity to adverse reactions 200 9 Intolerance [facility] Medications Current Medications Medication Drug Class(es) Dates [...] teeth and supporting structures] Episodic Esophageal disorders (11 sources) Gastro-esophageal reflux disease with esophagitis; Translations: [...] Onset: 04-10-2023 Chronic Other connective tissue disease (8 sources) Artificial knee joint present; Translations: [Presence [...] 59.42 kg Tacos Hebert APRN.CNP Work Phone: [facility] 11-17-2023 09:44-0500 Diastolic blood pressure 77 mm[Hg] Tacos Hebert APRN.CNP Work Phone: [facility] 11-17-2023 09:44-0500 Heart rate 83 /min Tacos Hebert MEDICAL SUPPORT ASSISTANT.CAMPAIGN MANAGER Work Phone: [facility] 11-17-2023 09:44-0500 Respiratory rate 14 /min Tacos Hebert MEDICAL SUPPORT ASSISTANT.CAMPAIGN MANAGER Work Phone: [facility] 11-17-2023 09:44-0500 Systolic blood pressure 111 mm[Hg] Tacos Hebert MEDICAL SUPPORT ASSISTANT.CAMPAIGN MANAGER Work Phone: [facility] 09-13-2023 09:05-0500 Body height 158.8 cm Shruti Clayton CAMPAIGN MANAGER Work Phone: [facility] 09-13-2023 09:05-0500 Body mass index (BMI) [Ratio] 24.66 kg/m2 Shruti Clayton CAMPAIGN MANAGER Work Phone: [facility] 09-13-2023 09:05-0500 Body weight 62.14 kg Shruti Arnold CAMPAIGN MANAGER Work Phone: [facility] 05-16-2023 13:06-0400 Body height 153 cm Clementina Munir MEDICAL SUPPORT ASSISTANT.CAMPAIGN MANAGER Work Phone: [facility] 05-16-2023 13:06-0400 Body weight 64.41 kg Clementina Munir MEDICAL SUPPORT ASSISTANT.CAMPAIGN MANAGER Work Phone: [facility] 05-16-2023 13:06-0400 Diastolic blood pressure 78 mm[Hg] Clementina Munir MEDICAL SUPPORT ASSISTANT.CAMPAIGN MANAGER Work Phone: [facility] 05-16-2023 13:06-0400 Systolic blood pressure 112 mm[Hg] Clementina Munir MEDICAL SUPPORT ASSISTANT.CAMPAIGN MANAGER Work Phone: [facility] 03-23-2023 09:45-0400 Body height 157.5 cm Vannesa Randolph MD Work Phone: [facility] 03-23-2023 09:45-0400 Body mass index (BMI) [Ratio] 26.41 kg/m2 Vannesa Randolph MD Work Phone: [facility] 03-23-2023 09:45-0400 Body weight 65.5 kg Vannesa Work Phone: [facility] 03-23-2023 09:45-0400 Diastolic blood pressure 82 mm[Hg] Vannesa Work Phone: [facility] 03-23-2023 09:45-0400 Heart rate 75 /min Work Phone: [facility] 03-23-2023 09:45-0400 SaO2% (BldA) [Mass fraction] 100 % Work Phone: [facility] 03-23-2023 09:45-0400 Systolic blood pressure 115 mm[Hg] Vannesa Work Phone: [facility] 03-18-2023 08:16-0400 Body temperature 98.71 [degF] Chanda Older MEDICAL SUPPORT ASSISTANT.CAMPAIGN MANAGER Work Phone: [facility] 03-18-2023 08:16-0400 Body weight 65.77 kg Chanda Older MEDICAL SUPPORT ASSISTANT.CAMPAIGN MANAGER Work Phone: [facility] 03-18-2023 08:16-0400 Diastolic blood pressure 82 mm[Hg] Chanda Older MEDICAL SUPPORT ASSISTANT.CAMPAIGN MANAGER Work Phone: [facility] 03-18-2023 08:16-0400 Heart rate 77 /min Chanda Older MEDICAL SUPPORT ASSISTANT.CAMPAIGN MANAGER Work Phone: [facility] 03-18-2023 08:16-0400 Respiratory rate 16 /min Chanda Older MEDICAL SUPPORT ASSISTANT.CAMPAIGN MANAGER Work Phone: [facility] 03-18-2023 08:16-0400 SaO2% (BldA) [Mass fraction] 96 % Chanda Older MEDICAL SUPPORT ASSISTANT.CAMPAIGN MANAGER Work Phone: [facility] 03-18-2023 08:16-0400 Systolic blood pressure 136 mm[Hg] Chanda Older MEDICAL SUPPORT ASSISTANT.CAMPAIGN MANAGER Work Phone: [facility] 04-20-2022 07:40-0400 Body height 159 cm Asha Podlogar MEDICAL SUPPORT ASSISTANT.CAMPAIGN MANAGER Work Phone: [facility] 04-20-2022 07:40-0400 Body weight 64.86 kg Asha Podlogar MEDICAL SUPPORT ASSISTANT.CAMPAIGN MANAGER Work Phone: [facility] 04-20-2022 07:40-0400 Diastolic blood pressure 82 mm[Hg] Asha Podlogar MEDICAL SUPPORT ASSISTANT.CAMPAIGN MANAGER Work Phone: [facility] 04-20-2022 07:40-0400 Heart rate 78 /min Asha Podlogar MEDICAL SUPPORT ASSISTANT.CAMPAIGN MANAGER Work Phone: [facility] 04-20-2022 07:40-0400 Respiratory rate 14 /min Asha Podlogar MEDICAL SUPPORT ASSISTANT.CAMPAIGN MANAGER Work Phone: [facility] 04-20-2022 07:40-0400 Systolic blood pressure 118 mm[Hg] Asha Podlogar MEDICAL SUPPORT ASSISTANT.CAMPAIGN MANAGER Work Phone: [facility] 04-08-2022 08:28-0400 Body weight 64.41 kg Asha Podlogar MEDICAL SUPPORT ASSISTANT.CAMPAIGN MANAGER Work Phone: [facility] 04-08-2022 08:28-0400 Diastolic blood pressure 76 mm[Hg] Asha Podlogar MEDICAL SUPPORT ASSISTANT.CAMPAIGN MANAGER Work Phone: [facility] 04-08-2022 08:28-0400 Heart rate 80 /min Asha Podlogar MEDICAL SUPPORT ASSISTANT.CAMPAIGN MANAGER Work Phone: [facility] 04-08-2022 08:28-0400 SaO2% (BldA) [Mass fraction] 98 % Asha Podlogar MEDICAL SUPPORT ASSISTANT.CAMPAIGN MANAGER Work Phone: [facility] 04-08-2022 08:28-0400 Systolic blood pressure 114 mm[Hg] Asha Podlogar MEDICAL SUPPORT ASSISTANT.CAMPAIGN MANAGER Work Phone: [facility] 03-09-2021 10:18-0400 Body height 160 cm Shruti Arnold CAMPAIGN MANAGER Work Phone: [facility] 03-09-2021 10:18-0400 Body mass index (BMI) [Ratio] 24.27 kg/m2 Shruti Arnold CNP Work Phone: [facility] 03-09-2021 10:18-0400 Body weight 62.14 kg Shruti Arnold CAMPAIGN MANAGER Work Phone: [facility] 10-22-2019 10:38-0500 BP Diastolic 99 mm[Hg] Asha [facility] 10-22-2019 10:38-0500 BP Systolic 145 mm[Hg] Asha [facility] 10-22-2019 10:36-0500 BMI (Body Mass Index) 28.54 kg/m2 Asha [facility] 10-22-2019 10:36-0500 Body Temperature 98.6 [degF] Asha [facility] 10-22-2019 10:36-0500 Body weight 73.[address] [facility] 10-22-2019 10:36-0500 Pulse (Heart Rate) 74 /min Asha [facility] 10-22-2019 10:36-0500 Pulse Oximetry 97 % [facility] 10-22-2019 10:36-0500 Respiratory Rate 16 /min Asha [facility] 09-05-2019 13:58-0500 BMI (Body Mass Index) 28.52 kg/m2 [facility] 09-05-2019 13:58-0500 Body weight 73.03 kg [facility] 09-05-2019 13:58-0500 BP Diastolic 85 mm[Hg] [facility] 09-05-2019 13:58-0500 BP Systolic 138 mm[Hg] [facility] 09-05-2019 13:58-0500 Height 160 cm [facility] 09-05-2019 13:58-0500 Pulse (Heart Rate) 86 /min [facility] 05-17-2019 10:19-0400 BP Diastolic 76 mm[Hg] Asha [facility] 05-17-2019 10:19-0400 BP Systolic 134 mm[Hg] [facility] 05-17-[facility] 10:02-0400 BMI (Body Mass Index) 28.68 kg/m2 Asha [facility] 05-17-2019 10:02-0400 Body Temperature 97.9 [degF] Asha Lan [facility] 05-17-2019 10:02-0400 Body weight 73.44 kg Asha Lan [facility] 05-17-2019 10:02-0400 Pulse (Heart Rate) 88 /min Asha Lan [facility] 05-17-2019 10:02-0400 Pulse Oximetry 95 % Asha Lan [facility] 05-17-2019 10:02-0400 Respiratory Rate 16 /min Asha Lan [facility] 02-25-2019 14:42-0400 BMI (Body Mass Index) 28.87 kg/m2 Garry Burger [facility] 02-25-2019 14:42-0400 Body weight 73.94 kg Garry Burger [facility] 02-25-2019 14:42-0400 Height 160 cm Garry Burger [facility] 12-21-2018 13:18-0500 BMI (Body Mass Index) 28.87 kg/m2 Vince [facility] 12-21-2018 13:18-0500 Body Temperature 98.91 [degF] Vince Leggett [facility] 12-21-2018 13:18-0500 BP Diastolic 95 mm[Hg] [facility] 12-21-2018 13:18-0500 BP Systolic 133 mm[Hg] Vince [facility] 12-21-2018 13:18-0500 Height 160 cm [facility] 12-21-2018 13:18-0500 Pulse (Heart Rate) 87 /min [facility] 12-21-2018 13:18-0500 Pulse Oximetry 96 % [facility] 12-21-2018 13:18-0500 Respiratory Rate 16 /min [facility] 12-21-2018 13:18-0500 Weight 73.94 kg [facility] Encounters Encounter Date Encounter Type Care Provider Facility Start: 12-08-2023 Refill Asha Podlogar MEDICAL SUPPORT ASSISTANT.CAMPAIGN MANAGER Work Phone: [facility] [place] Procedures Date Procedure Procedure Detail Performing Clinician Start: 09-13-2023 Arthrocentesis aspir &/inj major jt/bursa w/o Shruti Arnold CAMPAIGN MANAGER Work Phone: Start: 04-20-2022 Skin test tuberculos is intradermal Asha Podlogar MEDICAL SUPPORT ASSISTANT.CAMPAIGN MANAGER Work Phone: Start: 12-29-2020 Lipid 1996 panel - S lakeisha or Plasma Wolf Sims MD Work Phone: Start: 06-09-2020 Mammography Landry Sims MD Work Phone: Start: 2020 Arthrocentesis Shruti A [employer] Work Phone: Start: 12-30-2019 Arthrocentesis Shruti A Neul Work Phone: Start: 10-29-2019 Transvaginal ultraso nography [...] [facility] Start: 04-19-2028 Urine microalbumin profile [facility] Start: 11-17-2026 Diabetes Screening Diabetes Screenin [facility] Start: 03-23-2026 Diabetes Screening Diabetes Screenin g [facility] Start: 12-29-2025 Lipid panel Lipid Screening [facility] Start: 12-29-2025 LIPID SCREEN LIPID SCREEN [facility] Start: 05-10-2025 COLOGUARD (FIT-DNA) COLOGUARD (FIT-D NA) [facility] Start: 05-10-2025 COLORECTAL CANCER SCREENING COLORECTAL CANCER SCREENING [facility] Start: 05-10-2025 Screening for malign ant neoplasm of colon [facility] Start: 11-17-2024 Annual PCP Team Pressfitter martha Disease Visit Annual PCP Team Chronic Disease Visit [facility] Start: 11-17-2024 BP Controlled (<130/80) BP Controlle d (<130/80) [facility] Start: 10-30-2024 Annual PCP Team Pressfitter martha Disease Visit Annual PCP Team Chronic Disease Visit [facility] Start: 10-30-2024 Covid-19 Vaccine ( season) Covid-19 Vaccine () [facility] Immunizations Immunization Date Immunization Notes Care Provider Arielle sparks 08-18-2021 influenza, seasonal, injectable, preservative free Wolf Sims MD Work Phone: [facility] 08-03-2020 influenza, seasonal, injectable, preservative free Wolf Sims MD Work Phone: [facility] 04-19-2018 tetanus and diphther ia toxoids, adsorbed, preservative free, for adult use (5 Lf of tetanus toxoid and 2 Lf of diphtheria toxoid) [facility] 07-18-2016 influenza, injectabl e, quadrivalent, contains preservative [facility] 07-16-2014 influenza, seasonal, injectable [facility] 05-24-2011 tetanus toxoid, redu mariana diphtheria toxoid, and acellular pertussis vaccine, adsorbed [facility] 04-29-2004 measles, mumps and rubella virus vaccine Asha [facility] 01-09-2004 hepatitis B vaccine, adult dosage Asha [facility] 08-05-2003 hepatitis B vaccine, adult dosage Asha [facility] 07-01-2003 hepatitis B vaccine, adult dosage [facility] 07-11-1978 measles, mumps and rubella virus vaccine [facility] Payers Date Payer Category Payer Private Health Insurance [id number] 2022 Private Health Insurance [id number] 2019 Private Health Insurance AETNA AETNA CHOICE POS/POSII/PREMIER CARE/PREMIER CARE PLUS xxxxxxxxxx 2019-Present xxxxxxxxxx [id number] 2019 Unknown MMO MED MUTUAL S UPERMED PPO xxxxxxxxxxxx 2019-Present xxxxxxxxxxxx [id number] 2019 Unknown [id number] 2019 Unknown [id number] 2016 Unknown xxxxxxxxx [id number] 3 2016 Unknown [id number] 3 1974 Unknown [id number] .90 1974 Unknown [id number] .90 1974 Unknown [id number] .90 1974 Unknown [id number] .90 1974 Unknown [id number] .90 1974 Unknown [id number] 1974 Unknown [id number] .90 1974 Unknown [id number] 1974 Unknown [id number] [id number] 1974 Unknown [id number] 1974 Unknown [id number] 1974 Unknown [id number] Unknown [id number] Social History Date Type Detail Facility Start: 11-29-2016 End: 03-18-2023 Tobacco smoking status INIS Never smoker [facility] Work Phone: Start: 1975 Sex Assigned At Not on file [facility] Work Phone: Start: 05-17-2019 End: 04-20-2022 History SDOH Social Connections Phone 5 [facility] Start: 05-17-2019 End: 04-20-2022 History SDOH Social Connections Get Together 2 [facility] Start: 05-17-2019 End: 04-20-2022 History SDOH Social Connections Catholic 3 [facility] Start: 05-17-2019 End: 04-20-2022 History SDOH Social Connections Membership 1 [facility] Start: 05-17-2019 History SDOH Physical Activity DPW 0 [facility] Start: 05-17-2019 History SDOH Education 17 [facility] Start: 10-27-2019 End: 09-13-2023 Alcohol intake Ex-drinker (finding) [facility] Start: 2020 End: 03-18-2023 Tobacco use and exposure Never used [facility] Start: 04-10-2022 End: 11-18-2022 Exposure to SARS-CoV-2 (event) Not sure [facility] Start: 12-28-2021 End: 10-30-2023 Alcohol intake Current non-drinker of alcohol (finding) [facility] Start: 1975 Sex Assigned At Female [facility] Start: 05-17-2019 End: 05-08-2023 History of Social function [facility] Start: 05-17-2019 End: 05-08-2023 Humiliation, Afraid, Rape, and Kick questionnaire [HARK] [facility] Fear of Current or Ex-Partner No [facility] Start: 07-30-2018 Gender identity Identifies as female gender (finding) [facility] Start: 07-30-2018 Sexual orientation Heterosexual (finding) [facility] Do you belong to any clubs or organizations such as rastafari groups, unions, [email or web address] or athletic groups, or school groups? Yes [facility] Are you now , , , , never or living with a partner? [facility] How often to you hav e a drink containing alcohol? Never [facility] Do you feel stress - tense, restless, nervous, or anxious, or unable to sleep at night because your mind is troubled all the time - these days [OSQ] Only a little [facility] (I/We) worried wheth er (my/our) food would run out before (I/we) got money to buy more. Never true [facility] In the past 12 month s, was there a time when you were not able to pay the mortgage or rent on time? No [facility] Do you feel stress - tense, restless, nervous, or anxious, or unable to sleep at night because your mind is troubled all the time - these days [OSQ] Not at all [facility] Medical Equipment Procedure Code Equipment Code Equipment Origin al Text Equipment Identifier Dates Component 3 Fem Rm/Ll [facility] - [id number] [facility] Start: 04-10-2023 Clinical Notes 03-09-2021 to 12-08-2023 Telephone Encounter - Laurel Kinney Ma - 12/08/2023 1:55 PM ESTTelephone Encounter - Chrissie Pepper LPN - 12/01/2023 3:31 PM ESTTelephone Encounter - Priti Hoang RN - 12/01/2023 2:11 PM EST Note Date & Type Note Facility 12-08-2023 Miscellaneous Notes Patient has been identified by name and date of : Yes, Provider Wolf Sims MD Date December 08, 2023 Time 1:56 PM Patient phones for refill(s): Requested Prescriptions Pending Prescriptions Disp Refills venlafaxine ER (EFFEXOR XR) 75 mg 24 hr capsule 90 capsule 1 Sig: Take 1 capsule by mouth once daily. Date of last office visit in primary care: 11/17/2023 Date of next office visit in primary care: 04/29/2024 Please advise. Thank you. Laurel Kinney Ma. documented in this encounter [facility] 12-01-2023 Miscellaneous Notes All pages resent. Komal- [facility] - reports she received pages 1-3 & 8-11. Reports pages 4-7 are missing from the fax pcp office sent to them. Please refax page 4-7 to fax # [phone] Faxed recent lab results to [facility] per request documented in this encounter [facility] 12-01-2023 Miscellaneous Notes Patient calling asking to have information faxed to Dr Marc and Lorena office at [phone]. Printed items and faxed as requested. Pt called and is notified of providers message. Pt voices understanding. Kori Stover RN Order placed, please fax to [facility]. I did not see her for this problem. Looks like Tacos did-please send message to her Asha Flores APRN.FARHANA Patient calling, states that she saw her results of her US. She is requesting a referral to the [facility]. Asking if this can be sent so she is able to get scheduled with them. Please advise. documented in this encounter [facility] 11-29-2023 Note HNO ID: [id number] Author: OZ HUERTA LPN Service: ? Author Type: LICENSED NURSE Type: Progress Notes Filed: 11/29/2023 11:04 Note Text: Scan on 11/29/2023 7:27 AM by ProviderYanira PA-C: Ultrasound [facility] 11-29-2023 History of Present illness Narrative Scan on 11/29/2023 7:27 AM by ProviderYanira PA-C: Ultrasound documented in this encounter [facility] 11-21-2023 Miscellaneous Notes Called and left a voicemail for the Patient to call back and ask for a nurse to receive the providers message. Kori Stover, ROSITA Please let patient know her liver enzymes are elevated and patient needs to schedule US. documented in this encounter [facility] 11-17-2023 Note HNO ID: [id number] Author: TACOS HEBERT APRN.CNP Service: ? Author Type: Nurse Practitioner [...] ANTERIOR DISCECTOMY cervical EGD 11/08/2016 Dr. [facility] OOPHORECTOMY PARTIAL/TOTAL UNI/BI Oophorectomy, RT and tube SINUS SURGERY HX 02/2015 TOTAL ABDOMINAL HYSTERECT W/WO RMVL TUBE OVARY 2009 Hysterectomy, RACIEL Family History FAMILY HISTORY Problem [...] AMYLASE BLD - LIPASE BLD Tacos Hebert APRN.[facility] 11-17-2023 History of Present illness Narrative Chief [...] Date ANTERIOR DISCECTOMY [facility] PART[facility]/TOTAL UNI/BI Oophorectomy, RT and tube [...] on 06/09/2021 Spirometry due on 10/30/2024 Covid-19 Vaccine() due on 10/30/2024 Pneumococcal Vaccine(1 of 2 [...] AMYLASE BLD - LIPASE BLD Tacos Hebert APRN.CAMPAIGN MANAGER documented in this encounter [facility] 11-16-2023 Miscellaneous Notes Patient calls to request medication for indigestion. Contacted enamel dipper who can't get her in until December. [...] cough. 11. : NA Protocols used: Chest [id number] documented in this encounter [facility] 10-30-2023 Note HNO ID: [id number] Author: ASHA FLORES APRN.FARHANA Service: ? Author Type: Nurse Practitioner [...] Spirometry due on 10/30/2024 Covid-19 Vaccine( - 2022- season) due on 10/30/2024 Pneumococcal Vaccine(1 of [...] V77.91, ICD10: Z13.220 - LIPID PANEL GORDO Flores APRN.CAMPAIGN MANAGER Prescription instructions reviewed with patient as applicable. [...] which included preparing to see the patient, [id number] patient care, completing clinical documentation, obtaining and/or reviewing separately obtained history, performing a medically appropriate examination, counseling and educating the patient/family/caregiver, and ordering medications, tests, or procedures. [facility] 09-13-2023 History of Present illness Narrative Associated Order(s): LG Jt Injection/Arthrocentesis: R greater trochanteric bursa Post-Procedure Diagnose(s): Trochanteric bursitis of right hip [facility] [address] [facility] [address] [facility] [id number] Chief Complaint Patient presents with Right Hip - Pain Eleni Pereira returns to the office today for right [...] replacement; Surgeon: Garry Burger MD; Location: Main OR; Service: Orthopedic BREAST [...] 0 min Stress: Stress Concern Present (05/17/2019) [employer] - Occupational Stress Questionnaire Feeling of Stress : To some extent Social Connections: Socially Integrated (05/17/2019) Social Connection and Isolation Panel [NHANES] Frequency of Communication with Friends and Family: More than three times a week Frequency of Social Gatherings with Friends and Family: Once a week Attends Shinto Services: More than 4 times per year [...] CNP Authorized by: Shruti Arnold CNP CPT 66824 - Large Joint Arthrocentesis: Consent given by: [...] no immediate complications documented in this encounter [facility] 08-17-2023 History of Present illness Narrative Eleni called today states she has been having some right sided hip pain, not in her buttocks or groin. It does hurt to lay on the right side. She denies any injury. She would like to see Shruti Arnold NP. The call center will tanner her an appointment. documented in this encounter [facility] 05-23-2023 Telephone encounter Note Patient requested refill for pain medication and Flexeril. Surgery 04/10 right partial medial knee replacement , last fill 04/28. [facility] 05-23-2023 Miscellaneous Notes Patient requested refill for pain medication and Flexeril. Surgery 04/10 right partial medial knee replacement , last fill 04/28. documented in this encounter [facility] 05-16-2023 Note HNO ID: [id number] Author: Clementina Hall APRN.CAMPAIGN MANAGER Service: ? Author Type: Nurse Practitioner Type: Progress Notes Filed: 05/16/2023 1:31 PM Note Text: Psychiatric Assistant offered: Patient declines. Knowles is a 47 year old who presents for an annual gynecologic exam without complaints. Menses: n/a s/p hysterectomy. Contraception: hysterectomy HPV vaccine: No Last Pap: 05/09/2005 normal HPV: negative History of abnormal pap: No Last mammogram: 2022normal @ [facility] Sexually active: No OB History T2 L2 SAB0 IAB0 Ectopic0 Multiple0 Live Births0 Emd Teacher History LMP: 03/16/2010, Hysterectomy Age at Menarche: Age at First : Age at Menopause: Emd Teacher History Comments: Sexual Activity: Yes; Male; hysterectomy Contraception: Surgical PAST MEDICAL HISTORY Diagnosis Date Anxiety Asthma Essential hypertension, benign Other and unspecified hyperlipidemia Rhinitis, allergic PAST SURGICAL HISTORY Procedure Laterality Date ANTERIOR DISCECTOMY cervical EGD 11/08/2016 [facility] OOPHORECTOMY PARTIAL/TOTAL UNI/BI Oophorectomy, RT and tube SINUS SURGERY HX 02/2015 TOTAL ABDOMINAL HYSTERECT W/WO RMVL TUBE OVARY 2009 Hysterectomy, [facility] HISTORY Problem Relation Age [...] external genitalia normal, normal Bartholin's glands, urethra, Broomall's glands, no vulvar lesions, good vaginal support, [...] year or sooner as needed Clementina Hall APRN.[facility] 05-16-2023 History of Present illness Narrative Psychiatric Assistant offered: Patient declines. Eleni is a 47 year old who presents for an annual gynecologic exam without complaints. Menses: n/a s/p hysterectomy. Contraception: hysterectomy HPV vaccine: No Last Pap: 05/09/2005 normal HPV: negative History of abnormal pap: No Last mammogram: 2022normal @ [facility] Sexually active: No OB History T2 L2 SAB0 IAB0 Ectopic0 Multiple0 Live Births0 Emd Teacher History LMP: 03/16/2010, Hysterectomy Age at Menarche: Age at First : Age at Menopause: Emd Teacher History Comments: Sexual Activity: Yes; Male; hysterectomy Contraception: Surgical PAST MEDICAL HISTORY Diagnosis Date Anxiety Asthma Essential hypertension, benign Other and unspecified hyperlipidemia Rhinitis, allergic PAST SURGICAL HISTORY Procedure Laterality Date ANTERIOR DISCECTOMY cervical EGD 11/08/2016 [facility] OOPHORECTOMY PARTIAL/TOTAL UNI/BI Oophorectomy, RT and [...] external genitalia normal, normal Bartholin's glands, urethra, Broomall's glands, no vulvar lesions, good vaginal support, [...] Clementina Hall APRN.FARHANA documented in this encounter [facility] 05-08-2023 Note HNO ID: [id number] Author: Asha Flores APRN.CNP Service: ? Author [...] CAPSULE,DELAYED RELEASE 4. (more content not included)... [facility] 05-03-2023 Miscellaneous Notes Annual scheduled with 05/16/23. Needs refill prior to that. Requested Prescriptions Pending Prescriptions Disp Refills norethindrone (AYGESTIN) 5 mg tablet 60 tablet 0 Sig: Take 1 tablet by mouth once daily. RX INSTRUCTIONS: Patient aware RX will be sent to pharmacy. No need to notify patient. Kami Inman RN documented in this encounter [facility] 04-28-2023 History of Present illness Narrative Eleni [...] tramadol on 04/17/2023. documented in this encounter [facility] 04-20-2023 Telephone encounter Note Patient requested refill for Flexeril. Surgery 04/10 right partial knee, last fill 04/10. [facility] 04-20-2023 Miscellaneous Notes Patient requested refill for Flexeril. Surgery 04/10 right partial knee, last fill 04/10. documented in this encounter [facility] 04-17-2023 History of Present illness Narrative I spoke simone Eleni today and she says she is [...] asking for Tramadol. documented in this encounter [facility] 03-23-2023 History of Present illness Narrative General Cardiology New Patient Clinic Consult [facility] Heart [facility]ascular 03/23/2023 Vannesa Randolph MD [address] [place] [id number] Patient: Eleni Pereira Date of : 1975 (47 y.o.) Referring Provider: Garry Burger,* PCP: Priya Smith MD Date of Service: 03/23/2023 Chief Complaint: Initial Visit (Intake) (Surgery 04/10/23 w/ Dr. Bugrer, right partial knee replacement/ No cardiac symptoms [...] or fail to improve. Vannesa Randolph MD, [facility] Non-Invasive Cardiology [facility] P:[phone] F:[phone] History of Present Illness: Eleni Pereira is [...] Cholesterol: 201 mg/dL documented in this encounter [facility] 03-23-2023 Instructions Danilo Ruiz MA - 03/23/2023 9:45 AM EDT How to Contact your Care Team: Provider: Dr. Vannesa Randolph MD Clinic Nurse: Bev Rivera RN REFILLS: When in need for refills please call your care team or the office at [phone]. Please include medication name, pharmacy name, and specify 30-day or 90-day supply. Please check with your pharmacy within 24 hours of request for your refill. You must follow up as directed to continue current refills. Thank you! documented in this encounter [facility] 03-22-2023 Note Patient Outreach (IN TMMN) ELENI PEREIRA ([id number]) 1975 F Date Time Provider Department 03/22/23 WOLF SIMS During your visit today, we recorded the following information about you: Allergies As of Date: 03/22/2023 Noted Allergy Reaction MORPHINE 11/03/2010 9 - Itching NIACIN 04/10/2013 14 - Other: See Comments Comments: Flushing PENICILLINS 08/07/2009 5 - Intolerance SULFA (SULFONAMIDE ANTIBIOTICS) 08/07/2009 7 - Swelling Date Reviewed: 03/18/2023 Reviewed by: Chanda Lipscomb APRN.CAMPAIGN MANAGER - Fully Assessed Visit Diagnosis:Encounter for screening mammogram for breast cancer [Z12.31] Order(s):[facility] SCREENING [[id number]] Order #: [id number] FUTURE Prescriptions as of 03/27/2023 - naproxen [...] Encounter Status:Closed by EPIC, PRODUSER on 03/27/23 [facility] 03-18-2023 Note HNO ID: [id number] Author: Chanda Lipscomb APRN.CNP Service: ? Author Type: Nurse Practitioner [...] ANTERIOR DISCECTOMY cervical EGD 11/08/2016 [facility] OOPHORECTOMY PARTIAL/TOTAL UNI/BI Oophorectomy, RT and [...] Patient agreeable to treatment plan. Chanda Lipscomb APRN.[facility] 03-18-2023 History of Present illness Narrative Images [...] ANTERIOR DISCECTOMY cervical EGD 11/08/2016 [facility] OOPHORECTOMY PARTIAL/TOTAL UNI/BI Oophorectomy, RT and [...] Chanda Lipscomb APRN.CNP documented in this encounter [facility] 11-18-2022 History of Present illness Narrative [facility] [address] [facility] [address] [facility] [phone] Chief Complaint Patient presents with Right Knee [...] the treatment plan. documented in this encounter [facility] 11-03-2022 Miscellaneous Notes Patient has been identified [...] Last refill; 04/2022 documented in this encounter [facility] 07-01-2022 Miscellaneous Notes Patient phones requesting refills as follows: Requested Prescriptions Pending Prescriptions Disp Refills venlafaxine ER (EFFEXOR XR) 37.5 mg 24 hr capsule 90 capsule 2 Sig: Take 1 capsule by mouth once daily. ROBERT 04/29/22Aug no upcoming appt noted Please review and advise. Chrissie Pepper LPN documented in this encounter [facility] 06-06-2022 Miscellaneous Notes RX INSTRUCTIONS: Patient aware RX will be sent to pharmacy. No need to notify patient. Last OV: 04/29/2022 Last refill: 04/08/2022 With 90 and 2 refills Follow up: No F/U scheduled at this time Trice Uriostegui MA documented in this encounter [facility] 05-16-2022 Miscellaneous Notes Patient notified of results, verbalizes understanding of instructions.. Shanell Cantor LPN Please call patient and let her know her cologuard was normal. Repeat in 3 years. Thanks, Asha Flores APRN.CAMPAIGN MANAGER documented in this encounter [facility] 04-29-2022 History of Present illness Narrative Patient in this day to have reading of PPD done. Patient complained of the area itching shortly after receiving the dose. Injection site slightly red from itching. No s/sx of infection. Negative PPD reading. 0.0mm. Shanell Cantor LPN documented in this encounter [facility] 04-20-2022 History of Present illness Narrative 04/20/2022 [...] No history of dysuria, frequency or incontinence OIL DISTRIBUTOR: Negative for abnormal vaginal bleeding, abnormal vaginal [...] diet of 1000 mg/day for under 50, 5918-7068 mg/day for 50+ - Colorectal cancer screening [...] V74.1, ICD10: Z11.1 - PPD (TB INTRADERMAL 12684) B/O 5. Screening for colon cancer - [...] to treatment plan. documented in this encounter [facility] 04-08-2022 History of Present illness Narrative 04/08/2022 [...] Z13.220 - LIPID PANEL BASIC Asha Flores APRN.FARHANA Prescription instructions reviewed with patient as applicable. Patient advised if symptoms do not improve or if symptoms worsen sooner, to contact their primary care physician. Potential red flag symptoms discussed with the patient. Reviewed appropriate action plan to take if red flag symptoms occur. Patient agreeable to treatment plan. documented in this encounter [facility] 03-30-2022 Miscellaneous Notes Patient phones requesting refills as follows: Pending Prescriptions Disp Refills VENLAFAXINE ER 37.5 MG CAPSULE,EXTENDED RELEASE 24 HR 90 capsule 0 Sig: Take 1 capsule by mouth once daily. ANAMIKA: No ROBERT 12/28/21 NOV no upcoming appt Please review and advise. Michael Patrick LPN documented in this encounter [facility] 03-24-2022 Miscellaneous Notes Patient had yearly exam 09/29/2021 documented in this encounter [facility] 03-18-2022 Miscellaneous Notes Patient phones requesting refills as follows: Pending Prescriptions Disp Refills LISINOPRIL 10 MG-HYDROCHLOROTHIAZIDE 12.5 MG TABLET 90 tablet 0 Sig: Take 1 tablet by mouth once daily. ANAMIKA: No ROBERT-12/28/21 Labs-09/03/21 NOV-none med filled 11/30/21 Please review and advise. Amy No LPN documented in this encounter [facility] 02-04-2022 Miscellaneous Notes Pending Prescriptions Disp Refills OMEPRAZOLE 20 MG CAPSULE,DELAYED RELEASE 60 capsule 2 Sig: Take 1 capsule by mouth twice daily. 1/2 hr before meal. ANAMIKA: No ROBERT 12/28/21 NOV not scheduled at this time Michelle Salmeron Ma documented in this encounter [facility] 03-09-2021 History of Present illness Narrative [facility] [address] [facility] [address] [facility] [phone] No chief complaint on file. Eleni Pereira [...] Social Gatherings with Friends and Family: Attends Shinto Services: Active Member of Clubs or Organizations: [...] back as needed. [facility] Diagnosis Polymyalgia (HCC)- Primary Polymyalgia rheumatica [facility] Diagnosis Anxiety and depression Dysthymic disorder documented in this encounter [place] note* Diagnosis Anxiety and depression- Primary Dysthymic disorder Gastroesophageal reflux disease with esophagitis, unspecified whether hemorrhage Essential hypertension, benign Screening for hyperlipidemia Screening for lipoid disorders documented in this encounter [facility] note* Diagnosis Encounter for screening mammogram for breast cancer [facility] Diagnosis Annual physical exam- Primary Routine general medical examination at a health care facility Other acne DDD (degenerative disc disease), cervical Degeneration of cervical intervertebral disc Screening for tuberculosis Screening examination for pulmonary tuberculosis Screening for colon cancer Special screening for malignant neoplasms, colon Essential hypertension, benign documented in this encounter [facility] note* Diagnosis Screening for tuberculosis Screening examination for pulmonary tuberculosis documented in this encounter [facility] note* Diagnosis Screening for tuberculosis- Primary Screening examination for pulmonary tuberculosis [facility]* Diagnosis Essential hypertension, benign documented in this encounter [facility] note* Diagnosis Anxiety and depression Dysthymic disorder documented in this encounter [facility] note* Diagnosis Gastroesophageal reflux disease with esophagitis, unspecified whether hemorrhage documented in this encounter [facility] note* Diagnosis Meniscus degeneration, right- Primary documented in this encounter [facility] note* Diagnosis Meniscus degeneration, right- Primary Hypertension, unspecified type Meniscus degeneration, right- Primary documented in this encounter [facility] note* Diagnosis Pain, dental- Primary Unspecified disorder of the teeth and supporting structures documented in this encounter [facility] note* Diagnosis Meniscus degeneration, right- Primary Preoperative cardiovascular examination- Primary Pre-operative cardiovascular examination Meniscus degeneration, right Meniscus degeneration, right documented in this encounter [facility] note* Diagnosis Meniscus degeneration, right- Primary Meniscus degeneration, right- Primary Meniscus degeneration, right [facility]* Diagnosis S/P right unicompartmental knee replacement- Primary documented in this encounter [facility] note* Diagnosis S/P right unicompartmental knee replacement- Primary [facility] Diagnosis S/P right unicompartmental knee replacement- Primary [facility]* Diagnosis Encounter for gynecological examination (general) (routine) without abnormal findings- Primary documented in this encounter [place] note* Diagnosis S/P right unicompartmental knee replacement- Primary [facility] Diagnosis Trochanteric bursitis of right hip- Primary [facility] Diagnosis Gastroesophageal reflux disease with esophagitis, unspecified whether hemorrhage- Primary Epigastric pain Abdominal pain, epigastric [facility]* Diagnosis Gallstones- Primary Calculus of gallbladder without mention of cholecystitis or obstruction documented in this encounter [place] note* Diagnosis Depression, unspecified depression type documented in this encounter [facility] for referral (narrative)* Diagnostic Procedure Only (Routine) - Pending Review Specialty Diagnoses / Procedures Referred By Contac t Referred To Contact [facility] Diagnoses Encounter for screening mammogram for breast cancer Procedures ROSIE SCREENING SCREENING MAMMOGRAPHY BI 2-VIEW BREAST INC CAD Wolf Sims MD [address] [place], [place] [id number] [facility] [address] [place] [address] Referral ID Status Reason Start Date Expiration Date Visits Requested Visits Authorized [id number] Pending Review Auto-Generat ed Referral 04/13/2022 05/13/2023 1 1 [facility] for referral (narrative)* Diagnostic Procedure Only (Routine) - Authorized Specialty Diagnoses / Procedures Referred By Contac t Referred To Contact [facility] Diagnoses Epigastric pain Procedures US ABD RIGHT UPPER QUADRANT US ABDOMINAL REAL TIME W/IMAGE LIMITED Tacos Hebert APRN.CNP [address] [place], [place] [phone] [place] [address] Referral ID Status Reason Start Date Expiration Date Visits Requested Visits Authorized [id number] Authorized Auto-Generat ed Referral 11/17/2023 12/16/2024 1 1 [facility] Summary Purpose Family History No Family History Records FoundNo Family History Records FoundNo Family History Records FoundNo Family History Records FoundNo Family History Records FoundNo Family History Records FoundNo Family History Records Found Advance Directives Documents on File Type Date Recorded Patient Wearing Apparel Presser Expl anation Advance Directives and Living Will Documents on File Type Date Recorded Patient Wearing Apparel Presser Expl anation Advance Directives and Living Will Documents on File Type Date Recorded Patient Wearing Apparel Presser Expl anation Advance Directives and Livin g Will 10/29/2019 9:09 AM Documents on File Type Date Recorded Patient Wearing Apparel Presser Expl anation Advance Directives and Livin g [...] on: 11/19/2018 1:56 PM by: GARRY BURGER [[id number]] in this encounter* Vince Leggett, FARHANA - [...] facility-administered medications for this visit. * Vince Leggett., [facility] - 12/21/2018 1:36 PM EST Chief Complaint [...] time. I will review your labs via [employer] or the office will with your results. [...] week Gets together: Once a week Attends anabaptism service: More than 4 times per year [...] nursing note reviewed. Exam conducted with a program and research coordinator present. Constitutional: General: She is not in [...] this chart may have been created with [employer] Inbox voice recognition software. Occasional wrong-word or sound-like substitutions may have occurred due to inherent limitations of the voice recognition software. Please read the chart carefully and recognize, using context, where the substitutions have occurred. documented in this encounter* Asha Lan CNP - 10/29/2019 9:30 AM EST Pt notified of US results, agreeable to referral to [facility] Dr. Pena. States understanding documented in this encounter* Shruti Arnold CNP - 12/30/2019 9:00 PM EDT Associated Order(s): LG Jt Injection/Arthrocentesis: L glenohumeral; LG Jt Injection/Arthrocentesis: R glenohumeral Post-Procedure Diagnose(s): Impingement syndrome of both shoulders LG Jt Injection/Arthrocentesis: L glenohumeral Performed by: Shruti Arnold CNP Authorized by: Shruti Arnold CNP CPT 27423 - Large Joint Arthrocentesis: Consent given by: [...] CNP Authorized by: Shruti Arnold CNP CPT 56379 - Large Joint Arthrocentesis: Consent given by: [...] CNP - 12/30/2019 9:00 PM EDT Eleni Hernandezben 1975 CC: 44 y.o. is a she [...] week Gets together: Once a week Attends anabaptism service: More than 4 times per year [...] CNP Authorized by: Shruti Arnold CNP CPT 37693 - Large Joint Arthrocentesis: Consent given by: [...] CNP Authorized by: Shruti Arnold CNP CPT 90558 - Large Joint Arthrocentesis: Consent given by: [...] 9:56 AM EDT [facility] [address] [facility] [address] [facility] [phone] Chief Complaint Patient presents with Injections Eleni [...] week Gets together: Once a week Attends anabaptism service: More than 4 times per year [...] CNP Authorized by: Zahraa Montiel CNP CPT 40740 - Large Joint Arthrocentesis: Consent given by: [...] CNP Authorized by: Zahraa Montiel CNP CPT 13530 - Large Joint Arthrocentesis: Consent given by: [...] Pain (EP B/L SHOULDER INJ) . Eleni A Stetler has had injections in the past. Last [...] on: 06/03/2019 4:43 PM by: GARRY BURGER [[email or web address]] documented in this encounter* Garry Burger MD - 02/25/2019 4:45 PM EDT Dictation on: 02/25/2019 4:46 PM by: GARRY BURGER [[email or web address]] documented in this encounter Assessments Diagnosis Bursitis/tendonitis, [...] region Instructions * Patient Instructions* Vince Leggett, CAMPAIGN MANAGER - 12/21/2018 1:51 PM EST Chances are you are dealing with the flu or flu like illness. You are too late to take Tamiflu but treat with symptomatic OTC meds. Dayquil or Nyquil, Mendy Carroll severe cold may help your symptoms. It [...] 1 cup of warm water. Take an uuvj-swd-zixqnjs pain medicine, such as acetaminophen (Tylenol), ibuprofen (Advil, Motrin),or naproxen (Aleve). Read and follow all instructions on the label. Be careful when taking nycr-ahy-ygvsshu cold or flu medicines and Tylenol at [...] soup, may help decrease throat pain. Use ezdg-ece-ayctgks throat lozenges to soothe pain. Regular cough [...] Log into your personal health record on [email or web address] and enter U420 in the Education box to learn more about Sore Throat: Care Instructions. Current as of: January 09, 2018 Content Version: .[id number] [employer]. Care instructions adapted under license by your healthcare professional. If you have questions about a medical condition or this instruction, always ask your healthcare professional. [employer] disclaims any warranty or liability for your [...] rest if you feel tired. Take an mekj-bbz-voknhsk pain medicine if needed, such as acetaminophen (Tylenol), ibuprofen (Advil, Motrin), or naproxen (Aleve). Read and follow all instructions on the label. Be careful when taking sdcj-rsa-wridinw cold or flu medicines and Tylenol at [...] Log into your personal health record on [email or web address] and enter L906 in the Education box to learn more about Viral Infections: Care Instructions. Current as of: May 14, 2018 Content Version: .[id number] [employer]. Care instructions adapted under license by your healthcare professional. If you have questions about a medical condition or this instruction, always ask your healthcare professional. [employer] disclaims any warranty or liability for your [...] time. I will review your labs via [employer] or the office will with your results. [...] you are older than 45 and are -Japanese or have a father or brother who got prostatecancer when he was younger than 65. When should you call for help? Watch closely for changes in your health, and be sure to contact your doctor if you have any problems or symptoms that concern you. Where can you learn more? Log into your personal health record on [email or web address] and enter P072 in the Education box to learn more about Well Visit, Ages 18 to 50: Care Instructions. Current as of: September 27, 2018 Content Version: 12.1 9315-6359 [employer]. Care instructions adapted under license by your healthcare professional. If you have questions about a medical condition or this instruction, always ask your healthcare professional. [employer] disclaims any warranty or liability for your use of this information. documented in this encounter* Patient Instructions* Asha Lan CNP - 10/22/2019 11:03 AM EST Problem List Items Addressed This Visit Other Abdominal pain - Primary Everything looked normal, your PAP results will take 10-14 days to return. I will notify you of your results via your [employer] or the office will call your with [...] Log into your personal health record on [email or web address] and enter Q441 in the Education box to learn more about Lichen Sclerosus: Care Instructions. Current as of: January 14, 2019 Content Version: 12.3 9718-4131 [employer]. Care instructions adapted under license by your healthcare professional. If you have questions about a medical condition or this instruction, always ask your healthcare professional. [employer] disclaims any warranty or liability for your [...] Log into your personal health record on [email or web address] and enter E907 in the Education box to learn more about Abdominal Pain: Care Instructions. Current as of: April 10, 2019 Content Version: 12.3 9091-6353 [employer]. Care instructions adapted under license by your healthcare professional. If you have questions about a medical condition or this instruction, always ask your healthcare professional. [employer] disclaims any warranty or liability for your use of this information. documented in this encounter Reason for Referral Status Reason Specialty Diagnoses / Procedures Referred By Contact Referred To Contact Authorized Specialty Services Required/Patie nt's Best Interest Radiology / Obstetrics and Gynecology Diagnoses Abdominal pain, unspecified abdominal location Procedures US Transvaginal Asha Lan CNP [address] [place] [address] Status Reason Specialty Diagnoses / Procedures Referred By Contact Referred To Contact Closed Specialty Services Required/Patien t's Best Interest Radiology / Obstetrics and Gynecology Diagnoses Abdominal pain, unspecified abdominal location Procedures US Transvaginal Asha Lan CNP [address] [place] [id number] Status Reason Specialty Diagnoses / Procedures Referred By Contact Referred To Contact Authorized Physical Therapy / Rehabilitation Diagnoses Bursitis/tendonit is, shoulder Garry Burger MD [address] [id number] Specialty Diagnoses / Procedures Referred By Contac t Referred To Contact Orthopedic Surgery Diagnoses Polymyalgia (HCC) Shruti Arnold CNP [address] [phone] Carie Jones MD [address] [place] [address] Referral ID Status Reason Start Date Expiration Date V isits Requested Visits Authorized [id number] Authorized 2021 2022 1 1 Specialty Diagnoses / Procedures Referred By Contac t Referred To Contact Gastroenterology Diagnoses Gastroesophageal reflux disease with esophagitis, unspecified whether hemorrhage Procedures CONSULT TO GASTROENTEROLOGY OFFICE/OUTPATIENT [facility] 60-74 MINUTES Podlogar, RAMANA Barry.CAMPAIGN MANAGER [address] [place] [address] Referral ID Status Reason Start Date Expiration Date Visits Requested Visits Authorized [id number] Authorized PCP Requested Referral 04/08/2022 04/08/2023 1 1 Specialty Diagnoses / Procedures Referred By Contac t Referred To Contact Cardiology Diagnoses Meniscus degeneration, right Garry Burger MD [address] [place] [id number] [place] [address] Referral ID Status Reason Start Date Expiration Date Visits Requested Visits Authorized [id number] Authorized Specialty Services Required/Pat mishant's Best Interest 12/06/2022 12/06/2023 1 1 Specialty Diagnoses / Procedures Referred By Contac t Referred To Contact Physical Therapy Diagnoses Meniscus degeneration, right Garry Burger MD [address] [place] [id number] OF SERVICE NOT IN SYSTEM Referral ID Status Reason Start Date Expiration Date Visits Requested Visits Authorized [id number] Authorized Patient Preference 03/31/2023 03/30/2024 1 1 Specialty Diagnoses / Procedures Referred By Contac t Referred To Contact Physical Therapy Diagnoses S/P right unicompartmental knee replacement Garry Burger MD [address] [place] [phone] OF SERVICE NOT IN SYSTEM Referral ID Status Reason Start Date Expiration Date Visits Requested Visits Authorized [id number] Pending Review Patient Preference 04/17/2023 04/16/2024 1 1 Specialty Diagnoses / Procedures Referred By Contac t Referred To Contact General Surgery Diagnoses Gallstones Procedures CONSULT TO GENERAL SURGERY OFFICE/OUTPATIENT [facility] 60 MINUTES Tacos Hebert APRN.CAMPAIGN MANAGER [address] [place] [address] Referral ID Status Reason Start Date Expiration Date Visits Requested Visits Authorized [id number] Authorized PCP Requested Referral 12/01/2023 11/30/2024 1 1 Medications Administered Section Administered Medications Medication Order MAR Action Action Date Dose Rate Site PPD ([place]) Intradermal Given 04/20/2022 08:12 EDT 0.1 mL Left Lowe r Forearm Additional Source Comments INFORMATION SOURCE (unrecogn ized section and content) DATE CREATED AUTHOR AUTHOR'S ORGANIZ ATION 08/23/2018 [facility] DATE CREATED AUTHOR AUTHOR'S ORGANIZ ATION 12/26/2018 [facility] DATE CREATED AUTHOR AUTHOR'S ORGANIZ ATION 10/07/2019 [facility] DATE CREATED AUTHOR AUTHOR'S ORGANIZ ATION 04/18/2023 [facility] DATE CREATED AUTHOR AUTHOR'S ORGANIZ ATION [facility] DATE CREATED AUTHOR AUTHOR'S ORGANIZ ATION 12/12/2023 [facility] Reason for Visit (unrecogniz ed section and [...] abdominal location Procedures US Transvaginal Asha Lan, CAMPAIGN MANAGER [address] [place] [address] Reason Comments Injections Shoulder injections Reason Comments [...] follow up Procedures 4C EST Podlogar, Asha, MEDICAL SUPPORT ASSISTANT.CAMPAIGN MANAGER [address] [place] [address] Podlogar, Asha, MEDICAL SUPPORT ASSISTANT.CAMPAIGN MANAGER [address] [place] [address] Referral ID Status Reason Start Date Expiration Date Visits Re quested Visits Authorized [id number] Closed 04/08/2022 07/07/2022 1 1 Reason Comments Physical Reason Comments PPD reading Specialty Diagnoses / Procedures Referred By Contac t Referred To Contact Family Practice / FAMILY MEDICINE Diagnoses follow up Procedures 4C EST Podlogar, Asha, MEDICAL SUPPORT ASSISTANT.CAMPAIGN MANAGER [address] [place] [address] Podlogar, Asha, MEDICAL SUPPORT ASSISTANT.CAMPAIGN MANAGER [address] [place] [address] Referral ID Status Reason Start Date Expiration Date V isits Requested Visits Authorized [id number] Authorized 04/08/2022 07/07/2022 10 10 Specialty Diagnoses / Procedures Referred By Contac t Referred To Contact Family Practice / FAMILY MEDICINE Diagnoses TB read with MM Procedures OFFICE/OUTPATIENT ESTABLISHED HIGH MDM 40-54 MIN NURSE MD Jamaal Podlogar, Asha, MEDICAL SUPPORT ASSISTANT.CAMPAIGN MANAGER [address] [place] [address] Referral ID Status Reason Start Date Expiration Date Visits Re quested Visits Authorized [id number] Closed 04/20/2022 10/15/2022 1 1 Reason Comments [...] symptoms Specialty Diagnoses / Procedures Referred By German thomas Referred To Contact Cardiology Diagnoses Meniscus degeneration, right Jennyfer, Garry Ortega MD [address] [place] [address] [facility] [address] [facility] [place] [address] Referral ID Status Reason Start Date Expiration Date V isits Requested Visits Authorized [id number] Closed Specialty Services Required/Janice ent's Best Interest [...] Results Reason Comments Missing documents from fax Reason Onset Date Comments Refill Request 12/08/2023 Assessment & Plan Note - Asha Lan [...] time. I will review your labs via [employer] or the office will with your results. [...] Care Teams (unrecognized sec tion and content) Administrative Assistant Office Manager Relationship Specialty Start Date End Date Wolf Sims MD [address] [place] [address] PCP - General Family Practice 07/20/20 Administrative Assistant Office Manager Relationship Specialty Start Date End Date Wolf Sims MD [address] [place] [address] PCP - General Family Practice 07/20/20 Administrative Assistant Office Manager Relationship Specialty Start Date End Date Wolf Sims MD [address] [place] [address] PCP - General Family Practice 07/20/20 Administrative Assistant Office Manager Relationship Specialty Start Date End Date Wolf Sims MD [address] [facility] [place] [address] PCP - General Family Practice 07/20/20 Administrative Assistant Office Manager Relationship Specialty Start Date End Date Wolf Sims MD [address] [facility] [place] [address] PCP - General Family Practice 07/20/20 Administrative Assistant Office Manager Relationship Specialty Start Date End Date Wolf Sims MD [address] [facility] [place] [address] PCP - General Family Practice 07/20/20 Administrative Assistant Office Manager Relationship Specialty Start Date End Date Wolf Sims MD [address] [place] [address] PCP - General Family Practice 07/20/20 Administrative Assistant Office Manager Relationship Specialty Start Date End Date Asha Lan, RN PCP - General Nurse Practitioner 05/16/19 07/19/20 Priya Smith MD [address] [facility] [address] [place] [address] PCP - General Family Medicine 03/09/21 Administrative Assistant Office Manager Relationship Specialty Start Date End Date Wolf Sims MD [address] [place] [address] PCP - General Family Medicine 07/20/20 Administrative Assistant Office Manager Relationship Specialty Start Date End Date Priya Smith MD [address] [facility] [address] [place] [address], [place] [address] PCP - General Family Medicine 03/09/21 Administrative Assistant Office Manager Relationship Specialty Start Date End Date Priya Smith MD [address] [facility] [place] [address] PCP - General Family Medicine 03/09/21 Administrative Assistant Office Manager Relationship Specialty Start Date End Date Wolf Sims MD [address] [place] [address] PCP - General Family Medicine 07/20/20 Administrative Assistant Office Manager Relationship Specialty Start Date End Date Priya Smith MD [address] [place] [address] [address] [place] [address] PCP - General Family Medicine 03/09/21 Administrative Assistant Office Manager Relationship Specialty Start Date End Date Priya Smith MD [address] [place] [address] [address] [place] [address] PCP - General Family Medicine 03/09/21 Administrative Assistant Office Manager Relationship Specialty Start Date End Date Priya Smith MD [address] [place] [address] [place] [address] PCP - General Family Medicine 03/09/21 Administrative Assistant Office Manager Relationship Specialty Start Date End Date Priya Smith MD [address] [place] [address] [place] [address] PCP - General Family Medicine 03/09/21 Administrative Assistant Office Manager Relationship Specialty Start Date End Date Priya Smith MD [address] [place] [address] [place] [address] PCP - General Family Medicine 03/09/21 Administrative Assistant Office Manager Relationship Specialty Start Date End Date Wolf Sims MD [address] [place] [address], [place] [address] PCP - General Family Medicine 07/20/20 Administrative Assistant Office Manager Relationship Specialty Start Date End Date Wolf Sims MD [address] [place] [address], [place] [address] PCP - General Family Medicine 07/20/20 Administrative Assistant Office Manager Relationship Specialty Start Date End Date Priya Smith MD [address] [place] [address] [place] [address] PCP - General Family Medicine 03/09/21 Administrative Assistant Office Manager Relationship Specialty Start Date End Date Priya Smith MD [address] [place] [address] [place] [address] PCP - General Family Medicine 03/09/21 Administrative Assistant Office Manager Relationship Specialty Start Date End Date Priya Smith MD [address] [facility] [address] [place], [place] [address] PCP - General Family Medicine 03/09/21 Administrative Assistant Office Manager Relationship Specialty Start Date End Date Wolf Sims MD [address] [place], [place] [address] PCP - General Family Medicine 07/20/20 Administrative Assistant Office Manager Relationship Specialty Start Date End Date Wolf Sims MD [address] [facility] [place] [address] PCP - General Family Medicine 07/20/20 Administrative Assistant Office Manager Relationship Specialty Start Date End Date Wolf Sims MD [address] [place], [place] [address] PCP - General Family Medicine 07/20/20 Administrative Assistant Office Manager Relationship Specialty Start Date End Date Wolf Sims MD [address] [place], [place] [id number] PCP - General Family Medicine 07/20/20 Source Comments (unrecognize d section and content) In the event this informatio n is protected by the Federal Confidentiality of Alcohol and Drug Abuse Patient Records regulations: The Federal rules restrict any use of the information to criminally investigate or prosecute any alcohol or drug abuse patient.[facility] the event this information is protected by the Federal Confidentiality of Alcohol and Drug Abuse Patient Records regulations: The Federal rules restrict any use of the information to criminally investigate or prosecute any alcohol or drug abuse patient.[facility] the event this information is protected by the Federal Confidentiality of Alcohol and Drug Abuse Patient Records regulations: The Federal rules restrict any use of the information to criminally investigate or prosecute any alcohol or drug abuse patient.[facility] the event this information is protected by the Federal Confidentiality of Alcohol and Drug Abuse Patient Records regulations: The Federal rules restrict any use of the information to criminally investigate or prosecute any alcohol or drug abuse patient.[facility] Center[facility] the event this information is protected by the Federal Confidentiality of Alcohol and Drug Abuse Patient Records regulations: The Federal rules restrict any use of the information to criminally investigate or prosecute any alcohol or drug abuse patient.[facility] CenterIn the event this information is protected by the Federal Confidentiality of Alcohol and Drug Abuse Patient Records regulations: The Federal rules restrict any use of the information to criminally investigate or prosecute any alcohol or drug abuse patient.[facility] CenterIn the event this information is protected by the Federal Confidentiality of Alcohol and Drug Abuse Patient Records regulations: The Federal rules restrict any use of the information to criminally investigate or prosecute any alcohol or drug abuse patient.[facility] CenterIn the event this information is protected by the Federal Confidentiality of Alcohol and Drug Abuse Patient Records regulations: The Federal rules restrict any use of the information to criminally investigate or prosecute any alcohol or drug abuse patient.[facility] Center[facility] the event this information is protected by the Federal Confidentiality of Alcohol and Drug Abuse Patient Records regulations: The Federal rules restrict any use of the information to criminally investigate or prosecute any alcohol or drug abuse patient.[facility] Center[facility] the event this information is protected by the Federal Confidentiality of Alcohol and Drug Abuse Patient Records regulations: The Federal rules restrict any use of the information to criminally investigate or prosecute any alcohol or drug abuse patient.[facility] Center[facility] the event this information is protected by the Federal Confidentiality of Alcohol and Drug Abuse Patient Records regulations: The Federal rules restrict any use of the information to criminally investigate or prosecute any alcohol or drug abuse patient.[facility] CenterIn the event this information is protected by the Federal Confidentiality of Alcohol and Drug Abuse Patient Records regulations: The Federal rules restrict any use of the information to criminally investigate or prosecute any alcohol or drug abuse patient.[facility] CenterIn the event this information is protected by the Federal Confidentiality of Alcohol and Drug Abuse Patient Records regulations: The Federal rules restrict any use of the information to criminally investigate or prosecute any alcohol or drug abuse patient.[facility] CenterIn the event this information is protected by the Federal Confidentiality of Alcohol and Drug Abuse Patient Records regulations: The Federal rules restrict any use of the information to criminally investigate or prosecute any alcohol or drug abuse patient.[facility] CenterIn the event this information is protected by the Federal Confidentiality of Alcohol and Drug Abuse Patient Records regulations: The Federal rules restrict any use of the information to criminally investigate or prosecute any alcohol or drug abuse patient.[facility] CenterIn the event this information is protected by the Federal Confidentiality of Alcohol and Drug Abuse Patient Records regulations: The Federal rules restrict any use of the information to criminally investigate or prosecute any alcohol or drug abuse patient.[facility] CenterIn the event this information is protected by the Federal Confidentiality of Alcohol and Drug Abuse Patient Records regulations: The Federal rules restrict any use of the information to criminally investigate or prosecute any alcohol or drug abuse patient.[facility] CenterIn the event this information is protected by the Federal Confidentiality of Alcohol and Drug Abuse Patient Records regulations: The Federal rules restrict any use of the information to criminally investigate or prosecute any alcohol or drug abuse patient.[facility] CenterIn the event this information is protected by the Federal Confidentiality of Alcohol and Drug Abuse Patient Records regulations: The Federal rules restrict any use of the information to criminally investigate or prosecute any alcohol or drug abuse patient.[facility] CenterIn the event this information is protected by the Federal Confidentiality of Alcohol and Drug Abuse Patient Records regulations: The Federal rules restrict any use of the information to criminally investigate or prosecute any alcohol or drug abuse patient.[facility] CenterIn the event this information is protected by the Federal Confidentiality of Alcohol and Drug Abuse Patient Records regulations: The Federal rules restrict any use of the information to criminally investigate or prosecute any alcohol or drug abuse patient.[facility] CenterIn the event this information is protected by the Federal Confidentiality of Alcohol and Drug Abuse Patient Records regulations: The Federal rules restrict any use of the information to criminally investigate or prosecute any alcohol or drug abuse patient.[facility] CenterIn the event this information is protected by the Federal Confidentiality of Alcohol and Drug Abuse Patient Records regulations: The Federal rules restrict any use of the information to criminally investigate or prosecute any alcohol or drug abuse patient.[facility] FOR RECORDS PERTAINING TO PATIENTS WHO ARE [...] BE BASED ON THE PRIMARY CLINICAL RECORDS. [facility]. provides no warranty or guarantee of the accuracy or completeness of information in this document.
[2023-12-14 09:54] LABS: AST(SGOT) 10 U/L (15-37); Alanine Aminotransfer ALT/SGPT 48 U/L (13-56); Albumin, Serum 3.5 g/dL (3.2-5.0); Alkaline Phosphatase 57 U/L (45-117); Amylase 78 U/L (25-115); Anion Gap 2 (5-15); BUN 13 mg/dL (7-18); BUN/Creat Ratio 13.1 RATIO (10-20); Chloride 107 mmol/L (98-107); Creatinine, Serum 0.99 mg/dL (0.55-1.02); EST Glomerular Filtration Rate 63 mL/min (>60); Est Glom Filt Rate - Afr Amer 77 mL/min (>60); Globulin 3.6 g/dL (2.2-4.2); Glucose 98 mg/dL (74-106); Lipase 47 U/L (13-75); Potassium 3.7 mmol/L (3.5-5.1); Protein, Total 7.1 g/dL (6.4-8.2); Sodium Level 138 mmol/L (136-145)
== END | disposition home or self-care (01) ==
PROVIDERS: PCP Nurse Practitioner Primary Care; Referring Provider Physician Assistant; Visit Provider Physician Assistant
DX: R10.12 Left upper quadrant pain (principal)
CPT/HCPCS: 36415; 80053; 82150; 83690; 85025

== ENCOUNTER → 2024-03-28 | Outpatient (CLI) | payer OTHER, SELFPAY | END | disposition home or self-care (01) | LOC: EMPH 09:15 | PROVIDERS: PCP Nurse Practitioner Primary Care; Visit Provider Family Medicine Geriatric Medicine | DX: Z03.818 Encounter for observation for suspected exposure to other biological agents ruled out (principal) | CPT/HCPCS: 87811 ==

== ENCOUNTER 2024-04-12 12:53 | Emergency (ER) | payer OTHER, SELFPAY ==
[2024-04-12 12:54] VITALS: BP 124/93; PULSE 92; RESP 18; TEMP 35.4; O2SAT 100; BMI 23.9
[2024-04-12 12:56] VITALS: BP 124/93; PULSE 92; RESP 18; TEMP 36.1; O2SAT 100
--- NOTE | 2024-04-12 14:16 | RAD_ITS ---
STUDY: X-RAY - RIGHT HAND, ATTENTION Fifth FINGER REASON FOR EXAM: Female, 48 years old. Injury with pain. TECHNIQUE: 3 view(s) of the finger were obtained. COMPARISON: None. FINDINGS: Normal metacarpal head. Normal metacarpophalangeal joint. Normal proximal phalanx. Normal middle phalanx. Comminuted fracture of the distal aspect of the distal phalanx. Normal proximal interphalangeal joint. Normal distal interphalangeal joint. Soft tissue swelling at the fracture site. RAD/Finger(s) Min 2 Views IMPRESSION: Comminuted fracture of the distal aspect of the distal phalanx of the fifth digit with soft tissue swelling. Electronically Signed: Malvin Steinberg MD at 14:57 EDT ,
[2024-04-12] MEDS: Lidocaine 1% (20 ml mdv) 20 ML Vial 3 ML INFILT (14:21)
[2024-04-12] MEDS: Diphth,Pertuss(Acell),Tet Vac 0.5 ML Vial IM (14:21)
[2024-04-12] MEDS: Cefazolin 1 GM/50 ML BAG IV (14:55)
--- NOTE | 2024-04-12 15:24 | EX.ED.DYSGE1 ---
HPI <GONZALEZ Berman - Last Filed: 04/12/24 15:33> History of Present Illness Chief Complaint: Laceration Narrative Narrative: Patient is a 48-year-old female with no significant medical history presents to the emergency department with right fifth finger injury. Patient states she was using a type of saw cleaning out some of her weeds. Patient cut the distal tip of her right fifth finger. Patient states that there was a lot of bleeding, she is here for evaluation. She denies any fever chills nausea vomiting. Denies knowing when her last tetanus vaccination was. PFSH <GONZALEZ Berman - Last Filed: 04/12/24 15:33> [facility] Medical History Anxiety Arthritis Asthma Depression Gastric reflux History of IBS History of steroid therapy Hypertension (~2010) Injury of head and neck Non-smoker Post-menopausal Spinal stenosis Wears glasses Home Medications ?Medication ?Instructions ?Recorded ?Last Taken ?Type calcium carbonate 600 mg-vitamin 1 tab PO DAILY 11/04/22 12/05/23 06:30 History D3 5 mcg (200 unit) tablet cholecalciferol (vitamin D3) 25 25 mcg PO DAILY 11/04/22 12/05/23 06:30 History mcg (1,000 unit) tablet (Vitamin D3) gabapentin 100 mg capsule 100 mg PO BID 11/04/22 12/06/23 07:00 History lisinopril 10 1 tab PO DAILY 11/04/22 12/05/23 06:30 History mg-hydrochlorothiazide 12.5 mg tablet meloxicam 7.5 mg tablet 7.5 mg PO DAILY 11/04/22 12/05/23 06:30 History multivitamin 1 tab PO DAILY 11/04/22 12/05/23 06:30 History norethindrone acetate 5 mg tablet 5 mg PO DAILY 11/04/22 12/05/23 06:30 History omega-3 fatty acids 1,000 mg PO DAILY 11/04/22 12/04/23 06:00 History magnesium 200 mg tablet 200 mg PO DAILY 12/04/23 12/05/23 06:30 History tramadol 50 mg tablet 50 mg PO Q6H PRN pain 2 days #6 12/06/23 Unknown Rx tabs cephalexin 500 mg capsule 500 mg PO Q6 #40 CAPSULES 04/12/24 Unknown Rx venlafaxine 75 mg capsule,extended 75 mg PO DAILY 04/12/24 Unknown History release 24 hr (Effexor XR) Allergy/AdvReac Type Severity Reaction Status Date / Time morphine Allergy Hives Verified 04/12/24 13:49 niacin Allergy Hives Verified 04/12/24 13:49 Sulfa (Sulfonamide Allergy Angioedema Verified 04/12/24 13:49 Antibiotics) hydromorphone (From Dilaudid) AdvReac Itching Verified 04/12/24 13:49 Penicillins AdvReac Other Verified 04/12/24 13:49 Surgical History H/O: hysterectomy History of esophagogastroduodenoscopy (EGD) History of knee replacement (~03/2023) Hx of cervical discectomy Social History (Updated 04/12/24 @ 13:47 by uL Lim) household members: children current occupational status: employed Smoking Status: Never smoker substance use type: does not use ROS <GONZALEZ Berman - Last Filed: 04/12/24 15:33> ROS ED ROS Narrative Constitutional: Negative for fever, chills, weight loss, weakness Eyes: Negative for vision loss, vision change, double vision ENT: Negative for any sore throat, ear pain, congestion Cardiovascular: Negative for any chest pain, tightness, palpitations Respiratory: Negative for any cough, sputum production, hemoptysis, dyspnea, dyspnea on exertion, orthopnea Gastrointestinal: Negative for any abdominal pain, nausea, vomiting, diarrhea, constipation, blood in stool, blood in vomit : Negative for any urinary frequency, dysuria, retention, blood in urine Muscle skeletal: Negative for any neck pain, back pain Neurological: Negative for any headache, syncope, dizziness Skin: Negative for any rashes, itching, abrasions. Positive for laceration to the distal tip of the right fifth finger Psychiatric: Negative for any depression, anxiety, stress, suicidal ideation, homicidal ideation Hematologic: Negative for any excessive bruising, easy bleeding EXAM <GONZALEZ Berman - Last Filed: 04/12/24 15:33> Physical Exam Narrative Exam Narrative: Vital signs reviewed. Extremities: Patient has obvious trauma to the right fifth finger, there is a laceration just below the nailbed on the dorsal aspect of the right fifth finger. Patient is able to flex, there is no evidence of any tendon involvement. Patient does have significant pain. Neuro: Cranial nerves II through XII intact, no focal neurological deficits. Skin: Clean dry and intact with no rash, purpura, petechiae, vesicles or pustules. Backs/flank: No CVA tenderness, no midline spinal tenderness, no deformity. Psych: Normal mood and affect. No SI, HI or acute psychosis. Const Vital Signs: 04/12/24 12:54 04/12/24 12:56 Temperature 95.7 F L 97 F L Temperature Source Temporal Temporal Pulse Rate 92 92 Respiratory Rate 18 18 Blood Pressure 124/93 H 124/93 H Blood Pressure Mean 103 103 Pulse Ox 100 100 Oxygen Delivery Method Room Air Room Air <Dr. Christiano Cantu DO - Last Filed: 04/12/24 15:38> Physical Exam Const Vital Signs: 04/12/24 12:54 04/12/24 12:56 Temperature 95.7 F L 97 F L Temperature Source Temporal Temporal Pulse Rate 92 92 Respiratory Rate 18 18 Blood Pressure 124/93 H 124/93 H Blood Pressure Mean 103 103 Pulse Ox 100 100 Oxygen Delivery Method Room Air Room Air MDM <GONZALEZ Berman - Last Filed: 04/12/24 15:33> MDM Radiography Diagnostic Testing: Clinical Impression(s) from Imaging Studies Finger X-Ray 04/12/24 14:16 IMPRESSION: Comminuted fracture of the distal aspect of the distal phalanx of the fifth digit with soft tissue swelling. Electronically Signed: Malvin Steinberg MD at 14:57 EDT , Treatment and Re-Evaluation :: Differential diagnosis includes however is not limited to: Simple laceration, nailbed injury, tendon involvement, open fracture, tuft fracture Patient appears to be in no obvious distress, patient's vital signs are stable. Patient presents to the emergency department for an injury to the right fifth finger. Patient received x-rays of the right fifth finger, this showed a comminuted fracture of the distal aspect of the distal phalanx of the fifth digit with soft tissue swelling. Secondary to this finding, patient will be treated for an open fracture. IV Ancef will be given. Procedure note: Is able anesthetized the entire finger using a digital block with lidocaine. I was able to cleanse the area with 300 cc of normal saline. Is able to remove the entire nail, this was not difficult as it was mostly removed anyway. Patient did have 1/2 cm laceration to the nailbed. I was able to use Chromic Gut and placed 3 simple ruptured sutures of 5?0 resorbing sutures. I was unable to place the root of the nail back in the distal tip of the finger, was able to suture that with 4 simple interrupted sutures of 4-0 Ethilon. Patient will need to see orthopedics. I will provide the patient with referral. Sterile gloves, sterile drapes were used. Patient tolerated well. Patient replaced in a finger splint. Dressing. I did offer the patient pain medicine however she states she has ibuprofen and Tylenol at home. She be placed on Keflex 4 times a day for 10 days. She will need to follow-up outpatient, she will return here for any worsening symptoms. All questions answered, stable for discharge. <Dr. Christiano Cantu, DO - Last Filed: 04/12/24 15:38> [facility] Narrative Medical decision making narrative: I have personally performed a face to face assessment of the patient and have reviewed the BOSSMAN Note. I performed a substantive portion of the visit including all aspects of the following. My hill findings include: History: Patient presents with a laceration to her right fifth finger that occurred today. Patient was using a reciprocating saw when her finger was hit by the piece of metal that holds the blade in place. Patient describes her pain as aching and burning. Patient is unsure of her last tetanus. Patient states her pain is worse when it is exposed to air and it is better when she keeps it covered. Patient denies any paresthesias or weakness. Patient denies any other injuries. Exam: Vital signs are stable. Patient is afebrile. Patient is in no acute distress. There is tenderness over the distal phalanx of the right small finger. There is avulsion of the nail plate. Sensation was intact to light touch in all digits. Capillary refill was less than 2 seconds in all digits. There is no obvious deformity noted. There is a 1 cm full-thickness linear laceration at the base of the nail of the right fifth finger. There is moderate gapping of the wound margins. There are no foreign bodies noted. Sensation was intact to light touch in all digits. Capillary refill was less than 2 seconds in all digits. Medical Decision Making: Differential diagnosis includes open fracture, laceration, and contusion. X-rays of the right fifth finger were obtained to assess for fracture. There are 3 views. On my independent interpretation there is a nondisplaced fracture of the tuft of the distal phalanx of the right fifth finger. Radiologist also interpreted the x-rays and agrees. The wound was cleaned and irrigated with copious amounts normal saline. The right fifth finger was anesthetized with 1% lidocaine via digital block. The wound was closed by the BOSSMAN under my supervision. Patient tolerated procedure well. Bacitracin dressing was applied. Patient was instructed to keep the wound clean and dry. Patient was given a prescription for Keflex. Patient was instructed to follow-up in 5 to 7 days for wound recheck and suture removal. Patient understood and was agreeable with the plan. All questions were answered. Radiography Diagnostic Testing: Clinical Impression(s) from Imaging Studies Finger X-Ray 04/12/24 14:16 IMPRESSION: Comminuted fracture of the distal aspect of the distal phalanx of the fifth digit with soft tissue swelling. Electronically Signed: Malvin Steinberg MD at 14:57 EDT , Discharge Plan Triage Chief Complaint: Laceration ED Midlevel Provider: Fred Lucero ED Provider: Christiano Cantu Dx/Rx/DC Orders Clinical Impression: Finger laceration, Nailbed injury, Open fracture of tuft of distal phalanx of finger Instructions: ED Fracture, Finger, Open, ED Laceration Extremity Prescriptions: New cephalexin 500 mg capsule 500 mg PO Q6 Qty: 40 0RF No Action magnesium 200 mg tablet 200 mg PO DAILY meloxicam 7.5 mg Tablet 7.5 mg PO DAILY norethindrone acetate 5 mg tablet 5 mg PO DAILY Patient Comments: TAKE 1 TABLET BY MOUTHnONCE DAILY gabapentin 100 mg capsule 100 mg PO BID Patient Comments: TAKE 1 CAPSULE BY MOUTHNIN THE MORNING AND 1 CAPSULE AT BEDTIME lisinopril-hydrochlorothiazide 10-12.5 mg tablet 1 tab PO DAILY Patient Comments: Take 1 tablet by mouthEonce daily.OM multivitamin Tablet 1 tab PO DAILY calcium carbonate-vitamin D3 600 mg-5 mcg (200 unit) Tablet 1 tab PO DAILY omega-3 fatty acids Capsule 1,000 mg PO DAILY cholecalciferol (vitamin D3) [Vitamin D3] 25 mcg (1,000 unit) Tablet 25 mcg PO DAILY venlafaxine [Effexor XR] 75 mg capsule,extended release 24hr 75 mg PO DAILY tramadol 50 mg tablet 50 mg PO Q6H PRN (Reason: pain) 2 Days Qty: 6 0RF Primary Care Provider: PodlogAsha medrano NP Referrals: Korey Rogers DO [Med Staff - Active Staff] - PodlogAsha medrano NP, [facility] [Primary Care Provider] - Activity Restrictions/Additional Instructions: You have an open fracture to the distal tip of your right pinky. Need to keep it covered. You need to keep in a splint. You need to see orthopedics within 7 to 10 days. Return for any worsening redness, drainage. Print Language: Kyrgyz Disposition Disposition: Home, Self Care
[2024-04-12 15:35] VITALS: BP 120/74; PULSE 71; RESP 16; TEMP 36.6; O2SAT 99
== END 2024-04-12 15:38 | disposition home or self-care (01) ==
PROVIDERS: Emergency Provider Emergency Medicine; PCP Nurse Practitioner Primary Care; Visit Provider Emergency Medicine
DX: S62.666B Nondisplaced fracture of distal phalanx of right little finger, initial encounter for open fracture (principal); I10 Essential (primary) hypertension; W26.8XXA Contact with other sharp object(s), not elsewhere classified, initial encounter; Y93.89 Activity, other specified; Z79.899 Other long term (current) drug therapy; F32.A Depression, unspecified; Z90.710 Acquired absence of both cervix and uterus; Z96.659 Presence of unspecified artificial knee joint
CPT/HCPCS: 12001; 73140; 90715; 96365; 99284; J7050; A4216

== ENCOUNTER → 2024-05-06 | Outpatient (CLI) | payer OTHER, SELFPAY ==
--- NOTE | 2024-05-06 13:37 | RAD_ITS ---
STUDY: X-RAY - RIGHT HAND, ATTENTION FIFTH FINGER REASON FOR EXAM: Female, 48 years old. RLF dp fx w/ cellulitis TECHNIQUE: 3 view(s) of the finger were obtained. COMPARISON: Comparison is made with prior study dated April 12, 2024. FINDINGS: Normal metacarpal head. Normal metacarpophalangeal joint. Normal proximal phalanx. Normal middle phalanx. Stable nondisplaced fracture of the tuft of the distal phalanx of the fifth digit. Normal proximal interphalangeal joint. Normal distal interphalangeal joint. Soft tissue swelling. RAD/Finger(s) Min 2 Views IMPRESSION: Nondisplaced fracture of the tuft of the distal phalanx of the fifth digit with evidence of diffuse soft tissue swelling. Electronically Signed: Craig Davidson MD at 14:43 EDT ,
== END | disposition home or self-care (01) ==
LOC: MTRAD 13:36
PROVIDERS: PCP Nurse Practitioner Primary Care; Referring Provider Physician Assistant; Visit Provider Physician Assistant
DX: L03.011 Cellulitis of right finger (principal)
CPT/HCPCS: 73140

== ENCOUNTER → 2024-06-29 | Outpatient (CLI) | payer OTHER, SELFPAY ==
[2024-06-29 10:32] LABS: Iron 68 ug/dL (50-170); Iron Binding Capacity,Total 322 ug/dL (250-450); PERCENT IRON SATURATION 21.1 % (15.0-55.0)
[2024-06-30 09:07] LABS: DHEA Sulfate 11.8 ug/dL (41.2-243.7)
== END | disposition home or self-care (01) ==
PROVIDERS: PCP Nurse Practitioner Primary Care; Referring Provider Obstetrics & Gynecology; Visit Provider Obstetrics & Gynecology
DX: L68.0 Hirsutism (principal)
CPT/HCPCS: 82627; 83540; 83550; 84403; 82626

== ENCOUNTER → 2024-07-23 | Outpatient (CLI) | payer OTHER, SELFPAY ==
--- NOTE | 2024-07-23 09:16 | BI_ITS ---
MAMMOGRAPHY - BILATERAL SCREENING REASON FOR EXAM: Female, 49 years old. Routine annual screening examination. PERTINENT HISTORY: Non-contributory. Prior bilateral breast reduction surgery. TECHNIQUE: Digital bilateral breast renita (3D mammographic acquisition) in the CC and MLO projections. 2-D mediolateral oblique (MLO) and craniocaudad (CC) views of both breasts were obtained. CAD: Full Field Digital Mammography with Computer Added Detection was performed. COMPARISON: Comparison is made with prior study dated May 10, 2023 and June 09, 2020. FINDINGS: Breast Composition: The breasts are heterogeneously dense, which may obscure small masses. There are no dominant masses or suspicious calcifications. No other significant abnormalities are identified. There has been no significant change since the prior study. BI/SCRN MAMM (CAD)W/RENITA BILAT IMPRESSION: Stable bilateral screening mammogram. Yearly follow-up mammogram recommended. (A) ASSESSMENT CATEGORY: BIRADS Category 1: Negative. A letter regarding these results will be sent to the patient by the facility within 30 days. Approximately 10% of breast cancers are not detected by mammography. A normal mammogram should not delay biopsy of a clinically suspicious abnormality. [id number] Electronically Signed: Craig Davidson MD at 10:20 EDT ,
== END | disposition home or self-care (01) ==
LOC: OPBI 09:14
PROVIDERS: PCP Nurse Practitioner Primary Care; Referring Provider Obstetrics & Gynecology; Visit Provider Obstetrics & Gynecology
DX: Z12.31 Encounter for screening mammogram for malignant neoplasm of breast (principal)
CPT/HCPCS: 77063; 77067

== ENCOUNTER → 2024-07-31 | Outpatient (CLI) | payer OTHER, SELFPAY ==
--- NOTE | 2024-07-31 08:10 | MRI_ITS ---
STUDY: MRI BRAIN WITH AND WITHOUT CONTRAST (ATTENTION INTERNAL AUDITORY CANALS - I.A.C.''s) REASON FOR EXAM: Female, 49 years old. DIZZINESS TECHNIQUE: Standardized multiplanar fat and water weighted pulse sequences were obtained. IV 12CC CLARISCAN was administered for the contrast portion of the examination. COMPARISON: None. FINDINGS: Normal bilateral temporal bones. Normal bilateral internal auditory canals. There is no demonstrated intracanalicular or cisternal vestibular schwannoma (acoustic neuroma). There is no enhancement of the bilateral VIIth or VIIIth cranial nerves. Normal bilateral cochlea, vestibules and semicircular canals. Normal size of the ventricles and extra-axial spaces for the patient''s age. Normal white matter tracts of the supratentorial brain. Normal bilateral basal ganglia. Normal thalami. Normal flow voids within the major intracranial circulation suggesting patency by spin echo criteria. Normal venous enhancement. There is no enhancing intra-axial or extra-axial abnormality. There is no extra-axial fluid accumulation. Normal sella turcica, pituitary gland, infundibular stalk, optic chiasm and hypothalamus. Normal tectal plate and pineal gland. Normal midbrain, bandar and medulla. Normal cerebellum. Normal basal cisterns. No demonstrated orbital abnormality, within the constraints of a routine brain study. Normal visualized paranasal sinuses. Normal calvarium and skull base. Normal visualized soft tissue structures. Normal visualized upper cervical spine. MRI/Brain W/WO Contrast IMPRESSION: Normal unenhanced and enhanced MRI of the bilateral internal auditory canals (I.A.C''s). Electronically Signed: Mark Chavez MD at 18:47 EDT ,
== END | disposition home or self-care (01) ==
PROVIDERS: PCP Nurse Practitioner Primary Care; Referring Provider Otolaryngology; Visit Provider Otolaryngology
DX: R42 Dizziness and giddiness (principal)
CPT/HCPCS: 70553; A9575

== ENCOUNTER → 2024-10-24 | Outpatient (CLI) | payer OTHER, SELFPAY ==
[2024-10-24 10:58] LABS: Absolute Neutrophil Count 3.3 X10^3/uL (2.0-7.7); Basophil# 0.02 X10^3/uL; Basophil% 0.3 % (0-1); Eosinophil# 0.15 X10^3/uL; Eosinophils% 2.5 % (0-5); Hematocrit 42.8 % (37-47); Hemoglobin 14.1 g/dL (12.0-15.0); Lymphocyte % 36.1 % (19-41); Mean Corp Hgb Conc 32.9 g/dL (32-36); Mean Corpuscular Hgb 29.6 pg (27.0-32.0); Mean Corpuscular Volume 89.7 fL (81-99); Mean Platelet Vol. 10.4 fl (6.2-12.0); Monocyte# 0.44 X10^3/uL; Monocyte% 7.2 % (0-10); NRBC Flagged by Analyzer 0 % (0-5); Neutrophil # 3.26 X10^3/uL (2.7-7.7); Neutrophil % 53.6 % (47-70); Platelet Count 204 K/mm3 (150-450); RBC Distribution Width CV 13.2 % (11.6-14.6); RBC Distribution Width SD 43.3 fl (35.1-43.9); Red Blood Count 4.77 M/mm3 (4.2-5.4); White Blood Count 6.1 K/mm3 (4.4-11.0)
[2024-10-24 11:46] LABS: AST(SGOT) 15 U/L (15-37); Alanine Aminotransfer ALT/SGPT 30 U/L (13-56); Albumin, Serum 3.6 g/dL (3.2-5.0); Alkaline Phosphatase 58 U/L (45-117); Anion Gap 2 (5-15); BUN 22 mg/dL (7-18); BUN/Creat Ratio 27.7 RATIO (10-20); Chloride 103 mmol/L (98-107); Creatinine, Serum 0.79 mg/dL (0.55-1.02); EST Glomerular Filtration Rate 81 mL/min (>60); Est Glom Filt Rate - Afr Amer 98 mL/min (>60); Globulin 3.6 g/dL (2.2-4.2); Glucose 74 mg/dL (74-106); Potassium 3.6 mmol/L (3.5-5.1); Protein, Total 7.2 g/dL (6.4-8.2); Sodium Level 138 mmol/L (136-145)
== END | disposition home or self-care (01) ==
LOC: LAB 10:07
PROVIDERS: PCP Nurse Practitioner Primary Care; Referring Provider Nurse Practitioner Primary Care; Visit Provider Nurse Practitioner Primary Care
DX: R53.83 Other fatigue (principal); R68.89 Other general symptoms and signs
CPT/HCPCS: 36415; 80053; 84443; 85025

== ENCOUNTER 2025-01-03 08:42 | Emergency (ER) | payer OTHER, SELFPAY ==
[2025-01-03 08:43] VITALS: BP 136/96; PULSE 107; RESP 18; TEMP 36.4; O2SAT 100; BMI 22.3
--- NOTE | 2025-01-03 09:10 | ED.VIS.GI ---
HPI HPI - GI History of Present Illness Chief Complaint: Abd Pain Detail of Chief Complaint: Abdominal pain and diarrhea Informant: patient Narrative Narrative: Patient presents with abdominal pain and diarrhea that started 4 days ago. Patient states that she ate some chicken nuggets 4 days ago and about 3 hours later started having diarrhea and abdominal cramping. Patient states that she has not taken Imodium so the diarrhea has slowed down. She denies any blood in her stool. She has had some nausea but no vomiting. She thought she was getting better yesterday but last evening started having more pain and cramping and continues with the diarrhea. She denies recent antibiotic usage. Patient has had prior hysterectomy and prior cholecystectomy [facility] Medical History (Updated 01/03/25 @ 10:[address] Diane Roy, DO) Open comminuted fracture of distal phalanx of finger Cellulitis of right little finger Wears glasses Post-menopausal Depression History of steroid therapy Arthritis Injury of head and neck History of IBS Gastric reflux Non-smoker Asthma Anxiety Spinal stenosis Hypertension (~2010) Home Medications ?Medication ?Instructions ?Recorded ?Last Taken ?Type calcium 600 mg (as 1 tab PO DAILY 11/04/22 12/05/23 06:30 History carbonate)-vitamin D3 5 mcg (200 unit) tablet cholecalciferol (vitamin D3) 25 25 mcg PO DAILY 11/04/22 12/05/23 06:30 History mcg (1,000 unit) tablet (Vitamin D3) gabapentin 100 mg capsule 100 mg PO BID 11/04/22 12/06/23 07:00 History lisinopril 10 1 tab PO DAILY 11/04/22 12/05/23 06:30 History mg-hydrochlorothiazide 12.5 mg tablet meloxicam 7.5 mg tablet 7.5 mg PO DAILY 11/04/22 12/05/23 06:30 History multivitamin 1 tab PO DAILY 11/04/22 12/05/23 06:30 History norethindrone acetate 5 mg tablet 5 mg PO DAILY 11/04/22 12/05/23 06:30 History omega-3 fatty acids 1,000 mg PO DAILY 11/04/22 12/04/23 06:00 History magnesium 200 mg tablet 200 mg PO DAILY 12/04/23 12/05/23 06:30 History tramadol 50 mg tablet 50 mg PO Q6H PRN pain 2 days #6 12/06/23 Unknown Rx tabs venlafaxine 75 mg capsule,extended 75 mg PO DAILY 04/12/24 Unknown History release 24 hr (Effexor XR) doxycycline monohydrate 100 mg 100 mg PO BID #20 caps 05/06/24 Unknown Rx capsule dicyclomine 10 mg capsule 20 mg (2 x 10 mg) PO TIDAC #20 01/03/25 Unknown Rx CAPSULES ondansetron 4 mg disintegrating 4 mg PO Q8H PRN PRN Nausea #10 tabs 01/03/25 Unknown Rx tablet Allergy/AdvReac Type Severity Reaction Status Date / Time morphine Allergy Hives Verified 01/03/25 08:43 niacin Allergy Hives Verified 01/03/25 08:43 Sulfa (Sulfonamide Allergy Angioedema Verified 01/03/25 08:43 Antibiotics) hydromorphone (From Dilaudid) AdvReac Itching Verified 01/03/25 08:43 Penicillins AdvReac Other Verified 01/03/25 08:43 Surgical History History of knee replacement (~03/2023) History of esophagogastroduodenoscopy (EGD) Hx of cervical discectomy H/O: hysterectomy Social History household members: children current occupational status: employed Smoking Status: Never smoker substance use type: does not use ROS ROS ED Review of Systems ROS Unobtainable: other Constitutional Constitutional ED: Reports lethargy; Denies chills, fever(s), sweats or weight loss Eyes Eyes: Denies blurry vision, change in vision or diplopia ENT ENT ED: Denies rhinorrhea or sore throat Cardiovascular Cardiovascular: Denies chest pain, orthopnea or racing heartbeat Respiratory/Chest Respiratory/Chest: Denies cough, dyspnea, dyspnea on exertion, orthopnea or sputum Gastrointestinal Gastrointestinal: Reports abdominal pain and diarrhea; Denies nausea or vomiting Genitourinary Genitourinary ED: Denies dysuria, hematuria or urinary frequency Musculoskeletal Musculoskeletal: Denies arthralgias, back pain, myalgias or neck pain Integumentary Denies abscess, Abrasions or rash Neurologic Neurologic: Denies headache(s) or weakness Psychiatric Psychiatric: Denies anxiety, depression or suicidal thoughts Endocrine Endocrinology: Denies polydipsia, polyphagia or polyuria Hematologic/Lymphatic Hematologic/Lymphatic: Denies easy bleeding, easy bruising or lymphadenopathy Allergic/Immunologic Allergic/Immunologic ED: Denies mouth swelling, tongue swelling or urticaria EXAM Physical Exam Const Vital Signs: 01/03/25 08:43 01/03/25 10:42 01/03/25 11:11 Temperature 97.6 F L 97.6 F L Temperature Source Temporal Pulse Rate 107 H 60 Respiratory Rate 18 18 Blood Pressure 136/96 H 136/96 H 118/81 H Blood Pressure Mean 109 109 93 Pulse Ox 100 100 100 Oxygen Delivery Method Room Air Room Air Positive well nourished and well developed General Appearance ED: well developed and NAD HEENT Reports TM's clear and moist mucous membranes normocephalic and atraumatic; Negative for trauma or tenderness Tympanic Membrane ED: Yes TM's clear Eyes PERRL and EOMs intact bilaterally General Eye ED: Negative for pale conjunctiva or scleral icterus Neck no lymphadenopathy, supple and no JVD General: Negative for tenderness Chest Wall inspection of chest normal and palpation of chest normal Chest: Negative for tenderness Resp normal respiratory effort and clear to auscultation bilaterally Effort and Inspection: Negative for respiratory distress or pain with movement Auscultation: Negative for rhonchi, wheezes or diminished lung sounds Cardio regular rate, regular rhythm, S1 normal heart sound, S2 normal heart sound and no murmurs Peripheral Pulses: pulses 2+ throughout GI normal to inspection, nondistended, normoactive bowel sounds, soft to palpation, non-distended and no masses GI Narrative: Mild diffuse tenderness over the epigastric region with some guarding. There is no rebound, rigidity, or peritoneal signs. No mass palpated. No tenderness in the right lower quadrant Back/Spine no CVA tenderness and no thoracic nor lumbar tenderness Extremity normal to inspection General Extremety ED: Negative for edema General Extremity: Negative for edema Neuro oriented x3, CN's II-XII intact bilaterally, no sensory deficits noted and gait normal Sensorium / Orientation: awake, alert, oriented to person, oriented to place and oriented to time Motor Exam: strength 5/5 throughout and strength abnormal Psych mental status grossly normal Skin no rashes or lesions noted and no wounds MDM MDM MDM Narrative Medical decision making narrative: Patient presents the emergency department with abdominal pain as well as diarrhea. She has had nausea. Clinically looks well. Suspect possible viral gastroenteritis versus possible food poisoning. She had an IV established was given a liter [place] fluid bolus. CBC with differential white count 9.7 with hemoglobin 15.5 and platelet count of 228. Chemistries unremarkable. LFTs were normal. Lipase normal. Stool was sent for enteric pathogens as well as ova and parasites. Results will be pending. I feel patient can be discharged to home. During her stay she received Zofran and Bentyl. Patient will be discharged home with prescription for Zofran and Bentyl. Advised to continue with Imodium as needed. Advised to follow-up with her primary care physician within next 3 to 5 days Lab Data Attestation: I reviewed the patient's lab results. Labs: Laboratory Results - last 24 hr 01/03/25 09:21 WBC 9.7 RBC 5.15 Hgb 15.5 H Hct 45.3 MCV 88.0 MCH 30.1 MCHC 34.2 RDW Std Deviation 41.6 RDW Coeff of Keke 12.9 Plt Count 228 MPV 9.8 Immature Gran % (Auto) 0.300 Neut % (Auto) 74.5 H Lymph % (Auto) 16.0 L [place] % (Auto) 6.1 Eos % (Auto) 2.9 Baso % (Auto) 0.2 Absolute Neuts (auto) 7.2 Absolute Lymphs (auto) 1.55 Nucleated RBC % 0 Sodium 138 Potassium 3.6 Chloride 102 Carbon Dioxide 24.7 Anion Gap 11 BUN 12 Creatinine 0.76 Estim Creat Clear Calc 70.04 Est GFR (MDRD) Non-Af 96 BUN/Creatinine Ratio 15.7 Glucose 99 Calcium 9.0 Total Bilirubin 0.60 AST 21 ALT 36 H Alkaline Phosphatase 45 Total Protein 7.0 Albumin 4.2 Globulin 2.8 Albumin/Globulin Ratio 1.5 Lipase 26 Discharge Plan Triage Chief Complaint: Abd Pain Other Complaint: Nausea/Vomiting/Diarrhea ED Provider: Diane Roy Dx/Rx/DC Orders Clinical Impression: Abdominal pain, Gastroenteritis Instructions: ED Diarrhea, Unknown Cause Prescriptions: New ondansetron 4 mg tablet,disintegrating 4 mg PO Q8H PRN PRN (Reason: Nausea) Qty: 10 0RF dicyclomine 10 mg capsule 20 mg PO TIDAC Qty: 20 0RF No Action magnesium 200 mg tablet 200 mg PO DAILY doxycycline monohydrate 100 mg capsule 100 mg PO BID Qty: 20 0RF meloxicam 7.5 mg Tablet 7.5 mg PO DAILY norethindrone acetate 5 mg tablet 5 mg PO DAILY Patient Comments: TAKE 1 TABLET BY MOUTHnONCE DAILY gabapentin 100 mg capsule 100 mg PO BID Patient Comments: TAKE 1 CAPSULE BY MOUTHNIN THE MORNING AND 1 CAPSULE AT BEDTIME lisinopril-hydrochlorothiazide 10-12.5 mg tablet 1 tab PO DAILY Patient Comments: Take 1 tablet by mouthEonce daily.OM multivitamin Tablet 1 tab PO DAILY calcium carbonate-vitamin D3 600 mg-5 mcg (200 unit) Tablet 1 tab PO DAILY omega-3 fatty acids Capsule 1,000 mg PO DAILY cholecalciferol (vitamin D3) [Vitamin D3] 25 mcg (1,000 unit) Tablet 25 mcg PO DAILY venlafaxine [Effexor XR] 75 mg capsule,extended release 24hr 75 mg PO DAILY tramadol 50 mg tablet 50 mg PO Q6H PRN (Reason: pain) 2 Days Qty: 6 0RF Primary Care Provider: Asha Flores NP Referrals: Asha Flores NP, [facility] [Primary Care Provider] - 3-5 Days Print Language: Tajik Disposition Disposition: Home, Self Care Discharge Date/Time: 01/03/25 11:19
[2025-01-03] MEDS: 0.9% Normal Saline (1000mL) 1,000 ML 999 ML IV (09:20)
[2025-01-03 09:28] LABS: Absolute Lymphocyte Count 1.55 X10^3/uL (0.83-4.51); Absolute Neutrophil Count 7.2 X10^3/uL (2.0-7.7); Basophil# 0.02 X10^3/uL; Basophil% 0.2 % (0-1); Eosinophil# 0.28 X10^3/uL; Eosinophils% 2.9 % (0-5); Hematocrit 45.3 % (37-47); Hemoglobin 15.5 g/dL (12.0-15.0); Lymphocyte # 1.55 X10^3/ul (0.83-4.51); Mean Corp Hgb Conc 34.2 g/dL (32-36); Mean Corpuscular Hgb 30.1 pg (27.0-32.0); Mean Platelet Vol. 9.8 fl (6.2-12.0); Monocyte# 0.59 X10^3/uL; Monocyte% 6.1 % (0-10); NRBC Flagged by Analyzer 0 % (0-5); Neutrophil # 7.22 X10^3/uL (2.7-7.7); Neutrophil % 74.5 % (47-70); Platelet Count 228 K/mm3 (150-450); RBC Distribution Width CV 12.9 % (11.6-14.6); RBC Distribution Width SD 41.6 fl (35.1-43.9); Red Blood Count 5.15 M/mm3 (4.2-5.4); White Blood Count 9.7 K/mm3 (4.4-11.0)
[2025-01-03] MEDS: Ondansetron 4 MG/2 ML Vial IV (09:49)
[2025-01-03] MEDS: Dicyclomine 20 MG/2 ML Vial IM (09:50)
[2025-01-03 10:00] LABS: ALB/GLOB Ratio 1.5 RATIO (0.9-2.4); AST(SGOT) 21 U/L (<=31); Alanine Aminotransfer ALT/SGPT 36 U/L (<=34); Albumin, Serum 4.2 g/dL (3.5-5.0); Alkaline Phosphatase 45 U/L (35-104); Anion Gap 11 (5-15); BUN 12 mg/dL (4-19); BUN/Creat Ratio 15.7 RATIO (10-20); Carbon Dioxide 24.7 mmol/L (21.0-32.0); Chloride 102 mmol/L (98-108); Creatinine, Serum 0.76 mg/dL (0.70-1.20); EST Glomerular Filtration Rate 96 (>60); Estimated Creatinine Clearance 70.04 ml/min (50-250); Globulin 2.8 g/dL (2.2-4.2); Glucose 99 mg/dL (70-99); Lipase 26 U/L (13-75); Potassium 3.6 mmol/L (3.3-5.1); Sodium Level 138 mmol/L (133-145)
[2025-01-03 10:42] VITALS: BP 136/96; O2SAT 100
[2025-01-03 11:11] VITALS: BP 118/81; PULSE 60; RESP 18; TEMP 36.4; O2SAT 100
== END 2025-01-03 11:19 | disposition home or self-care (01) ==
PROVIDERS: Emergency Provider Emergency Medicine; PCP Nurse Practitioner Primary Care; Visit Provider Emergency Medicine
DX: K52.9 Noninfective gastroenteritis and colitis, unspecified (principal); I10 Essential (primary) hypertension; Z79.899 Other long term (current) drug therapy
CPT/HCPCS: 80053; 83690; 85025; 87506; 96361; 96372; 96374; 99283; A4216; J2405

== ENCOUNTER → 2025-03-19 | Outpatient (CLI) | payer OTHER, SELFPAY ==
--- NOTE | 2025-03-19 12:40 | NEURO ---
NCS and/or EMG Patient Report Ordering Doctor: Blake Fletcher DATE OF SERVICE: 03/19/25 Eleni presents with complaints of burning bilaterally in both feet. Electrodiagnostic findings: Left peroneal motor nerve demonstrates normal distal latency, amplitude and conduction velocity. Right peroneal motor response is within normal limits. Tibial motor response normal bilaterally. Normal tibial and peroneal F?waves. Normal H?reflex bilaterally. Prolonged sural latency is noted bilaterally. Prolonged left superficial peroneal and right superficial peroneal latency. Normal medial plantar response bilaterally. Needle EMG testing was performed the lower limbs. All muscles tested showed no evidence of denervation with normal motor unit action potentials. Electrodiagnostic impression: This is an abnormal study in the lower limbs 1. 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 2. No electrodiagnostic evidence of tarsal tunnel syndrome. 3. No electrodiagnostic evidence for lumbar radiculopathy. Multi Select Codes Neurology Neurology Interp Codes: 46078-06 Musc test done w/n test comp (interp) (2) and 19323-59 Nrv cndj test 11-12 studies (interp)
== END | disposition home or self-care (01) ==
PROVIDERS: PCP Nurse Practitioner Primary Care; Referring Provider Podiatrist; Visit Provider Podiatrist
DX: R20.2 Paresthesia of skin (principal)
CPT/HCPCS: 95886; 95912

== ENCOUNTER → 2025-04-23 | Outpatient (CLI) | payer OTHER, SELFPAY ==
--- NOTE | 2025-04-23 10:13 | RAD_ITS ---
EXAM: XR Lumbosacral Spine, 2 or 3 Views CLINICAL INDICATION: RADICULOPATHY TECHNIQUE: Frontal and lateral views of the lumbar spine and sacrum. COMPARISON: No relevant prior studies available. FINDINGS: VERTEBRAE: Mild S-shaped scoliosis of the thoracolumbar spine. Moderate facet arthropathy of L3-S1. Mild endplate degenerative changes of L1-S1. No acute fracture. Normal alignment. SACRUM/COCCYX: Unremarkable as visualized. No acute fracture. DISC SPACES: No acute findings. No significant narrowing. SOFT TISSUES: Unremarkable. RAD/Lumbar Spine 2 or 3 Views IMPRESSION: Degenerative changes as above. Reading Location: [facility]
== END | disposition home or self-care (01) ==
LOC: RAD 10:11
PROVIDERS: PCP Nurse Practitioner Primary Care; Referring Provider Anesthesiology Pain Medicine; Visit Provider Anesthesiology Pain Medicine
DX: M54.12 Radiculopathy, cervical region (principal)
CPT/HCPCS: 72100

== ENCOUNTER → 2025-07-23 | Outpatient (CLI) | payer OTHER, SELFPAY | END | disposition home or self-care (01) | LOC: OPBI 10:24 | PROVIDERS: PCP Nurse Practitioner Primary Care; Referring Provider Obstetrics & Gynecology; Visit Provider Obstetrics & Gynecology | DX: Z12.31 Encounter for screening mammogram for malignant neoplasm of breast (principal) | CPT/HCPCS: 77063; 77067 ==

== ENCOUNTER → 2025-09-22 | Outpatient (CLI) | payer OTHER, SELFPAY ==
[2025-09-22 11:37] LABS: AST(SGOT) 30 U/L (<=31); Alanine Aminotransfer ALT/SGPT 49 U/L (<=34); Albumin, Serum 4.5 g/dL (3.5-5.0); Alkaline Phosphatase 67 U/L (35-104); Anion Gap 10 (5-15); BUN 14 mg/dL (4-19); BUN/Creat Ratio 15.7 RATIO (10-20); Calcium,Total 9.6 mg/dL (7.6-11.0); Carbon Dioxide 29.4 mmol/L (21.0-32.0); Chloride 101 mmol/L (98-108); Globulin 2.6 g/dL (2.2-4.2); Glucose 93 mg/dL (70-99); Potassium 3.9 mmol/L (3.3-5.1); Vitamin B12 753 pg/mL (180-914)
[2025-09-24 12:08] LABS: ANTINUCLEAR ANTIBODIES DIRECT Negative (Negative); Vitamin D 1,25-Dihydroxy 28.7 pg/mL (24.8-81.5)
[2025-09-26 03:07] LABS: Folate, Hemolysate Test 467.0 ng/mL (Not Estab.); Folate, RBC (Hct) Test 45.8 % (34.0-46.6); Folates, RBC Test 1020 ng/mL (>498); VITAMIN B6 64.7 ug/L (3.4-65.2); Vitamin B1, Thiamine 149.0 nmol/L (66.5-200.0)
== END | disposition home or self-care (01) ==
LOC: LAB 09:45
PROVIDERS: PCP Nurse Practitioner Primary Care; Referring Provider Psychiatry & Neurology Neurology; Visit Provider Psychiatry & Neurology Neurology
DX: G62.9 Polyneuropathy, unspecified (principal)
CPT/HCPCS: 36415; 80053; 82607; 82652; 82747; 83883; 84207; 84425; 84443; 85014; 85652; 86038; 86225; 86235